=== PATIENT | female | born 1940 | race Caucasian/White ===

== ENCOUNTER → 2016-06-26 | Day surgery (SDC) | payer BC ==
[2016-06-25 13:41] VITALS: Ht 152.4 cm; Wt 63.6 kg
[~2016-06-26] VITALS: Ht 152.4 cm; Wt 63.6 kg
[~2016-06-26] MED LIST: 500ML BSS 0.3ML EPI 1:1000PF IRRIG ONE; ACETAMINOPHEN 325 MG TAB PO PRN; AMVISC PLUS 0.8ML SYRINGE INT OCU ONE; ATROPINE SULFATE 0.1 MG/ML 5ML SYR IV PRN; BSS FLUSH ONE; CALC600T9 PO; EpHEDrine SULFATE INJ 50 MG/ML AMP IV PRN; EpINEphrine INJ 1MG/ML AMP 1 MG/ML AMP ONE; LACTATED RINGER'S 1000ML 500 ML IV SCH; LIDOCAINE 3.5% OPH GEL PER APPLICATION CHARGE ONE; LIDOCAINE HCL 1% MPF 2 ML VIAL ONE; LUTE20CA PO; MIDAZOLAM HCL 1 MG/ML 2ML VIAL ONE; MULT-190 PO; OCUCOAT 1 ML SOLN IO ONE; POVIDONE-IODINE OP SOLN 30 ML BTL ONE; PROPARACAINE 0.5% OP SOLN PER DROP CHARGE OPL SCH; SIMV20TA5 PO; TOBRAMYCIN/DEXAMETHASONE OPH OINT PER APPLN CHARGE ONE
--- NOTE | 2016-06-26 12:15 | History & Physical Bridge - [place] ---
H&P Re-Evaluation Bridge Note: I have examined the patient, reviewed the History & Physical and in the interval since the performance of the History & Physical I have noted the following changes of clinical significance: No changes noted
[2016-06-26] MEDS: PHENYLEPHRINE HCL 2.5% OP SOLN PER DROP CHARGE OPL SCH ×2 (12:16→12:21)
[2016-06-26] MEDS: TROPICAMIDE 1% OP SOLN PER DROP CHARGE OPL SCH ×2 (12:17→12:22)
[2016-06-26] MEDS: CYCLOPENTOLATE HCL 1% OP SOLN PER DROP CHARGE OPL SCH ×2 (12:18→12:23)
[2016-06-26] MEDS: KETOROLAC 0.5% OP SOLN PER DROP CHARGE OPL SCH ×2 (12:19→12:24)
[2016-06-26] MEDS: GATIFLOXACIN OP SOLN PER DROP CHARGE OPL SCH ×2 (12:20→12:30)
--- NOTE | 2016-06-26 13:03 | Discharge Instructions-SurgCtr ---
Discharge Instructions Date of Service Jun 26, 2016. Visit Reason for Visit: Cataract Left Eye Discharge Discharge Diagnosis / Problem: cataract Discharge Goals Goal(s): Improve function Activity Recommendations Activity Limitations: per Instructions/Follow-up section Anesthesia . Post Anesthesia Instructions: If you have had General Anesthesia or IV Sedation: * Do not drive today. * Resume driving when surgeon permits. * Do not make important decisions or sign legal documents today. * Call surgeon for: 1. Temperature elevations greater than 101 degrees F. 2. Uncontrollable pain. 3. Excessive bleeding. 4. Persistent nausea and vomiting. 5. Medication intolerance (nausea, vomiting or rash). * For nausea and vomiting use only clear liquids such as: tea, soda, bouillon until nausea subsides, then gradually increase diet as tolerated. * If you have any concerns or questions, call your surgeon's office. If physician is unavailable and it is an emergency, call 911 or go to the nearest emergency room. . Instructions / Follow-Up Instructions / Follow-Up ACTIVITY RECOMMENDATIONS: * No strenuous lifting, jogging or running for 4 days * No swimming or yard work for 1 week. * Limited bending is permitted, such as putting on shoes. RETURN TO SCHOOL/WORK: No work until seen by physician in office. MEDICATIONS: Resume previous medications unless instructed otherwise by your surgeon. This includes eye drops for glaucoma. Zymaxid/Gatifloxacin (lau cap) - one drop every 2 hours until bedtime Nevanac/Ilevro/Prolensa/Ketorolac (mckinley cap) - one drop every 4 hours until bedtime Prednisolone (white/pink cap, SHAKE WELL) - one drop every 2 hours until bedtime Starting tomorrow - all 3 drops every 4 hours until seen in the office Optive drops - as needed for discomfort SPECIAL CARE INSTRUCTIONS: * Wear eyeshield when sleeping, for four nights. * You may wear your own glasses or sunglasses while awake. * You may read or watch TV * You may shower and wash your face, but be gentle around the eye and pat dry. * Blurry vision and mild irritation are normal. * Call office if pain is more severe or vision becomes dark at . FOLLOW UP VISIT: Follow-up with Dr Wilson tomorrow. Diet Recommendations Home Diet: resume previous diet Procedures Procedures Performed: Left Cataract Phacoemulsification With Intraocular Lens Implant Pending Studies Studies pending at discharge: no Medical Emergencies . Who to Call and When: Medical Emergencies: If at any time you feel your situation is an emergency, please call 911 immediately. . Non-Emergent Contact Non-Emergency issues call your: Postal Transportation Clerk . . "Provider Documentation" section prepared by Jame Wilson.
--- NOTE | 2016-06-26 13:04 | [facility] Operative Report ---
Operative Report Date of Service Jun 26, 2016. Operative Report 1. PREOPERATIVE DIAGNOSIS: Cataract of the left eye. 2. POSTOPERATIVE DIAGNOSIS: Same. 3. PROCEDURE: Phacoemulsification with intraocular lens implantation of the left eye. SURGEON: Dr. Jame Wilson. ANESTHESIA: Topical Lidocaine gel, 1% Non- Preserved intracameral Lidocaine, and monitored intravenous sedation. INDICATIONS FOR THE PROCEDURE: The patient is a 75 - year-old female with a history of cataract of the left eye causing significant visual impairment. The details of the proposed procedure were explained to the patient who asked appropriate questions and following discussion of all risks, benefits and alternatives agreed to have the procedure done. 4. OPERATION AND FINDINGS: DESCRIPTION OF PROCEDURE: After informed consent was obtained, the patient was brought to the Operating Room at the [facility]. The patient was placed in a supine position and then the left eye was prepped and draped in the usual sterile fashion for intraocular surgery. A drop of topical Lidocaine gel was placed in the operative eye. A wire lid speculum was then placed in the fornices. A corneal paracentesis was then created temporally. The Non-Preserved Lidocaine was then instilled into the anterior chamber. The anterior chamber was then pressurized with viscoelastic. A 2.0 mm clear corneal incision was then created temporally. A cystotome was inserted into the anterior chamber and used to create a tear in the anterior lens capsule. This capsular tear was then used to create a small flap and the flap was dragged in a counterclockwise direction in order to create a continuous curvilinear capsulorrhexis. Hydrodissection was accomplished with balanced salt solution. Phacoemulsification of the lens nucleus was then performed in a standard [id number] technique. The remaining cortical material was removed using irrigation aspiration. The capsular bag was then filled with viscoelastic. A Bausch [employer] Lomb MI60L +21.0 diopters lens was then loaded into the injector and injected into the capsular bag. The remaining viscoelastic was removed with the irrigation aspiration handpiece. The wound was hydrated and then checked and found to be watertight. The intraocular pressure was checked and found to be adequate. The wire lid speculum was removed and the patient's face was cleaned and dried. TobraDex ointment was placed in the inferior fornix. The patient was discharged to the Recovery Room having tolerated the procedure well. There were no complications. The patient will be seen tomorrow in the office for follow-up. I attest to the content of the Intraoperative Record and any orders documented therein. Any exceptions are noted below.
[2016-06-26 13:13] VITALS: TEMP 36.4
[2016-06-26 13:27] VITALS: BP_SYST 112; PULSE 75; O2SAT 95
--- NOTE | 2016-06-26 13:37 | Anesthesia Progress Nt - [facility] ---
Anesthesia Post Op Note Date & Time Jun 26, 2016 at 13:38 Vital Signs Pain Intensity: 0 Vital Signs Past 12 Hours Date Time Temp Pulse Resp B/P Pulse Ox O2 Delivery O2 Flow Rate FiO2 06/26/16 13:27 75 112/ 95 Room Air 06/26/16 13:13 36.4 63 20 105/70 95 Room Air 06/26/16 12:11 36.5 79 16 115/75 94 Room Air Notes Mental Status: alert / awake / arousable, participated in evaluation Pt Amnestic to Procedure: Yes Nausea / Vomiting: adequately controlled Pain: adequately controlled Airway Patency, RR, SpO2: stable & adequate BP & HR: stable & adequate Hydration State: stable & adequate Anesthetic Complications: no major complications apparent
== END | disposition home or self-care (01) ==
LOC: X.SURG 11:47
PROVIDERS: ATTEND Ophthalmology
DX: H26.9 Unspecified cataract (principal); E78.5 Hyperlipidemia, unspecified; E66.9 Obesity, unspecified; Z98.41 Cataract extraction status, right eye; Z90.89 Acquired absence of other organs; Z98.51 Tubal ligation status; Z68.27 Body mass index [BMI] 27.0-27.9, adult; M19.90 Unspecified osteoarthritis, unspecified site; Z01.818 Encounter for other preprocedural examination; Z82.49 Family history of ischemic heart disease and other diseases of the circulatory system

== ENCOUNTER → 2017-06-27 | Outpatient (CLI) | payer OTHER ==
[~2017-06-27] MED LIST changes: -500ML BSS 0.3ML EPI 1:1000PF IRRIG ONE; -ACETAMINOPHEN 325 MG TAB PO PRN; -AMVISC PLUS 0.8ML SYRINGE INT OCU ONE; -ATROPINE SULFATE 0.1 MG/ML 5ML SYR IV PRN; -BSS FLUSH ONE; -EpHEDrine SULFATE INJ 50 MG/ML AMP IV PRN; -EpINEphrine INJ 1MG/ML AMP 1 MG/ML AMP ONE; -LACTATED RINGER'S 1000ML 500 ML IV SCH; -LIDOCAINE 3.5% OPH GEL PER APPLICATION CHARGE ONE; -LIDOCAINE HCL 1% MPF 2 ML VIAL ONE; -MIDAZOLAM HCL 1 MG/ML 2ML VIAL ONE; -OCUCOAT 1 ML SOLN IO ONE; -POVIDONE-IODINE OP SOLN 30 ML BTL ONE; -PROPARACAINE 0.5% OP SOLN PER DROP CHARGE OPL SCH; -TOBRAMYCIN/DEXAMETHASONE OPH OINT PER APPLN CHARGE ONE
--- NOTE | 2017-06-27 15:09 | MAMMOGRAPHY REPORT ---
BILATERAL DIGITAL SCREENING MAMMOGRAM TOMOSYNTHESIS WITH CAD: 06/27/2017 TECHNIQUE: Breast tomosynthesis in addition to standard 2D mammography was performed. Current study was also evaluated with a Computer Aided Detection (CAD) system. COMPARISON: Comparison is made to exams dated: 07/19/2015 mammogram, 07/15/2014 mammogram, 05/28/2013 ma mmogram, 04/22/2012 mammogram, 08/09/2010 mammogram, and 07/01/2009 mammogram - [facility]. BREAST COMPOSITION: The tissue of both breasts is almost entirely fatty. FINDINGS: No suspicious masses, calcifications, or areas of architectural distortion are noted in ei ther breast. There has been no significant interval change compared to prior exams. Scattered bilater al benign-appearing calcifications are not significantly changed. Asymmetry in the left upper outer quadrant is stable compared to multiple prior exams. IMPRESSION: ACR BI-RADS CATEGORY 2: BENIGN There is no mammographic evidence of malignancy. A 1 year screening mammogram is recommended. The pa tient will receive written notification of the results. Approximately 10% of breast cancers are not detected with mammography. A negative mammographic report should not delay biopsy if a clinically suggestive mass is present. Maggi Henderson M.D. /:06/27/2017 12:36:10 Contribution Solicitor: Shantell GRACE)(Case), [facility] letter sent: Normal 1/2 BI-RADS Code: ACR BI-RADS Category 2: Benign
== END | disposition home or self-care (01) ==
LOC: C.MAMM 08:41
PROVIDERS: ATTEND Obstetrics & Gynecology
DX: Z12.31 Encounter for screening mammogram for malignant neoplasm of breast (principal)

== ENCOUNTER 2019-04-15 15:21 | Inpatient (IN) ==
[~2019-04-15 15:21] MED LIST changes: -CALC600T9 PO; +ETOMIDATE 2 MG/ML 20 ML VIAL IV ONE; -LUTE20CA PO; -MULT-190 PO; +ROCURONIUM BROMIDE 10 MG/ML 10 ML VIAL IV ONE; -SIMV20TA5 PO; +fentaNYL citrate 100 MCG/2 ML VIAL IV ONE
[2019-04-15] MEDS ORDERED: MoRPHine SULFATE 4 MG/ML 1 ML CARP\\VIAL IV STA (15:35)
[2019-04-15] MEDS ORDERED: ONDANSETRON INJ 2 MG/ML 2 ML VIAL IV STA (15:35)
[2019-04-15] MEDS ORDERED: SODIUM CHLORIDE 0.9% 500 ML IV SCH (15:45)
--- NOTE | 2019-04-15 16:13 | XRay Report ---
XR chest 1V portable CLINICAL HISTORY: Chest Pain dyspnea COMPARISON STUDY: No previous studies for comparison. FINDINGS: Mild cardiac enlargement. Parenchymal nodularity in the right perihilar and right midlung region. Left lung is grossly clear. Diaphragms are smooth. IMPRESSION: Parenchymal nodularity right lung. CT study of the chest is recommended as follow-up. ACT 112: Negative or not required by law. The above report was generated using voice recognition software. It may contain grammatical, syntax or spelling errors. Electronically signed by: Rodríguez Montenegro M.D. 04/15/2019 4:12 PM
[2019-04-15 16:16] LABS: Hematocrit (blood only) 41.3 % (37-47); Hemoglobin 13.7 g/dL (12.0-16.0); Mean Corpuscular Hemoglobin 28.7 pg (25-34); Mean Corpuscular Hgb Conc 33.2 g/dL (32-36); Mean Corpuscular Volume 86.4 fL (80-100); Mean Platelet Volume 10.5 fL (7.4-10.4); Platelet Count 181 K/uL (130-400); RDW Coefficient of Variation 13.5 % (11.5-14.5); RDW Standard Deviation 42.9 fL (36.4-46.3); Red Blood Count 4.78 M/uL (4.2-5.4); White Blood Count 13.57 K/uL (4.8-10.8)
[2019-04-15 16:23] LABS: iSTAT Creatinine 0.9 mg/dl (0.6-1.3); iSTAT Hemoglobin 13.9 g/dl (12.0-16.0); iSTAT Ionized Calcium 1.03 mmol/l (1.12-1.32); iSTAT Potassium 3.6 mEq/L (3.3-5.0)
[2019-04-15 16:31] LABS: INR 1.1 (0.9-1.1); Partial Thromboplastin Time 27.9 Seconds (21.0-31.0); Prothrombin Time 11.2 Seconds (9.0-12.0)
[2019-04-15 16:33] LABS: Alanine Aminotransferase 22 U/L (12-78); Albumin Level 3.2 gm/dl (3.4-5.0); Aspartate Aminotransferase 22 U/L (15-37); BUN Creatinine Ratio 12.9 (10-20); Blood Urea Nitrogen 14 mg/dl (7-18); Calcium 8.4 mg/dl (8.5-10.1); Carbon Dioxide 25 mmol/L (21-32); Chloride 104 mmol/L (98-107); Creatinine Clr Calc Pharmacy 38.7 ml/min; Est GFR (African American) 59.1; Glucose 122 mg/dl (70-99); Lipase 70 U/L (73-393); Potassium 3.8 mmol/L (3.5-5.1); Sodium 135 mmol/L (136-145)
[2019-04-15] MEDS ORDERED: OPTIRAY 320 125ml IV PRN (16:36)
[2019-04-15 16:38] LABS: Albumin Globulin Ratio 0.8 (0.9-2); Alkaline Phosphatase 48 U/L (45-117); Bilirubin,Total 0.9 mg/dl (0.2-1); Globulin 4.1 gm/dl (2.5-4.0); Total Protein 7.3 gm/dl (6.4-8.2); Troponin I < 0.015 ng/ml (0-0.045)
[2019-04-15 16:45] LABS: Basophils # (auto) 0.03 K/uL (0-0.2); Basophils % (auto) 0.2 %; Dohle Bodies 1+; Immature Granulocytes # (auto) 0.04 K/uL (0.00-0.02); Immature Granulocytes % (auto) 0.3 %; Lymphocytes # (auto) 0.96 K/uL (1.2-3.4); Lymphocytes % (auto) 7.1 %; Monocytes # (auto) 1.31 K/uL (0.11-0.59); Monocytes % (auto) 9.7 %; Neutrophils # (auto) 11.23 K/uL (1.4-6.5); Neutrophils % (auto) 82.7 %; Tear Drop Cells 1+
--- NOTE | 2019-04-15 17:04 | CT Scan Report ---
CT angio chest PE protocol CT DOSE: 320.22 mGy.cm HISTORY: Chest pain chest pain R sided front to back, sharp TECHNIQUE: Multiaxial CT images of the chest were performed following the intravenous administration of contrast to evaluate the pulmonary arteries. Maximal intensity projection images were also obtaine d. A dose lowering technique was utilized adhering to the principles of ALARA. COMPARISON STUDY: None. FINDINGS: The thoracic aorta is negative for aneurysm or dissection. No significant pericardial effus ion. Pulmonary vasculature enhances appropriately. There are no major filling defects within limitations o f marginal contrast enhancement characteristics. There are multiple parenchymal nodules primarily within the right upper lobe. These measure up to 2.5 cm. There are consolidative changes medial aspect of the right upper and right middle lobe regions. All of these findings potentially are inflammatory, an underlying neoplastic process is not excluded. IMPRESSION: 1. Study negative for pulmonary embolus. 2. Very small right pleural effusion. 3. Nodularity of the right middle and right upper lobe with consolidative infiltrative changes medial aspect of the right middle and to a lesser extent right upper lobe region. 4. Although it is possible that this represents an inflammatory process, a neoplastic process must be the diagnosis of exclusion. ACT 112: Negative or not required by law. The above report was generated using voice recognition software. It may contain grammatical, syntax or spelling errors. Electronically signed by: Rodríguez Montenegro M.D. 04/15/2019 5:03 PM
[2019-04-15] MEDS ORDERED: ALBUT/IPRATROP 3MG/0.5MG NEB 3 ML VIAL NEB STA (17:52)
--- NOTE | 2019-04-15 19:08 | Emergency Department Note ---
Entered by Radha Marie acting as a scribe for Sander Colón MD History of Present Illness General Chief complaint: Chest Pain Stated complaint: SEVERE CHEST PAIN Time Seen by Provider: 04/15/19 15:28 History of Present Illness Provider complaint: chest pain Onset (ago): day(s) 2 Location: chest Radiation: back Pain Consistency: + constant Maximum Pain Intensity: 5 Quality: + sharp Associated symptoms: + denies other symptoms (recent trauma), + cough (productive) and + other (diagnosed with influenza 5 days ago); no diaphoresis and no nausea/vomiting The patient is a 78 year old white female w/ PMHx of shingles, impaired fasting glucose and tubal ligation who presents to the ED w/ CC of constant chest pain beginning 2 hours ago. The patient describes the pain as sharp and radiating into her back. Per nursing staff, the patient was diagnosed with influenza 5 days ago. The patient states that she has a productive cough. The patient denies nausea, vomiting, diaphoresis, and recent trauma. Home Medications Home Medications Medication Instructions Recorded Confirmed Type simvastatin 20 mg tablet 20 mg PO QPM #90 tab 03/12/19 04/15/19 Rx benzonatate 200 mg PO Q8H PRN 04/15/19 04/15/19 History oseltamivir 75 mg PO Q12H 04/15/19 04/15/19 History vit C-vit F-rlsjte-fkkb-lutein 2 cap PO BID 04/15/19 04/15/19 History [PreserVision Lutein] Allergies Allergy/AdvReac Type Severity Reaction Status Date / Time latex Allergy Unknown RASH, SKIN Verified 04/15/19 16:12 IRRITATION No Known Drug Allergies Allergy Unknown . Verified 06/25/16 13:40 Past Med/Surg History Medical History (Updated 04/15/19 @ 17:28 by Radha Marie) Impaired fasting glucose Shingles Surgical History (Updated 03/11/19 @ 19:04 by Terrence Cook III, MD) S/P tubal ligation Status post tonsillectomy Family History (Updated 03/12/19 @ 14:18 by Melina Farfan) Father Myocardial infarction Aunt Myocardial infarction Social History (Updated 03/12/19 @ 14:17 by Melina Farfan) Preferred Language: Korean Visual Impairment: Partially Limited Hearing Ability: Normal marital status: Current Living Situation: Spouse current occupational status: retired Feels Safe at Home: Yes Smoking Status: Never smoker Second Hand Exposure: No ; Hx Alcohol Use: Yes Alcohol type: wine Alcohol Intake Frequency: Daily Alcohol Intake Frequency Comment: one drink per day Hx Substance Use: No Childhood Exposure to Second-Hand Smoke: Yes Dental Care, Regularly: Yes Physical Activity Frequency: 5-6 Times per Week Review of Systems See HPI for pertinent positives & negatives. and A total of 10 systems reviewed and were otherwise negative Physical Exam Vital Signs Vital Signs - 24 hr 04/15/19 15:29 04/15/19 15:32 04/15/19 15:36 Temperature 36.9 C Temperature Source Oral Pulse Rate 22 L 99 H 98 H Pulse Rate [Left Finger] Pulse Rate from SpO2 Sensor Respiratory Rate 22 22 Respiratory Effort / Characteristics Non-Labored Spontaneous Respiratory Depth Normal Respiratory Pattern Regular Blood Pressure 168/80 H 168/80 H Blood Pressure Mean 109 96 Blood Pressure Position Sitting Pulse Oximetry Oxygen Delivery Method Oxygen Flow Rate Sepsis Recent Fever Within 48 Hours No Sepsis New/Unexplained Change in Mental Status No Sepsis Action Taken by Nursing No Action Required 04/15/19 15:47 04/15/19 15:52 04/15/19 16:00 Temperature Temperature Source Pulse Rate 95 H Pulse Rate [Left Finger] Pulse Rate from SpO2 Sensor 96 H Respiratory Rate 22 Respiratory Effort / Characteristics Respiratory Depth Respiratory Pattern Blood Pressure Blood Pressure Mean Blood Pressure Position Pulse Oximetry 94 93 92 Oxygen Delivery Method Room Air Room Air Oxygen Flow Rate Sepsis Recent Fever Within 48 Hours Sepsis New/Unexplained Change in Mental Status Sepsis Action Taken by Nursing 04/15/19 16:20 04/15/19 16:30 04/15/19 16:31 Temperature Temperature Source Pulse Rate 92 H 91 H 89 Pulse Rate [Left Finger] Pulse Rate from SpO2 Sensor 92 H 91 H 89 Respiratory Rate 22 22 22 Respiratory Effort / Characteristics Respiratory Depth Respiratory Pattern Blood Pressure 129/64 133/65 Blood Pressure Mean 95 108 Blood Pressure Position Pulse Oximetry 92 90 91 Oxygen Delivery Method Oxygen Flow Rate Sepsis Recent Fever Within 48 Hours Sepsis New/Unexplained Change in Mental Status Sepsis Action Taken by Nursing 04/15/19 17:00 04/15/19 17:01 04/15/19 17:21 Temperature Temperature Source Pulse Rate 90 90 Pulse Rate [Left Finger] Pulse Rate from SpO2 Sensor 92 H 89 Respiratory Rate 30 H 28 H Respiratory Effort / Characteristics Respiratory Depth Respiratory Pattern Blood Pressure 120/62 Blood Pressure Mean 93 Blood Pressure Position Pulse Oximetry 92 90 88 L Oxygen Delivery Method Room Air Oxygen Flow Rate Sepsis Recent Fever Within 48 Hours Sepsis New/Unexplained Change in Mental Status Sepsis Action Taken by Nursing 04/15/19 17:22 04/15/19 17:30 04/15/19 17:31 Temperature Temperature Source Pulse Rate 92 H 93 H Pulse Rate [Left Finger] Pulse Rate from SpO2 Sensor 92 H 94 H Respiratory Rate 22 20 Respiratory Effort / Characteristics Respiratory Depth Respiratory Pattern Blood Pressure 122/76 Blood Pressure Mean 90 Blood Pressure Position Pulse Oximetry 93 94 94 Oxygen Delivery Method Nasal Cannula Oxygen Flow Rate 2 Sepsis Recent Fever Within 48 Hours Sepsis New/Unexplained Change in Mental Status Sepsis Action Taken by Nursing 04/15/19 17:59 04/15/19 18:00 04/15/19 18:01 Temperature Temperature Source Pulse Rate 95 H 95 H Pulse Rate [Left Finger] 96 H Pulse Rate from SpO2 Sensor 95 H 95 H Respiratory Rate 20 35 H 34 H Respiratory Effort / Characteristics Spontaneous Respiratory Depth Respiratory Pattern Blood Pressure 122/80 Blood Pressure Mean 93 Blood Pressure Position Pulse Oximetry 95 98 98 Oxygen Delivery Method Nasal Cannula Oxygen Flow Rate 2 Sepsis Recent Fever Within 48 Hours Sepsis New/Unexplained Change in Mental Status Sepsis Action Taken by Nursing 04/15/19 18:30 04/15/19 18:31 Temperature Temperature Source Pulse Rate 101 H 99 H Pulse Rate [Left Finger] Pulse Rate from SpO2 Sensor Respiratory Rate 27 H 26 H Respiratory Effort / Characteristics Respiratory Depth Respiratory Pattern Blood Pressure 117/66 Blood Pressure Mean 87 Blood Pressure Position Pulse Oximetry Oxygen Delivery Method Oxygen Flow Rate Sepsis Recent Fever Within 48 Hours Sepsis New/Unexplained Change in Mental Status Sepsis Action Taken by Nursing GENERAL: Well nourished, mildly uncomfortable appearing, wearing glasses. EYE EXAM: Normal conjunctiva. PERRL, no anisocoria and EOM's grossly intact w/o pain. OROPHARYNX: Moist mucous membranes. Grossly normal dentition. NECK: Supple, no nuchal rigidity, no adenopathy, non-tender. No signs of meningismus. LUNGS: Clear to auscultation. Normal chest wall mechanics. HEART: NSR, no MRG. ABDOMEN: Abdomen soft, non-tender, normo-active bowel sounds, no masses, no rebound or guarding. BACK: No CVA TTP. SKIN: No rashes and no bruising. UPPER EXTREMITIES: Upper extremities are grossly normal. LOWER EXTREMITIES: Negative Homans sign. No pitting edema. No calf pain. NEURO EXAM: A&O x3, cranial nerves II-XII grossly intact, normal speech, moves all 4 extremities on command w/o issue. Course Course 1531: Past medical records reviewed. The patient was evaluated in room C07. A complete history and physical exam was performed. 1539: The patient was put on a library monitor at this time. 1721: I reevaluated the patient and she appears tachycardic. Her oxygen saturation is 88%. I put her on 2L nasal cannula. 1740: I discussed the patient's case with Dr. Borjas [facility], Hospitalist. She will evaluate the patient for further management. Consultations Consultation #1: I discussed the patient's case with Dr. Borjas [facility], Hospitalist. She will evaluate the patient for further management. Time: 17:40 Administered Medications Ioversol (Optiray 320 125ml) 118 ml IV ONCE PRN PRN Reason: Interaction Checking Stop: 04/19/19 16:35 Last Admin: 04/15/19 16:36 Dose: 118 ml Documented by: [id number] Discontinued Medications Albuterol (Duoneb) 3 ml NEB NOW STA Stop: 04/15/19 17:53 Last Admin: 04/15/19 17:58 Dose: 3 ml Documented by: [id number] Sodium Chloride (Nss) 500 mls @ 999 mls/hr IV .Q31M LUKASZ Stop: 04/15/19 16:15 Last Infusion: 04/15/19 16:22 Dose: 0 mls/hr Documented by: [id number] Admin: 04/15/19 15:51 Dose: 999 mls/hr Documented by: [id number] Morphine Sulfate (Morphine Sulfate) 4 mg IV NOW STA Stop: 04/15/19 15:36 Last Admin: 04/15/19 15:51 Dose: 4 mg Documented by: [id number] Ondansetron HCl (Zofran) 4 mg IV NOW STA Stop: 04/15/19 15:36 Last Admin: 04/15/19 15:51 Dose: 4 mg Documented by: [id number] Critical Care Time Critical Care Time: Yes Total Critical Care Time: 35 I have personally spent 35 minutes of critical care time in the direct ma nagement of this patient. This includes bedside care, interpretation of diagnostic studies, and testing, discussion with consultants, patient, and family members, and other required patient management activities due to hypoxia. This 35 minutes is in excess of all separately billable procedures. Medical Decision Making Differential Diagnosis Differential diagnosis: Etiologies such as shingles, musculoskeletal pain, pericarditis, myocarditis, cardiac ischemia, pericardial tamponade, pneumonia, pneumothorax, pleural effusion, hemothorax, pleurisy, aortic pathology, pulmonary embolism, intra-abd ominal process, as well as others were considered. Medical Records Attestation: I reviewed the patient's medical records. Home Medications Current Medication List: was personally reviewed by me Laboratory Data Attestation: I reviewed the patient's lab results. Result diagrams: 04/15/19 16:00 04/15/19 16:00 Lab Results 04/15/19 04/15/19 04/15/19 Range/Units 16:00 16:00 16:00 WBC 13.57 H (4.8-10.8) K/uL RBC 4.78 (4.2-5.4) M/uL Hgb 13.7 (12.0-16.0) g/dL POC Hgb (12.0-16.0) g/dl Hct 41.3 (37-47) % POC Hct (37-47) % MCV 86.4 (80-100) fL MCH 28.7 (25-34) pg MCHC 33.2 (32-36) g/dL RDW Std Deviation 42.9 (36.4-46.3) fL RDW Coeff of Marcy 13.5 (11.5-14.5) % Plt Count 181 (130-400) K/uL MPV 10.5 H (7.4-10.4) fL Immature Gran % (Auto) 0.3 % Neut % (Auto) 82.7 % Lymph % (Auto) 7.1 % [place] % (Auto) 9.7 % Eos % (Auto) 0.0 % Baso % (Auto) 0.2 % Immature Gran # (Auto) 0.04 H (0.00-0.02) K/uL Neut # (Auto) 11.23 H (1.4-6.5) K/uL Lymph # (Auto) 0.96 L (1.2-3.4) K/uL [place] # (Auto) 1.31 H (0.11-0.59) K/uL Eos # (Auto) 0.00 (0-0.5) K/uL Baso # (Auto) 0.03 (0-0.2) K/uL Dohle Bodies 1+ Tear Drop Cells 1+ PT 11.2 (9.0-12.0) Seconds INR 1.1 (0.9-1.1) APTT 27.9 (21.0-31.0) Seconds PTT Ratio 1.0 POC Sodium (135-144) mEq/L Sodium 135 L (136-145) mmol/L POC Potassium (3.3-5.0) mEq/L Potassium 3.8 (3.5-5.1) mmol/L POC Chloride (101-112) mEq/L Chloride 104 (98-107) mmol/L Carbon Dioxide 25 (21-32) mmol/L POC Total CO2 (24-31) mEq/l Anion Gap 6.0 (3-11) POC Anion Gap (16-25) mmol/L POC BUN (7-18) mg/dl BUN 14 (7-18) mg/dl Creatinine 1.06 (0.6-1.2) mg/dl POC Creatinine (0.6-1.3) mg/dl Est Cr Clr Drug Dosing 38.7 ml/min Est GFR ( Amer) 59.1 Est GFR (Non-Af Amer) 51.0 BUN/Creatinine Ratio 12.9 (10-20) Glucose 122 H (70-99) mg/dl POC Glucose (other) (70-99) mg/dl Calcium 8.4 L (8.5-10.1) mg/dl POC Ioniz Calcium Anayeli (1.12-1.32) mmol/l Total Bilirubin 0.9 (0.2-1) mg/dl AST 22 (15-37) U/L ALT 22 (12-78) U/L Alkaline Phosphatase 48 (45-117) U/L Troponin I < 0.015 (0-0.045) ng/ml Total Protein 7.3 (6.4-8.2) gm/dl Albumin 3.2 L (3.4-5.0) gm/dl Globulin 4.1 H (2.5-4.0) gm/dl Albumin/Globulin Ratio 0.8 L (0.9-2) Lipase 70 L (73-393) U/L 04/15/19 Range/Units 16:11 WBC (4.8-10.8) K/uL RBC (4.2-5.4) M/uL Hgb (12.0-16.0) g/dL POC Hgb 13.9 (12.0-16.0) g/dl Hct (37-47) % POC Hct 41 (37-47) % MCV (80-100) fL MCH (25-34) pg MCHC (32-36) g/dL RDW Std Deviation (36.4-46.3) fL RDW Coeff of Marcy (11.5-14.5) % Plt Count (130-400) K/uL MPV (7.4-10.4) fL Immature Gran % (Auto) % Neut % (Auto) % Lymph % (Auto) % [place] % (Auto) % Eos % (Auto) % Baso % (Auto) % Immature Gran # (Auto) (0.00-0.02) K/uL Neut # (Auto) (1.4-6.5) K/uL Lymph # (Auto) (1.2-3.4) K/uL [place] # (Auto) (0.11-0.59) K/uL Eos # (Auto) (0-0.5) K/uL Baso # (Auto) (0-0.2) K/uL Dohle Bodies Tear Drop Cells PT (9.0-12.0) Seconds INR (0.9-1.1) APTT (21.0-31.0) Seconds PTT Ratio POC Sodium 134 L (135-144) mEq/L Sodium (136-145) mmol/L POC Potassium 3.6 (3.3-5.0) mEq/L Potassium (3.5-5.1) mmol/L POC Chloride 102 (101-112) mEq/L Chloride (98-107) mmol/L Carbon Dioxide (21-32) mmol/L POC Total CO2 22 L (24-31) mEq/l Anion Gap (3-11) POC Anion Gap 14.0 L (16-25) mmol/L POC BUN 14 (7-18) mg/dl BUN (7-18) mg/dl Creatinine (0.6-1.2) mg/dl POC Creatinine 0.9 (0.6-1.3) mg/dl Est Cr Clr Drug Dosing ml/min Est GFR ( Amer) Est GFR (Non-Af Amer) BUN/Creatinine Ratio (10-20) Glucose (70-99) mg/dl POC Glucose (other) 124 H (70-99) mg/dl Calcium (8.5-10.1) mg/dl POC Ioniz Calcium Anayeli 1.03 L (1.12-1.32) mmol/l Total Bilirubin (0.2-1) mg/dl AST (15-37) U/L ALT (12-78) U/L Alkaline Phosphatase (45-117) U/L Troponin I (0-0.045) ng/ml Total Protein (6.4-8.2) gm/dl Albumin (3.4-5.0) gm/dl Globulin (2.5-4.0) gm/dl Albumin/Globulin Ratio (0.9-2) Lipase (73-393) U/L Imaging Data Radiologist's Impression: Radiology results as stated below per my review and the radiologist's interpretation: XR chest 1V portable CLINICAL HISTORY: Chest Pain dyspnea COMPARISON STUDY: No previous studies for comparison. FINDINGS: Mild cardiac enlargement. Parenchymal nodularity in the right perihilar and right midlung region. Left lung is grossly clear. Diaphragms are smooth. IMPRESSION: Parenchymal nodularity right lung. CT study of the chest is recommended as follow-up. ACT 112: Negative or not required by law. The above report was generated using voice recognition software. It may contain grammatical, syntax or spelling errors. Electronically signed by: Rodríguez Montenegro M.D. 04/15/2019 4:[address] angio chest PE protocol CT DOSE: 320.22 mGy.cm HISTORY: Chest pain chest pain R sided front to back, sharp TECHNIQUE: Multiaxial CT images of the chest were performed following the intravenous administration of contrast to evaluate the pulmonary arteries. Ma ximal intensity projection images were also obtained. A dose lowering technique was utilized adhering to the principles of ALARA. COMPARISON STUDY: None. FINDINGS: The thoracic aorta is negative for aneurysm or dissection. No significant pericardial effusion. Pulmonary vasculature enhances appropriately. There are no major filling defects within limitations of marginal contrast enhancement characteristics. There are multiple parenchymal nodules primarily within the right upper lobe. These measure up to 2.5 cm. There are consolidative changes medial aspect of the right upper and right middle lobe regions. All of these findings potentially are inflammatory, an underlying neoplastic process is not excluded. IMPRESSION: 1. Study negative for pulmonary embolus. 2. Very small right pleural effusion. 3. Nodularity of the right middle and right upper lobe with consolidative infilt rative changes medial aspect of the right middle and to a lesser extent right upper lobe region. 4. Although it is possible that this represents an inflammatory process, a neoplastic process must be the diagnosis of exclusion. ACT 112: Negative or not required by law. The above report was generated using voice recognition software. It may contain grammatical, syntax or spelling errors. Electronically signed by: Rodríguez Montenegro M.D. 04/15/2019 5:03 PM ECG Data Attestation: I personally reviewed and interpreted this ECG as follows: Indication: + chest pain Rate (beats per minute): 100 Rhythm: + normal sinus ECG Intervals/blocks: + Normal QRS, + Normal SC and + Normal QT-c ECG [place]: + Normal ECG Findings: no PACs and no PVCs Comparison ECG Date: no prior available Blood Pressure Blood Pressure Findings: Normal blood pressure Blood Pressure Disposition: did not require urgent referral MDM Narrative The patient is a 78 year old white female w/ PMHx of shingles, impaired fasting glucose and tubal ligation who presents to the ED w/ CC of constant chest pain beginning 2 hours ago. Patient was seen and evaluated bedside. The patient did develop acute onset of right-sided sharp chest pain with radiation to the back. Patient was recently diagnosed with influenza. Patient has had some mild cough. No prior history of DVT or PE or heart or lung disease. Non-smoker. No lower extremity swelling. Patient does not take blood thinning medications and no trauma. Blood work was obtained along with a [id number] BMP CT angiography of the chest patient was given pain medications and antiemetics. Upon reassessment the patient was feeling improved but did appear somewhat dyspneic. O2 sats were at 88% I did place the patient on 2 L nasal cannula. Patient CT does show questionable inflammatory versus neoplastic process. I did discuss with the patient family member. Given the patient's dyspneic appearance and hypoxia I believe she would benefit from further inpatient treatment. Patient was admitted to the medicine service. Impression & Plan Chest pain, Hypoxia, Flu-like symptoms Discharge Plan Visit Data Chief Complaint: Chest Pain Stated Complaint: SEVERE CHEST PAIN ED Provider: Sander Colón Discharge Problem: Chest pain, Hypoxia, Flu-like symptoms Patient Disposition: Being Evaluated by Hospitalist Forms Stand Alone Forms: Call Back Authorization, My [facility] Prescriptions Prescriptions: No Action simvastatin 20 mg tablet 20 mg PO QPM Qty: 90 RF: 3 benzonatate 200 mg capsule 200 mg PO Q8H PRN (Reason: Cough) RF: 0 oseltamivir 75 mg Capsule 75 mg PO Q12H RF: 0 PreserVision Lutein 226 mg-200 unit -5 mg-0.8 mg Capsule 2 cap PO BID RF: 0 Referrals Referrals: Terrence Cook III, MD [Primary Care Provider] - Discharge Problem: Chest pain Qualifiers: Chest pain type: unspecified Qualified Code(s): R07.9 - Chest pain, unspecified The scribe's documentation has been prepared under my direction and personally reviewed by me in its entirety. I confirm that the note above accurately reflects all work, treatment, procedures, and medical decision making performed by me.
[2019-04-15] MEDS ORDERED: BENZONATATE 100 MG CAPSULE PO PRN (21:12)
[2019-04-15] MEDS ORDERED: ONDANSETRON INJ 2 MG/ML 2 ML VIAL IV PRN (21:12)
[2019-04-15] MEDS ORDERED: MAGNESIUM HYDROXIDE SUSP 30 ML UDC PO PRN (21:12)
[2019-04-15] MEDS ORDERED: ALUMINUM/MAGNESIUM SUSP 30 ML UDC PO PRN (21:12)
[2019-04-15] MEDS ORDERED: POLYETHYLENE (MIRALAX) 17 GM PACK PO PRN (21:12)
[2019-04-15] MEDS: ACETAMINOPHEN 325 MG TAB PO PRN (22:14)
[2019-04-15] MEDS: NSS + 20MEQ KCL 20 MEQ/1,000 ML BAG IV SCH (22:15)
[2019-04-15] MEDS: OSELTAMIVIR PHOSPHATE 75 MG CAP PO SCH (22:21)
[2019-04-15] MEDS: SIMVASTATIN 20 MG TAB PO SCH (22:21)
[2019-04-15] MEDS: ENOXAPARIN INJ 40 MG/0.4 ML SYR SQ SCH (22:23)
[2019-04-16] MEDS ORDERED: ALBUTEROL 0.083% NEBU SOLN 3 ML VIAL NEB STA (01:40)
[2019-04-16] MEDS: ACETAMINOPHEN 325 MG TAB PO PRN ×2 (01:40→19:42)
--- NOTE | 2019-04-16 04:12 | History & Physical Report ---
Date of Service April 15, 2019 Assessment & Plan (1) Chest pain: Admit to tele VS Q4 hr Troponin x 3 Replenish electrolyte DVT :Lovenox 40 mg sq daily full code Present on Admission?: Yes (2) Acute respiratory failure: Most likely due to recent flu Duonebs Q4 hr/sc/prn Cont Oseltamivir 75 mg for 1 more day to complete 5 days consult pulmonary for pulmonary nodularity (3) Influenza A: as the above Present on Admission?: Yes (4) Hyperlipidemia: Fasting lipid panel pending, cont simvastatin 20 mg QPM Present on Admission?: Yes (5) Impaired fasting glucose: A1c pending, ADA diet 1800 kcal Present on Admission?: Yes History of Present Illness Chief Complaint: chest pain Primary Care Provider: Terrence Cook MD The patient is a 78 year old white female w/ PMHx of shingles, impaired fasting glucose who presents to the ED w/ CC of constant chest pain beginning 2 hours ago. The patient describes the pain as sharp and radiating into her back. Per nursing staff, the patient was diagnosed with influenza 5 days ago completing Tamiflu. The patient states that she has a productive cough. The patient denies nausea, vomiting, diaphoresis, and recent trauma. CT chest:1. Study negative for pulmonary embolus. 2. Very small right pleural effusion. 3. Nodularity of the right middle and right upper lobe with consolidative infiltrative changes medial aspect of the right middle and to a lesser extent right upper lobe region. 4. Although it is possible that this represents an inflammatory process, a neoplastic process must be the diagnosis of exclusion. Decision is made to admit pt to telemetry for further evaluation of chest pain and nodularity of the right middle and right upper lobe . Allergies Allergy/AdvReac Type Severity Reaction Status Date / Time latex Allergy Unknown RASH, SKIN Verified 04/15/19 16:12 IRRITATION No Known Drug Allergies Allergy Unknown . Verified 06/25/16 13:40 Home Medications Home Medications Medication Instructions Recorded Confirmed Type simvastatin 20 mg tablet 20 mg PO QPM #90 tab 03/12/19 04/15/19 Rx benzonatate 200 mg PO Q8H PRN 04/15/19 04/15/19 History oseltamivir 75 mg PO Q12H 04/15/19 04/15/19 History vit C-vit P-hpiotw-dglt-lutein 2 cap PO BID 04/15/19 04/15/19 History [PreserVision Lutein] Past Med/Surg History Medical History Impaired fasting glucose Shingles Surgical History S/P tubal ligation Status post tonsillectomy Family History Father Myocardial infarction Aunt Myocardial infarction Social History Preferred Language: Chinese Visual Impairment: Partially Limited Hearing Ability: Normal Vehicle Safety Inspector Required: No marital status: Current Living Situation: Spouse current occupational status: retired Other Information That Helps Us Care for You: Yes Feels Safe at Home: Yes Smoking Status: Never smoker Second Hand Exposure: No ; Hx Alcohol Use: Yes Alcohol type: wine Alcohol Intake Frequency: Daily Alcohol Intake Frequency Comment: one drink per day Hx Substance Use: No Childhood Exposure to Second-Hand Smoke: Yes Dental Care, Regularly: Yes Physical Activity Frequency: 5-6 Times per Week Review of Systems Review of Systems: All systems reviewed & are unremarkable except as noted in HPI & below Physical Exam Constitutional: WD/WN, vitals as above well developed and + obese Eyes: PERRL, conjunctivae normal, anicteric sclerae ENMT: external ear and nose normal, oropharynx normal Neck: trachea midline, no thyromegaly Respiratory: + respiratory distress and + labored breathing Auscultation: + crackles and + wheezes Cardiovascular: Rate/Rhythm: regular rate and regular rhythm Vessels: dorsalis pedis pulses present Gastrointestinal (Abdomen): normal bowel sounds, soft, nontender, no hepatosplenomegaly Musculoskeletal: no cyanosis or clubbing, extremities motor strength 5/5 Skin: no rashes, warm and dry Neurologic: patellar DTR's 2+ bilat, sensation intact Psychiatric: A+Ox3, euthymic affect Lymphatic: no cervical or axillary lymphadenopathy Results & Data Vital Signs (Past 12 Hours) Vital Signs Temp Pulse Pulse Resp BP BP BP 04/16/19 02:11 93 H 18 04/16/19 00:58 105 H 04/15/19 23:28 37.7 C H 106 H 20 92/57 L 04/15/19 21:34 38.3 C H 105 H 109 H 22 112/69 04/15/19 20:30 99 H 27 H 116/62 04/15/19 20:00 103 H 32 H 117/65 04/15/19 19:30 99 H 27 H 113/56 L 04/15/19 19:00 101 H 26 H 127/66 04/15/19 18:31 99 H 26 H 04/15/19 18:30 101 H 27 H 117/66 04/15/19 18:01 95 H 34 H 04/15/19 18:00 95 H 35 H 122/80 04/15/19 17:59 96 H 20 04/15/19 17:31 93 H 20 04/15/19 17:30 92 H 22 122/76 04/15/19 17:22 04/15/19 17:21 04/15/19 17:01 90 28 H 04/15/19 17:00 90 30 H 120/62 04/15/19 16:31 89 22 04/15/19 16:30 91 H 22 133/65 04/15/19 16:20 92 H 22 129/64 Pulse Ox 04/16/19 02:11 88 L 04/16/19 00:58 04/15/19 23:28 90 04/15/19 21:34 90 04/15/19 20:30 91 04/15/19 20:00 91 04/15/19 19:30 04/15/19 19:00 04/15/19 18:31 04/15/19 18:30 04/15/19 18:01 98 04/15/19 18:00 98 04/15/19 17:59 95 04/15/19 17:31 94 04/15/19 17:30 94 04/15/19 17:22 93 04/15/19 17:21 88 L 04/15/19 17:01 90 04/15/19 17:00 92 04/15/19 16:31 91 04/15/19 16:30 90 04/15/19 16:20 92 Code Status & VTE Plan Code Status full code VTE Prophylaxis Plan VTE Prophylaxis will be ordered: Yes PG Care Time/CCT Total # of Minutes Spent Total Time Spent with Patient: Total time spent is greater than 50% in coordination of care (as documented) at patient's floor/unit and/or counseling patient: (1) Chest pain Chest pain type: unspecified Qualified Code(s): R07.9 - Chest pain, unspecified
[2019-04-16] MEDS: OSELTAMIVIR PHOSPHATE 75 MG CAP PO SCH (07:30)
[2019-04-16 07:47] LABS: Hematocrit (blood only) 40.6 % (37-47); Hemoglobin 13.4 g/dL (12.0-16.0); Immature Granulocytes # (auto) 0.02 K/uL (0.00-0.02); Immature Granulocytes % (auto) 0.4 %; Lymphocytes # (auto) 0.53 K/uL (1.2-3.4); Lymphocytes % (auto) 11.2 %; Mean Corpuscular Hemoglobin 28.5 pg (25-34); Mean Corpuscular Volume 86.4 fL (80-100); Mean Platelet Volume 10.7 fL (7.4-10.4); Monocytes # (auto) 0.49 K/uL (0.11-0.59); Monocytes % (auto) 10.4 %; Neutrophils # (auto) 3.69 K/uL (1.4-6.5); Platelet Count 160 K/uL (130-400); RDW Coefficient of Variation 13.8 % (11.5-14.5); RDW Standard Deviation 43.6 fL (36.4-46.3); White Blood Count 4.73 K/uL (4.8-10.8)
[2019-04-16] MEDS ORDERED: ALBUT/IPRATROP 3MG/0.5MG NEB 3 ML VIAL NEB PRN (08:01)
[2019-04-16 08:10] LABS: Albumin Level 2.5 gm/dl (3.4-5.0); BUN Creatinine Ratio 12.9 (10-20); Calcium 8.4 mg/dl (8.5-10.1); Creatinine Clr Calc Pharmacy 25.3 ml/min; Est GFR (African American) 40.1; Est GFR (Non-African American) 34.6; Potassium 3.7 mmol/L (3.5-5.1)
[2019-04-16] MEDS: ALBUT/IPRATROP 3MG/0.5MG NEB 3 ML VIAL NEB SCH ×5 (08:17→23:01)
[2019-04-16 08:18] LABS: Albumin Globulin Ratio 0.7 (0.9-2); Bilirubin,Total 0.9 mg/dl (0.2-1); Globulin 3.8 gm/dl (2.5-4.0); Thyroid Stimulating Hormone 1.55 uIu/ml (0.300-4.500); Total Protein 6.3 gm/dl (6.4-8.2)
[2019-04-16 08:22] LABS: Estimated Average Glucose 126 mg/dl
[2019-04-16] MEDS: cefTRIAXone SODIUM 1,000 MG in DEXTROSE 5% 50 ML IV SCH ×2 (08:33→09:30)
--- NOTE | 2019-04-16 09:22 | Pulmonary Consultation ---
Date of Consultation April 16, 2019 Assessment & Plan (1) Influenza A: Patient diagnosed last 04/11/2019 and started on Tamiflu that day. Today is day 6 of treatment. We will continue with 10 days of Tamiflu as patient is still symptomatic Patient continues to have fever and other flulike symptoms We will continue isolation precautions droplet precautions until symptoms dennis (2) Hypoxia: Patient with influenza A and CT findings consistent with inflammation versus neoplasm Patient history would favor inflammation We will treat with antibiotics to impede secondary bacterial infection to the influenza Patient will need repeat CT scan in 6 weeks We will arrange follow-up in the outpatient pulmonary clinic for results No tobacco abuse history No prior pulmonary disease or history Titrate supplemental oxygen to maintain SaO2 above 90% and taper as tolerated No indication for steroids at this time (3) Abnormal CT of the chest: This is most likely inflammatory but cannot rule out neoplasm No history of tobacco abuse or family history of malignancy We will follow-up in the outpatient clinic and repeat CT scan in 6 weeks (4) DVT prophylaxis: No current plans for bronchoscopy or other intervention from pulmonary standpoint Inasmuch as CT shows inflammation versus neoplasm, will consider DVT prophylaxis with enoxaparin Ambulate as tolerated Out of bed to chair as tolerated Thank you for including us in the care of this patient Please refer to Dr. Horton's addendum and corrections for further recommendations We will sign off at this time. Please feel free to reconsult as needed Supervising Physician Co-Signing Physician Notes Patient seen and examined with Marcell south PA-C. I agree with his assessment and plan aside for any additions/comments noted: Patient is very hypoxemic on 40 L and 100% FiO2. She has right upper lobe and right middle lobe parenchymal nodules. There are also consolidative changes in these regions. She does have a recent influenza infection. These nodular opacities would be atypical for infectious symptoms. Other inflammatory etiologies are certainly possible. Aspiration is also a possibility, but less likely. Malignancy is on the differential as well. At this time, I do not think she is a good candidate for bronchoscopy. I would have a very low threshold to move her to the ICU if she should decompensate. At that time, we can intubate her and perform bronchoscopy if necessary. I will order for a procalcitonin and MRSA swab of the nares. I think we need to add vancomycin at this time as superimposed staph aureus infection remains a possibility especially in light of her recent influenza. History of Present Illness Attending Physician: Giuseppe Crooks DO History of Present Illness Attending: Dr. Horton This is a 78-year-old female that is quite pleasant. She was diagnosed with influenza A in [place] last Saturday. She has been on Tamiflu since that time. Yesterday she had increasing shortness of breath and chest pain and presented to the emergency department where she was found to be negative for pulmonary embolus but did have inflammation versus neoplasm on chest CT. The patient has ruled out for acute cardiac syndrome. She continues to have fever and tachycardia and flulike symptoms. The patient's past medical history includes hyperlipidemia and impaired fasting glucose. Otherwise she is in good health. She follows with Dr. Terrence Cook recently had a well visit exam and is up-to-date on all vaccinations. The patient is a lifelong non- smoker. She did grow up in the home with both parents smoke so she was exposed to secondhand smoke as a child. She was raised in [facility] and always had bedroom and living quarters aboveground. Their home in [place] has a radon mitigation system which has been functional for all but 1 year. They spend limited time in the basement. The patient has no other significant risk factors for malignancy. There is no family history of malignancy. The [place] does have a [place] [facility] and travels back and forth throughout the year. Allergies Allergy/AdvReac Type Severity Reaction Status Date / Time latex Allergy Unknown RASH, SKIN Verified 04/15/19 16:12 IRRITATION No Known Drug Allergies Allergy Unknown . Verified 06/25/16 13:40 Home Medications Home Medications Medication Instructions Recorded Confirmed Type simvastatin 20 mg tablet 20 mg PO QPM #90 tab 03/12/19 04/15/19 Rx benzonatate 200 mg PO Q8H PRN 04/15/19 04/15/19 History oseltamivir 75 mg PO Q12H 04/15/19 04/15/19 History vit C-vit U-bkwrue-nofs-lutein 2 cap PO BID 04/15/19 04/15/19 History [PreserVision Lutein] Patient History Surgical History S/P tubal ligation Status post tonsillectomy Family History Father Myocardial infarction Aunt Myocardial infarction Social History Preferred Language: Turkish Visual Impairment: Partially Limited Hearing Ability: 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 marital status: Current Living Situation: Spouse current occupational status: retired Other Information That Helps Us Care for You: Yes Feels Safe at Home: Yes Smoking Status: Never smoker Second Hand Exposure: No ; Hx Alcohol Use: Yes Alcohol type: wine Alcohol Intake Frequency: Daily Alcohol Intake Frequency Comment: one drink per day Hx Substance Use: No Childhood Exposure to Second-Hand Smoke: Yes Dental Care, Regularly: Yes Physical Activity Frequency: 5-6 Times per Week Review of Systems Review of Systems: All systems reviewed & are unremarkable except as noted in HPI & below Physical Exam Physical Exam: GENERAL : Mild to moderate distress. Short of breath with speaking in full sentences EYES: No icterus, gaze conjugate. Pupils equal round and reactive to light NOSE: No evidence of epistaxis. Nasal cannula in place MOUTH: No lesions or candidiasis. Mucosa dry. Tongue is midline. No facial droop. NECK: Supple. LUNGS: CTA B/L, no wheezes, rales or rhonchi. Good inspiratory effort. HEART: Regular, tachycardic. No appreciation of murmurs gallops or rubs ABDOMEN: Soft, NT, ND, BS Present but quiet. EXTREMITIES: No LE edema, pedal pulses intact and equal bilaterally. NEURO: A&OX3. Cerebellar function intact with fqipmo-ku-olny and alternating movement. Patient is unable to accomplish gfoo-za-aivr on left or right side. Patient complains of pain with straight leg raise. There is no pronator drift. Results & Data Vital Signs (Past 12 Hours) Vital Signs Temp Pulse Pulse Resp BP BP Pulse Ox 04/16/19 07:48 36.9 C 111 H 16 111/69 86 L 04/16/19 07:27 37.5 C 109 H 16 102/63 89 L 04/16/19 04:18 36.8 C 96 H 18 98/64 L 91 04/16/19 02:11 93 H 18 88 L 04/16/19 00:58 105 H 04/15/19 23:28 37.7 C H 106 H 20 92/57 L 90 04/15/19 21:34 38.3 C H 105 H 109 H 22 112/69 90 Laboratory Results 04/16/19 07:06 04/16/19 07:06 Patient reports positive influenza A diagnosed at urgent care clinic in [place] on 04/11/[address] angio chest PE protocol CT DOSE: 320.22 mGy.cm HISTORY: Chest pain chest pain R sided front to back, sharp TECHNIQUE: Multiaxial CT images of the chest were performed following the intravenous administration of contrast to evaluate the pulmonary arteries. Maximal intensity projection images were also obtained. A dose lowering technique was utilized adhering to the principles of ALARA. COMPARISON STUDY: None. FINDINGS: The thoracic aorta is negative for aneurysm or dissection. No significant pericardial effusion. Pulmonary vasculature enhances appropriately. There are no major filling defects within limitations of marginal contrast enhancement characteristics. There are multiple parenchymal nodules primarily within the right upper lobe. These measure up to 2.5 cm. There are consolidative changes medial aspect of the right upper and right middle lobe regions. All of these findings potentially are inflammatory, an underlying neoplastic process is not excluded. IMPRESSION: 1. Study negative for pulmonary embolus. 2. Very small right pleural effusion. 3. Nodularity of the right middle and right upper lobe with consolidative infiltrative changes medial aspect of the right middle and to a lesser extent right upper lobe region. 4. Although it is possible that this represents an inflammatory process, a neoplastic process must be the diagnosis of exclusion. ACT 112: Negative or not required by law. The above report was generated using voice recognition software. It may contain grammatical, syntax or spelling errors. Electronically signed by: Rodríguez Montenegro M.D. 04/15/2019 5:03 PM PG Care Time/CCT Total # of Minutes Spent Total Time Spent with Patient: Total time spent is greater than 50% in coordination of care (as documented) at patient's floor/unit and/or counseling patient: 50 minutes
--- NOTE | 2019-04-16 09:59 | Hospitalist Progress Note ---
Date of Service April 16, 2019 Assessment & Plan (1) Pneumonia: 78 yo F no significant PMHx admitted for sepsis due to pneumonia in the setting of recent diagnosis of influenza. Sepsis due to Pulmonary source (Influenza with superimposed bacterial pneumonia) with acute hypoxic respiratory failure: - Pt subjectively reports this afternoon that while she is still working pretty hard to breathe that she feels "a hair better" on oxygen therapy. - Increased to HFNC with goal O2 saturations of >90%. - BCx x2 pending this AM, Abx started (Rocephin/Azithro), fluids NSS w/ KCl 20 meq @ 150mL/hr. - One dose methylpred 80mg IV given. Duonebs q4h PRN and scheduled. - Given severity of illness will continue Tamiflu for a total course of 10 days (to complete 04/20/2019). - Pulmonary to do repeat CT in ~6 weeks following discharge to evaluate resolution of pneumonia, and follow up with Pulmonology office soon after. ORLANDO: - Pt's Cr 1.46 with a baseline of ~1; this likely in the setting of multifactorial sepsis and poor PO intake while ill. - LR @ 150mL/hr. - Continue to monitor BMP qAM. Code Status: FULL CODE FEN/GI: Heart Healthy diet, LR @ 150mL/hr with 20meq KCl DVT ppx: Lovenox Dispo: med/surg with telemetry (2) Influenza A: (3) Acute respiratory failure: (4) Chest pain: (5) ORLANDO (acute kidney injury): (6) Sepsis: Supervising Physician Co-Signing Physician Notes I personally examined the patient and verified all benavides points of history and exam, discussed case, and agree with decision making with Dr Villegas. Feeling fatigued and somewhat dyspneic. She does not feel worse than when she came in. She is coughing with a little bit of sputum but not much production. Updated to the best of my ability and answered all questions to her/'s satisfaction. Vitals noted, in general she is awake and alert pleasant but appearing mild to moderately dyspneic. HEENT normocephalic atraumatic mucous membranes are moist. Cardio is distant but tachycardic. Lungs are diffuse rhonchi throughout more rales at the bases no wheezing good effort. Osteopathic structural exam showed her thoracic paraspinal muscles to be high in tone, decreased range of motionbalanced ligamentous tension/direct myofascial done and patient tolerated well. Skin shows no rashes no pallor or icterus. Neuro shows no focal deficits. Acute hypoxic respiratory failure caused by pneumonia which is a secondary over growth after having had influenzaantibiotics started this morning, will give a dose of steroids given some evidence that it may help with older patients with pneumonia when given early in the course, especially given that she has no significant risk of steroid adverse reaction. OMT to normalize sympathetics to her lungs as well as try to open up her rib cage. Continue Zithromax Rocephin, supportive care, pulmonary toilet, and oxygen support. Otherwise as above. DVT prophylaxisLovenox Subjective Pt febrile and tachycardic overnight. Still with shortness of breath; normally not on oxygen therapy. Some subjective fevers and chills. Diagnosed with Influenza (unsure of which kind) on Saturday and started Tamiflu same day. Increased SOB and chest pain that radiated to back last night prompted ED evaluation. No wheezing. Some cough productive of clear sputum, no hemoptysis. No active chest pain during interview. Sick contact in with similar symptoms but not as bad as her about a week ago. No significant radon exposure. No work exposure to lung irritants. No personal smoking history. Reports second- hand smoking history as a child as both parents smoked. Review of Systems Constitutional: + fever, + chills and + malaise Respiratory: + cough and + dyspnea Cardiovascular: no chest pain (no active chest pain), no palpitations and no edema Gastrointestinal: no abdominal pain, no constipation and no diarrhea/loose stools Genitourinary: no dysuria and no hematuria Physical Exam Constitutional: WD/WN, vitals as above Respiratory: normal respiratory effort and + labored breathing; no retractions and no cough Auscultation: + crackles; no wheezes Cardiovascular: RRR, no murmur, no edema Gastrointestinal (Abdomen): normal bowel sounds, soft, nontender, no hepatosplenomegaly Skin: no rashes, warm and dry Psychiatric: A+Ox3, euthymic affect Results & Data Vital Signs (Past 12 Hours) Vital Signs Temp Pulse Pulse Resp BP BP Pulse Ox 04/16/19 07:48 36.9 C 111 H 16 111/69 86 L 04/16/19 07:27 37.5 C 109 H 16 102/63 89 L 04/16/19 06:21 102 H 04/16/19 04:18 36.8 C 96 H 18 98/64 L 91 04/16/19 02:11 93 H 18 88 L 04/16/19 00:58 105 H 04/15/19 23:28 37.7 C H 106 H 20 92/57 L 90 Laboratory Results Laboratory Results - last 24 hr 04/15/19 04/15/19 04/15/19 16:00 16:00 16:00 WBC 13.57 H RBC 4.78 Hgb 13.7 POC Hgb Hct 41.3 POC Hct MCV 86.4 MCH 28.7 MCHC 33.2 RDW Std Deviation 42.9 RDW Coeff of Marcy 13.5 Plt Count 181 MPV 10.5 H Immature Gran % (Auto) 0.3 Neut % (Auto) 82.7 Lymph % (Auto) 7.1 [place] % (Auto) 9.7 Eos % (Auto) 0.0 Baso % (Auto) 0.2 Immature Gran # (Auto) 0.04 H Neut # (Auto) 11.23 H Lymph # (Auto) 0.96 L [place] # (Auto) 1.31 H Eos # (Auto) 0.00 Baso # (Auto) 0.03 Dohle Bodies 1+ Tear Drop Cells 1+ PT 11.2 INR 1.1 APTT 27.9 PTT Ratio 1.0 POC Sodium Sodium 135 L POC Potassium Potassium 3.8 POC Chloride Chloride 104 Carbon Dioxide 25 POC Total CO2 Anion Gap 6.0 POC Anion Gap POC BUN BUN 14 Creatinine 1.06 POC Creatinine Est Cr Clr Drug Dosing 38.7 Est GFR ( Amer) 59.1 Est GFR (Non-Af Amer) 51.0 BUN/Creatinine Ratio 12.9 Glucose 122 H POC Glucose (other) Estimat Average Glucose Hemoglobin A1c Calcium 8.4 L POC Ioniz Calcium Anayeli Total Bilirubin 0.9 AST 22 ALT 22 Alkaline Phosphatase 48 Troponin I < 0.015 Total Protein 7.3 Albumin 3.2 L Globulin 4.1 H Albumin/Globulin Ratio 0.8 L Triglycerides Cholesterol LDL Cholesterol, Calc VLDL Cholesterol, Calc HDL Cholesterol Cholesterol/HDL Ratio Lipase 70 L TSH 04/15/19 04/15/19 04/16/19 16:11 21:22 03:18 WBC RBC Hgb POC Hgb 13.9 Hct POC Hct 41 MCV MCH MCHC RDW Std Deviation RDW Coeff of Marcy Plt Count MPV Immature Gran % (Auto) Neut % (Auto) Lymph % (Auto) [place] % (Auto) Eos % (Auto) Baso % (Auto) Immature Gran # (Auto) Neut # (Auto) Lymph # (Auto) [place] # (Auto) Eos # (Auto) Baso # (Auto) Dohle Bodies Tear Drop Cells PT INR APTT PTT Ratio POC Sodium 134 L Sodium POC Potassium 3.6 Potassium POC Chloride 102 Chloride Carbon Dioxide POC Total CO2 22 L Anion Gap POC Anion Gap 14.0 L POC BUN 14 BUN Creatinine POC Creatinine 0.9 Est Cr Clr Drug Dosing Est GFR ( Amer) Est GFR (Non-Af Amer) BUN/Creatinine Ratio Glucose POC Glucose (other) 124 H Estimat Average Glucose Hemoglobin A1c Calcium POC Ioniz Calcium Anayeli 1.03 L Total Bilirubin AST ALT Alkaline Phosphatase Troponin I < 0.015 < 0.015 Total Protein Albumin Globulin Albumin/Globulin Ratio Triglycerides Cholesterol LDL Cholesterol, Calc VLDL Cholesterol, Calc HDL Cholesterol Cholesterol/HDL Ratio Lipase TSH 04/16/19 04/16/19 04/16/19 07:06 07:06 07:06 WBC 4.73 L D RBC 4.70 Hgb 13.4 POC Hgb Hct 40.6 POC Hct MCV 86.4 MCH 28.5 MCHC 33.0 RDW Std Deviation 43.6 RDW Coeff of Marcy 13.8 Plt Count 160 MPV 10.7 H Immature Gran % (Auto) 0.4 Neut % (Auto) 78.0 Lymph % (Auto) 11.2 [place] % (Auto) 10.4 Eos % (Auto) 0.0 Baso % (Auto) 0.0 Immature Gran # (Auto) 0.02 Neut # (Auto) 3.69 Lymph # (Auto) 0.53 L [place] # (Auto) 0.49 Eos # (Auto) 0.00 Baso # (Auto) 0.00 Dohle Bodies Tear Drop Cells PT INR APTT PTT Ratio POC Sodium Sodium 137 POC Potassium Potassium 3.7 POC Chloride Chloride 106 Carbon Dioxide 20 L POC Total CO2 Anion Gap 11.0 POC Anion Gap POC BUN BUN 19 H Creatinine 1.46 H D POC Creatinine Est Cr Clr Drug Dosing 25.3 Est GFR ( Amer) 40.1 Est GFR (Non-Af Amer) 34.6 BUN/Creatinine Ratio 12.9 Glucose 115 H POC Glucose (other) Estimat Average Glucose 126 Hemoglobin A1c 6.0 H Calcium 8.4 L POC Ioniz Calcium Anayeli Total Bilirubin 0.9 AST 14 L ALT 17 Alkaline Phosphatase 38 L Troponin I Total Protein 6.3 L Albumin 2.5 L Globulin 3.8 Albumin/Globulin Ratio 0.7 L Triglycerides 90 Cholesterol 97 LDL Cholesterol, Calc 37 VLDL Cholesterol, Calc 18 HDL Cholesterol 42 Cholesterol/HDL Ratio 2 Lipase TSH 1.550 Medications Administered Current Medications Acetaminophen (Tylenol) 650 mg PO Q4H PRN PRN Reason: Pain or Fever Stop: 05/15/19 21:11 Last Admin: 04/16/19 01:40 Dose: 650 mg Documented by: Al Hydrox/Mg Hydrox/Simethicone (Maalox) 15 ml PO Q4H PRN PRN Reason: Dyspepsia Stop: 05/15/19 21:11 Albuterol (Duoneb) 3 ml NEB Q4R LUKASZ Stop: 05/16/19 10:59 Last Admin: 04/16/19 08:17 Dose: 3 ml Documented by: Albuterol (Duoneb) 3 ml NEB Q4R PRN PRN Reason: Shortness Of Breath Stop: 05/16/19 10:59 Benzonatate (Tessalon Perle) 200 mg PO Q8H PRN PRN Reason: Cough Stop: 05/15/19 21:11 Enoxaparin Sodium (Lovenox) 40 mg SQ Q24H LUKASZ Stop: 05/15/19 21:59 Last Admin: 04/15/19 22:23 Dose: 40 mg Documented by: Potassium Chloride/Sodium Chloride (Normal Saline W/20 Meq Kcl) 20 meq in 1,000 mls @ 80 mls/hr IV .[id number] LUKASZ Stop: 05/15/19 21:11 Last Admin: 04/15/19 22:15 Dose: 80 mls/hr Documented by: Azithromycin 500 mg/ Dextrose 255 mls @ 125 mls/hr IV Q24H LUKASZ; Protocol Stop: 04/23/19 08:59 Ceftriaxone Sodium 1,000 mg/ (Dextrose) 50 mls @ 100 mls/hr IV Q24H LUKASZ; Protocol Stop: 04/23/19 07:59 Last Admin: 04/16/19 09:30 Dose: 100 mls/hr Documented by: Magnesium Hydroxide (Milk Of Magnesia) 30 ml PO Q12H PRN PRN Reason: Constipation Stop: 05/15/19 21:11 Multivitamins/Minerals (Multivitamin W/ Minerals Tab) 1 tab PO BID LUKASZ Stop: 05/16/19 08:59 Ondansetron HCl (Zofran) 4 mg IV Q6H PRN PRN Reason: Nausea Stop: 05/15/19 21:11 Oseltamivir Phosphate (Tamiflu) 75 mg PO Q12 LUKASZ; Protocol Stop: 04/17/19 02:00 Last Admin: 04/16/19 07:30 Dose: 75 mg Documented by: Polyethylene Glycol (Miralax Powder Packet) 17 gm PO DAILY PRN PRN Reason: Constipation Stop: 05/15/19 21:11 Simvastatin (Zocor) 20 mg PO QPM LUKASZ Stop: 05/15/19 21:11 Last Admin: 04/15/19 22:21 Dose: 20 mg Documented by: Resident Activity Tracking Resident Involvement: Resident Care Provided Care Provided: Adult Hospital Medicine (1) Chest pain Chest pain type: unspecified Qualified Code(s): R07.9 - Chest pain, unspecified
[2019-04-16] MEDS: AZITHROMYCIN 500 MG in DEXTROSE 5% 250 ML IV SCH (10:49)
[2019-04-16] MEDS: CEROVITE ADV FORMULA TAB PO SCH ×2 (10:49→21:24)
[2019-04-16] MEDS: NSS + 20MEQ KCL 20 MEQ/1,000 ML BAG IV SCH ×2 (13:12→22:22)
[2019-04-16] MEDS ORDERED: methylPREDNISolone 80 MG in SYRINGE 0 ML IV ONE (15:00)
[2019-04-16] MEDS ORDERED: VANCOMYCIN CONSULT ACTIVE PRN (17:09)
[2019-04-16] MEDS ORDERED: VANCOMYCIN HCL 1,000 MG in SODIUM CHLORIDE 0.9% 500 ML IV SCH (17:15)
[2019-04-16] MEDS: OSELTAMIVIR PHOSPHATE SUSP 30 MG/5 ML UDP PO SCH ×2 (17:59→21:24)
[2019-04-16] MEDS: LINEZOLID 600 MG/300 ML BAG IV SCH (18:00)
--- NOTE | 2019-04-16 20:12 | Electrocardiogram Report ---
Test Reason : Blood Pressure : / mmHG Vent. Rate : 100 BPM Atrial Rate : 100 BPM P-R Int : 146 ms QRS Dur : 078 ms QT Int : 332 ms P-R-T Axes : 043 -06 029 degrees QTc Int : 428 ms Poor data quality, interpretation may be adversely affected Normal sinus rhythm Possible Left atrial enlargement Nonspecific ST and T wave abnormality Abnormal ECG No previous ECGs available Confirmed by Melvin Rai ([id number]) on 04/16/2019 8:12:44 PM Referred By: Confirmed By:Melvin Rai
--- NOTE | 2019-04-16 20:27 | Billing Data ---
Date of Service April 16, 2019 Coding Level of Care Code 11285 Subseq Hosp Care Lvl 3
[2019-04-16] MEDS ORDERED: OXYCODONE HCL IR 5 MG TAB (IMMEDIATE RELEASE) PO STA (21:13)
[2019-04-16] MEDS: SIMVASTATIN 20 MG TAB PO SCH (21:26)
[2019-04-16] MEDS: ENOXAPARIN INJ 40 MG/0.4 ML SYR SQ SCH (21:26)
--- NOTE | 2019-04-16 23:20 | Electrocardiogram Report ---
Test Reason : Blood Pressure : / mmHG Vent. Rate : 106 BPM Atrial Rate : 106 BPM P-R Int : 138 ms QRS Dur : 082 ms QT Int : 320 ms P-R-T Axes : 040 003 024 degrees QTc Int : 425 ms Sinus tachycardia Nonspecific ST and T wave abnormality Abnormal ECG When compared with ECG of 15-APR-2019 15:33, Nonspecific T wave abnormality, improved in Lateral leads Confirmed by Melvin Rai ([id number]) on 04/16/2019 11:20:04 PM Referred By: REFERRED SELF Confirmed By:Melvin Rai
[2019-04-17] MEDS: ALBUT/IPRATROP 3MG/0.5MG NEB 3 ML VIAL NEB SCH ×6 (03:08→23:08)
[2019-04-17] MEDS ORDERED: ALBUMIN 25% 50 ML with FUROSEMIDE 40 MG IV ONE (04:36)
[2019-04-17] MEDS ORDERED: FUROSEMIDE 40 MG in SYRINGE 0 ML IV STA (04:47)
[2019-04-17] MEDS ORDERED: FUROSEMIDE 40 MG/4 ML VIAL IV ONE (04:48)
[2019-04-17 05:04] LABS: Basophils # (auto) 0.01 K/uL (0-0.2); Basophils % (auto) 0.1 %; Hematocrit (blood only) 38.8 % (37-47); Immature Granulocytes # (auto) 0.07 K/uL (0.00-0.02); Lymphocytes # (auto) 0.42 K/uL (1.2-3.4); Lymphocytes % (auto) 6.3 %; Mean Corpuscular Hemoglobin 28.5 pg (25-34); Mean Corpuscular Hgb Conc 33.5 g/dL (32-36); Mean Corpuscular Volume 85.1 fL (80-100); Mean Platelet Volume 11.1 fL (7.4-10.4); Monocytes # (auto) 0.86 K/uL (0.11-0.59); Monocytes % (auto) 12.8 %; Neutrophils # (auto) 5.36 K/uL (1.4-6.5); Neutrophils % (auto) 79.8 %; Platelet Count 166 K/uL (130-400); RDW Coefficient of Variation 13.6 % (11.5-14.5); RDW Standard Deviation 41.9 fL (36.4-46.3); Red Blood Count 4.56 M/uL (4.2-5.4); White Blood Count 6.72 K/uL (4.8-10.8)
[2019-04-17 05:04] LABS: Base Excess ABG -5.9 mEq/L (-9-1.8); HCO3 ABG 17 mmol/L (19-24); Oxygen Saturation ABG 91.4 % (90-95); PCO2 ABG 27 mmHg (35-46); PO2 ABG 59 mm/Hg (80-95); pH ABG 7.42 (7.35-7.45)
[2019-04-17 05:11] LABS: Allen Test POS (Pos)
[2019-04-17 05:37] LABS: Albumin Globulin Ratio 0.5 (0.9-2); Albumin Level 2.1 gm/dl (3.4-5.0); BUN Creatinine Ratio 17.2 (10-20); Bilirubin,Total 0.5 mg/dl (0.2-1); Calcium 7.8 mg/dl (8.5-10.1); Creatinine Clr Calc Pharmacy 24.6 ml/min; Est GFR (African American) 38.8; Est GFR (Non-African American) 33.5; Potassium 4.4 mmol/L (3.5-5.1); Total Protein 6.1 gm/dl (6.4-8.2)
--- NOTE | 2019-04-17 06:05 | Critical Care Consultation ---
Date of Consultation April 17, 2019 Assessment & Plan (1) Admitted to intensive care unit: Reason Critically Ill: 78-year-old female with acute hypoxic respiratory failure in the setting of pneumonia with worsening infiltrative changes versus pulmonary edema to the RIGHT sided lung marie. NEURO - * CAM ICU: NEGATIVE CARDIAC/VASCULAR - * Question volume overload: * Certainly could be all pulmonary in nature, particularly given the unilateral nature of the findings. Regardless, patient likely with need for positive pressure as well as diuresis. * Will check BMP. * Repeat troponin. * EKG: Sinus tach @106bmp. No significant ST/T-wave changes. QTc 425ms. * Monitor on telemetry. RESPIRATORY - * Acute hypoxic respiratory failure: * Initially presenting with influenza with concerns for superimposed pneumonia. * Increasing oxygen requirement requiring high flow at 40 L at 100%. Increas ing work of breathing overnight. * Chest x-ray this morning shows significant consolidation versus pulmonary edema to the RIGHT middle/lower lobe which has significantly changed since 04/15. * Initially received Lasix and albumin upstairs. Order placed for BiPAP upon arrival in the ICU. * Patient is doing well on CPAP. * Low threshold for intubation. * Currently following with pulmonary service. * Covered with Zyvox, Rocephin, azithromycin, Tamiflu. GI/NUTRITION - * Will make n.p.o. given current tenuous respiratory status. * Prophylaxis: Famotidine RENAL/LYTES - * Persistent [place] * Hold IV fluids with concerns for volume overload. - * José in place - Strict I&Os. ENDO - * No history of diabetes or thyroid disease. * BSGs per unit protocol. ISS --> gtt per unit policy. HEME - * Stable H&H. ID - * Pneumonia. * Currently covered with Zyvox, Rocephin, azithromycin. * Continue at this time, particularly given clinical decline. * Recheck lactate. * Recheck pro-Nilo. * Influenza: * Currently treated with Tamiflu. LINES/IV ACCESS - * PIVs x2 * José DVT PROPHYLAXIS - * Lovenox * SCDs I have personally spent 35 minutes of critical care time in the direct management of this patient. This is a life/limb threatening event. This includes time spent evaluating patient, direct bedside care, chart review, placing orders, interpretation of diagnostic studies, discussion with consultants, pat ient, and family members, as well as other required patient management activities. This time is exclusive of all separately billable procedures, and teaching time and separate from and in addition to any other critical care service time. Thank you for allowing us to participate in the care of this patient. Please refer to my attending physician's documentation for any further recommendations. (2) Sepsis: (3) Pneumonia: (4) [place] (acute kidney injury): (5) Abnormal CT of the chest: (6) Influenza A: (7) Acute respiratory failure: (8) Hypoxia: (9) Flu-like symptoms: History of Present Illness Attending Physician: Giuseppe Crooks DO History of Present Illness Patient is a 78-year-old female with no significant past medical history who initially presented to the emergency department with chest pain and ongoing cough after being diagnosed with influenza several days prior to arrival. She was admitted to this facility and underwent evaluation including CTA which was negative for PE. Her stay has been complicated by increasing oxygen requirement. She was placed on high flow nasal cannula at increasing settings of 40 L and 100%. Despite this, she was maintaining saturations in the high 80s to low 90s. She was persistently tachypneic throughout the night. Chest x-ray was obtained which demonstrated significant consolidation/pulmonary edema to the RIGHT middle and lower lung marie.. She received 40 mg IV Lasix and was subsequently transferred to the ICU for increasing work of breathing and tenuous pulmonary status. Upon arrival in the ICU, the patient is awake, alert, and oriented. She is tachypneic. She is unable to complete full sentences secondary to tachypnea. She denies any pain, particularly any chest pain. She does feel short of breath and feels as though she cannot take a deep breath. She denies any headaches, dizziness, lightheadedness, palpitations, hemoptysis, nausea, vomiting, or abdominal pain. Allergies Allergy/AdvReac Type Severity Reaction Status Date / Time latex Allergy Unknown RASH, SKIN Verified 04/15/19 16:12 IRRITATION No Known Drug Allergies Allergy Unknown . Verified 06/25/16 13:40 Home Medications Home Medications Medication Instructions Recorded Confirmed Type simvastatin 20 mg tablet 20 mg PO QPM #90 tab 03/12/19 04/15/19 Rx benzonatate 200 mg PO Q8H PRN 04/15/19 04/15/19 History oseltamivir 75 mg PO Q12H 04/15/19 04/15/19 History vit C-vit M-fnugch-rwlp-lutein 2 cap PO BID 04/15/19 04/15/19 History [PreserVision Lutein] Patient History Medical History Hyperlipidemia Impaired fasting glucose Shingles Surgical History S/P tubal ligation Status post tonsillectomy Family History Father Myocardial infarction Aunt Myocardial infarction Social History Preferred Language: Irish Visual Impairment: Partially Limited Hearing Ability: Normal Hand Tire Trimmer Required: No marital status: Current Living Situation: Spouse current occupational status: retired Other Information That Helps Us Care for You: Yes Feels Safe at Home: Yes Smoking Status: Never smoker Second Hand Exposure: No ; Hx Alcohol Use: Yes Alcohol type: wine Alcohol Intake Frequency: Daily Alcohol Intake Frequency Comment: one drink per day Hx Substance Use: No Childhood Exposure to Second-Hand Smoke: Yes Dental Care, Regularly: Yes Physical Activity Frequency: 5-6 Times per Week Review of Systems Review of Systems: A complete 10 point review of systems was reviewed with the patient with pertinent positives and negatives as per history of present illness. All else were negative. Physical Exam Physical Exam: VITAL SIGNS - Vital signs and nursing notes were reviewed. GENERAL - 78-year-old female appearing her stated age who is in moderate respiratory distress. Able to communicate in few word answers. SKIN - Without rashes. HEAD - NC/AT. EYES - PERRL with EOMI bilaterally. Sclera anicteric. EARS - No deformities of external structures noted on gross examination bilaterally. NOSE - Midline and without cyanosis. No epistaxis or purulent drainage noted. MOUTH/OROPHARYNX - Without perioral cyanosis. Buccal mucosa pink and moist and without leukoplakia. NECK - Neck with FROM. No nuchal rigidity. LUNGS -tachypneic. Rales noted to the RIGHT sided upper lung marie. Decreased breath sounds to the bilateral lower lung marie RIGHT greater than left. CARDIAC - RRR with S1/S2. No murmur, rubs, or gallops appreciated. ABDOMEN - Abdominal contour flat without pulsations or visible masses. BS normoactive all four quadrants. No tenderness, palpable masses, hepatosplenomegaly, or ascites noted. EXTREMITIES - No clubbing or peripheral cyanosis. No pretibial edema present. +3/5 radial and dorsalis pedis pulses palpated throughout. +5/5 strength noted in UE/LE bilaterally. NEUROLOGIC - Cranial nerves II through XII grossly intact. Sensory intact to light touch throughout. PSYCH - A&Ox3 and cooperates fully with examiner. Pt is very pleasant and interacts well with examiner. Results & Data Vital Signs (Past 12 Hours) Vital Signs Temp Pulse Pulse Resp BP BP BP 04/17/19 06:00 103 H 29 H 04/17/19 05:35 36.5 C 104 H 30 H 133/96 04/17/19 04:02 36.6 C 96 H 17 123/76 04/17/19 03:09 98 H 22 04/17/19 02:54 99 H 04/16/19 23:04 89 22 04/16/19 22:39 37.0 C 98 H 18 121/77 04/16/19 19:31 112 H 24 04/16/19 18:51 37.2 C 114 H 22 120/75 Pulse Ox 04/17/19 06:00 91 04/17/19 05:35 86 L 04/17/19 04:02 96 04/17/19 03:09 90 04/17/19 02:54 04/16/19 23:04 92 04/16/19 22:39 93 04/16/19 19:31 91 04/16/19 18:51 93 Coding Level of Care Code Critical Care 1st 30-74 mins Diagnoses Admitted to intensive care unit Z78.9 Sepsis A41.9 Pneumonia J18.9 [place] (acute kidney injury) N17.[address] of the chest R93.89 Influenza A J10.1 Acute respiratory failure J96.00 Hypoxia R09.02 Flu-like symptoms R68.89 Time Spent (min) 35
[2019-04-17] MEDS: LINEZOLID 600 MG/300 ML BAG IV SCH ×2 (06:16→17:11)
[2019-04-17 06:37] LABS: NT Pro B Type Natriuretic Pept 1869 pg/ml (0-1800); Troponin I < 0.015 ng/ml (0-0.045)
--- NOTE | 2019-04-17 07:34 | XRay Report ---
XR chest 1V portable HISTORY: Shortness of breath. COMPARISON: Chest CTA 04/15/2019. FINDINGS: Progressive density within the right mid to lower lung zone. There is only a small amount o f aerated lung within the right upper lung zone. No pneumothorax. The heart remains mildly enlarged. There is perihilar interstitial vascular thickening consistent with mild pulmonary edema. Trace left pleural effusion. IMPRESSION: 1. Progressive density within the right mid to lower lung zone which likely represents a combination of consolidation and a right pleural effusion. Some of this could be due to right middle or lower lob e collapse. 2. Mild pulmonary edema and a trace left pleural effusion. 3. These findings were called/faxed to the referring physician following dictation. ACT 112: Negative or not required by law. Electronically signed by: Emile Garcia M.D. 04/17/2019 7:33 AM
[2019-04-17 07:53] LABS: iSTAT Allen Test Pass; iSTAT Arterial Blood Gas HCO3 14 meg/L (19-24); iSTAT Arterial Blood Gas pCO2 26 mmHg (35-46); iSTAT Arterial Blood Gas pH 7.33 (7.35-7.45); iSTAT Arterial Blood Gas pO2 88 mmHg (80-95); iSTAT Carbon Dioxide 15 mEq/l (24-31); iSTAT FiO2 100 %; iSTAT Site R Radial
[2019-04-17] MEDS ORDERED: RAPID SEQUENCE INDUCTION BAG ONE (08:08)
[2019-04-17] MEDS ORDERED: NOREPINEPHRINE BITARTRATE 1 MG/ML 4 ML VIAL IV ONE (08:12)
[2019-04-17] MEDS ORDERED: NOREPINEPHRINE BIT INJ 8 MG in DEXTROSE 5% 500 ML IV SCH (08:15)
[2019-04-17] MEDS ORDERED: CEFEPIME 2,000 MG in SYRINGE 7.5 ML IV ONE (08:30)
--- NOTE | 2019-04-17 08:32 | Procedure Note ---
Procedure Note Date of Service April 17, 2019 Note INTUBATION PROCEDURE NOTE: Dr. Davis Horton A time-out was completed verifying correct patient, procedure, site, positioning. Patient was evaluated and required intubation for acute hypoxemic respiratory failure and right lobar collapse. Sedative agent used: 20 mg etomidate and 50 mcg of fentanyl Paralysis agent used: None Consent signed and placed on chart. Number of attempts: 1 The patient was prepared in the appropriate fashion. Sedation was achieved utilizing 20 mg of etomidate and 50 mcg effect. The patient was easily ventilated using [id number] to achieve adequate oxygenation. A 7-1/2 Iraqi endotracheal tube was placed 22 cm at the lip. The stylette was removed and balloon was inflated with 10mL of air. Appropriate Colorimetric change was appreciated. Bilateral breath sounds were heard without air sounds in the abdomen. Intubation was performed with a glide scope. No issues. Some secretions in the posterior oropharynx. Post Intubation Chest X-ray ordered Patient tolerated the procedure well and there were no immediate complications. Coding CPT Codes Resuscitation - Resuscitation: 90030 Endotracheal Intubation, emergency (PG3 1500)
[2019-04-17] MEDS: propofoL 1,000 MG/100 ML VIAL IV SCH ×2 (08:52→15:01)
--- NOTE | 2019-04-17 09:37 | Hospitalist Progress Note ---
Date of Service April 17, 2019 Assessment & Plan (1) Pneumonia: 78 yo F no significant PMHx admitted for sepsis due to pneumonia in the setting of recent diagnosis of influenza. Sepsis due to Pulmonary source (Influenza with superimposed bacterial pneumonia) with acute hypoxic respiratory failure: - Per Pulm/Crit Care: 'Patient was found to be in severe respiratory distress this morning. She was requiring BiPAP on 80% FiO2 saturating in the low 90s. We opted to intubate her and do a bronchoscopy. She has progressive right lower lobe and middle lobe infiltrate with lobar collapse. We did a bronchoscopy which demonstrated some mucus. On repeat chest x-ray and she continues to have a mid lung zone collapse. She is saturating 88% on 50% FiO2 and 10 of PEEP. She was hypotensive briefly during the procedure and required some Levophed transiently. We are giving her fluid boluses. Lactate is pending. Continuing IV antibiotics. She is at risk for necrotizing pneumonia given her recent flu infection. Right lower lobe lavage sent for culture and pathology." - Lactate 3.9 -> 3.2 overnight. Procal 61.45. - BCx x2 pending, continuing Abx/antivirals (Rocephin/Azithro/Linezolid/Tamiflu); fluids held due to possibility of fluid overload. - Echocardiogram showed normal LV function, no wall motion abnormalities, mild LVH. - Duonebs q4h PRN and scheduled. - Pulmonary to do repeat CT in ~6 weeks following discharge to evaluate resolution of pneumonia, and follow up with Pulmonology office soon after. - Pt admitted to ICU at this time. Will continue to follow until pt stable enough to be discharged to floor. [place]: - Pt's Cr 1.50 with a baseline of ~1, stable from yesterday; this likely in the setting of multifactorial sepsis and poor PO intake while ill. - Continue to monitor BMP qAM. - Intermittent fluid boluses as tolerated given possible fluid overload on CXR. Code Status: FULL CODE FEN/GI: NPO DVT ppx: Lovenox Dispo: ICU (2) Influenza A: (3) Acute respiratory failure: (4) Chest pain: (5) [place] (acute kidney injury): (6) Sepsis: (7) Admitted to intensive care unit: Supervising Physician Co-Signing Physician Notes I personally examined the patient and verified all benavides points of history and exam, discussed case, and agree with decision making with Dr Villegas. No meaningful HPI or review of systems obtainable. Patient intubated and sedated. Input from patient sitter greatly appreciated. Updated and answered all questions to the best of my ability. Vitals noted, intubated and sedated. No distress. Breathing is even and unlabored on the ventilator. Skin shows no rashes no pallor or icterus. No focal neuro deficits at rest. Labs and chest x-ray reviewed. Acute hypoxic respiratory failure caused by pneumonia which is a secondary overgrowth after having had influenzanow with worsening hypoxic respiratory failure related most likely to mucous pluggingon the ventilator, continue antibiotics and supportive care. Otherwise as per ICU DVT prophylaxisLovenox Subjective Pt with continued tachycardia, increased work of breathing causing tiring, and low O2 saturations despite HFNC. BiPAP started and still with difficulty breathing and proper oxygenation. Pt transferred to ICU and intubated. Unable to obtain subjective history due to intubation. Pt afebrile overnight. Review of Systems Review of Systems: Unobtainable due to endotracheal tube and Unobtainable due to reduced consciousness Physical Exam Constitutional: well developed, well nourished and + ill appearing Respiratory: Pt is at RR 20/minute on ventilator. Decreased breath sounds noted bilaterally lower lobes. Cardiovascular: RRR, no murmur, no edema Gastrointestinal (Abdomen): Inspection/Auscultation: abdomen normal to inspection and normal bowel sounds Percussion/Palpation: abdomen soft Skin: no rashes, warm and dry Psychiatric: sedated at this time due to intubation Results & Data Vital Signs (Past 12 Hours) Vital Signs Temp Pulse Pulse Pulse Resp BP BP 04/17/19 08:37 107 H 27 H 04/17/19 06:57 99 H 30 H 04/17/19 06:56 99 H 30 H 04/17/19 06:30 104 H 28 H 111/70 04/17/19 06:03 104 H 28 H 04/17/19 06:00 103 H 29 H 04/17/19 05:35 36.5 C 104 H 30 H 133/96 04/17/19 04:02 36.6 C 96 H 17 123/76 04/17/19 03:09 98 H 22 04/17/19 02:54 99 H 04/16/19 23:04 89 22 04/16/19 22:39 37.0 C 98 H 18 121/77 Pulse Ox 04/17/19 08:37 98 04/17/19 06:57 92 04/17/19 06:56 92 04/17/19 06:30 92 04/17/19 06:03 93 04/17/19 06:00 91 04/17/19 05:35 86 L 04/17/19 04:02 96 04/17/19 03:09 90 04/17/19 02:54 04/16/19 23:04 92 04/16/19 22:39 93 Laboratory Results Laboratory Results - last 24 hr 04/16/19 04/16/19 04/17/19 17:41 19:45 04:50 WBC RBC Hgb Hct MCV MCH MCHC RDW Std Deviation RDW Coeff of Marcy Plt Count MPV Immature Gran % (Auto) Neut % (Auto) Lymph % (Auto) [place] % (Auto) Eos % (Auto) Baso % (Auto) Immature Gran # (Auto) Neut # (Auto) Lymph # (Auto) [place] # (Auto) Eos # (Auto) Baso # (Auto) Sample Site POC pH POC pCO2 POC pO2 POC HCO3 POC Total CO2 POC Base Excess ABG pH 7.42 ABG pCO2 27 L ABG pO2 59 L ABG HCO3 17 L POC ABG O2 Sat ABG O2 Saturation 91.4 ABG Base Excess -5.9 Juan M Test POS Barometric Pressure 742.2 Oxygen Given 40 L/MIN O2 Delivery Device POC O2 Rate Minute Ventilation POC FiO2 Tidal Volume PEEP Sodium Potassium Chloride Carbon Dioxide Anion Gap BUN Creatinine Est Cr Clr Drug Dosing Est GFR ( Amer) Est GFR (Non-Af Amer) BUN/Creatinine Ratio Glucose POC Glucose Lactate Calcium Total Bilirubin AST ALT Alkaline Phosphatase Troponin I NT-Pro-B Natriuret Pep Total Protein Albumin Globulin Albumin/Globulin Ratio Procalcitonin 54.80 H Fluid Neutrophils % Fluid Lymphocytes % Fluid Eosinophils % Fl Monocyt/Macrophag % Nasal Screen MRSA (PCR) Negative 04/17/19 04/17/19 04/17/19 04:53 04:53 04:54 WBC 6.72 RBC 4.56 Hgb 13.0 Hct 38.8 MCV 85.1 MCH 28.5 MCHC 33.5 RDW Std Deviation 41.9 RDW Coeff of Marcy 13.6 Plt Count 166 MPV 11.1 H Immature Gran % (Auto) 1.0 Neut % (Auto) 79.8 Lymph % (Auto) 6.3 [place] % (Auto) 12.8 Eos % (Auto) 0.0 Baso % (Auto) 0.1 Immature Gran # (Auto) 0.07 H Neut # (Auto) 5.36 Lymph # (Auto) 0.42 L [place] # (Auto) 0.86 H Eos # (Auto) 0.00 Baso # (Auto) 0.01 Sample Site POC pH POC pCO2 POC pO2 POC HCO3 POC Total CO2 POC Base Excess ABG pH ABG pCO2 ABG pO2 ABG HCO3 POC ABG O2 Sat ABG O2 Saturation ABG Base Excess Juan M Test Barometric Pressure Oxygen Given O2 Delivery Device POC O2 Rate Minute Ventilation POC FiO2 Tidal Volume PEEP Sodium 137 Potassium 4.4 D Chloride 110 H Carbon Dioxide 20 L Anion Gap 7.0 BUN 26 H Creatinine 1.50 H Est Cr Clr Drug Dosing 24.6 Est GFR ( Amer) 38.8 Est GFR (Non-Af Amer) 33.5 BUN/Creatinine Ratio 17.2 Glucose 188 H POC Glucose Lactate 3.9 H* Calcium 7.8 L Total Bilirubin 0.5 AST 18 ALT 19 Alkaline Phosphatase 36 L Troponin I NT-Pro-B Natriuret Pep Total Protein 6.1 L Albumin 2.1 L Globulin 4.0 Albumin/Globulin Ratio 0.5 L Procalcitonin Fluid Neutrophils % Fluid Lymphocytes % Fluid Eosinophils % Fl Monocyt/Macrophag % Nasal Screen MRSA (PCR) 04/17/19 04/17/19 04/17/19 04:54 04:54 07:39 WBC RBC Hgb Hct MCV MCH MCHC RDW Std Deviation RDW Coeff of Marcy Plt Count MPV Immature Gran % (Auto) Neut % (Auto) Lymph % (Auto) [place] % (Auto) Eos % (Auto) Baso % (Auto) Immature Gran # (Auto) Neut # (Auto) Lymph # (Auto) [place] # (Auto) Eos # (Auto) Baso # (Auto) Sample Site R Radial POC pH 7.33 L POC pCO2 26 L POC pO2 88 POC HCO3 14 L POC Total CO2 15 L POC Base Excess -12.0 L ABG pH ABG pCO2 ABG pO2 ABG HCO3 POC ABG O2 Sat 96.0 H ABG O2 Saturation ABG Base Excess Juan M Test Pass Barometric Pressure Oxygen Given O2 Delivery Device BIPAP POC O2 Rate Minute Ventilation POC FiO2 100 Tidal Volume PEEP Sodium Potassium Chloride Carbon Dioxide Anion Gap BUN Creatinine Est Cr Clr Drug Dosing Est GFR ( Amer) Est GFR (Non-Af Amer) BUN/Creatinine Ratio Glucose POC Glucose Lactate Calcium Total Bilirubin AST ALT Alkaline Phosphatase Troponin I < 0.015 NT-Pro-B Natriuret Pep 1869 H Total Protein Albumin Globulin Albumin/Globulin Ratio Procalcitonin 61.45 H Fluid Neutrophils % Fluid Lymphocytes % Fluid Eosinophils % Fl Monocyt/Macrophag % Nasal Screen MRSA (PCR) 04/17/19 04/17/19 04/17/19 07:46 10:26 10:27 WBC RBC Hgb Hct MCV MCH MCHC RDW Std Deviation RDW Coeff of Marcy Plt Count MPV Immature Gran % (Auto) Neut % (Auto) Lymph % (Auto) [place] % (Auto) Eos % (Auto) Baso % (Auto) Immature Gran # (Auto) Neut # (Auto) Lymph # (Auto) [place] # (Auto) Eos # (Auto) Baso # (Auto) Sample Site L Radial POC pH 7.33 L POC pCO2 30 L POC pO2 111 H POC HCO3 16 L POC Total CO2 16 L POC Base Excess -11.0 L ABG pH ABG pCO2 ABG pO2 ABG HCO3 POC ABG O2 Sat 98.0 H ABG O2 Saturation ABG Base Excess Juan M Test Pass Barometric Pressure Oxygen Given O2 Delivery Device Ventilator POC O2 Rate 20 Minute Ventilation 7.9 POC FiO2 100 Tidal Volume 270 PEEP 10 Sodium Potassium Chloride Carbon Dioxide Anion Gap BUN Creatinine Est Cr Clr Drug Dosing Est GFR ( Amer) Est GFR (Non-Af Amer) BUN/Creatinine Ratio Glucose POC Glucose 256 H Lactate 3.2 H* Calcium Total Bilirubin AST ALT Alkaline Phosphatase Troponin I NT-Pro-B Natriuret Pep Total Protein Albumin Globulin Albumin/Globulin Ratio Procalcitonin Fluid Neutrophils % Fluid Lymphocytes % Fluid Eosinophils % Fl Monocyt/Macrophag % Nasal Screen MRSA (PCR) 04/17/19 Unknown WBC RBC Hgb Hct MCV MCH MCHC RDW Std Deviation RDW Coeff of Marcy Plt Count MPV Immature Gran % (Auto) Neut % (Auto) Lymph % (Auto) [place] % (Auto) Eos % (Auto) Baso % (Auto) Immature Gran # (Auto) Neut # (Auto) Lymph # (Auto) [place] # (Auto) Eos # (Auto) Baso # (Auto) Sample Site POC pH POC pCO2 POC pO2 POC HCO3 POC Total CO2 POC Base Excess ABG pH ABG pCO2 ABG pO2 ABG HCO3 POC ABG O2 Sat ABG O2 Saturation ABG Base Excess Juan M Test Barometric Pressure Oxygen Given O2 Delivery Device POC O2 Rate Minute Ventilation POC FiO2 Tidal Volume PEEP Sodium Potassium Chloride Carbon Dioxide Anion Gap BUN Creatinine Est Cr Clr Drug Dosing Est GFR ( Amer) Est GFR (Non-Af Amer) BUN/Creatinine Ratio Glucose POC Glucose Lactate Calcium Total Bilirubin AST ALT Alkaline Phosphatase Troponin I NT-Pro-B Natriuret Pep Total Protein Albumin Globulin Albumin/Globulin Ratio Procalcitonin Fluid Neutrophils % Pending Fluid Lymphocytes % Pending Fluid Eosinophils % Pending Fl Monocyt/Macrophag % Pending Nasal Screen MRSA (PCR) Medications Administered Current Medications Acetaminophen (Tylenol) 650 mg PO Q4H PRN PRN Reason: Pain or Fever Stop: 05/15/19 21:11 Last Admin: 04/16/19 19:42 Dose: 650 mg Documented by: Al Hydrox/Mg Hydrox/Simethicone (Maalox) 15 ml PO Q4H PRN PRN Reason: Dyspepsia Stop: 05/15/19 21:11 Albuterol (Duoneb) 3 ml NEB Q4R LUKASZ Stop: 05/16/19 10:59 Last Admin: 04/17/19 11:13 Dose: 3 ml Documented by: Albuterol (Duoneb) 3 ml NEB Q4R PRN PRN Reason: Shortness Of Breath Stop: 05/16/19 10:59 Benzonatate (Tessalon Perle) 200 mg PO Q8H PRN PRN Reason: Cough Stop: 05/15/19 21:11 Enoxaparin Sodium (Lovenox) 40 mg SQ Q24H LUKASZ Stop: 05/15/19 21:59 Last Admin: 04/16/19 21:26 Dose: 40 mg Documented by: Fentanyl Citrate (Fentanyl Citrate) 25 mcg IV ONE PRN PRN Reason: Pain Not Controlled by Drip Azithromycin 500 mg/ Dextrose 255 mls @ 125 mls/hr IV Q24H [facility]UKASZ; Protocol Stop: 04/23/19 08:59 Last Infusion: 04/16/19 13:13 Dose: Infused Documented by: Linezolid (Zyvox) 600 mg in 300 mls @ 200 mls/hr IV Q12H [facility]; Protocol Stop: 04/23/19 17:59 Last Infusion: 04/17/19 08:03 Dose: Infused Documented by: Cefepime HCl 1,000 mg/ Syringe 11.3 mls @ 5.5 mls/min IV BID [facility]; Protocol Stop: 04/24/19 20:59 Norepinephrine Bitartrate 8 mg (/ Dextrose) 508 mls @ 12.249 mls/hr IV .Q24H [facility]; Protocol Stop: 05/17/19 08:14 Last Titration: 04/17/19 09:56 Dose: 0.05 mcg/kg/min, 12.2 mls/hr Documented by: Propofol (Diprivan) 1,000 mg in 100 mls @ 7.716 mls/hr IV .[id number] [facility]; Protocol Stop: 04/20/19 08:39 Last Titration: 04/17/19 09:57 Dose: 20 mcg/kg/min, 7.7 mls/hr Documented by: Fentanyl Citrate (Fentanyl Drip) 1,250 mcg in 250 mls @ 5 mls/hr IV .Q24H [facility]; Protocol Stop: 05/01/19 10:49 Famotidine 20 mg/ Syringe 5 mls @ 2.5 mls/min IV Q24H [facility] Stop: 05/17/19 10:59 Insulin Aspart (Novolog Flexpen) 0 units SC Q4 [facility]ASZ Stop: 05/17/19 11:59 Insulin Glargine (Lantus Solostar Pen) 0 units SC BID@0800,2000 [facility]; Protocol Stop: 05/17/19 19:59 Magnesium Hydroxide (Milk Of Magnesia) 30 ml PO Q12H PRN PRN Reason: Constipation Stop: 05/15/19 21:11 Miscellaneous Information (Consult Glycemic Management Pharmacy) 1 ea N/A UD PRN PRN Reason: Consult Stop: 05/17/19 10:55 Multivitamins/Minerals (Multivitamin W/ Minerals Tab) 1 tab PO BID [facility] Stop: 05/16/19 08:59 Last Admin: 04/16/19 21:24 Dose: 1 tab Documented by: Ondansetron HCl (Zofran) 4 mg IV Q6H PRN PRN Reason: Nausea Stop: 05/15/19 21:11 Oseltamivir Phosphate (Tamiflu) 30 mg PO HS [facility]; Protocol Stop: 04/21/19 16:59 Polyethylene Glycol (Miralax Powder Packet) 17 gm PO DAILY PRN PRN Reason: Constipation Stop: 05/15/19 21:11 Simvastatin (Zocor) 20 mg PO QPM [facility] Stop: 05/15/19 21:11 Last Admin: 04/16/19 21:26 Dose: 20 mg Documented by: Resident Activity Tracking Resident Involvement: Resident Care Provided Care Provided: Adult Hospital Medicine (1) Chest pain Chest pain type: unspecified Qualified Code(s): R07.9 - Chest pain, unspecified
--- NOTE | 2019-04-17 10:04 | XRay Report ---
KUB HISTORY: NG tube placement. COMPARISON: None. FINDINGS: The bowel gas pattern is unremarkable. There are no dilated loops of small bowel to suggest an obstruction. No renal calculi. No ureteral calculi. No pneumoperitoneum or pneumatosis. The naso gastric tube is curled within the stomach. Right lung opacity and a small right pleural effusion are noted. This is better appreciated on the same day chest x-ray. IMPRESSION: Nasogastric tube terminates in the stomach. ACT 112: Negative or not required by law. Electronically signed by: Emile Garcia M.D. 04/17/2019 10:03 AM
--- NOTE | 2019-04-17 10:05 | XRay Report ---
XR chest 1V not portable CLINICAL HISTORY: 78 years-old Female presenting with post intubation. TECHNIQUE: Portable upright AP view of the chest was obtained. COMPARISON: 04/17/2019 4:26 AM. FINDINGS: Interval intubation with the endotracheal tube terminating in the midthoracic trachea over 3 cm from the malia. Nasogastric tube terminates in the gastric fundus with sidehole also contain within the g astric lumen. Multiple external leads project over the thorax slightly degrading image quality. Atherosclerosis of the aortic arch. Cardiac silhouette mildly enlarged. Significantly improved aerati on of the right lung base with persistent dense right mid lung opacity. Small right pleural effusion persists. No pneumothorax. Left lung and pleural space clear. Degenerative changes of the thoracic sp ine. Upper abdomen normal. IMPRESSION: 1. Improved aeration of the right lung base status post intubation. 2. Appropriately positioned tubes. 3. Dense right lung consolidation/mass. 4. Mild cardiomegaly. ACT 112: Negative or not required by law. Electronically signed by: Fabricio Wilson M.D. 04/17/2019 10:04 AM
[2019-04-17 10:42] LABS: iSTAT Allen Test Pass; iSTAT Arterial Blood Gas HCO3 16 meg/L (19-24); iSTAT Arterial Blood Gas pCO2 30 mmHg (35-46); iSTAT Arterial Blood Gas pH 7.33 (7.35-7.45); iSTAT Arterial Blood Gas pO2 111 mmHg (80-95); iSTAT Carbon Dioxide 16 mEq/l (24-31); iSTAT FiO2 100 %; iSTAT Site L Radial
[2019-04-17] MEDS ORDERED: fentaNYL citrate 100 MCG/2 ML VIAL IV PRN (10:50)
[2019-04-17] MEDS ORDERED: PHARMACY GLYCEMIC MGMT CONSULT PRN (10:56)
--- NOTE | 2019-04-17 11:17 | Procedure Note ---
Procedure Note Date of Service April 17, 2019 Note PREOPERATIVE DIAGNOSIS: Right pneumonia POSTOPERATIVE DIAGNOSIS: Right-sided pneumonia PROCEDURE PERFORMED: Flexible fiberoptic bronchoscopy with bronchial alveolar lavage of the right lower lobe COMPLICATIONS: None. INDICATION: Acute hypoxemic respiratory failure. Rule out mucous plugging. PROCEDURE: Informed consent was obtained from the patient's . The patient is currently intubated. Timeout was performed prior to the procedure. I was able to pass the scope through the ET tube. There were some thick secretions encountered initially which were able to be aspirated. Subsequently the right upper lobe, right middle lobe and right lower lobe were all evaluated sequentially. I performed a BAL of the right lower lobe. We instilled 120 mL's of saline in the right lower lobe and aspirated back roughly 15 mL of fluid. I then investigated the left side of the lung and no obvious abnormalities or secretions were noted. I then looked in the right lower lobe again which demonstrated some scope trauma, but otherwise was normal. We then withdrew the scope. The patient did have some transient hypotension after the procedure due to propofol boluses that we gave during the procedure. However, the pressure c zan up afterwards. Right lower lobe lavage sent for culture. Results pending. IV antibiotics and mechanical ventilation. Coding CPT Codes Pulmonary/Thoracic - Pulmonary and Thoracic: 34611 Dx bronchoscopy/BAL ([id number])
[2019-04-17] MEDS ORDERED: INSULIN GLARGINE SOLOSTAR 100 UNITS/ML 3 ML PEN SC ONE (11:30)
--- NOTE | 2019-04-17 11:31 | Pharmacy Report ---
Pharmacy Glycemic Short Note 2 - Date of Service April 17, 2019 - Glycemic Short BSG Results (Last 24 hours): 04/17/19 04/17/19 04:53 07:46 Glucose 188 H POC Glucose 256 H OUTPATIENT ANTIDIABETIC REGIMEN: * N/A * A1c = 6% ASSESSMENT: * Patient admitted to ICU secondary to respiratory failure, influenza pneumonia with likely superimposed bacterial pneumonia * Patient is now intubated, sedated, receiving pressor support (norepi) and is NPO * BSGs climbing this AM, now up to 256. Per discussion with Statistical Methods Teacher, basal/bolus SQ regimen to begin at this time as he preferred to defer treatment with insulin drip at this time * No prior h/o DM, likely stress induced hyperglycemia * Will initiated basal based upon weight and scaled according to BSG/stress level. Novolog will be dosed using moderate-severe stress level PLAN FOR INPATIENT GLYCEMIC CONTROL: * Basal insulin * Lantus 12 units SQ x 1 now, then BID per the following scale * 0 units if BSG less than 120 * 9 units if BSG 121-160 * 18 units if BSG 161-220 * 26 units if BSG > 220 * Bolus insulin * NovoLog per scale ACHS or Q6hrs while NPO * Goal Range: Low 110 mg/dL - High 140 mg/dL * Correction Factor: 20 mg/dL/unit * Nutritional / Prandial insulin per carb ratio of 1 unit per 8 grams CHO consumed
--- NOTE | 2019-04-17 11:31 | Communication Note ---
Date of Service: April 17, 2019 Patient was found to be in severe respiratory distress this morning. She was requiring BiPAP on 80% FiO2 saturating in the low 90s. I had a lengthy dis cussion with the patient's daughter and at bedside. We opted to go ahead and intubate her and do a bronchoscopy. She has progressive right lower lobe and middle lobe infiltrate with lobar collapse. We did a bronchoscopy which demonstrated some mucus. On repeat chest x-ray and she continues to have a mid lung zone collapse. She is saturating 88% on 50% FiO2 and 10 of PEEP. She was hypotensive briefly during the procedure and required some Levophed transiently. We are giving her fluid boluses. Lactate is pending. Continuing IV antibiotics. She is at risk for necrotizing pneumonia given her recent flu infection. All this was discussed with the family at bedside. Greater than 50% of the time was spent [id number] with the patient and family. This patient was discussed on multidisciplinary rounds. I personally evaluated and examined this patient and I agree with the assessment and plan of [] aside for any additions/exceptions noted below: I have personally spent 40 minutes of critical care time in the direct management of this patient. This is a life/limb threatening event. This includes time spent evaluating patient, direct bedside care, chart review, placing or ders, interpretation of diagnostic studies, discussion with consultants, patient, and family members, as well as other required patient management activities. This time is exclusive of all separately billable procedures, and teaching time and separate from and in addition to any other critical care service time. Thank you for allowing us to participate in the care of this patient.
[2019-04-17] MEDS: AZITHROMYCIN 500 MG in DEXTROSE 5% 250 ML IV SCH (11:32)
[2019-04-17] MEDS: FAMOTIDINE 20 MG in SYRINGE 3 ML IV SCH (11:33)
[2019-04-17] MEDS: fentaNYL DRIP 1,250 MCG/250 ML BAG IV SCH ×2 (11:48→17:13)
[2019-04-17] MEDS: INSULIN ASPART 100 UNITS/ML 3 ML PEN SC SCH ×3 (11:50→20:23)
[2019-04-17 12:51] LABS: Eosinophil Body Fluid Man 0 %; Fluid Mono/Macrophage 2 %; Lymphocyte Body Fluid Man 2 %
[2019-04-17 12:52] LABS: Neutrophil Body Fluid Man 96 %
[2019-04-17] MEDS: metroNIDAZOLE 500 MG/100 ML BAG IV SCH ×2 (13:55→20:25)
[2019-04-17] MEDS: NSS + 20MEQ KCL 20 MEQ/1,000 ML BAG IV SCH (14:47)
--- NOTE | 2019-04-17 15:58 | Billing Data ---
Date of Service April 17, 2019 Coding Level of Care Code 43238 Subseq Hosp Care Lvl 2
[2019-04-17] MEDS: INSULIN GLARGINE SOLOSTAR 100 UNITS/ML 3 ML PEN SC SCH (20:24)
[2019-04-17] MEDS: OSELTAMIVIR PHOSPHATE SUSP 30 MG/5 ML UDP PO SCH (20:25)
[2019-04-17] MEDS: CEFEPIME 1,000 MG in SYRINGE 0 ML IV SCH (20:27)
[2019-04-17] MEDS: ENOXAPARIN INJ 40 MG/0.4 ML SYR SQ SCH (20:27)
[2019-04-18] MEDS: INSULIN ASPART 100 UNITS/ML 3 ML PEN SC SCH ×6 (00:07→20:36)
[2019-04-18] MEDS: ALBUT/IPRATROP 3MG/0.5MG NEB 3 ML VIAL NEB SCH ×6 (02:26→23:52)
[2019-04-18] MEDS: propofoL 1,000 MG/100 ML VIAL IV SCH (03:05)
[2019-04-18 04:07] LABS: Basophils # (auto) 0.02 K/uL (0-0.2); Basophils % (auto) 0.2 %; Hematocrit (blood only) 34.9 % (37-47); Hemoglobin 11.5 g/dL (12.0-16.0); Immature Granulocytes # (auto) 0.35 K/uL (0.00-0.02); Immature Granulocytes % (auto) 2.8 %; Lymphocytes # (auto) 0.64 K/uL (1.2-3.4); Lymphocytes % (auto) 5.2 %; Mean Corpuscular Volume 85.1 fL (80-100); Mean Platelet Volume 11.4 fL (7.4-10.4); Monocytes # (auto) 1.46 K/uL (0.11-0.59); Monocytes % (auto) 11.8 %; Neutrophils # (auto) 9.92 K/uL (1.4-6.5); Platelet Count 189 K/uL (130-400); RDW Coefficient of Variation 14.1 % (11.5-14.5); RDW Standard Deviation 43.9 fL (36.4-46.3); White Blood Count 12.39 K/uL (4.8-10.8)
[2019-04-18 04:25] LABS: BUN Creatinine Ratio 23.7 (10-20); Calcium 7.9 mg/dl (8.5-10.1); Creatinine Clr Calc Pharmacy 23.1 ml/min; Est GFR (African American) 35.9; Phosphorus 2.6 mg/dl (2.5-4.9); Potassium 4.5 mmol/L (3.5-5.1)
[2019-04-18] MEDS: LINEZOLID 600 MG/300 ML BAG IV SCH ×2 (05:25→18:33)
[2019-04-18] MEDS: metroNIDAZOLE 500 MG/100 ML BAG IV SCH ×3 (05:26→21:37)
--- NOTE | 2019-04-18 07:43 | XRay Report ---
XR chest 1V portable HISTORY: Respiratory failure. Follow-up. COMPARISON: Chest 04/17/2019. FINDINGS: Endotracheal tube is approximately 1.8 cm from the malia. No pneumothorax. A nasogastric t ube is looped within the stomach. The heart remains unenlarged. The left lung is essentially clear. N o change in the right mid to lower lung zone dense consolidation/mass and small right pleural effusio n. IMPRESSION: 1. Satisfactory support line placement. 2. No change in the dense right lung consolidation/mass. ACT 112: Negative or not required by law. Electronically signed by: Emile Garcia M.D. 04/18/2019 7:42 AM
[2019-04-18] MEDS ORDERED: ADENOSINE IV SOLN 3 MG/ML 2 ML VIAL IV ONE (08:40)
[2019-04-18] MEDS ORDERED: METOPROLOL TARTRATE 1 MG/ML VIAL IV ONE (08:51)
[2019-04-18] MEDS ORDERED: LACTATED RINGER'S 500 ML IV ONE ×2 (08:57→11:04)
[2019-04-18] MEDS ORDERED: METOPROLOL TARTRATE 1 MG/ML VIAL IV STA (08:57)
[2019-04-18] MEDS ORDERED: METOPROLOL TARTRATE 25 MG TAB PO SCH (09:00)
[2019-04-18] MEDS ORDERED: PEPTAMEN INTENSE VHP 1.0 CAL 1,000 ML BAG OG SCH (09:00)
[2019-04-18] MEDS ORDERED: fentaNYL citrate 100 MCG/2 ML VIAL IV STA (09:05)
[2019-04-18] MEDS: AZITHROMYCIN 500 MG in DEXTROSE 5% 250 ML IV SCH (09:06)
[2019-04-18] MEDS: CEFEPIME 1,000 MG in SYRINGE 0 ML IV SCH ×2 (09:06→20:38)
--- NOTE | 2019-04-18 09:12 | Critical Care Progress Note ---
Date of Service April 18, 2019 Assessment & Plan (1) Admitted to intensive care unit: Reason Critically Ill: 78-year-old female with a past medical history of recent influenza and superimposed bacterial pneumonia. Currently intubated and ventilated. NEURO - * CAM ICU: NEGATIVE CARDIAC/VASCULAR - * Sepsis induced atrial fibrillation with rapid ventricular response. Consulted cardiology. Starting metoprolol 25 mg twice daily. Will defer anticoagulation for now. Troponin ordered. RESPIRATORY - * Status post the [facility] yesterday with evidence of gram-positive cocci growing. Likely staph aureus in the setting of influenza. Continue antibiotics and Tamiflu. Continue ventilatory support at this time. Patient failed spontaneous breathing trial due to tachycardia and tachypnea. GI/NUTRITION - * Will start tube feeds today. Continue famotidine. RENAL/LYTES - * Patient has a sepsis related OR[place]O. Likely ischemic ATN given her hypotension yesterday. We will give a 500 mL bolus today. Lactic acidosis present. - * José in place - Strict I&Os. ENDO - * No history of diabetes or thyroid disease. * BSGs per unit protocol. ISS --> gtt per unit policy. HEME - * Stable H&H. ID - Follow the [facility] cultures. Blood cultures pending as well. Procalcitonin is trending downwards. LINES/IV ACCESS - * PIVs x2 * José DVT PROPHYLAXIS - * Lovenox * SCDs I have personally spent 35 minutes of critical care time in the direct management of this patient. This is a life/limb threatening event. This includes time spent evaluating patient, direct bedside care, chart review, placing orders, interpretation of diagnostic studies, discussion with consultants, patient, and family members, as well as other required patient management activities. This time is exclusive of all separately billable procedures, and teaching time and separate from and in addition to any other critical care service time. Thank you for allowing us to participate in the care of this patient. Please refer to my attending physician's documentation for any further recommendations. (2) Sepsis: (3) Pneumonia: (4) [place]O (acute kidney injury): (5) Abnormal CT of the chest: This is most likely inflammatory but cannot rule out neoplasm No history of tobacco abuse or family history of malignancy We will follow-up in the outpatient clinic and repeat CT scan in 6 weeks (6) Influenza A: Patient diagnosed last 04/11/2019 and started on Tamiflu that day. Today is day 6 of treatment. We will continue with 10 days of Tamiflu as patient is still symptomatic Patient continues to have fever and other flulike symptoms We will continue isolation precautions droplet precautions until symptoms dennis (7) Acute respiratory failure: (8) Hypoxia: Patient with influenza A and CT findings consistent with inflammation versus neoplasm Patient history would favor inflammation We will treat with antibiotics to impede secondary bacterial infection to the influenza Patient will need repeat CT scan in 6 weeks We will arrange follow-up in the outpatient pulmonary clinic for results No tobacco abuse history No prior pulmonary disease or history Titrate supplemental oxygen to maintain SaO2 above 90% and taper as tolerated No indication for steroids at this time (9) Flu-like symptoms: (10) Acute pneumonia: (11) Atrial fibrillation with rapid ventricular response: Subjective Patient was on spontaneous breathing trial this morning since 5 AM. She was on 8/5 with 40%. She was on propofol and fentanyl during the spontaneous breathing trial. We did stop all sedation and analgesic. She then became tachycardic and tachypneic. Heart rate went to the 170s. We pushed 6 mg of adenosine which then demonstrated an underlying atrial fibrillation with a rapid ventricular response we gave 5 mg of metoprolol and a 500 mL bolus of lactated Ringer's. Her heart rate is now coming down to 129 range. Patient is alert and awake. She shakes her head no when asked if she has any pain. She is double triggering on the ventilator. She appears to be air hungry. This is likely related to her sepsis. Physical Exam Constitutional: WD/WN, vitals as above Tachypneic and diaphoretic. Intubated. Respiratory: Diminished in the right lower lobe. Tachypneic. Clear on the left side. Cardiovascular: Irregularly irregular. No edema. No murmurs. Gastrointestinal (Abdomen): normal bowel sounds, soft, nontender, no hepatosplenomegaly Musculoskeletal: no cyanosis or clubbing, extremities motor strength 5/5 Skin: no rashes, warm and dry Neurologic: PERRL, EOMI, accommodation nl, no face palsy, no dysarthria Psychiatric: A+Ox3, euthymic affect Results & Data Vital Signs (Past 12 Hours) Vital Signs Temp Pulse Resp BP Pulse Ox 04/18/19 07:50 99 H 10 L 90 04/18/19 06:00 102 H 91 01/11/20 05:30 106 H 90 04/18/19 05:21 107 H 90/56 L 90 04/18/19 05:20 109 H 16 90 04/18/19 05:00 108 H 90 04/18/19 04:30 110 H 89 L 04/18/19 04:21 98.2 F 112 H 96/55 L 90 04/18/19 04:01 113 H 89 L 04/18/19 03:30 109 H 90 04/18/19 03:21 109 H 99/59 L 90 04/18/19 03:00 110 H 89 L 04/18/19 02:30 102 H 90 04/18/19 02:26 101 H 24 95 04/18/19 02:21 101 H 93/58 L 90 04/18/19 02:00 98.2 F 102 H 90 04/18/19 01:30 104 H 90 04/18/19 01:21 105 H 94/55 L 90 04/18/19 01:05 109 H 24 89 L 04/18/19 01:00 107 H 89 L 04/18/19 00:30 98.2 F 110 H 89 L 04/18/19 00:21 111 H 100/57 L 89 L 04/18/19 00:00 113 H 89 L 04/17/19 23:30 114 H 89 L 04/17/19 23:26 105 H 25 H 90 04/17/19 23:21 112 H 93/58 L 89 L 04/17/19 23:07 106 H 04/17/19 23:00 105 H 89 L 04/17/19 22:30 105 H 90 04/17/19 22:21 106 H 97/58 L 90 04/17/19 22:03 108 H 25 H 89 L 04/17/19 22:00 107 H 89 L 04/17/19 21:30 107 H 89 L 04/17/19 21:21 106 H 98/60 L 88 L 04/17/19 21:00 106 H 88 L Coding Level of Care Code Established Pt Critical Care 1st 30-74 mins Patient Type Established Diagnoses Admitted to intensive care unit Z78.9 Sepsis A41.9 Pneumonia J18.9 [place] (acute kidney injury) N17.[address] of the chest R93.89 Influenza A J10.1 Acute respiratory failure J96.00 Hypoxia R09.02 Flu-like symptoms R68.89 Acute pneumonia J18.9 Atrial fibrillation with rapid ventricular response I48.91 Time Spent (min) 35
--- NOTE | 2019-04-18 09:12 | Hospitalist Progress Note ---
Date of Service April 18, 2019 Assessment & Plan (1) Pneumonia: 78 yo F no significant PMHx admitted for sepsis with recent influenza diagnosis and superimposed bacterial pneumonia. Sepsis due to Pulmonary source (Influenza with superimposed bacterial pneumonia) with acute hypoxic respiratory failure s/p bronch and intubation: - bronch yesterday revealing RLL and middle lobe infiltrate with lobar collapse - bronchoscopy cultures pending - lactate trending down from 3.2 to 3.0 early this AM. Procal down from 61.45 to 52.16 - blood cultures negative at 24 hours - maintaining O2 saturations on pressure support mechanical ventilation this morning - Continuing antibiotic regimen (Rocephin/Azithro/Linezolid) and Antivirals for flu (tamiflu) - duonebs Q4H PRN + scheduled - will continue to monitor peripherally while pt is in ICU - Echocardiogram showed normal LV function, no wall motion abnormalities, mild LVH. ORLANDO: - Pt's Cr 1.60 with a baseline of ~1, stable from yesterday; this likely in the setting of multifactorial sepsis and poor PO intake while ill. - Continue to monitor BMP qAM. - Intermittent fluid boluses as tolerated given possible fluid overload on CXR. Code Status: FULL CODE FEN/GI: NPO DVT ppx: Lovenox Dispo: ICU (2) Influenza A: (3) Acute respiratory failure: (4) Chest pain: (5) [place] (acute kidney injury): (6) Sepsis: (7) Admitted to intensive care unit: Supervising Physician Co-Signing Physician Notes I personally examined the patient and verified all benavides points of history and exam, discussed case, and agree with decision making with Dr Henry. Intubated but able to communicate some. Relates discomfort from the tube in her throat. Difficult to glean much of any other HPI or review of systems. Updated patient extensively on the events and on her current condition as well as plan, and spent an extensive period of time from approximately 6:15-6:50 discussing the situation with the patient and then with her daughters answering all questions to the best of my ability and to their appreciation and satisfactionreviewed labs and films with them discussed in layman's terms the pathophysiology of pneumonia, sepsis, A. fib, mucous plugging, etc. Vitals noted, intubated but alert and tries to communicate some. Appears somewhat upset but in no physical distress. Breathing unlabored and even on the vent. No focal neuro deficits. Skin shows no rashes no pallor or icterus. Acute hypoxic respiratory failure caused by pneumonia which is a secondary overgrowth after having had influenzanow with worsening hypoxic respiratory failure related most likely to mucous plugging and (as pulmonary suspected) staph pneumonia given her rapid deterioration. now also new afib RVR but fortunately converted to sinus / rates now controlled. Continue vent support, continue all antibiotics pending further ID and S on her sputum, continue pressure support, rate control with A. fib (right now easily because she is converted to sinus. Continue anticoagulation. Her chads-vasc is 3. ~35mins face to face with pt and family as above noted from ~6:15-~6:50p Subjective Pt laying comfortably in bed this AM. ROS limited 2/2 intubation. Patient denied being in any pain. Per , she looks stronger and more "with it" this morning than previously. Review of Systems Review of Systems: Unobtainable due to endotracheal tube Physical Exam Constitutional: + obese and + mechanically ventilated; not in distress Respiratory: Rhonchorous breath sounds present in anterior lobes bilaterally Cardiovascular: On cardiac care unit nurse, tachycardic in atrial fibrillation, normal S1 and S2, no murmurs Results & Data Vital Signs (Past 12 Hours) Vital Signs Temp Pulse Resp BP Pulse Ox 04/18/19 09:02 167 H 100/78 04/18/19 07:50 99 H 10 L 90 04/18/19 06:00 102 H 91 04/18/19 05:30 106 H 90 04/18/19 05:21 107 H 90/56 L 90 04/18/19 05:20 109 H 16 90 04/18/19 05:00 108 H 90 04/18/19 04:30 110 H 89 L 04/18/19 04:21 36.8 C 112 H 96/55 L 90 04/18/19 04:01 113 H 89 L 04/18/19 03:30 109 H 90 04/18/19 03:21 109 H 99/59 L 90 04/18/19 03:00 110 H 89 L 04/18/19 02:30 102 H 90 04/18/19 02:26 101 H 24 95 04/18/19 02:21 101 H 93/58 L 90 04/18/19 02:00 36.8 C 102 H 90 04/18/19 01:30 104 H 90 04/18/19 01:21 105 H 94/55 L 90 04/18/19 01:05 109 H 24 89 L 04/18/19 01:00 107 H 89 L 04/18/19 00:30 36.8 C 110 H 89 L 04/18/19 00:21 111 H 100/57 L 89 L 04/18/19 00:00 113 H 89 L 04/17/19 23:30 114 H 89 L 04/17/19 23:26 105 H 25 H 90 04/17/19 23:21 112 H 93/58 L 89 L 04/17/19 23:07 106 H 04/17/19 23:00 105 H 89 L 04/17/19 22:30 105 H 90 04/17/19 22:21 106 H 97/58 L 90 04/17/19 22:03 108 H 25 H 89 L 04/17/19 22:00 107 H 89 L 04/17/19 21:30 107 H 89 L 04/17/19 21:21 106 H 98/60 L 88 L Resident Activity Tracking Resident Involvement: Resident Care Provided Care Provided: Adult Hospital Medicine (1) Chest pain Chest pain type: unspecified Qualified Code(s): R07.9 - Chest pain, unspecified
[2019-04-18] MEDS: INSULIN GLARGINE SOLOSTAR 100 UNITS/ML 3 ML PEN SC SCH ×2 (09:19→20:35)
[2019-04-18] MEDS: fentaNYL DRIP 1,250 MCG/250 ML BAG IV SCH (09:43)
[2019-04-18] MEDS ORDERED: MIDAZOLAM HCL 1 MG/ML 2ML VIAL ONE (11:58)
[2019-04-18] MEDS: ESMOLOL / NSS 2,500 MG/250 ML BAG IV SCH (12:03)
[2019-04-18] MEDS: DEXMEDETOMIDINE HCL 200 MCG in SODIUM CHLORIDE 0.9% 48 ML IV SCH ×2 (12:05→22:09)
--- NOTE | 2019-04-18 12:34 | Cardiology Consultation ---
Date of Consultation April 18, 2019 Assessment & Plan (1) Atrial fibrillation with rapid ventricular response: (2) Acute respiratory failure: (3) Acute pneumonia: (4) Sepsis: ASSESSMENT/PLAN: 1. A. fib with RVR: This is a new diagnosis for her. She appears to be asymptomatic but she is quite tachycardic and has been mildly hypotensive while septic. Her atrial fibrillation is likely due to the fact that she is septic with pneumonia. Esmolol drip is being initiated by the critical care team. Would have a low threshold to replace with amiodarone if she is not easily rate controlled, becomes more hypotensive, or does not convert to sinus rhythm. Recommend heparin drip if no contraindications, for stroke risk reduction. On amiodarone, she will hopefully convert to sinus rhythm, if she does not do so spontaneously, and hopefully maintain sinus rhythm until her acute illness improves/resolves. Would try to use amiodarone only for the short-term, but not long-term treatment. This was discussed with Dr. Horton the critical care team. Monitor QT interval closely if amiodarone initiated while on azithromycin. If her QT become significantly prolonged, would recommend alternative agent for azithromycin if possible, or would have to attempt different approach for her atrial fibrillation. She is not unstable in regards to her A. fib and therefore urgent electrical cardioversion is not necessary at this time. 2. Acute respiratory failure/pneumonia: As per critical care team. 3. Sepsis: As per critical care team. On antibiotic therapy. 4. Disposition: Cardiology will continue to follow along. Plan discussed with critical care team. Thank you for allowing me to participate in the care of your patient. Please call for any other questions or concerns. Sincerely, Nabil Rai M.D. History of Present Illness Reason for Consultation: Atrial fibrillation with RVR Requesting Physician: Dr. Horton Attending Physician: Giuseppe Crooks DO History of Present Illness Mrs. Villasenor is a 78-year-old female with a history significant for impaired fasting glucose and dyslipidemia who was admitted to [facility] on 04/15/2019 with acute respiratory failure with recent influenza A and superimposed bacterial pneumonia with sepsis. She is currently intubated in the ICU. She was intubated yesterday when undergoing a bronchoscopy, demonstrating thick secretions and pneumonia. When trying to wean from the vent this morning, off of sedation, she developed atrial fibrillation rapid ventricular response at approximately 8:36 AM. This prompted cardiology consultation. Her blood pressure has been mildly hypotensive for the most part. Esmolol drip was recently ordered by the critical care team to be initiated now. Although she is on mechanical ventilator, she appears to be alert. Her eyes are wide open and she is able to shake her head yes or no and use her hands to help answer questions. She denies palpitations. She denies ever having atrial fibrillation in the past. She denies chest pain. She does not feel short of b reath while on mechanical ventilator. She denies pain anywhere. The critical care team is preparing to initiate arterial line for closer blood pressure monitoring. Review of systems: As above and otherwise unobtainable due to her mechanically ventilated state. Family history: Family history was obtained via her chart. Her father apparently had a myocardial infarction. Social history: She denies tobacco. She admits to drinking no more than 1 alcoholic beverage per day. According to the chart, she is . There was no family present at the bedside. Allergies Allergy/AdvReac Type Severity Reaction Status Date / Time latex Allergy Unknown RASH, SKIN Verified 04/15/19 16:12 IRRITATION No Known Drug Allergies Allergy Unknown . Verified 06/25/16 13:40 Home Medications Home Medications Medication Instructions Recorded Confirmed Type simvastatin 20 mg tablet 20 mg PO QPM #90 tab 03/12/19 04/15/19 Rx benzonatate 200 mg PO Q8H PRN 04/15/19 04/15/19 History oseltamivir 75 mg PO Q12H 04/15/19 04/15/19 History vit C-vit I-nzscrk-wisk-lutein 2 cap PO BID 04/15/19 04/15/19 History [PreserVision Lutein] Patient History Medical History Acute pneumonia Atrial fibrillation with rapid ventricular response Hyperlipidemia Impaired fasting glucose Shingles Surgical History S/P tubal ligation Status post tonsillectomy Family History Father Myocardial infarction Aunt Myocardial infarction Social History Preferred Language: Danish Visual Impairment: Partially Limited Hearing Ability: Normal Gardener Required: No marital status: Current Living Situation: Spouse current occupational status: retired Other Information That Helps Us Care for You: Yes Feels Safe at Home: Yes Smoking Status: Never smoker Second Hand Exposure: No ; Hx Alcohol Use: Yes Alcohol type: wine Alcohol Intake Frequency: Daily Alcohol Intake Frequency Comment: one drink per day Hx Substance Use: No Childhood Exposure to Second-Hand Smoke: Yes Dental Care, Regularly: Yes Physical Activity Frequency: 5-6 Times per Week Physical Exam Physical Exam: Gen.: No acute distress. Alert. On mechanical ventilator. HEENT: Anicteric sclera. Neck: No appreciable JVD. No bruits. Normal carotid upstrokes bilaterally. Cardiac: PMI was nondisplaced. No ventricular heave. Irregularly irregular and tachycardic. Normal S1-S2. No murmurs, rubs, or gallops. Pulmonary: Clear to auscultation bilaterally without wheezes, rales, or rhonchi. Abdomen: Soft, nontender, nondistended, with hypoactive bowel sounds. No bruits noted. Extremities: 2+ radial pulses bilaterally. 2+ posterior tibialis pulses bilaterally. No edema or cyanosis. No palpable cords. Psychiatric: Affect appears appropriate. Results & Data Vital Signs (Past 12 Hours) Vital Signs Temp Pulse Resp BP Pulse Ox 04/18/19 09:02 167 H 100/78 04/18/19 07:50 99 H 10 L 90 04/18/19 06:00 102 H 91 04/18/19 05:30 106 H 90 04/18/19 05:21 107 H 90/56 L 90 04/18/19 05:20 109 H 16 90 04/18/19 05:00 108 H 90 04/18/19 04:30 110 H 89 L 04/18/19 04:21 36.8 C 112 H 96/55 L 90 04/18/19 04:01 113 H 89 L 04/18/19 03:30 109 H 90 04/18/19 03:21 109 H 99/59 L 90 04/18/19 03:00 110 H 89 L 04/18/19 02:30 102 H 90 04/18/19 02:26 101 H 24 95 04/18/19 02:21 101 H 93/58 L 90 04/18/19 02:00 36.8 C 102 H 90 04/18/19 01:30 104 H 90 04/18/19 01:21 105 H 94/55 L 90 04/18/19 01:05 109 H 24 89 L 04/18/19 01:00 107 H 89 L 04/18/19 00:30 36.8 C 110 H 89 L 04/18/19 00:21 111 H 100/57 L 89 L Laboratory Results Laboratory Results - last 24 hr 04/17/19 04/17/19 04/17/19 16:53 20:14 Unknown WBC RBC Hgb Hct MCV MCH MCHC RDW Std Deviation RDW Coeff of Marcy Plt Count MPV Immature Gran % (Auto) Neut % (Auto) Lymph % (Auto) Troup % (Auto) Eos % (Auto) Baso % (Auto) Immature Gran # (Auto) Neut # (Auto) Lymph # (Auto) Troup # (Auto) Eos # (Auto) Baso # (Auto) Sodium Potassium Chloride Carbon Dioxide Anion Gap BUN Creatinine Est Cr Clr Drug Dosing Est GFR ( Amer) Est GFR (Non-Af Amer) BUN/Creatinine Ratio Glucose POC Glucose 204 H 194 H Lactate Calcium Phosphorus Magnesium Troponin I Procalcitonin TSH Fluid Neutrophils % 96 Fluid Lymphocytes % 2 Fluid Eosinophils % 0 Fl Monocyt/Macrophag % 2 04/18/19 04/18/19 04/18/19 00:06 03:45 03:59 WBC RBC Hgb Hct MCV MCH MCHC RDW Std Deviation RDW Coeff of Marcy Plt Count MPV Immature Gran % (Auto) Neut % (Auto) Lymph % (Auto) Troup % (Auto) Eos % (Auto) Baso % (Auto) Immature Gran # (Auto) Neut # (Auto) Lymph # (Auto) Troup # (Auto) Eos # (Auto) Baso # (Auto) Sodium 137 Potassium 4.5 Chloride 110 H Carbon Dioxide 19 L Anion Gap 8.0 BUN 38 H Creatinine 1.60 H Est Cr Clr Drug Dosing 23.1 Est GFR ( Amer) 35.9 Est GFR (Non-Af Amer) 31.0 BUN/Creatinine Ratio 23.7 H Glucose 152 H POC Glucose 140 H 146 H Lactate Calcium 7.9 L Phosphorus 2.6 Magnesium 2.0 Troponin I Procalcitonin TSH Fluid Neutrophils % Fluid Lymphocytes % Fluid Eosinophils % Fl Monocyt/Macrophag % 04/18/19 04/18/19 04/18/19 03:59 03:59 03:59 WBC 12.39 H RBC 4.10 L Hgb 11.5 L Hct 34.9 L MCV 85.1 MCH 28.0 MCHC 33.0 RDW Std Deviation 43.9 RDW Coeff of Marcy 14.1 Plt Count 189 MPV 11.4 H Immature Gran % (Auto) 2.8 Neut % (Auto) 80.0 Lymph % (Auto) 5.2 Troup % (Auto) 11.8 Eos % (Auto) 0.0 Baso % (Auto) 0.2 Immature Gran # (Auto) 0.35 H Neut # (Auto) 9.92 H Lymph # (Auto) 0.64 L Troup # (Auto) 1.46 H Eos # (Auto) 0.00 Baso # (Auto) 0.02 Sodium Potassium Chloride Carbon Dioxide Anion Gap BUN Creatinine Est Cr Clr Drug Dosing Est GFR ( Amer) Est GFR (Non-Af Amer) BUN/Creatinine Ratio Glucose POC Glucose Lactate 3.0 H* Calcium Phosphorus Magnesium Troponin I Procalcitonin 52.16 H TSH Fluid Neutrophils % Fluid Lymphocytes % Fluid Eosinophils % Fl Monocyt/Macrophag % 04/18/19 04/18/19 04/18/19 09:16 09:26 09:26 WBC RBC Hgb Hct MCV MCH MCHC RDW Std Deviation RDW Coeff of Marcy Plt Count MPV Immature Gran % (Auto) Neut % (Auto) Lymph % (Auto) Troup % (Auto) Eos % (Auto) Baso % (Auto) Immature Gran # (Auto) Neut # (Auto) Lymph # (Auto) Troup # (Auto) Eos # (Auto) Baso # (Auto) Sodium Potassium Chloride Carbon Dioxide Anion Gap BUN Creatinine Est Cr Clr Drug Dosing Est GFR ( Amer) Est GFR (Non-Af Amer) BUN/Creatinine Ratio Glucose POC Glucose 148 H Lactate Calcium Phosphorus Magnesium Troponin I < 0.015 Procalcitonin TSH 0.608 Fluid Neutrophils % Fluid Lymphocytes % Fluid Eosinophils % Fl Monocyt/Macrophag % 04/18/19 11:34 WBC RBC Hgb Hct MCV MCH MCHC RDW Std Deviation RDW Coeff of Marcy Plt Count MPV Immature Gran % (Auto) Neut % (Auto) Lymph % (Auto) Troup % (Auto) Eos % (Auto) Baso % (Auto) Immature Gran # (Auto) Neut # (Auto) Lymph # (Auto) Troup # (Auto) Eos # (Auto) Baso # (Auto) Sodium Potassium Chloride Carbon Dioxide Anion Gap BUN Creatinine Est Cr Clr Drug Dosing Est GFR ( Amer) Est GFR (Non-Af Amer) BUN/Creatinine Ratio Glucose POC Glucose Lactate 3.7 H* Calcium Phosphorus Magnesium Troponin I Procalcitonin TSH Fluid Neutrophils % Fluid Lymphocytes % Fluid Eosinophils % Fl Monocyt/Macrophag % Diagnostic Findings ECG ordered and personally reviewed: ECG 04/18/2019: A. fib with RVR [address]/T wave abnormality. Compared to prior ECG on 04/16/2019, atrial fibrillation has replaced sinus rhythm. Telemetry personally reviewed: Sinus rhythm until approximately 8:36 AM with atrial fibrillation with rapid ventricular response began. Echo 04/17/2019: Normal LV size, wall motion, systolic function. EF 55 to 60%. Mild LVH reported. Mild MR. Mild TR. Bronchoscopy report reviewed as above. CTA chest 04/15/2019: No PE. Right middle and right upper lobe with consolidative infiltrative change. Medications Administered Current Inpatient Medications Acetaminophen (Tylenol) 650 mg PO Q4H PRN PRN Reason: Pain or Fever Stop: 05/15/19 21:11 Last Admin: 04/16/19 19:42 Dose: 650 mg Documented by: Al Hydrox/Mg Hydrox/Simethicone (Maalox) 15 ml PO Q4H PRN PRN Reason: Dyspepsia Stop: 05/15/19 21:11 Albuterol (Duoneb) 3 ml NEB Q4R LUKASZ Stop: 05/16/19 10:59 Last Admin: 04/18/19 11:44 Dose: 3 ml Documented by: Albuterol (Duoneb) 3 ml NEB Q4R PRN PRN Reason: Shortness Of Breath Stop: 05/16/19 10:59 Benzonatate (Tessalon Perle) 200 mg PO Q8H PRN PRN Reason: Cough Stop: 05/15/19 21:11 Enoxaparin Sodium (Lovenox) 40 mg SQ Q24H LUKASZ Stop: 05/15/19 21:59 Last Admin: 04/17/19 20:27 Dose: 40 mg Documented by: Fentanyl Citrate (Fentanyl Citrate) 25 mcg IV ONE PRN PRN Reason: Pain Not Controlled by Drip Azithromycin 500 mg/ Dextrose 255 mls @ 125 mls/hr IV Q24H [facility]; Protocol Stop: 04/23/19 08:59 Last Infusion: 04/18/19 11:36 Dose: Infused Documented by: Linezolid (Zyvox) 600 mg in 300 mls @ 200 mls/hr IV Q12H [facility]; Protocol Stop: 04/23/19 17:59 Last Infusion: 04/18/19 07:04 Dose: Infused Documented by: Cefepime HCl 1,000 mg/ Syringe 11.3 mls @ 5.5 mls/min IV BID [facility]; Protocol Stop: 04/24/19 20:59 Last Admin: 04/18/19 09:06 Dose: 5.5 mls/min Documented by: Fentanyl Citrate (Fentanyl Drip) 1,250 mcg in 250 mls @ 10 mls/hr IV .Q24H [facility]; Protocol Stop: 05/01/19 10:49 Last Titration: 04/18/19 11:00 Dose: 75 mcg/hr, 15 mls/hr Documented by: Famotidine 20 mg/ Syringe 5 mls @ 2.5 mls/min IV Q24H [facility] Stop: 05/17/19 10:59 Last Admin: 04/17/19 11:33 Dose: 2.5 mls/min Documented by: Metronidazole (Flagyl) 500 mg in 100 mls @ 100 mls/hr IV Q8H [facility] Stop: 04/24/19 13:59 Last Infusion: 04/18/19 06:45 Dose: Infused Documented by: Dexmedetomidine HCl 200 mcg/ (Sodium Chloride) 50 mls @ 3.31 mls/hr IV .Q15H7M [facility]; Protocol Stop: 04/22/19 11:25 Last Admin: 04/18/19 12:05 Dose: 0.2 mcg/kg/hr, 3.3 mls/hr Documented by: Esmolol HCl (Brevibloc) 2,500 mg in 250 mls @ 19.86 mls/hr IV .[id number] [facility] Stop: 05/18/19 11:43 Last Admin: 04/18/19 12:03 Dose: 50 mcg/kg/min, 19.9 mls/hr Documented by: Insulin Aspart (Novolog Flexpen) 0 units SC Q4 [facility] Stop: 05/17/19 11:59 Last Admin: 04/18/19 09:19 Dose: 1 units Documented by: Insulin Glargine (Lantus Solostar Pen) 0 units SC BID@0800,2000 [facility]; Protocol Stop: 05/17/19 19:59 Last Admin: 04/18/19 09:19 Dose: 12 units Documented by: Magnesium Hydroxide (Milk Of Magnesia) 30 ml PO Q12H PRN PRN Reason: Constipation Stop: 05/15/19 21:11 Miscellaneous Information (Consult Glycemic Management Pharmacy) 1 ea N/A UD PRN PRN Reason: Consult Stop: 05/17/19 10:55 Multivitamins/Minerals (Multivitamin W/ Minerals Tab) 1 tab PO BID [facility] Stop: 05/16/19 08:59 Last Admin: 04/16/19 21:24 Dose: 1 tab Documented by: Nutritional Formula (Peptamen Intense Vhp 1.0 Nilo) 1,000 ml OG CONT [facility]; Protocol Stop: 05/18/19 08:59 Ondansetron HCl (Zofran) 4 mg IV Q6H PRN PRN Reason: Nausea Stop: 05/15/19 21:11 Oseltamivir Phosphate (Tamiflu) 30 mg PO HS [facility]; Protocol Stop: 04/21/19 16:59 Last Admin: 04/17/19 20:25 Dose: 30 mg Documented by: Polyethylene Glycol (Miralax Powder Packet) 17 gm PO DAILY PRN PRN Reason: Constipation Stop: 05/15/19 21:11 Simvastatin (Zocor) 20 mg PO QPM [facility] Stop: 05/15/19 21:11 Last Admin: 04/16/19 21:26 Dose: 20 mg Documented by: PG Care Time/CCT Total # of Minutes Spent Total Time Spent with Patient: Total time spent is greater than 50% in coordination of care (as documented) at patient's floor/unit and/or counseling patient:
--- NOTE | 2019-04-18 13:03 | Procedure Note ---
Procedure Note Date of Service April 18, 2019 Note INTERNAL JUGULAR CENTRAL LINE PROCEDURE NOTE: Procedure: Internal Jugular Central Line Placement Indication: Central Drug Administration, Poor Venous Access, Multiple Lab Draws Necessary, etc. Anesthesia: 5 mL lidocaine 1% Consent was signed and placed on the chart prior to procedure. Indication, risks, and benefits were explained at length. A time-out was completed verifying correct patient, procedure, site, positioning, and implants(s) or special equipment if applicable. Patients right neck was cleansed and draped in the typical sterile fashion using Chloraprep. The Internal Jugular Vein and Carotid Artery were identified using ultrasound. The superficial tissue was anesthetized using 5 mL of 1% lidocaine without epinephrine under direct visualization with the ultrasound. After adequate anesthetization was achieved, the Internal Jugular vein was cannulated under direct ultrasound guidance using an introducer needle on a syringe. Good venous blood return was maintained prior to removal of syringe from introducer needle. Using Seldinger Technique, a guide wire was advanced through the introducer needle without resistance. The introducer needle was removed and ultrasound images were obtained of the guide wire within the Internal Jugular Vein and saved to the patients medical record. A small incision was made in penetrating fashion at the guide wire insertion site utilizing an 11 blade scalpel. The dilator was advanced to the vessel without resistance. The dilator was exchanged for the triple lumen catheter which was advanced into the vessel without resistance. The guide wire was removed intact from the catheter without issue. Claves were placed on each catheter tip with confirmation of good blood flow from each lumen. Each port was easily flushed with sterile saline. The catheter was placed at 70 cm and sutured in place. BioPatch was applied to the catheter and a sterile Tegaderm dressing was applied over the catheter with careful attention to sterility. Patient tolerated procedure well. No immediate complications were met. Post procedure x-ray was completed, placement was appropriate and no pneumothorax was noted. Images obtained are saved for permanent record Procedural Ultrasound Guidance: Procedure Date: 04/18/2019 Indication: Venous Access and shock Artery AND Vein visualized: Yes Compressible Vein: Yes Guidewire or Short Catheter seen in vein prior to dilation: Yes Images obtained are saved for permanent record. Coding CPT Codes Tubes, Drains, and Vasc Access - Tubes, Drains, and Vasc Access: [id number] Place catheter in vein superior or inferior vena cava ([id number]) Tubes, Drains, and Vasc Access - Tubes, Drains, and Vasc Access: [id number] Ultrasound Guidance For Vascular ([id number])
--- NOTE | 2019-04-18 13:06 | Communication Note ---
Date of Service: April 18, 2019 Patient with increasing rates with A. fib RVR. I elected to start her on esmolol drip. Patient was also been anxious on the ventilator. We started her on Precedex. I also placed a central line in the right internal jugular. I had a discussion with the cardiology physician regarding rate versus rhythm control given her A. fib. At this time, we have decided on proceeding with esmolol. She is actually converted to normal sinus rhythm during the central line placement. We will start her on a heparin drip. Her oxygenation is good on 10 of PEEP and 50% FiO2. She is a bit hypotensive after the 1 mg of Versed that she received, initiation of Precedex and initiation of the esmolol drip. We are weaning down the fentanyl. Our map goals are above 65. We can start a low-dose phenylephrine if needed via the central line to maintain mean arterial pressures above 65. Lactate is rising to 3.7. I will also check LFTs to look for any ischemic injury to the liver.
[2019-04-18] MEDS: FAMOTIDINE 20 MG in SYRINGE 3 ML IV SCH (13:17)
[2019-04-18 14:10] LABS: Albumin Level 1.6 gm/dl (3.4-5.0); Bilirubin Direct 0.1 mg/dl (0-0.2); Bilirubin,Total 0.4 mg/dl (0.2-1); Total Protein 5.7 gm/dl (6.4-8.2)
--- NOTE | 2019-04-18 14:26 | XRay Report ---
XR chest 1V portable HISTORY: s/p RIJ placement COMPARISON: Chest 04/18/2019. FINDINGS: Interval placement of a right jugular central venous catheter which terminates in the expec ivett location of the superior cavoatrial junction. Endotracheal tube terminates 3.2 cm in the malia. Nasogastric tube terminates in the stomach. No pneumothorax. Right perihilar masslike consolidation a nd a small right pleural effusion remain unchanged. IMPRESSION: 1. No pneumothorax. 2. Satisfactory support line placement. 3. No change in the right perihilar masslike consolidation and small right pleural effusion. ACT 112: Negative or not required by law. Electronically signed by: Emile Garcia M.D. 04/18/2019 2:25 PM
[2019-04-18] MEDS: PHENYLEPHRINE HCL 20 MG in DEXTROSE 5% 500 ML IV SCH (14:38)
[2019-04-18] MEDS ORDERED: HEPARIN SODIUM/DEXTROSE 25,000 UNITS/500 ML BAG IV SCH (14:45)
[2019-04-18] MEDS ORDERED: HEPARIN IV BOLUS 4,000 UNITS in SYRINGE 0 ML IV ONE (14:45)
--- NOTE | 2019-04-18 15:38 | Pharmacy Report ---
Pharmacy Glycemic Short Note 2 - Date of Service April 18, 2019 - Glycemic Short BSG Results (Last 24 hours): 04/17/19 04/17/19 04/18/19 16:53 20:14 00:06 Glucose POC Glucose 204 H 194 H 140 H 04/18/19 04/18/19 04/18/19 03:45 03:59 09:16 Glucose 152 H POC Glucose 146 H 148 H 04/18/19 13:43 Glucose POC Glucose 143 H OUTPATIENT ANTIDIABETIC REGIMEN: * N/A * A1c = 6% ASSESSMENT: 04/18 * BSGs have been controlled with basal/bolus insulin dosing * Causes of insulin resistance have increased: heparin drip, Precedex, Esmolol drip * Patient received 30 units of basal insulin yesterday and fasting is acceptable at 148 mg/dL * Tube feeds may be initiated in the near future but are currently on hold 04/17 * Patient admitted to ICU secondary to respiratory failure, influenza pneumonia with likely superimposed bacterial pneumonia * Patient is now intubated, sedated, receiving pressor support (norepi) and is NPO * BSGs climbing this AM, now up to 256. Per discussion with Sanding Machine Tender, basal/bolus SQ regimen to begin at this time as he preferred to defer treatment with insulin drip at this time * No prior h/o DM, likely stress induced hyperglycemia * Will initiated basal based upon weight and scaled according to BSG/stress level. Novolog will be dosed using moderate-severe stress level PLAN FOR INPATIENT GLYCEMIC CONTROL: * Basal insulin - adjust dose upwards for 121-160 range since patient received total of 30 units yesterday * Lantus per the following scale: * 0 units if BSG less than 120 * 12 units if BSG 121-160 * 18 units if BSG 161-220 * 26 units if BSG > 220 * Bolus insulin - no change * NovoLog per scale q4h * Goal Range: Low 110 mg/dL - High 140 mg/dL * Correction Factor: 20 mg/dL/unit * Nutritional / Prandial insulin per carb ratio of 1 unit per 8 grams CHO consumed
[2019-04-18] MEDS ORDERED: MIDAZOLAM HCL 5 MG/ML VIAL IV STA (16:09)
[2019-04-18] MEDS ORDERED: fentaNYL citrate 100 MCG/2 ML VIAL IV ONE (17:51)
--- NOTE | 2019-04-18 19:19 | Billing Data ---
Date of Service April 18, 2019 Coding Level of Care Code 87685 Subseq Hosp Care Lvl 2
--- NOTE | 2019-04-18 19:19 | Billing Data ---
Date of Service April 18, 2019 Coding Level of Care Code 69337 Prolonged Care (int'l)
[2019-04-18 20:24] LABS: Appearance Urine Clear (Clear); Bacteria Urine Automated Negative (Negative); Bilirubin Urine Negative (Negative); Blood Urine Trace (Negative); Color Urine Dark Yellow; Epithelial Cell Urine Auto >30 /lpf (0-5); Glucose Urine UA Negative (Negative); Ketones Urine Negative (Negative); Leukocyte Esterase Urine Trace (Negative); Nitrite Urine Negative (Negative); Protein Urine 2+ (Negative); Specific Gravity Urine 1.023 (1.000-1.030); Urobilinogen Urine Negative (Negative)
[2019-04-18] MEDS: OSELTAMIVIR PHOSPHATE SUSP 30 MG/5 ML UDP PO SCH (20:38)
[2019-04-18 21:18] LABS: Partial Thromboplastin Ratio 1.6; Partial Thromboplastin Time 42.5 Seconds (21.0-31.0)
[2019-04-18 21:36] LABS: Renal Epithelial Cells Urine 0-5 /lpf (0-5)
[2019-04-18] MEDS ORDERED: HEPARIN IV BOLUS 2,000 UNITS in SYRINGE 0 ML IV ONE (22:15)
[2019-04-19] MEDS: INSULIN ASPART 100 UNITS/ML 3 ML PEN SC SCH ×6 (00:08→20:58)
[2019-04-19] MEDS: ESMOLOL / NSS 2,500 MG/250 ML BAG IV SCH ×2 (01:32→18:28)
[2019-04-19] MEDS: ALBUT/IPRATROP 3MG/0.5MG NEB 3 ML VIAL NEB SCH ×6 (03:52→23:38)
[2019-04-19 05:07] LABS: Partial Thromboplastin Ratio 1.7
[2019-04-19 05:14] LABS: BUN Creatinine Ratio 27.2 (10-20); Basophils # (auto) 0.03 K/uL (0-0.2); Basophils % (auto) 0.2 %; Calcium 8.2 mg/dl (8.5-10.1); Creatinine Clr Calc Pharmacy 33.5 ml/min; Eosinophils # (auto) 0.07 K/uL (0-0.5); Eosinophils % (auto) 0.5 %; Est GFR (African American) 55.3; Est GFR (Non-African American) 47.7; Hematocrit (blood only) 32.1 % (37-47); Hemoglobin 10.8 g/dL (12.0-16.0); Immature Granulocytes # (auto) 0.38 K/uL (0.00-0.02); Immature Granulocytes % (auto) 2.7 %; Lymphocytes # (auto) 1.23 K/uL (1.2-3.4); Lymphocytes % (auto) 8.8 %; Magnesium 2.1 mg/dl (1.8-2.4); Mean Corpuscular Hemoglobin 28.3 pg (25-34); Mean Corpuscular Hgb Conc 33.6 g/dL (32-36); Mean Platelet Volume 11.8 fL (7.4-10.4); Monocytes # (auto) 1.23 K/uL (0.11-0.59); Monocytes % (auto) 8.8 %; Phosphorus 1.6 mg/dl (2.5-4.9); Platelet Count 214 K/uL (130-400); Potassium 4.4 mmol/L (3.5-5.1); RDW Coefficient of Variation 14.2 % (11.5-14.5); RDW Standard Deviation 43.5 fL (36.4-46.3); Red Blood Count 3.82 M/uL (4.2-5.4); White Blood Count 14.04 K/uL (4.8-10.8)
[2019-04-19] MEDS: LINEZOLID 600 MG/300 ML BAG IV SCH ×2 (05:40→17:50)
[2019-04-19] MEDS: metroNIDAZOLE 500 MG/100 ML BAG IV SCH (05:40)
[2019-04-19 05:47] LABS: Partial Thromboplastin Time 45.7 Seconds (21.0-31.0)
--- NOTE | 2019-04-19 05:54 | Electrocardiogram Report ---
Test Reason : Blood Pressure : / mmHG Vent. Rate : 153 BPM Atrial Rate : 119 BPM P-R Int : 000 ms QRS Dur : 080 ms QT Int : 252 ms P-R-T Axes : 000 -03 -08 degrees QTc Int : 402 ms Atrial fibrillation with rapid ventricular response Nonspecific ST and T wave abnormality Abnormal ECG When compared with ECG of 16-APR-2019 06:29, Atrial fibrillation has replaced Sinus rhythm Confirmed by Melvin Rai ([id number]) on 04/19/2019 5:53:42 AM Referred By: REFERRED SELF Confirmed By:Melvin Rai
[2019-04-19] MEDS ORDERED: HEPARIN IV BOLUS 2,000 UNITS in SYRINGE 0 ML IV ONE (06:01)
[2019-04-19] MEDS ORDERED: POTASSIUM PHOS 3 MMOL/1 ML INFUSION IV STA (06:34)
[2019-04-19] MEDS ORDERED: POTASSIUM PHOSPHATE 21 MMOL in SODIUM CHLORIDE 0.9% 500 ML IV ONE (07:15)
--- NOTE | 2019-04-19 07:15 | XRay Report ---
XR chest 1V portable CLINICAL HISTORY: Abnormal chest x-ray. Follow-up study. Respiratory failure. COMPARISON STUDY: 04/18/2019 FINDINGS: The heart remains borderline enlarged. There is a nasogastric tube within the stomach. Ther e is an endotracheal tube 22 mm above the malia. There is a right internal jugular catheter which pr ojects over the right atrium. There is a persistent small right pleural effusion. There is persistent right perihilar masslike consolidation. IMPRESSION: Persistent masslike consolidation of the right perihilar region. Small right pleural effu fransisco. ACT 112: Negative or not required by law. Electronically signed by: Joe Christianson M.D. 04/19/2019 7:13 AM
[2019-04-19] MEDS: INSULIN GLARGINE SOLOSTAR 100 UNITS/ML 3 ML PEN SC SCH ×2 (08:09→21:13)
[2019-04-19] MEDS: DEXMEDETOMIDINE HCL 200 MCG in SODIUM CHLORIDE 0.9% 48 ML IV SCH ×2 (08:21→17:49)
--- NOTE | 2019-04-19 09:09 | Critical Care Progress Note ---
Date of Service April 19, 2019 Assessment & Plan (1) Admitted to intensive care unit: Reason Critically Ill: 78-year-old female with a past medical history of recent influenza and superimposed bacterial pneumonia. Currently intubated and ventilated. NEURO - * CAM ICU: NEGATIVE CARDIAC/VASCULAR - * Sepsis induced atrial fibrillation with rapid ventricular response resolved. She is back in sinus rhythm since yesterday afternoon. Currently on esmolol drip. We are stopping heparin drip today. Appreciate cardiology recommendations. RESPIRATORY - * Bronchoalveolar lavage cultures growing MRSA. Likely post influenza staph pneumonia. GI/NUTRITION - * We delayed starting tube feeds yesterday. Will start today. RENAL/LYTES - * Renal function greatly improved. Continue to monitor. Maintain mean arterial pressure above 65. Give me doses of 20 mg IV Lasix given fluid overload st ate. - * José in place - Strict I&Os. ENDO - * No history of diabetes or thyroid disease. * BSGs per unit protocol. ISS --> gtt per unit policy. HEME - * Stable H&H. ID - Procalcitonin improving. She has MRSA pneumonia. I have de-escalated her antibiotics to just below Nasalide at this point. LINES/IV ACCESS - * PIVs x2 * José DVT PROPHYLAXIS - * Will stop the heparin drip and initiate Lovenox I have personally spent 30 minutes of critical care time in the direct management of this patient. This is a life/limb threatening event. This includes time spent evaluating patient, direct bedside care, chart review, placing orders, interpretation of diagnostic studies, discussion with consultants, patient, and family members, as well as other required patient management activities. This time is exclusive of all separately billable procedures, and teaching time and separate from and in addition to any other critical care service time. Thank you for allowing us to participate in the care of this patient. Please refer to my attending physician's documentation for any further recommendations. (2) Sepsis: (3) Pneumonia: (4) [place] (acute kidney injury): (5) Abnormal CT of the chest: (6) Influenza A: (7) Acute respiratory failure: (8) Hypoxia: (9) Flu-like symptoms: (10) Acute pneumonia: (11) Atrial fibrillation with rapid ventricular response: Subjective Patient is very awake and alert on Precedex and fentanyl. She denies any pain when asked questions. She nods her head now. She is currently on a PEEP of 6 and 40% FiO2. She is on PRVC mode. Physical Exam Constitutional: WD/WN, vitals as above Respiratory: Rhonchi at the right lung base. No wheezes. Gastrointestinal (Abdomen): normal bowel sounds, soft, nontender, no hepatosplenomegaly Musculoskeletal: no cyanosis or clubbing, extremities motor strength 5/5 Skin: no rashes, warm and dry Neurologic: PERRL, EOMI, accommodation nl, no face palsy, no dysarthria Psychiatric: A+Ox3, euthymic affect Results & Data Vital Signs (Past 12 Hours) Vital Signs Temp Pulse Resp BP Pulse Ox 04/19/19 07:46 90 23 92 04/19/19 05:52 97 H 25 H 91 04/19/19 04:30 98.1 F 102 H 91 04/19/19 04:01 99 H 93 04/19/19 04:00 98 H 108/56 L 93 04/19/19 03:48 97 H 25 H 92 04/19/19 03:30 91 H 93 04/19/19 03:26 91 H 103/64 93 04/19/19 03:00 92 H 93 04/19/19 02:56 93 H 102/65 93 04/19/19 02:30 94 H 93 04/19/19 02:26 93 H 104/67 94 04/19/19 02:00 95 H 92 04/19/19 01:57 96 H 122/71 93 04/19/19 01:30 97 H 92 04/19/19 01:26 97 H 113/73 93 04/19/19 01:02 99 H 128/75 87 L 04/19/19 01:00 98 H 94 04/19/19 00:57 103 H 93/80 L 97 04/19/19 00:30 99 H 93 04/19/19 00:26 99 H 127/81 93 04/19/19 00:16 106 H 23 94 04/19/19 00:01 96 H 113/86 92 04/19/19 00:00 97 H 92 04/18/19 23:56 94 H 113/86 93 04/18/19 23:30 90 94 04/18/19 23:26 90 113/70 94 04/18/19 23:00 98.1 F 91 H 94 04/18/19 22:56 92 H 116/72 94 04/18/19 22:30 93 H 94 04/18/19 22:26 92 H 133/79 95 04/18/19 22:00 93 H 95 04/18/19 21:56 94 H 130/87 95 04/18/19 21:30 96 H 95 04/18/19 21:26 96 H 135/92 95 Coding Level of Care Code Critical Care 1st 30-74 mins Diagnoses Admitted to intensive care unit Z78.9 Sepsis A41.9 Pneumonia J18.9 [place] (acute kidney injury) N17.[address] of the chest R93.89 Influenza A J10.1 Acute respiratory failure J96.00 Hypoxia R09.02 Flu-like symptoms R68.89 Acute pneumonia J18.9 Atrial fibrillation with rapid ventricular response I48.91 Time Spent (min) 30
[2019-04-19] MEDS ORDERED: FUROSEMIDE 20 MG in SYRINGE 0 ML IV ONE (09:30)
[2019-04-19] MEDS: CEFEPIME 1,000 MG in SYRINGE 0 ML IV SCH (09:34)
--- NOTE | 2019-04-19 09:34 | Hospitalist Progress Note ---
Date of Service April 19, 2019 Assessment & Plan (1) Pneumonia: 78 yo F no significant PMHx admitted for sepsis with recent influenza diagnosis and superimposed bacterial pneumonia. 1) Sepsis due to MRSA pneumonia superimposed on influenza with acute hypoxic respiratory failure s/p bronch and intubation: - bronch cultures revealed MRSA PNA; switched abx to Cefepime, Linezolid, Metronidazole + Tamiflu - lactate trending down from 3.2 to 3.0 early this AM. Procal down from 61.45 to 52.16 - blood cultures negative at 48 hours - maintaining O2 saturations on pressure support mechanical ventilation this morning - duonebs Q4H PRN + scheduled - will continue to monitor peripherally while pt is in ICU - Echocardiogram showed normal LV function, no wall motion abnormalities, mild LVH. 2) [place]O: - Pt's Cr 1.12 with a baseline of ~1, stable from yesterday; this likely in the setting of multifactorial sepsis and poor PO intake while ill. - Continue to monitor BMP qAM. - Intermittent fluid boluses as tolerated given possible fluid overload on CXR. Code Status: FULL CODE FEN/GI: NPO DVT ppx: Lovenox Dispo: ICU (2) Influenza A: (3) Acute respiratory failure: (4) Chest pain: (5) [place] (acute kidney injury): (6) Sepsis: (7) Admitted to intensive care unit: Supervising Physician Co-Signing Physician Notes I personally examined the patient and verified all benavides points of history and exam, discussed case, and agree with decision making with Dr Henry. Intubated and more sedated. Discussed with nursing. No new events today. Daughter present, answered all questions to the best my ability and to her satisfaction. Vitals noted, intubated and sedated, no distress. Breathing unlabored and even on the vent. No focal neuro deficits. Skin shows no rashes no pallor or icterus. Acute hypoxic respiratory failure caused by MRSA pneumonia which is a secondary overgrowth after having had influenzaand subsequent acute hypoxic respiratory failure related to the pneumonia and mucous pluggingnow stable on ventilator. [place] improving, A. fib/RVR converted back to sinus (would strongly consider ambulatory rhythm monitoring simply due to the prevalence of atrial fibrillation in her age range). Continue the nasal lid and supportive care. Otherwise as above as well as per ICU. ~35mins face to face with pt and family as above noted from ~6:15-~6:50p Subjective Patient intubated and sedated. No events overnight. Review of Systems Review of Systems: Unobtainable due to endotracheal tube and Unobtainable due to reduced consciousness Physical Exam Physical Exam: Const: Sedated and Intubated. Resp: Crackles and rhonchorous breath sounds still present. Respirations driven by vent management. Pressure support, PEEP 6, TV 270 mL, RR 20 Card: tachycardic irregularly irregular rhythm consistent with afib Results & Data Vital Signs (Past 12 Hours) Vital Signs Temp Pulse Resp BP Pulse Ox 04/19/19 07:46 90 23 92 04/19/19 05:52 97 H 25 H 91 04/19/19 04:30 36.7 C 102 H 91 04/19/19 04:01 99 H 93 04/19/19 04:00 98 H 108/56 L 93 04/19/19 03:48 97 H 25 H 92 04/19/19 03:30 91 H 93 04/19/19 03:26 91 H 103/64 93 04/19/19 03:00 92 H 93 04/19/19 02:56 93 H 102/65 93 04/19/19 02:30 94 H 93 04/19/19 02:26 93 H 104/67 94 04/19/19 02:00 95 H 92 04/19/19 01:57 96 H 122/71 93 04/19/19 01:30 97 H 92 04/19/19 01:26 97 H 113/73 93 04/19/19 01:02 99 H 128/75 87 L 04/19/19 01:00 98 H 94 04/19/19 00:57 103 H 93/80 L 97 04/19/19 00:30 99 H 93 04/19/19 00:26 99 H 127/81 93 04/19/19 00:16 106 H 23 94 04/19/19 00:01 96 H 113/86 92 04/19/19 00:00 97 H 92 04/18/19 23:56 94 H 113/86 93 04/18/19 23:30 90 94 04/18/19 23:26 90 113/70 94 04/18/19 23:00 36.7 C 91 H 94 04/18/19 22:56 92 H 116/72 94 04/18/19 22:30 93 H 94 04/18/19 22:26 92 H 133/79 95 04/18/19 22:00 93 H 95 04/18/19 21:56 94 H 130/87 95 Resident Activity Tracking Resident Involvement: Resident Care Provided Care Provided: Adult Hospital Medicine (1) Chest pain Chest pain type: unspecified Qualified Code(s): R07.9 - Chest pain, unspecified
[2019-04-19] MEDS: fentaNYL DRIP 1,250 MCG/250 ML BAG IV SCH (09:54)
[2019-04-19] MEDS: FAMOTIDINE 20 MG in SYRINGE 3 ML IV SCH (09:56)
[2019-04-19] MEDS: PEPTAMEN INTENSE VHP 1.0 CAL 1,000 ML BAG OG SCH (11:10)
--- NOTE | 2019-04-19 11:28 | Cardiology Progress Note ---
Date of Service April 19, 2019 Assessment & Plan (1) Atrial fibrillation with rapid ventricular response: (2) Acute respiratory failure: (3) Acute pneumonia: (4) Sepsis: ASSESSMENT/PLAN: 1. A. fib with RVR: This is her first documented episode of atrial fibrillation and it occurred while septic on mechanical ventilator while weaned from much of her sedation. She spontaneously converted to sinus rhythm later that day on 04/18/2019. When able to take p.o., recommend low-dose metoprolol. Long-term anticoagulation therapy is not necessary at this time unless she is known to have recurrent atrial fibrillation in the future. Atrial fibrillation likely due to her sepsis/pneumonia as she is critically ill. 2. Acute respiratory failure/pneumonia: As per critical care team. 3. Sepsis: As per critical care team. On antibiotic therapy. She has been weaned from pressor support. 4. Disposition: Please call with any other questions or concerns. Plan of care discussed with critical care team, Dr. Horton. Subjective She was seen early this morning at approximately 8:00 a.m.. She converted to sinus rhythm yesterday afternoon during central line placement, increased sedation, and shortly after starting esmolol drip. She has maintained sinus rhythm and is on esmolol. She remains awake and indicated that she is not in any pain, including chest pain. She denies palpitations. She denies shortness of breath. Her was present at the bedside. Any questions were answered. He was updated about atrial fibrillation and the fact that she converted to sinus rhythm. Review of systems: As above. Physical Exam Physical Exam: Gen.: No acute distress. Alert. On mechanical ventilator. HEENT: Anicteric sclera. Neck: No appreciable JVD. Cardiac: Regular and slightly tachycardic with heart rate in the low 100s. Normal S1-S2. No murmurs, rubs, or gallops. Pulmonary: On anterior auscultation, clear to auscultation bilaterally without wheezes, rales, or rhonchi. Abdomen: Soft, nontender, nondistended, with hypoactive bowel sounds. No bruits noted. Extremities: 2+ radial pulses bilaterally. No edema or cyanosis. Results & Data Vital Signs (Past 12 Hours) Vital Signs Temp Pulse Resp BP Pulse Ox 04/19/19 10:51 101 H 23 92 04/19/19 07:46 90 23 92 01/12/20 05:52 97 H 25 H 91 04/19/19 04:30 36.7 C 102 H 91 04/19/19 04:01 99 H 93 04/19/19 04:00 98 H 108/56 L 93 04/19/19 03:48 97 H 25 H 92 04/19/19 03:30 91 H 93 04/19/19 03:26 91 H 103/64 93 04/19/19 03:00 92 H 93 04/19/19 02:56 93 H 102/65 93 04/19/19 02:30 94 H 93 04/19/19 02:26 93 H 104/67 94 04/19/19 02:00 95 H 92 04/19/19 01:57 96 H 122/71 93 04/19/19 01:30 97 H 92 04/19/19 01:26 97 H 113/73 93 04/19/19 01:02 99 H 128/75 87 L 04/19/19 01:00 98 H 94 04/19/19 00:57 103 H 93/80 L 97 04/19/19 00:30 99 H 93 04/19/19 00:26 99 H 127/81 93 04/19/19 00:16 106 H 23 94 04/19/19 00:01 96 H 113/86 92 04/19/19 00:00 97 H 92 04/18/19 23:56 94 H 113/86 93 04/18/19 23:30 90 94 04/18/19 23:26 90 113/70 94 Laboratory Results Laboratory Results - last 24 hr 04/18/19 04/18/19 04/18/19 09:26 11:34 13:42 WBC RBC Hgb Hct MCV MCH MCHC RDW Std Deviation RDW Coeff of Marcy Plt Count MPV Immature Gran % (Auto) Neut % (Auto) Lymph % (Auto) [place] % (Auto) Eos % (Auto) Baso % (Auto) Immature Gran # (Auto) Neut # (Auto) Lymph # (Auto) [place] # (Auto) Eos # (Auto) Baso # (Auto) APTT PTT Ratio Sodium Potassium Chloride Carbon Dioxide Anion Gap BUN Creatinine Est Cr Clr Drug Dosing Est GFR ( Amer) Est GFR (Non-Af Amer) BUN/Creatinine Ratio Glucose POC Glucose Lactate 3.7 H* Calcium Phosphorus Magnesium Total Bilirubin 0.4 Direct Bilirubin 0.1 AST 16 ALT 18 Alkaline Phosphatase 45 Total Protein 5.7 L Albumin 1.6 L Procalcitonin TSH 0.608 Urine Color Urine Appearance Urine pH Ur Specific [place] Urine Protein Urine Glucose (UA) Urine Ketones Urine Blood Urine Nitrite Urine Bilirubin Urine Urobilinogen Ur Leukocyte Esterase Urine WBC (Auto) Urine RBC (Auto) U Hyaline Cast (Auto) U Epithel Cells (Auto) Urine Bacteria (Auto) Ur Renal Epithelial Cell Granular Casts WBC Casts 04/18/19 04/18/19 04/18/19 13:43 17:24 19:55 WBC RBC Hgb Hct MCV MCH MCHC RDW Std Deviation RDW Coeff of Marcy Plt Count MPV Immature Gran % (Auto) Neut % (Auto) Lymph % (Auto) [place] % (Auto) Eos % (Auto) Baso % (Auto) Immature Gran # (Auto) Neut # (Auto) Lymph # (Auto) [place] # (Auto) Eos # (Auto) Baso # (Auto) APTT PTT Ratio Sodium Potassium Chloride Carbon Dioxide Anion Gap BUN Creatinine Est Cr Clr Drug Dosing Est GFR ( Amer) Est GFR (Non-Af Amer) BUN/Creatinine Ratio Glucose POC Glucose 143 H 139 H Lactate Calcium Phosphorus Magnesium Total Bilirubin Direct Bilirubin AST ALT Alkaline Phosphatase Total Protein Albumin Procalcitonin TSH Urine Color Dark Yellow Urine Appearance Clear Urine pH 6.0 Ur Specific [place] 1.023 Urine Protein 2+ H Urine Glucose (UA) Negative Urine Ketones Negative Urine Blood Trace H Urine Nitrite Negative Urine Bilirubin Negative Urine Urobilinogen Negative Ur Leukocyte Esterase Trace H Urine WBC (Auto) 1-5 Urine RBC (Auto) 5-10 H U Hyaline Cast (Auto) 1-5 U Epithel Cells (Auto) >30 H Urine Bacteria (Auto) Negative Ur Renal Epithelial Cell 0-5 Granular Casts 1-5 H WBC Casts 1-5 H 04/18/19 04/18/19 04/18/19 20:33 20:59 23:39 WBC RBC Hgb Hct MCV MCH MCHC RDW Std Deviation RDW Coeff of Marcy Plt Count MPV Immature Gran % (Auto) Neut % (Auto) Lymph % (Auto) [place] % (Auto) Eos % (Auto) Baso % (Auto) Immature Gran # (Auto) Neut # (Auto) Lymph # (Auto) [place] # (Auto) Eos # (Auto) Baso # (Auto) APTT 42.5 H PTT Ratio 1.6 Sodium Potassium Chloride Carbon Dioxide Anion Gap BUN Creatinine Est Cr Clr Drug Dosing Est GFR ( Amer) Est GFR (Non-Af Amer) BUN/Creatinine Ratio Glucose POC Glucose 171 H 133 H Lactate Calcium Phosphorus Magnesium Total Bilirubin Direct Bilirubin AST ALT Alkaline Phosphatase Total Protein Albumin Procalcitonin TSH Urine Color Urine Appearance Urine pH Ur Specific [place] Urine Protein Urine Glucose (UA) Urine Ketones Urine Blood Urine Nitrite Urine Bilirubin Urine Urobilinogen Ur Leukocyte Esterase Urine WBC (Auto) Urine RBC (Auto) U Hyaline Cast (Auto) U Epithel Cells (Auto) Urine Bacteria (Auto) Ur Renal Epithelial Cell Granular Casts WBC Casts 04/19/19 04/19/19 04/19/19 04:37 04:38 04:38 WBC RBC Hgb Hct MCV MCH MCHC RDW Std Deviation RDW Coeff of Marcy Plt Count MPV Immature Gran % (Auto) Neut % (Auto) Lymph % (Auto) [place] % (Auto) Eos % (Auto) Baso % (Auto) Immature Gran # (Auto) Neut # (Auto) Lymph # (Auto) [place] # (Auto) Eos # (Auto) Baso # (Auto) APTT 45.7 H* PTT Ratio 1.7 Sodium Potassium Chloride Carbon Dioxide Anion Gap BUN Creatinine Est Cr Clr Drug Dosing Est GFR ( Amer) Est GFR (Non-Af Amer) BUN/Creatinine Ratio Glucose POC Glucose 113 H Lactate Calcium Phosphorus Magnesium Total Bilirubin Direct Bilirubin AST ALT Alkaline Phosphatase Total Protein Albumin Procalcitonin 21.32 H TSH Urine Color Urine Appearance Urine pH Ur Specific [place] Urine Protein Urine Glucose (UA) Urine Ketones Urine Blood Urine Nitrite Urine Bilirubin Urine Urobilinogen Ur Leukocyte Esterase Urine WBC (Auto) Urine RBC (Auto) U Hyaline Cast (Auto) U Epithel Cells (Auto) Urine Bacteria (Auto) Ur Renal Epithelial Cell Granular Casts WBC Casts 04/19/19 04/19/19 04/19/19 04:38 04:38 04:38 WBC 14.04 H RBC 3.82 L Hgb 10.8 L Hct 32.1 L MCV 84.0 MCH 28.3 MCHC 33.6 RDW Std Deviation 43.5 RDW Coeff of Marcy 14.2 Plt Count 214 MPV 11.8 H Immature Gran % (Auto) 2.7 Neut % (Auto) 79.0 Lymph % (Auto) 8.8 [place] % (Auto) 8.8 Eos % (Auto) 0.5 Baso % (Auto) 0.2 Immature Gran # (Auto) 0.38 H Neut # (Auto) 11.10 H Lymph # (Auto) 1.23 [place] # (Auto) 1.23 H Eos # (Auto) 0.07 Baso # (Auto) 0.03 APTT PTT Ratio Sodium 136 Potassium 4.4 Chloride 110 H Carbon Dioxide 22 Anion Gap 4.0 BUN 30 H Creatinine 1.12 D Est Cr Clr Drug Dosing 33.5 Est GFR ( Amer) 55.3 Est GFR (Non-Af Amer) 47.7 BUN/Creatinine Ratio 27.2 H Glucose 120 H POC Glucose Lactate 2.0 Calcium 8.2 L Phosphorus 1.6 L D Magnesium 2.1 Total Bilirubin Direct Bilirubin AST ALT Alkaline Phosphatase Total Protein Albumin Procalcitonin TSH Urine Color Urine Appearance Urine pH Ur Specific [place] Urine Protein Urine Glucose (UA) Urine Ketones Urine Blood Urine Nitrite Urine Bilirubin Urine Urobilinogen Ur Leukocyte Esterase Urine WBC (Auto) Urine RBC (Auto) U Hyaline Cast (Auto) U Epithel Cells (Auto) Urine Bacteria (Auto) Ur Renal Epithelial Cell Granular Casts WBC Casts 04/19/19 07:58 WBC RBC Hgb Hct MCV MCH MCHC RDW Std Deviation RDW Coeff of Marcy Plt Count MPV Immature Gran % (Auto) Neut % (Auto) Lymph % (Auto) [place] % (Auto) Eos % (Auto) Baso % (Auto) Immature Gran # (Auto) Neut # (Auto) Lymph # (Auto) [place] # (Auto) Eos # (Auto) Baso # (Auto) APTT PTT Ratio Sodium Potassium Chloride Carbon Dioxide Anion Gap BUN Creatinine Est Cr Clr Drug Dosing Est GFR ( Amer) Est GFR (Non-Af Amer) BUN/Creatinine Ratio Glucose POC Glucose 124 H Lactate Calcium Phosphorus Magnesium Total Bilirubin Direct Bilirubin AST ALT Alkaline Phosphatase Total Protein Albumin Procalcitonin TSH Urine Color Urine Appearance Urine pH Ur Specific [place] Urine Protein Urine Glucose (UA) Urine Ketones Urine Blood Urine Nitrite Urine Bilirubin Urine Urobilinogen Ur Leukocyte Esterase Urine WBC (Auto) Urine RBC (Auto) U Hyaline Cast (Auto) U Epithel Cells (Auto) Urine Bacteria (Auto) Ur Renal Epithelial Cell Granular Casts WBC Casts Diagnostic Findings ECG personally reviewed: ECG 04/18/2019 at 7:47 p.m.: Sinus rhythm 88 bpm. Septal infarct. Telemetry personally reviewed: Sinus tachycardia in the low 100s. No further atrial fibrillation since converting to sinus rhythm yesterday afternoon. Medications Administered Current Inpatient Medications Acetaminophen (Tylenol) 650 mg PO Q4H PRN PRN Reason: Pain or Fever Stop: 05/15/19 21:11 Last Admin: 04/16/19 19:42 Dose: 650 mg Documented by: Al Hydrox/Mg Hydrox/Simethicone (Maalox) 15 ml PO Q4H PRN PRN Reason: Dyspepsia Stop: 05/15/19 21:11 Albuterol (Duoneb) 3 ml NEB Q4R [facility] Stop: 05/16/19 10:59 Last Admin: 04/19/19 07:49 Dose: 3 ml Documented by: Albuterol (Duoneb) 3 ml NEB Q4R PRN PRN Reason: Shortness Of Breath Stop: 05/16/19 10:59 Benzonatate (Tessalon Perle) 200 mg PO Q8H PRN PRN Reason: Cough Stop: 05/15/19 21:11 Enoxaparin Sodium (Lovenox) 40 mg SQ QAM [facility] Stop: 05/20/19 08:59 Fentanyl Citrate (Fentanyl Citrate) 25 mcg IV ONE PRN PRN Reason: Pain Not Controlled by Drip Linezolid (Zyvox) 600 mg in 300 mls @ 200 mls/hr IV Q12H [facility]; Protocol Stop: 04/23/19 17:59 Last Infusion: 04/19/19 08:22 Dose: Infused Documented by: Fentanyl Citrate (Fentanyl Drip) 1,250 mcg in 250 mls @ 10 mls/hr IV .Q24H [facility]; Protocol Stop: 05/01/19 10:49 Last Admin: 04/19/19 09:54 Dose: 50 mcg/hr, 10 mls/hr Documented by: Famotidine 20 mg/ Syringe 5 mls @ 2.5 mls/min IV Q24H [facility] Stop: 05/17/19 10:59 Last Admin: 04/19/19 09:56 Dose: 2.5 mls/min Documented by: Dexmedetomidine HCl 200 mcg/ (Sodium Chloride) 50 mls @ 4.965 mls/hr IV .Q10H5M [facility]; Protocol Stop: 04/22/19 11:25 Last Admin: 04/19/19 08:21 Dose: 0.3 mcg/kg/hr, 5 mls/hr Documented by: Esmolol HCl (Brevibloc) 2,500 mg in 250 mls @ 19.86 mls/hr IV .[id number] [facility] Stop: 05/18/19 11:43 Last Infusion: 04/19/19 06:54 Dose: 50 mcg/kg/min, 19.9 mls/hr Documented by: Phenylephrine HCl 20 mg/ (Dextrose) 502 mls @ 0 mls/hr IV .Q0M [facility]; Protocol Stop: 05/18/19 13:19 Last Titration: 04/18/19 23:33 Dose: 0 mcg/kg/min, 0 mls/hr Documented by: Potassium Phosphate 21 mmol/ (Sodium Chloride) 507 mls @ 88 mls/hr IV TODAY@0715 ONE Stop: 04/19/19 13:00 Last Admin: 04/19/19 07:41 Dose: 88 mls/hr Documented by: Insulin Aspart (Novolog Flexpen) 0 units SC Q4 [facility] Stop: 05/17/19 11:59 Last Admin: 04/19/19 08:09 Dose: Not Given Documented by: Insulin Glargine (Lantus Solostar Pen) 0 units SC BID@0800,2000 [facility]; Protocol Stop: 05/17/19 19:59 Last Admin: 04/19/19 08:09 Dose: 12 units Documented by: Magnesium Hydroxide (Milk Of Magnesia) 30 ml PO Q12H PRN PRN Reason: Constipation Stop: 05/15/19 21:11 Miscellaneous Information (Consult Glycemic Management Pharmacy) 1 ea N/A UD PRN PRN Reason: Consult Stop: 05/17/19 10:55 Multivitamins/Minerals (Multivitamin W/ Minerals Tab) 1 tab PO BID [facility] Stop: 05/16/19 08:59 Last Admin: 04/16/19 21:24 Dose: 1 tab Documented by: Nutritional Formula (Peptamen Intense Vhp 1.0 Nilo) 1,000 ml OG UD [facility]; Protocol Stop: 05/19/19 09:14 Last Admin: 04/19/19 11:10 Dose: 1,000 ml Documented by: Oseltamivir Phosphate (Tamiflu) 30 mg PO HS [facility]; Protocol Stop: 04/21/19 16:59 Last Admin: 04/18/19 20:38 Dose: 30 mg Documented by: Polyethylene Glycol (Miralax Powder Packet) 17 gm PO DAILY PRN PRN Reason: Constipation Stop: 05/15/19 21:11 Simvastatin (Zocor) 20 mg PO QPM [facility] Stop: 05/15/19 21:11 Last Admin: 04/16/19 21:26 Dose: 20 mg Documented by: PG Care Time/CCT Total # of Minutes Spent Total Time Spent with Patient: Total time spent is greater than 50% in coordination of care (as documented) at patient's floor/unit and/or counseling patient:
[2019-04-19 12:56] LABS: Partial Thromboplastin Time 27.4 Seconds (21.0-31.0)
[2019-04-19] MEDS: PHENYLEPHRINE HCL 20 MG in DEXTROSE 5% 500 ML IV SCH ×2 (15:05→15:48)
[2019-04-19] MEDS: OSELTAMIVIR PHOSPHATE SUSP 30 MG/5 ML UDP PO SCH ×2 (15:06→22:05)
--- NOTE | 2019-04-19 15:48 | Pharmacy Report ---
Pharmacy Glycemic Short Note 2 - Date of Service April 19, 2019 - Glycemic Short BSG Results (Last 24 hours): 04/18/19 04/18/19 04/18/19 17:24 20:33 23:39 Glucose POC Glucose 139 H 171 H 133 H 04/19/19 04/19/19 04/19/19 04:37 04:38 07:58 Glucose 120 H POC Glucose 113 H 124 H 04/19/19 15:12 Glucose POC Glucose 121 H OUTPATIENT ANTIDIABETIC REGIMEN: * N/A * A1c = 6% ASSESSMENT: 04/19 * Patient received 30 units of basal and 4 units of correctional insulin yesterday * BSGs have ranged from 120-171 mg/dL * Patient remains intubated, on abx for MRSA pneumonia, Esmolol drip, and tube feeds have been started today * Will adjust insulin orders to cover carbs from tube feeds and continue to monitor closely with q4h BSGs 04/18 * BSGs have been controlled with basal/bolus insulin dosing * Causes of insulin resistance have increased: heparin drip, Precedex, Esmolol drip * Patient received 30 units of basal insulin yesterday and fasting is acceptable at 148 mg/dL * Tube feeds may be initiated in the near future but are currently on hold 04/17 * Patient admitted to ICU secondary to respiratory failure, influenza pneumonia with likely superimposed bacterial pneumonia * Patient is now intubated, sedated, receiving pressor support (norepi) and is NPO * BSGs climbing this AM, now up to 256. Per discussion with Senior Clinician, basal/bolus SQ regimen to begin at this time as he preferred to defer treatment with insulin drip at this time * No prior h/o DM, likely stress induced hyperglycemia * Will initiated basal based upon weight and scaled according to BSG/stress level. Novolog will be dosed using moderate-severe stress level PLAN FOR INPATIENT GLYCEMIC CONTROL: * Basal insulin * Lantus per the following scale: * 0 units if BSG less than 120 * 9 units if BSG 121-160 * 18 units if BSG 161-220 * 26 units if BSG > 220 * Bolus insulin - add carb counts for initiation of tube feeds * NovoLog per scale q4h * Goal Range: Low 110 mg/dL - High 140 mg/dL * Correction Factor: 20 mg/dL/unit * Nutritional / Prandial insulin per carb ratio of 1 unit per 8 grams CHO consumed * If Peptamen at 15 cc/hr -> no carb coverage needed * If Peptamen at 25 cc/hr -> 1 unit * If Peptamen at 35 cc/hr -> 2 units * If Peptamen at 45 cc/hr -> 3 units
--- NOTE | 2019-04-19 17:04 | Billing Data ---
Date of Service April 19, 2019 Coding Level of Care Code 66967 Subseq Hosp Care Lvl 2
--- NOTE | 2019-04-19 21:39 | Electrocardiogram Report ---
Test Reason : Blood Pressure : / mmHG Vent. Rate : 088 BPM Atrial Rate : 088 BPM P-R Int : 156 ms QRS Dur : 078 ms QT Int : 344 ms P-R-T Axes : 045 011 009 degrees QTc Int : 416 ms Normal sinus rhythm Low voltage QRS Septal infarct , age undetermined Abnormal ECG When compared with ECG of 18-APR-2019 08:47, Sinus rhythm has replaced Atrial fibrillation Vent. rate has decreased BY 65 BPM Septal infarct is now Present Confirmed by Melvin Rai ([id number]) on 04/19/2019 9:38:39 PM Referred By: REFERRED SELF Confirmed By:Melvin Rai
--- NOTE | 2019-04-19 21:58 | Electrocardiogram Report ---
Test Reason : Blood Pressure : / mmHG Vent. Rate : 105 BPM Atrial Rate : 105 BPM P-R Int : 152 ms QRS Dur : 082 ms QT Int : 344 ms P-R-T Axes : 050 045 056 degrees QTc Int : 454 ms Sinus tachycardia Low voltage QRS Borderline ECG When compared with ECG of 18-APR-2019 19:47, Criteria for Septal infarct are no longer Present Confirmed by Melvin Rai ([id number]) on 04/19/2019 9:58:06 PM Referred By: REFERRED SELF Confirmed By:Melvin Rai
[2019-04-19] MEDS: DEXMEDETOMIDINE HCL 400 MCG in 0.9 % SODIUM CHLORIDE 96 ML IV SCH (22:05)
[2019-04-20] MEDS: INSULIN ASPART 100 UNITS/ML 3 ML PEN SC SCH ×6 (00:37→21:24)
[2019-04-20] MEDS: PHENYLEPHRINE HCL 20 MG in DEXTROSE 5% 500 ML IV SCH ×2 (02:45→21:29)
[2019-04-20] MEDS: ALBUT/IPRATROP 3MG/0.5MG NEB 3 ML VIAL NEB SCH ×6 (03:21→23:25)
[2019-04-20 04:57] LABS: Hematocrit (blood only) 36.8 % (37-47); Hemoglobin 12.4 g/dL (12.0-16.0); Mean Corpuscular Hemoglobin 28.5 pg (25-34); Mean Corpuscular Hgb Conc 33.7 g/dL (32-36); Mean Corpuscular Volume 84.6 fL (80-100); Mean Platelet Volume 10.6 fL (7.4-10.4); Platelet Count 211 K/uL (130-400); RDW Coefficient of Variation 14.2 % (11.5-14.5); RDW Standard Deviation 44.1 fL (36.4-46.3); Red Blood Count 4.35 M/uL (4.2-5.4); White Blood Count 16.58 K/uL (4.8-10.8)
[2019-04-20 05:20] LABS: Albumin Level 1.6 gm/dl (3.4-5.0); BUN Creatinine Ratio 23.8 (10-20); Bilirubin Direct 0.2 mg/dl (0-0.2); Calcium 8.4 mg/dl (8.5-10.1); Creatinine Clr Calc Pharmacy 37.9 ml/min; Est GFR (African American) 61.9; Est GFR (Non-African American) 53.4; Magnesium 1.9 mg/dl (1.8-2.4); Potassium 4.1 mmol/L (3.5-5.1)
[2019-04-20 05:22] LABS: Bilirubin,Total 0.7 mg/dl (0.2-1)
[2019-04-20] MEDS: LINEZOLID 600 MG/300 ML BAG IV SCH ×2 (05:26→17:36)
[2019-04-20 05:30] LABS: ALC (manual) 1.46 K/uL (1.2-3.4); ANC (manual) 12.63 K/uL (1.4-6.5); Dohle Bodies Occasional; Eosinophils % (manual) 1.8 %; Lymphocytes # (manual) 1.46 K/uL (1.2-3.4); Lymphocytes % (manual) 8.8 %; Metamyelocytes # (manual) 0.58 K/uL (0-0); Metamyelocytes % (manual) 3.5 %; Monocytes # (manual) 0.73 K/uL (0.11-0.59); Monocytes % (manual) 4.4 %; Myelocytes # (manual) 0.88 K/uL (0-0); Myelocytes % (manual) 5.3 %; Neutrophils # (manual) 12.63 K/uL (1.4-6.5); Neutrophils % (manual) 76.2 %; Toxic Vacuolation Occasional
[2019-04-20] MEDS: fentaNYL DRIP 1,250 MCG/250 ML BAG IV SCH (05:35)
[2019-04-20] MEDS: ESMOLOL / NSS 2,500 MG/250 ML BAG IV SCH (06:10)
[2019-04-20 06:29] LABS: iSTAT Allen Test Pass; iSTAT Arterial Blood Gas HCO3 15 meg/L (19-24); iSTAT Arterial Blood Gas pCO2 29 mmHg (35-46); iSTAT Arterial Blood Gas pH 7.33 (7.35-7.45); iSTAT Arterial Blood Gas pO2 72 mmHg (80-95); iSTAT Carbon Dioxide 16 mEq/l (24-31); iSTAT FiO2 40 %; iSTAT Site R Radial
[2019-04-20 06:29] LABS: iSTAT Allen Test Pass; iSTAT Arterial Blood Gas HCO3 17 meg/L (19-24); iSTAT Arterial Blood Gas pCO2 31 mmHg (35-46); iSTAT Arterial Blood Gas pH 7.36 (7.35-7.45); iSTAT Arterial Blood Gas pO2 72 mmHg (80-95); iSTAT Carbon Dioxide 18 mEq/l (24-31); iSTAT Site R Radial
[2019-04-20 06:29] LABS: iSTAT Allen Test Pass; iSTAT Arterial Blood Gas HCO3 18 meg/L (19-24); iSTAT Arterial Blood Gas pCO2 29 mmHg (35-46); iSTAT Arterial Blood Gas pO2 64 mmHg (80-95); iSTAT Carbon Dioxide 19 mEq/l (24-31); iSTAT Site L Radial
--- NOTE | 2019-04-20 07:01 | XRay Report ---
XR chest 1V portable HISTORY: 78 years-old Female f/u follow-up study in a patient with shortness of breath COMPARISON: Chest radiograph 04/19/2019 TECHNIQUE: Portable AP view of the chest FINDINGS: Endotracheal tube overlies the midline terminating 2.7 cm superior to the [place]. Cardiac silhouette is mildly enlarged, unchanged. Stable positioning of the right IJ central venous catheter. Stable pos itioning of the enteric tube. Small right with trace left pleural effusions. Persistent masslike cons olidation of the right perihilar distribution with right midlung and right lung base opacities. Mild left basilar atelectasis. No pneumothorax or overt pulmonary edema. Degenerative changes of the shoul ders and spine. IMPRESSION: 1. Stable positioning of life-support lines and tubes as above. 2. Unchanged masslike consolidation of the right perihilar distribution with right midlung and right lung base opacities. 3. Small right and trace left pleural effusions. ACT 112: Negative or not required by law. The above report was generated using voice recognition software. It may contain grammatical, syntax o r spelling errors. Electronically signed by: Nelson Cazares M.D. 04/20/2019 7:00 AM
--- NOTE | 2019-04-20 08:35 | Hospitalist Progress Note ---
Date of Service April 20, 2019 Assessment & Plan (1) Pneumonia: 78 yo F no significant PMHx admitted on 04/16/19 for influenza A infection with superimposed bacterial PNA and ensuing sepsis requiring pressor support, respiratory compromise requiring intubation and mechanical ventilation. Sepsis due to MRSA pneumonia superimposed on influenza with acute hypoxic respiratory failure s/p bronch and intubation: - bronch cultures revealed MRSA PNA; currently on Linezolid, on day 01/15 of tamiflu - mild increase in lactate today: 2.3 today up from 2.0 (04/19) and WBC 16.5 up from 14 (04/19). Procal continues to trend down from 21 down to 10 (04/20) - blood cultures negative at 48 hours - maintaining O2 saturations on pressure support mechanical ventilation; per ICU team, vent currently on CPAP mode, plans to extubate today (04/20) - duonebs Q4H PRN + scheduled - on droplet and contact precautions - will continue to monitor peripherally while pt is in ICU; prepared for downgrade [place]: resolved - etiology thought to be due to ATN in setting of septic state - creatinine at 1.02 today, returned to baseline. l. - Continue to monitor BMP qAM. Fluid overload - prior CXR with evidence of volume overload, requiring dieresis. MAP goal >65 New onset A-fib with RVR - converted back to sinus with esmolol drip (will transition to PO Metoprolol when extubated) - cardiology consulted: recommended no chronic anticoagulation; consider loop recorder placement before discharge - ECHO: EF 55-60%, no wall motion abnormalities Pulmonary Nodules - visualized on admission Chest CT - clinical picture favors inflammatory origin vs. neoplastic process - repeat CT in 3 months to assess for resolution - patient is non-smoker, no FHx lung cancer Code Status: FULL CODE FEN/GI: NPO DVT ppx: Lovenox Dispo: ICU (2) Influenza A: (3) Acute respiratory failure: (4) Chest pain: (5) [place] (acute kidney injury): (6) Sepsis: (7) Admitted to intensive care unit: Supervising Physician Co-Signing Physician Notes Resident Physician Supervision Note: I independently interviewed and examined the patient and verified the benavides history and physical, reviewed labs and image studies, discussed the case with the resident Dr. Moore and agree with the findings and care plan. Subjective In ICU. present at bedside. Patient is sedated on ventilator Review of Systems Review of Systems: Unobtainable due to endotracheal tube Physical Exam Physical Exam: Exam limited due to intubation on ventilator with sedation Constitutional: WD/WN, vitals as above On ventilator Neck: normal visual inspection and trachea midline Respiratory: no labored breathing Cardiovascular: RRR, no murmur, no edema Heart Sounds: normal S1 and normal S2 Gastrointestinal (Abdomen): Inspection/Auscultation: abdomen not distended Skin: no rashes, warm and dry Psychiatric: Orientation: + not alert sedated due to ventilator Genitourinary: José catheter in place draining yellow urine without blood clots Results & Data Vital Signs (Past 12 Hours) Vital Signs Temp Pulse Resp BP Pulse Ox 04/20/19 07:25 92 H 15 93 04/20/19 06:11 94 H 132/95 93 04/20/19 06:00 95 H 93 04/20/19 05:56 95 H 141/80 H 93 04/20/19 05:41 98 H 138/91 94 04/20/19 05:30 97 H 24 93 04/20/19 05:26 100 H 115/69 93 04/20/19 05:11 98 H 133/79 92 04/20/19 05:00 100 H 92 04/20/19 04:56 100 H 131/78 92 04/20/19 04:41 101 H 135/79 92 04/20/19 04:30 101 H 93 04/20/19 04:26 102 H 133/89 93 04/20/19 04:11 103 H 132/83 93 04/20/19 04:00 36.9 C 107 H 92 04/20/19 03:56 108 H 122/67 91 04/20/19 03:41 113 H 118/88 91 04/20/19 03:30 99 H 93 04/20/19 03:26 93 H 121/80 93 04/20/19 03:25 93 H 24 93 04/20/19 03:11 93 H 123/78 93 04/20/19 03:00 93 H 93 04/20/19 02:56 92 H 128/80 93 04/20/19 02:41 93 H 116/77 93 04/20/19 02:30 94 H 93 04/20/19 02:26 93 H 124/78 93 04/20/19 02:11 94 H 124/75 93 04/20/19 02:00 95 H 93 04/20/19 01:56 95 H 130/75 93 04/20/19 01:41 96 H 122/74 93 04/20/19 01:30 95 H 93 04/20/19 01:26 96 H 133/77 93 04/20/19 01:11 97 H 129/78 93 04/20/19 01:00 99 H 93 04/20/19 00:56 99 H 132/79 94 04/20/19 00:41 104 H 133/82 94 04/20/19 00:30 102 H 94 04/20/19 00:26 104 H 132/86 94 04/20/19 00:11 104 H 137/89 94 04/20/19 00:00 37.4 C 104 H 94 04/19/19 23:57 104 H 94 04/19/19 23:56 103 H 138/86 95 04/19/19 23:41 90 120/83 94 04/19/19 23:40 90 26 H 95 04/19/19 23:30 90 94 04/19/19 23:26 90 127/77 94 04/19/19 23:11 91 H 121/73 94 04/19/19 23:00 90 94 04/19/19 22:56 91 H 122/81 94 04/19/19 22:41 91 H 125/82 94 04/19/19 22:30 91 H 94 04/19/19 22:26 91 H 125/78 94 04/19/19 22:11 92 H 130/80 94 04/19/19 22:00 92 H 94 04/19/19 21:56 93 H 122/83 94 04/19/19 21:41 93 H 127/79 94 04/19/19 21:30 95 H 94 04/19/19 21:26 95 H 131/78 94 04/19/19 21:11 95 H 128/78 94 04/19/19 21:00 97 H 94 04/19/19 20:56 98 H 131/81 94 04/19/19 20:40 100 H 133/80 94 Resident Activity Tracking Resident Involvement: Resident Care Provided Care Provided: Adult Hospital Medicine (1) Chest pain Chest pain type: unspecified Qualified Code(s): R07.9 - Chest pain, unspecified
[2019-04-20] MEDS: DEXMEDETOMIDINE HCL 400 MCG in 0.9 % SODIUM CHLORIDE 96 ML IV SCH ×2 (09:25→21:23)
[2019-04-20] MEDS: OSELTAMIVIR PHOSPHATE SUSP 30 MG/5 ML UDP PO SCH ×2 (09:26→21:28)
[2019-04-20] MEDS: ENOXAPARIN INJ 40 MG/0.4 ML SYR SQ SCH (09:26)
[2019-04-20] MEDS: INSULIN GLARGINE SOLOSTAR 100 UNITS/ML 3 ML PEN SC SCH ×2 (09:33→21:27)
--- NOTE | 2019-04-20 09:48 | Critical Care Progress Note ---
Date of Service April 20, 2019 Assessment & Plan (1) Admitted to intensive care unit: Reason Critically Ill: 78-year-old female with a past medical history of recent influenza and superimposed bacterial pneumonia. Currently intubated and ventilated. NEURO - * CAM ICU: NEGATIVE * Weakness -I am concerned for possible Guillain-Franks versus ICU myopathy. -CPK is negative and no particular rash without cancer history so I think polymyositis and dermatomyositis are unlikely -Neurology consult -MRI of spine given MRSA pneumonia rule out epidural abscess: Might see possible spinal cord enhancement -Anticipate performing LP, consents CARDIAC/VASCULAR - * Sepsis induced atrial fibrillation with rapid ventricular response resolved. She is back in sinus rhythm since yesterday afternoon. Transition to oral beta-anjelica RESPIRATORY - * Underwent bronchoscopy today, significant mucus plugging of the right lung, significant excessive dynamic airway collapse. GI/NUTRITION - * Tolerating tube feeds RENAL/LYTES - * Renal function greatly improved. Continue to monitor. Maintain mean arterial pressure above 65. - * José in place - Strict I&Os. ENDO - * No history of diabetes or thyroid disease. * BSGs per unit protocol. ISS --> gtt per unit policy. HEME - * Stable H&H. ID - Continue current anti-infective therapies LINES/IV ACCESS - * PIVs x2, right internal jugular CVC 04/18 * José DVT PROPHYLAXIS - * Will stop the heparin drip and initiate Lovenox I have personally spent 30 minutes of critical care time in the direct management of this patient. This is a life/limb threatening event. This includes time spent evaluating patient, direct bedside care, chart review, placing orders, interpretation of diagnostic studies, discussion with consultants, patient, and family members, as well as other required patient management activities. This time is exclusive of all separately billable procedures, and teaching time and separate from and in addition to any other critical care service time. Thank you for allowing us to participate in the care of this patient. Please refer to my attending physician's documentation for any further recommendations. (2) Sepsis: (3) Pneumonia: (4) [place] (acute kidney injury): (5) Abnormal CT of the chest: We will follow-up in the outpatient clinic and repeat CT scan in 6 weeks (6) Influenza A: Patient diagnosed last 04/11/2019 and started on Tamiflu that day. Today is day 6 of treatment. We will continue with 10 days of Tamiflu as patient is still symptomatic Patient continues to have fever and other flulike symptoms We will continue isolation precautions droplet precautions until symptoms dennis (7) Acute respiratory failure: (8) Hypoxia: (9) Flu-like symptoms: (10) Acute pneumonia: (11) Atrial fibrillation with rapid ventricular response: Subjective .During my evaluation the patient is intubated. She denies having pain. She is able to follow commands however she is exceedingly weak. She was seen early this morning at approximately 8:00 a.m.. She converted to sinus rhythm yesterday afternoon during central line placement, increased sedation, and shortly after starting esmolol drip. She has maintained sinus rhythm and is on esmolol. She remains awake and indicated that she is not in any pain, including chest pain. She denies palpitations. She denies shortness of breath. Her was present at the bedside. Any questions were answered. He was updated about atrial fibrillation and the fact that she converted to sinus rhythm. Review of systems: As above. Review of Systems Review of Systems: Unobtainable due to endotracheal tube Physical Exam Physical Exam: General: Elderly female appears her stated age I have reviewed the recorded vital signs Neurological: RASS score: 0, 1+ strength of the lower extremities, movements of the lumbricals, very weak grasp of the bilateral upper extremities Psychological: Glascow Coma Scale: Eyes: 4, Verbal 1T, Motor 6, Total 11 T follows commands Eyes: Pupils are equal, round and reactive to light, anicteric sclera. Symmetrical lids. HENT: Oropharynx obscured by endotracheal tube, moist Mucous Membranes. Neck: Supple. Symmetric. trachea midline. No thyromegaly. Cardiovascular: Normal peripheral perfusion. Distal pulses and capillary refill intact. No JVD. Respiratory: Respirations are non-labored, no accessory muscle use. Coarse breath sounds Gastrointestinal: Soft. Non-distended. Lymphatic: No cervical lymphadenopathy. Musculoskeletal: No deformity. No clubbing nor cyanosis, 1+ edema Results & Data Vital Signs (Past 12 Hours) Vital Signs Temp Pulse Resp BP Pulse Ox 04/20/19 07:25 92 H 15 93 04/20/19 06:11 94 H 132/95 93 04/20/19 06:00 95 H 93 04/20/19 05:56 95 H 141/80 H 93 04/20/19 05:41 98 H 138/91 94 04/20/19 05:30 97 H 24 93 04/20/19 05:26 100 H 115/69 93 04/20/19 05:11 98 H 133/79 92 04/20/19 05:00 100 H 92 04/20/19 04:56 100 H 131/78 92 04/20/19 04:41 101 H 135/79 92 04/20/19 04:30 101 H 93 04/20/19 04:26 102 H 133/89 93 04/20/19 04:11 103 H 132/83 93 04/20/19 04:00 36.9 C 107 H 92 04/20/19 03:56 108 H 122/67 91 04/20/19 03:41 113 H 118/88 91 04/20/19 03:30 99 H 93 04/20/19 03:26 93 H 121/80 93 04/20/19 03:25 93 H 24 93 04/20/19 03:11 93 H 123/78 93 04/20/19 03:00 93 H 93 04/20/19 02:56 92 H 128/80 93 04/20/19 02:41 93 H 116/77 93 04/20/19 02:30 94 H 93 04/20/19 02:26 93 H 124/78 93 04/20/19 02:11 94 H 124/75 93 04/20/19 02:00 95 H 93 04/20/19 01:56 95 H 130/75 93 04/20/19 01:41 96 H 122/74 93 04/20/19 01:30 95 H 93 04/20/19 01:26 96 H 133/77 93 04/20/19 01:11 97 H 129/78 93 04/20/19 01:00 99 H 93 04/20/19 00:56 99 H 132/79 94 04/20/19 00:41 104 H 133/82 94 04/20/19 00:30 102 H 94 04/20/19 00:26 104 H 132/86 94 04/20/19 00:11 104 H 137/89 94 04/20/19 00:00 37.4 C 104 H 94 04/19/19 23:57 104 H 94 01/12/20 23:56 103 H 138/86 95 04/19/19 23:41 90 120/83 94 04/19/19 23:40 90 26 H 95 04/19/19 23:30 90 94 04/19/19 23:26 90 127/77 94 04/19/19 23:11 91 H 121/73 94 04/19/19 23:00 90 94 04/19/19 22:56 91 H 122/81 94 04/19/19 22:41 91 H 125/82 94 04/19/19 22:30 91 H 94 04/19/19 22:26 91 H 125/78 94 04/19/19 22:11 92 H 130/80 94 04/19/19 22:00 92 H 94 04/19/19 21:56 93 H 122/83 94 Laboratory Results 04/20/19 04/20/19 04/20/19 Range/Units 16:00 16:00 12:55 WBC (4.8-10.8) K/uL RBC (4.2-5.4) M/uL Hgb (12.0-16.0) g/dL Hct (37-47) % MCV (80-100) fL MCH (25-34) pg MCHC (32-36) g/dL RDW Std Deviation (36.4-46.3) fL RDW Coeff of Marcy (11.5-14.5) % Plt Count (130-400) K/uL MPV (7.4-10.4) fL Neutrophils % (Manual) % Lymphocytes % (Manual) % Monocytes % (Manual) % Eosinophils % (Manual) % Metamyelocytes % (Man) % Myelocytes % (Man) % Neutrophils # (Manual) (1.4-6.5) K/uL Total Absolute Neuts (1.4-6.5) K/uL Lymphocytes # (Manual) (1.2-3.4) K/uL Total Abs Lymphocytes (1.2-3.4) K/uL Monocytes # (Manual) (0.11-0.59) K/uL Eosinophils # (Manual) (0-0.5) K/uL Metamyelocytes # (Man) (0-0) K/uL Myelocytes # (Manual) (0-0) K/uL Toxic Vacuolation Dohle Bodies Sample Site POC pH (7.35-7.45) POC pCO2 (35-46) mmHg POC pO2 (80-95) mmHg POC HCO3 (19-24) shoshana/L POC Total CO2 (24-31) mEq/l POC Base Excess (-9-1.8) shoshana/L POC ABG O2 Sat (90-95) % Juan M Test O2 Delivery Device POC O2 Rate Minute Ventilation POC FiO2 % Tidal Volume PEEP Sodium (136-145) mmol/L Potassium (3.5-5.1) mmol/L Chloride (98-107) mmol/L Carbon Dioxide (21-32) mmol/L Anion Gap (3-11) BUN (7-18) mg/dl Creatinine (0.6-1.2) mg/dl Est Cr Clr Drug Dosing ml/min Est GFR ( Amer) Est GFR (Non-Af Amer) BUN/Creatinine Ratio (10-20) Glucose (70-99) mg/dl POC Glucose (other) (70-99) mg/dl Lactate (0.4-2.0) mmol/L Calcium (8.5-10.1) mg/dl Phosphorus (2.5-4.9) mg/dl Magnesium (1.8-2.4) mg/dl Total Bilirubin (0.2-1) mg/dl Direct Bilirubin (0-0.2) mg/dl AST (15-37) U/L ALT (12-78) U/L Alkaline Phosphatase (45-117) U/L Total Creatine Kinase (26-192) U/L Total Protein (6.4-8.2) gm/dl Albumin (3.4-5.0) gm/dl Procalcitonin (0-0.5) ng/ml Fluid Neutrophils % 91 % Fluid Lymphocytes % 4 % Fluid Eosinophils % 0 % Fl Monocyt/Macrophag % 5 % BAL A.galactomannan Ag Pending BAL A.galactomann Index Pending U Histopl Galactoman Ag Pending 04/20/19 04/20/19 04/20/19 Range/Units 10:15 05:23 04:47 WBC (4.8-10.8) K/uL RBC (4.2-5.4) M/uL Hgb (12.0-16.0) g/dL Hct (37-47) % MCV (80-100) fL MCH (25-34) pg MCHC (32-36) g/dL RDW Std Deviation (36.4-46.3) fL RDW Coeff of Marcy (11.5-14.5) % Plt Count (130-400) K/uL MPV (7.4-10.4) fL Neutrophils % (Manual) % Lymphocytes % (Manual) % Monocytes % (Manual) % Eosinophils % (Manual) % Metamyelocytes % (Man) % Myelocytes % (Man) % Neutrophils # (Manual) (1.4-6.5) K/uL Total Absolute Neuts (1.4-6.5) K/uL Lymphocytes # (Manual) (1.2-3.4) K/uL Total Abs Lymphocytes (1.2-3.4) K/uL Monocytes # (Manual) (0.11-0.59) K/uL Eosinophils # (Manual) (0-0.5) K/uL Metamyelocytes # (Man) (0-0) K/uL Myelocytes # (Manual) (0-0) K/uL Toxic Vacuolation Dohle Bodies Sample Site L Radial POC pH 7.40 (7.35-7.45) POC pCO2 29 L (35-46) mmHg POC pO2 64 L (80-95) mmHg POC HCO3 18 L (19-24) shoshana/L POC Total CO2 19 L (24-31) mEq/l POC Base Excess -6.0 (-9-1.8) shoshana/L POC ABG O2 Sat 93.0 (90-95) % Juan M Test Pass O2 Delivery Device Ventilator POC O2 Rate 20 Minute Ventilation 10.2 POC FiO2 % Tidal Volume 270 PEEP 6 Sodium (136-145) mmol/L Potassium (3.5-5.1) mmol/L Chloride (98-107) mmol/L Carbon Dioxide (21-32) mmol/L Anion Gap (3-11) BUN (7-18) mg/dl Creatinine (0.6-1.2) mg/dl Est Cr Clr Drug Dosing ml/min Est GFR ( Amer) Est GFR (Non-Af Amer) BUN/Creatinine Ratio (10-20) Glucose (70-99) mg/dl POC Glucose (other) (70-99) mg/dl Lactate (0.4-2.0) mmol/L Calcium (8.5-10.1) mg/dl Phosphorus (2.5-4.9) mg/dl Magnesium (1.8-2.4) mg/dl Total Bilirubin (0.2-1) mg/dl Direct Bilirubin (0-0.2) mg/dl AST (15-37) U/L ALT (12-78) U/L Alkaline Phosphatase (45-117) U/L Total Creatine Kinase 26 (26-192) U/L Total Protein (6.4-8.2) gm/dl Albumin (3.4-5.0) gm/dl Procalcitonin 10.89 H (0-0.5) ng/ml Fluid Neutrophils % % Fluid Lymphocytes % % Fluid Eosinophils % % Fl Monocyt/Macrophag % % BAL A.galactomannan Ag BAL A.galactomann Index U Histopl Galactoman Ag 04/20/19 04/20/19 04/20/19 Range/Units 04:47 04:47 04:47 WBC 16.58 H (4.8-10.8) K/uL RBC 4.35 (4.2-5.4) M/uL Hgb 12.4 (12.0-16.0) g/dL Hct 36.8 L (37-47) % MCV 84.6 (80-100) fL MCH 28.5 (25-34) pg MCHC 33.7 (32-36) g/dL RDW Std Deviation 44.1 (36.4-46.3) fL RDW Coeff of Marcy 14.2 (11.5-14.5) % Plt Count 211 (130-400) K/uL MPV 10.6 H (7.4-10.4) fL Neutrophils % (Manual) 76.2 % Lymphocytes % (Manual) 8.8 % Monocytes % (Manual) 4.4 % Eosinophils % (Manual) 1.8 % Metamyelocytes % (Man) 3.5 % Myelocytes % (Man) 5.3 % Neutrophils # (Manual) 12.63 H (1.4-6.5) K/uL Total Absolute Neuts 12.63 H (1.4-6.5) K/uL Lymphocytes # (Manual) 1.46 (1.2-3.4) K/uL Total Abs Lymphocytes 1.46 (1.2-3.4) K/uL Monocytes # (Manual) 0.73 H (0.11-0.59) K/uL Eosinophils # (Manual) 0.30 (0-0.5) K/uL Metamyelocytes # (Man) 0.58 H (0-0) K/uL Myelocytes # (Manual) 0.88 H (0-0) K/uL Toxic Vacuolation Occasional Dohle Bodies Occasional Sample Site POC pH (7.35-7.45) POC pCO2 (35-46) mmHg POC pO2 (80-95) mmHg POC HCO3 (19-24) shoshana/L POC Total CO2 (24-31) mEq/l POC Base Excess (-9-1.8) shoshana/L POC ABG O2 Sat (90-95) % Juan M Test O2 Delivery Device POC O2 Rate Minute Ventilation POC FiO2 % Tidal Volume PEEP Sodium 137 (136-145) mmol/L Potassium 4.1 (3.5-5.1) mmol/L Chloride 107 (98-107) mmol/L Carbon Dioxide 24 (21-32) mmol/L Anion Gap 6.0 (3-11) BUN 24 H (7-18) mg/dl Creatinine 1.02 (0.6-1.2) mg/dl Est Cr Clr Drug Dosing 37.9 ml/min Est GFR ( Amer) 61.9 Est GFR (Non-Af Amer) 53.4 BUN/Creatinine Ratio 23.8 H (10-20) Glucose 118 H (70-99) mg/dl POC Glucose (other) (70-99) mg/dl Lactate 2.3 H* (0.4-2.0) mmol/L Calcium 8.4 L (8.5-10.1) mg/dl Phosphorus 2.0 L (2.5-4.9) mg/dl Magnesium 1.9 (1.8-2.4) mg/dl Total Bilirubin 0.7 (0.2-1) mg/dl Direct Bilirubin 0.2 D (0-0.2) mg/dl AST 159 H (15-37) U/L ALT 361 H (12-78) U/L Alkaline Phosphatase 72 (45-117) U/L Total Creatine Kinase (26-192) U/L Total Protein 6.0 L (6.4-8.2) gm/dl Albumin 1.6 L (3.4-5.0) gm/dl Procalcitonin (0-0.5) ng/ml Fluid Neutrophils % % Fluid Lymphocytes % % Fluid Eosinophils % % Fl Monocyt/Macrophag % % BAL A.galactomannan Ag BAL A.galactomann Index U Histopl Galactoman Ag 04/20/19 04/20/19 04/19/19 Range/Units 04:20 00:36 20:48 WBC (4.8-10.8) K/uL RBC (4.2-5.4) M/uL Hgb (12.0-16.0) g/dL Hct (37-47) % MCV (80-100) fL MCH (25-34) pg MCHC (32-36) g/dL RDW Std Deviation (36.4-46.3) fL RDW Coeff of Marcy (11.5-14.5) % Plt Count (130-400) K/uL MPV (7.4-10.4) fL Neutrophils % (Manual) % Lymphocytes % (Manual) % Monocytes % (Manual) % Eosinophils % (Manual) % Metamyelocytes % (Man) % Myelocytes % (Man) % Neutrophils # (Manual) (1.4-6.5) K/uL Total Absolute Neuts (1.4-6.5) K/uL Lymphocytes # (Manual) (1.2-3.4) K/uL Total Abs Lymphocytes (1.2-3.4) K/uL Monocytes # (Manual) (0.11-0.59) K/uL Eosinophils # (Manual) (0-0.5) K/uL Metamyelocytes # (Man) (0-0) K/uL Myelocytes # (Manual) (0-0) K/uL Toxic Vacuolation Dohle Bodies Sample Site POC pH (7.35-7.45) POC pCO2 (35-46) mmHg POC pO2 (80-95) mmHg POC HCO3 (19-24) shoshana/L POC Total CO2 (24-31) mEq/l POC Base Excess (-9-1.8) shoshana/L POC ABG O2 Sat (90-95) % Juan M Test O2 Delivery Device POC O2 Rate Minute Ventilation POC FiO2 % Tidal Volume PEEP Sodium (136-145) mmol/L Potassium (3.5-5.1) mmol/L Chloride (98-107) mmol/L Carbon Dioxide (21-32) mmol/L Anion Gap (3-11) BUN (7-18) mg/dl Creatinine (0.6-1.2) mg/dl Est Cr Clr Drug Dosing ml/min Est GFR ( Amer) Est GFR (Non-Af Amer) BUN/Creatinine Ratio (10-20) Glucose (70-99) mg/dl POC Glucose (other) 117 H 129 H 141 H (70-99) mg/dl Lactate (0.4-2.0) mmol/L Calcium (8.5-10.1) mg/dl Phosphorus (2.5-4.9) mg/dl Magnesium (1.8-2.4) mg/dl Total Bilirubin (0.2-1) mg/dl Direct Bilirubin (0-0.2) mg/dl AST (15-37) U/L ALT (12-78) U/L Alkaline Phosphatase (45-117) U/L Total Creatine Kinase (26-192) U/L Total Protein (6.4-8.2) gm/dl Albumin (3.4-5.0) gm/dl Procalcitonin (0-0.5) ng/ml Fluid Neutrophils % % Fluid Lymphocytes % % Fluid Eosinophils % % Fl Monocyt/Macrophag % % BAL A.galactomannan Ag BAL A.galactomann Index U Histopl Galactoman Ag 04/19/19 04/18/19 Range/Units 05:30 05:09 WBC (4.8-10.8) K/uL RBC (4.2-5.4) M/uL Hgb (12.0-16.0) g/dL Hct (37-47) % MCV (80-100) fL MCH (25-34) pg MCHC (32-36) g/dL RDW Std Deviation (36.4-46.3) fL RDW Coeff of Marcy (11.5-14.5) % Plt Count (130-400) K/uL MPV (7.4-10.4) fL Neutrophils % (Manual) % Lymphocytes % (Manual) % Monocytes % (Manual) % Eosinophils % (Manual) % Metamyelocytes % (Man) % Myelocytes % (Man) % Neutrophils # (Manual) (1.4-6.5) K/uL Total Absolute Neuts (1.4-6.5) K/uL Lymphocytes # (Manual) (1.2-3.4) K/uL Total Abs Lymphocytes (1.2-3.4) K/uL Monocytes # (Manual) (0.11-0.59) K/uL Eosinophils # (Manual) (0-0.5) K/uL Metamyelocytes # (Man) (0-0) K/uL Myelocytes # (Manual) (0-0) K/uL Toxic Vacuolation Dohle Bodies Sample Site R Radial R Radial POC pH 7.36 7.33 L (7.35-7.45) POC pCO2 31 L 29 L (35-46) mmHg POC pO2 72 L 72 L (80-95) mmHg POC HCO3 17 L 15 L (19-24) shoshana/L POC Total CO2 18 L 16 L (24-31) mEq/l POC Base Excess -8.0 -11.0 L (-9-1.8) shoshana/L POC ABG O2 Sat 94.0 94.0 (90-95) % Juan M Test Pass Pass O2 Delivery Device Ventilator Ventilator POC O2 Rate 20 20 Minute Ventilation 7.4 5.4 POC FiO2 40 % Tidal Volume 270 270 PEEP 5 10 Sodium (136-145) mmol/L Potassium (3.5-5.1) mmol/L Chloride (98-107) mmol/L Carbon Dioxide (21-32) mmol/L Anion Gap (3-11) BUN (7-18) mg/dl Creatinine (0.6-1.2) mg/dl Est Cr Clr Drug Dosing ml/min Est GFR ( Amer) Est GFR (Non-Af Amer) BUN/Creatinine Ratio (10-20) Glucose (70-99) mg/dl POC Glucose (other) (70-99) mg/dl Lactate (0.4-2.0) mmol/L Calcium (8.5-10.1) mg/dl Phosphorus (2.5-4.9) mg/dl Magnesium (1.8-2.4) mg/dl Total Bilirubin (0.2-1) mg/dl Direct Bilirubin (0-0.2) mg/dl AST (15-37) U/L ALT (12-78) U/L Alkaline Phosphatase (45-117) U/L Total Creatine Kinase (26-192) U/L Total Protein (6.4-8.2) gm/dl Albumin (3.4-5.0) gm/dl Procalcitonin (0-0.5) ng/ml Fluid Neutrophils % % Fluid Lymphocytes % % Fluid Eosinophils % % Fl Monocyt/Macrophag % % BAL A.galactomannan Ag BAL A.galactomann Index U Histopl Galactoman Ag Coding Level of Care Code Critical Care 1st 30-74 mins Diagnoses Admitted to intensive care unit Z78.9 Sepsis A41.9 Pneumonia J18.9 [place] (acute kidney injury) N17.[address] of the chest R93.89 Influenza A J10.1 Acute respiratory failure J96.00 Hypoxia R09.02 Flu-like symptoms R68.89 Acute pneumonia J18.9 Atrial fibrillation with rapid ventricular response I48.91 Time Spent (min) 90 Comment I have personally spent 90 minutes of critical care time in the direct management of this patient. This is a life/limb threatening event. This inc ludes time spent evaluating patient, direct bedside care, chart review, placing orders, interpretation of diagnostic studies, discussion with consultants, patient, and/or family members regarding treatment decisions, as well as other required patient management activities. This time is exclusive of all separately billable procedures, and teaching time and separate from and in addition to any other critical care service time.
[2019-04-20] MEDS ORDERED: POTASSIUM PHOSPHATE 18 MMOL in SODIUM CHLORIDE 0.9% 500 ML IV ONE (10:30)
[2019-04-20] MEDS ORDERED: CASPOFUNGIN 70 MG in SODIUM CHLORIDE 0.9% 250 ML IV SCH (11:00)
[2019-04-20] MEDS: ASCORBIC ACID 500 MG TAB PO SCH (11:39)
[2019-04-20] MEDS: METOPROLOL TARTRATE 25 MG TAB PO SCH ×2 (11:39→21:16)
[2019-04-20] MEDS: FAMOTIDINE 20 MG in SYRINGE 3 ML IV SCH (11:40)
[2019-04-20] MEDS ORDERED: MIDAZOLAM HCL 1 MG/ML 2ML VIAL ONE ×2 (15:49→19:23)
[2019-04-20] MEDS ORDERED: FENTANYL BOLUS FROM BAG IV ONE (16:00)
[2019-04-20] MEDS: ACETAMINOPHEN 325 MG TAB PO PRN (17:36)
[2019-04-20] MEDS: PEPTAMEN INTENSE VHP 1.0 CAL 1,000 ML BAG OG SCH (17:36)
[2019-04-20] MEDS ORDERED: MIDAZOLAM HCL 5 MG/ML VIAL IV STA ×2 (19:17→19:37)
[2019-04-20] MEDS ORDERED: fentaNYL citrate 100 MCG/2 ML VIAL ONE (19:23)
[2019-04-20] MEDS ORDERED: fentaNYL citrate 100 MCG/2 ML VIAL IV ONE (19:36)
[2019-04-20] MEDS ORDERED: GADOBUTROL 65ML VIAL IV PRN (19:57)
--- NOTE | 2019-04-20 20:14 | Magnetic Resonance Report ---
MR lumbar spine wo/w con HISTORY: Pain. Neuropathy. + MRSA vs Guillain-Franks? TECHNIQUE: Multiplanar multisequence MRI of the lumbar spine was performed both before and after the intravenous administration of contrast. COMPARISON: None. FINDINGS: For the purpose of the report the L5-S1 disc space will be located on axial image 28 of 30. Tubal body stature is unremarkable. There are degenerative disc changes of the low thoracic and upper lumbar spine. There is a grade 1 reverse retrolisthesis of L1 on L2. There is potentially a componen t of myelomalacia involving the inferior margin of the spinal cord at the level of L1. This may also represent simple artifact from the proximal cauda equina.No evidence of for a bone marrow replacing p rocess of the vertebral column. Posterior osteophyte at the T10-T11 level. A component of myelomalaci a of the low thoracic cord. L1-L2: Mild multifactorial narrowing of the spinal canal. Moderate narrowing of the neural foramina b ilaterally. L2-L3: Mild multifactorial narrowing of the spinal canal. Neural foramina are patent bilaterally. L3-L4: Moderate multifactorial narrowing of the spinal canal. Broad-based bulging disc. Moderate hype rtrophic change posterior elements. L4-L5: Moderate rather significant multifactorial narrowing of the spinal canal. Minimal narrowing of the neural foramina on the right with moderate narrowing the left. L5-S1: Degenerative change posterior elements. Mild osteophytic narrowing of the neural foramina bila terally. No significant postcontrast enhancement. Considerable motion artifact throughout. IMPRESSION: 1. Considerable degenerative change throughout the entire low thoracic as well as lumbar spine. 2. Moderate multifactorial narrowing of the spinal canal at multiple levels as described. 3. Considerable degenerative change low thoracic spine with considerable posterior osteophytic format ion and associated myelomalacia at T10-T11. ACT 112: Negative or not required by law. The above report was generated using voice recognition software. It may contain grammatical, syntax or spelling errors. Electronically signed by: Rodríguez Montenegro M.D. 04/20/2019 8:12 PM
--- NOTE | 2019-04-20 20:38 | Magnetic Resonance Report ---
MR thoracic spine wo/w con HISTORY: Neuropathy. Mental status change. + MRSA vs Guillain-Franks? TECHNIQUE: Multiplanar multisequence MRI of the thoracic spine was performed both before and after th e intravenous administration of contrast. COMPARISON: None. FINDINGS: Signal characteristics of the vertebral bodies indicate degenerative change of the vertebral endplate s throughout. Posterior osteophytic changes identified right posterior aspect of T10-T11. Signal characteristics of the thoracic cord appear unremarkable. No significant postcontrast enhancement on the sagittal images. Transaxial images throughout the entire thoracic region show unremarkable signal characteristics of t he thoracic cord. There is a prominent right posterior osteophytic formation at T10-T11 creating significant deformity of the right lateral aspect of the thoracic cord and compromise of the right neural foramina at the T 10-T11 level. Study again is negative for abnormal postcontrast enhancement. Appears to be a right pl eural effusion. IMPRESSION: 1. Considerable right posterior osteophytic formation at T10-T11 creating significant deformity of th e right lateral aspect of the thoracic cord 2. No significant postcontrast enhancement. 3. Large posterior osteophyte at T10-T11 creates significant narrowing of the spinal canal. 4. Considerable degenerative disc changes throughout the entire thoracic region. 5. No additional focus of significant compromise of the spinal canal.. 6. Specifically, no abnormal signal characteristics of the thoracic cord. ACT 112: Negative or not required by law. The above report was generated using voice recognition software. It may contain grammatical, syntax or spelling errors. Electronically signed by: Rodríguez Montenegro M.D. 04/20/2019 8:36 PM
--- NOTE | 2019-04-20 20:41 | Magnetic Resonance Report ---
MR cervical spine wo/w con HISTORY: Pain. Neuropathy. + MRSA vs Guillain-Franks? TECHNIQUE: Multiplanar multisequence MRI of the cervical spine was performed both before and after th e use of intravenous contrast. COMPARISON STUDY: None. FINDINGS: Signal characteristics of the vertebral bodies are unremarkable. Signal characteristics of the cervical cord are unremarkable. Considerable degenerative disc changes throughout. Postcontrast sagittal images show no evidence for abnormal enhancement of the cervical column or cerv ical spinal cord. C2-C3: No significant central canal or neural foraminal narrowing. C3-C4: Moderate osteophytic narrowing of the neural foramina bilaterally. Mild broad-based disc bulge . No significant impact with the cervical cord. C4-C5: Broad-based posterior osteophyte and bulging disc components. There is minimal impact upon the anterior cervical cord. Moderate osteophytic narrowing of the neural foramina bilaterally. C5-C6: Mild broad-based bulging disc. Minimal impact of the cervical cord. Moderate to rather signifi cant osteophytic narrowing of the right and to a lesser extent left neural foramina. C6-C7: Mild broad-based bulging disc. Minimal impact of the anterior cervical cord. C7-T1: No significant central canal or neural foraminal narrowing. IMPRESSION: 1. Considerable degenerative disc change at the entire cervical region. 2. No evidence for significant spinal stenosis. 3. Moderate bilateral multifactorial narrowing of several neural foramina as discussed. 4. Normal signal characteristics of the cervical cord. 5. No abnormal postcontrast enhancement. ACT 112: Negative or not required by law. The above report was generated using voice recognition software. It may contain grammatical, syntax or spelling errors. Electronically signed by: Rodríguez Montenegro M.D. 04/20/2019 8:40 PM
[2019-04-20 21:09] LABS: Eosinophil Body Fluid Man 0 %; Fluid Mono/Macrophage 5 %; Lymphocyte Body Fluid Man 4 %; Neutrophil Body Fluid Man 91 %
[2019-04-20] MEDS: CEROVITE ADV FORMULA TAB PO SCH (21:28)
[2019-04-21] MEDS: ALBUT/IPRATROP 3MG/0.5MG NEB 3 ML VIAL NEB SCH ×5 (02:05→20:19)
[2019-04-21] MEDS: INSULIN ASPART 100 UNITS/ML 3 ML PEN SC SCH ×6 (04:21→21:27)
[2019-04-21 04:44] LABS: Albumin Level 1.5 gm/dl (3.4-5.0); Bilirubin Direct 0.2 mg/dl (0-0.2); Calcium 8.5 mg/dl (8.5-10.1); Creatinine Clr Calc Pharmacy 28.2 ml/min; Est GFR (African American) 42.6; Est GFR (Non-African American) 36.7; Magnesium 1.9 mg/dl (1.8-2.4); Potassium 4.2 mmol/L (3.5-5.1)
[2019-04-21 04:50] LABS: Bilirubin,Total 0.5 mg/dl (0.2-1); Phosphorus 4.9 mg/dl (2.5-4.9); Total Protein 6.2 gm/dl (6.4-8.2)
[2019-04-21 05:03] LABS: Hematocrit (blood only) 42.2 % (37-47); Hemoglobin 14.2 g/dL (12.0-16.0); Mean Corpuscular Hemoglobin 28.8 pg (25-34); Mean Corpuscular Hgb Conc 33.6 g/dL (32-36); Mean Corpuscular Volume 85.6 fL (80-100); Mean Platelet Volume 10.6 fL (7.4-10.4); Nucleated RBC # (auto) 0.26 K/uL (0-0); Nucleated RBC % (auto) 0.9 %; Platelet Count 224 K/uL (130-400); RDW Coefficient of Variation 14.3 % (11.5-14.5); RDW Standard Deviation 44.7 fL (36.4-46.3); Red Blood Count 4.93 M/uL (4.2-5.4)
[2019-04-21 05:09] LABS: ALC (manual) 1.26 K/uL (1.2-3.4); ANC (manual) 21.01 K/uL (1.4-6.5); Eosinophils # (manual) 0.26 K/uL (0-0.5); Eosinophils % (manual) 0.9 %; Lymphocytes # (manual) 1.26 K/uL (1.2-3.4); Lymphocytes % (manual) 4.3 %; Metamyelocytes # (manual) 1.49 K/uL (0-0); Metamyelocytes % (manual) 5.1 %; Monocytes # (manual) 3.52 K/uL (0.11-0.59); Myelocytes # (manual) 1.76 K/uL (0-0); Neutrophils # (manual) 21.01 K/uL (1.4-6.5); Neutrophils % (manual) 71.7 %; RBC Morphology Unremarkable
[2019-04-21] MEDS: PHENYLEPHRINE HCL 20 MG in DEXTROSE 5% 500 ML IV SCH ×2 (05:48→18:23)
[2019-04-21 06:14] LABS: iSTAT Allen Test Pass; iSTAT Arterial Blood Gas HCO3 19 meg/L (19-24); iSTAT Arterial Blood Gas pCO2 32 mmHg (35-46); iSTAT Arterial Blood Gas pH 7.37 (7.35-7.45); iSTAT Arterial Blood Gas pO2 81 mmHg (80-95); iSTAT Carbon Dioxide 19 mmol/L (24-31); iSTAT Site R Radial
[2019-04-21] MEDS: LINEZOLID 600 MG/300 ML BAG IV SCH ×2 (06:27→16:48)
--- NOTE | 2019-04-21 07:06 | XRay Report ---
XR chest 1V portable HISTORY: 78 years-old Female f/u follow-up study in a patient with respiratory failure COMPARISON: Chest radiograph 04/20/2019 TECHNIQUE: Portable AP view of the chest FINDINGS: Endotracheal tube is angulated towards the right terminating 1.7 cm superior to the malia. Unchanged positioning of the enteric tube and right IJ central venous catheter. Telemetry leads are coiled abo ut the central chest. Cardiac silhouette is again enlarged. No pneumothorax. Trace left and small rig ht pleural effusions. Mild right hemidiaphragm elevation. Masslike consolidation of the right perihil ar distribution with right midlung and right lung base airspace opacities persist. Minimal left basil ar opacities suggest probable atelectasis. Degenerative changes of the shoulders and spine. IMPRESSION: 1. Endotracheal tube distal tip terminates 1.7 cm superior to the malia. 2. Unchanged positioning of the enteric tube and right IJ central venous catheter. 3. Masslike consolidation of the right perihilar distribution with right midlung and right lung base consolidation persists. 4. Trace left and small right pleural effusions. ACT 112: Negative or not required by law. The above report was generated using voice recognition software. It may contain grammatical, syntax o r spelling errors. Electronically signed by: Nelson Cazares M.D. 04/21/2019 7:05 AM
[2019-04-21] MEDS: fentaNYL DRIP 1,250 MCG/250 ML BAG IV SCH (08:48)
[2019-04-21] MEDS: OSELTAMIVIR PHOSPHATE SUSP 30 MG/5 ML UDP PO SCH (08:49)
[2019-04-21] MEDS: CEROVITE ADV FORMULA TAB PO SCH ×2 (08:49→09:22)
[2019-04-21] MEDS: METOPROLOL TARTRATE 25 MG TAB PO SCH ×2 (08:50→21:20)
[2019-04-21] MEDS: ASCORBIC ACID 500 MG TAB PO SCH (08:50)
[2019-04-21] MEDS: ENOXAPARIN INJ 40 MG/0.4 ML SYR SQ SCH (08:51)
[2019-04-21] MEDS: INSULIN GLARGINE SOLOSTAR 100 UNITS/ML 3 ML PEN SC SCH ×2 (08:53→21:23)
--- NOTE | 2019-04-21 09:52 | Neurology Consultation ---
Date of Consultation April 21, 2019 Assessment & Plan (1) Myelopathy concurrent with and due to spinal stenosis of thoracic region: Myelomalacia at T10-11 with an associated considerable posterior osteophyte compressing the right anterolateral aspect of the spinal cord. This issue is probably chronic. This finding, as well as the focus of myelomalacia below, probably explains this patient's bilateral Babinski's and relatively increased deep tendon reflexes for the lower limbs. In speaking with her , it sounds like she has been having some difficulty with chronic low back pain and possibly associated neurogenic claudication for quite some time. Her lower extremity weakness is more clinically apparent, however, in the context of her critical systemic illness. Her examination is not consistent with Guillain Franks syndrome. An element of a critical illness myopathy is not completely excluded. This patient will need a surgical consultation for an opinion regarding management of her degenerative spinal stenosis with associated myelomalacia. I do not think her case would really be considered appropriate for acute surgical intervention, in light of her current systemic illness. However, I would defer to the spinal electronics specialist regarding any need for intervention and its timing. Case discussed with gauge machine operator at bedside. No further immediate recommendations. 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 This issue is probably chronic as well. See discussion above. History of Present Illness Reason for Consultation: Weakness, GBS? Requesting Physician: Tony Guidry Attending Physician: Joi Ng MD History of Present Illness The patient is a 78-year-old female who presented to the [facility] on April 15 with cough and chest pain in the context of recent influenza. She became increasingly short of breath over the next few days and developed acute respiratory failure requiring intubation/ventilation/admission to the intensive care unit. She is undergone bronchoscopy to address mucous plugging resulting in airway collapse. History also notable for atrial fibrillation with rapid ventricular response. She was seen by cardiology 2 days ago for this issue. The patient has exhibited generalized weakness in the context of her critical illness and there is some potential concern regarding a possible associated myopathy, GBS type of illness, or possibly spinal column abscess. The patient has completed MRI of the cervical, thoracic, and lumbar spine. These tests reveal evidence of degenerative spinal stenosis and associated myelomalacia within the lower thoracic, upper lumbar spinal region. Imaging described in further detail below. No evidence of abnormal postcontrast enhancement. No evidence for epidural abscess. Upon further questioning, with the patient's at bedside, she does have a history of chronic low back pain and perhaps some symptoms suggestive of neurogenic claudication as she has difficulty keeping up with him on walks due to low back pain and a feeling of weakness in the legs. As above, the patient is intubated and ventilated and is unable to provide details pertaining to her history of present illness or past medical history. Allergies Allergy/AdvReac Type Severity Reaction Status Date / Time latex Allergy Unknown RASH, SKIN Verified 04/15/19 16:12 IRRITATION No Known Drug Allergies Allergy Unknown . Verified 06/25/16 13:40 Home Medications Home Medications Medication Instructions Recorded Confirmed Type simvastatin 20 mg tablet 20 mg PO QPM #90 tab 03/12/19 04/15/19 Rx benzonatate 200 mg PO Q8H PRN 04/15/19 04/15/19 History oseltamivir 75 mg PO Q12H 04/15/19 04/15/19 History vit C-vit O-ssnnxz-inye-lutein 2 cap PO BID 04/15/19 04/15/19 History [PreserVision Lutein] Patient History Medical History Acute pneumonia Atrial fibrillation with rapid ventricular response Hyperlipidemia Impaired fasting glucose Shingles Surgical History S/P tubal ligation Status post tonsillectomy Family History Father Myocardial infarction Aunt Myocardial infarction Social History Preferred Language: Nepali Visual Impairment: Partially Limited Hearing Ability: Normal Wire Temperer Required: No marital status: Current Living Situation: Spouse current occupational status: retired Other Information That Helps Us Care for You: Yes Feels Safe at Home: Yes Smoking Status: Never smoker Second Hand Exposure: No ; Hx Alcohol Use: Yes Alcohol type: wine Alcohol Intake Frequency: Daily Alcohol Intake Frequency Comment: one drink per day Hx Substance Use: No Childhood Exposure to Second-Hand Smoke: Yes Dental Care, Regularly: Yes Physical Activity Frequency: 5-6 Times per Week Review of Systems Review of Systems: Unobtainable due to endotracheal tube Physical Exam Physical Exam: The patient is a well-developed elderly female. She is in the ICU intubated, ventilated. Orientation, memory, concentration, speech pattern, and fund of knowledge cannot be assessed. Visual marie grossly full to threat, acuity cannot be assessed. Pupils equal round reactive to light and accommodation. Eye movements intact. There is no ptosis, nystagmus, or ophthalmoplegia. Facial sensation intact. There is no gross facial droop or weakness. Hearing grossly intact. Movement of the tongue and palate cannot be assessed. Sensation to vibration, light touch, and temperature grossly intact in all 4 limbs. Deep tendon reflexes are intact and symmetrical for the arms and legs although relatively increased at the patellar and Achilles tendons bilaterally, no clonus. Bilateral Babinski response noted. (Patient's indicates "her toes always go like that.") Unable to assess for dysmetria due to generalized weakness. Patient does not cooperate adequately for direct ophthalmoscopic examination. Carotid pulses intact bilaterally, no bruits to auscultation. Gait and station cannot be tested. Patient is able to lift all 4 limbs out of the bed and gives a fairly good effort. Strength 4 out of 5 for the upper limbs, 3-4 out of 5 for the lower limbs. Muscle tone normal throughout. No atrophy. No abnormal movements observed. Results & Data Vital Signs (Past 12 Hours) Vital Signs Pulse Resp BP Pulse Ox 04/21/19 07:30 78 25 H 98 04/21/19 07:08 81 141/94 H 98 04/21/19 06:08 93 H 125/80 96 04/21/19 05:40 93 H 24 96 04/21/19 05:22 95 H 138/78 96 04/21/19 04:08 89 159/97 H 96 04/21/19 03:08 92 H 163/93 H 96 04/21/19 02:28 91 H 24 94 04/21/19 02:08 90 145/84 H 94 04/21/19 01:53 90 143/86 H 94 04/21/19 01:38 89 149/90 H 94 04/21/19 01:23 90 148/90 H 94 04/21/19 01:08 89 146/91 H 93 04/21/19 00:54 102 H 156/126 H 93 04/21/19 00:38 88 145/103 H 94 04/21/19 00:23 89 147/90 H 94 04/21/19 00:08 88 156/88 H 94 04/21/19 00:00 89 04/20/19 23:59 90 160/90 H 94 04/20/19 23:38 85 140/102 H 93 04/20/19 23:30 86 24 92 04/20/19 23:23 84 122/82 91 04/20/19 23:08 86 122/76 92 04/20/19 22:53 89 123/75 91 04/20/19 22:38 90 135/89 91 04/20/19 22:23 93 H 135/85 90 04/20/19 22:20 91 H 91 04/20/19 22:10 95 H 90 04/20/19 22:08 96 H 138/83 91 04/20/19 22:00 95 H 98 04/20/19 21:56 96 H 148/89 H 97 04/20/19 21:53 98 H 151/80 H 97 04/20/19 21:50 99 H 97 04/20/19 21:40 100 H 97 Laboratory Results WBC 29.30, hemoglobin 14.2, hematocrit 42.2, platelet count 224, sodium 135, potassium 4.2, BUN 32, creatinine 1.39, glucose 138, calcium 8.5, magnesium 1.9, AST 166, ALT 316, TSH 0.608, creatine kinase 26 Diagnostic Findings MRI of the cervical spine completed yesterday reveals considerable degenerative disc disease throughout the entire cervical region, normal signal characteristics of the cervical spinal cord. MRI of the thoracic spine reveals a large right posterior osteophyte formation at T10-11 resulting in significant deformity of the right lateral aspect of the thoracic spinal cord. There is an associated area of myelomalacia within the spinal cord. No abnormal postcontrast enhancement. MRI of the lumbar spine reveals grade 1 reverse retrolisthesis of L1 on L2 with an associated element of myelomalacia involving the inferior margin of the spinal cord at the level of L1. The posterior osteophyte at T10-11 is again observed as well as the associated component of myelomalacia within the lower thoracic spinal cord. No abnormal postcontrast enhancement. I reviewed the images as well as the radiologist's impression of the above imaging studies. An electrocardiogram completed April 19 reveals sinus tachycardia, 105 bpm. An echocardiogram completed April 17, 2019 reveals normal left ventricular systolic function, no regional wall motion abnormalities, ejection fraction 55 to 60%, no ASD. PG Care Time/CCT Total # of Minutes Spent Total Time Spent with Patient: Total time spent is greater than 50% in coordination of care (as documented) at patient's floor/unit and/or counseling patient:
[2019-04-21] MEDS: MULTI VIT W/MINERALS LIQUID 15 ML UDP PO SCH ×2 (10:21→21:20)
[2019-04-21] MEDS: DEXMEDETOMIDINE HCL 400 MCG in 0.9 % SODIUM CHLORIDE 96 ML IV SCH (10:22)
[2019-04-21] MEDS: FAMOTIDINE 20 MG in SYRINGE 3 ML IV SCH (10:22)
--- NOTE | 2019-04-21 10:33 | Hospitalist Progress Note ---
Date of Service April 21, 2019 Assessment & Plan (1) Pneumonia: 78 yo F no significant PMHx admitted on 04/16/19 for influenza A infection with superimposed bacterial PNA and ensuing sepsis requiring pressor support, respiratory compromise requiring intubation and mechanical ventilation. Sepsis due to MRSA pneumonia superimposed on influenza with acute hypoxic respiratory failure s/p bronch and intubation: - bronch bacterial cultures from 04/17 revealed MRSA PNA; currently on IV Linezolid, Zosyn added 04/21; completed 10 day course of Tamiflu on 04/20. - bronch fungal culture from 04/17 showing growth of madina albicans; patient started on caspofungin 04/20 - blood cultures from 04/16 negative through 5 days; repeat blood cultures obtained 04/20 without growth to date - WBC 29.3 today, up from 16.5 on 04/20; increase in lactate today: 2.6 up from 2.3 (04/20); patient now febrile - presumably increase in infectious markers is suggestive of PNA progression (Zosyn and antifungal added as above) - maintaining O2 saturations on pressure support mechanical ventilation; per ICU team, vent currently on CPAP mode, extubate according to ICU team - duonebs Q4H PRN + scheduled - on droplet and contact precautions - will continue to monitor peripherally while pt is in ICU; prepared for downgrade [place]: resolved - etiology thought to be due to ATN in setting of septic state - creatinine did bump today to 1.39, up from 1.02 04/20 - Continue to monitor BMP qAM. Elevated LFTs - AST 166, ALT 319 today - Hepatitis serology pending - abdomen ultrasound 04/21 with the following impression: No hepatic masses iden tified. No gallstones identified. No evidence of intra or extrahepatic biliary ductal dilatation. Mild fullness of the left renal collecting system New onset A-fib with RVR - converted back to sinus with esmolol drip (will transition to PO Metoprolol when extubated) - cardiology consulted: recommended no chronic anticoagulation; consider loop recorder placement before discharge to assess for underlying paroxysmal arrhythmia - ECHO: EF 55-60%, no wall motion abnormalities Myelopathy concurrent with and due to spinal stenosis of thoracic and lumbar reg ions - visualized on spine MRI 04/21/19. - per , patient was having chronic low back pain prior to this admission - Neurology following, recommended spine surgery consult for guidance on management of degenerative spinal stenosis and associated myelomalacia. Pulmonary Nodules - visualized on admission Chest CT - clinical picture favors inflammatory origin vs. neoplastic process - repeat CT in 3 months to assess for resolution - patient is non-smoker, no FHx lung cancer Code Status: FULL CODE FEN/GI: NPO DVT ppx: Lovenox Dispo: ICU (2) Influenza A: (3) Acute respiratory failure: (4) Chest pain: (5) [place] (acute kidney injury): (6) Sepsis: (7) Admitted to intensive care unit: Supervising Physician Co-Signing Physician Notes Resident Physician Supervision Note: I independently interviewed and examined the patient and verified the benavides history and physical, reviewed labs and image studies, discussed the case with the resident Dr. Moore and agree with the findings and care plan. Subjective In ICU. and daughter present at bedside. Patient is sedated on ventilator Review of Systems Review of Systems: Unobtainable due to endotracheal tube Physical Exam Constitutional: WD/WN, vitals as above Neck: normal visual inspection and trachea midline Respiratory: no labored breathing Cardiovascular: RRR, no murmur, no edema Heart Sounds: normal S1 and normal S2 Gastrointestinal (Abdomen): Inspection/Auscultation: abdomen not distended Skin: no rashes, warm and dry Psychiatric: Orientation: + not alert Results & Data Vital Signs (Past 12 Hours) Vital Signs Pulse Resp BP Pulse Ox 04/21/19 07:30 78 25 H 98 04/21/19 07:08 81 141/94 H 98 04/21/19 06:08 93 H 125/80 96 04/21/19 05:40 93 H 24 96 04/21/19 05:22 95 H 138/78 96 04/21/19 04:08 89 159/97 H 96 04/21/19 03:08 92 H 163/93 H 96 04/21/19 02:28 91 H 24 94 04/21/19 02:08 90 145/84 H 94 04/21/19 01:53 90 143/86 H 94 04/21/19 01:38 89 149/90 H 94 04/21/19 01:23 90 148/90 H 94 04/21/19 01:08 89 146/91 H 93 04/21/19 00:54 102 H 156/126 H 93 04/21/19 00:38 88 145/103 H 94 04/21/19 00:23 89 147/90 H 94 04/21/19 00:08 88 156/88 H 94 04/21/19 00:00 89 04/20/19 23:59 90 160/90 H 94 04/20/19 23:38 85 140/102 H 93 04/20/19 23:30 86 24 92 04/20/19 23:23 84 122/82 91 04/20/19 23:08 86 122/76 92 04/20/19 22:53 89 123/75 91 04/20/19 22:38 90 135/89 91 Resident Activity Tracking Resident Involvement: Resident Care Provided Care Provided: Adult Hospital Medicine (1) Chest pain Chest pain type: unspecified Qualified Code(s): R07.9 - Chest pain, unspecified
[2019-04-21] MEDS ORDERED: CASPOFUNGIN 50 MG in SODIUM CHLORIDE 0.9% 250 ML IV SCH (11:00)
[2019-04-21] MEDS ORDERED: PIPERACILL/TAZOBAC CONSULT ACTIVE PRN (11:05)
[2019-04-21] MEDS ORDERED: PIPERACILLIN/TAZOBACTAM 4.5 GM in DEXTROSE 5% 100 ML IV ONE (11:30)
[2019-04-21 11:38] LABS: Hepatitis B Surface Antigen Neg (Neg)
[2019-04-21] MEDS: CASPOFUNGIN 35 MG in SODIUM CHLORIDE 0.9% 250 ML IV SCH (11:42)
--- NOTE | 2019-04-21 12:02 | Ultrasound Report ---
US abdomen complete CLINICAL HISTORY: Elevated LFTs COMPARISON STUDY: No previous studies for comparison. FINDINGS: The pancreas appears normal as visualized. There is no evidence of abdominal aortic dilatat ion. The spleen measures 9 cm and was subtly heterogeneous in echotexture. The right kidney measures 10.6 cm in length. The left kidney measures 9.9 cm in length. There is mild fullness of the left nick l collecting system. No focal hepatic masses are visualized. No gallstones are visualized. There is trace pericholecystic fluid. There is no ductal dilatation. IMPRESSION: 1. No hepatic masses identified 2. No gallstones identified 3. No evidence of intra or extrahepatic biliary ductal dilatation 4. Mild fullness of the left renal collecting system ACT 112: Negative or not required by law. Electronically signed by: Joe Christianson M.D. 04/21/2019 12:00 PM
[2019-04-21 12:06] LABS: Hepatitis C IgG 13Yrs+Old_Rflx Neg (Neg)
--- NOTE | 2019-04-21 12:08 | Ultrasound Report ---
BILATERAL LOWER EXTREMITY VENOUS DOPPLER HISTORY: Acute pain and swelling of the lower extremities r/o dvt COMPARISON STUDY: None. FINDINGS: There is normal compressibility, flow, and augmentation within the bilateral lower extremit y deep venous systems. IMPRESSION: No DVT within the right or left lower extremity. ACT 112: Negative or not required by law. Electronically signed by: Nelson Cazares M.D. 04/21/2019 12:07 PM
--- NOTE | 2019-04-21 12:31 | Pharmacy Report ---
Pharmacy Glycemic Short Note 2 - Date of Service April 21, 2019 - Glycemic Short BSG Results (Last 24 hours): 04/20/19 04/20/19 04/20/19 09:10 12:51 16:17 Glucose POC Glucose (other) 131 H 129 H 121 H 04/20/19 04/20/19 04/21/19 20:59 23:56 04:12 Glucose 138 H POC Glucose (other) 139 H 101 H 04/21/19 04/21/19 04:16 07:28 Glucose POC Glucose (other) 138 H 212 H OUTPATIENT ANTIDIABETIC REGIMEN: * N/A * A1c = 6% ASSESSMENT: 04/21: * Patient received 21 units of insulin yesterday (18 basal, 3 bolus) * Tube feeds are now running at goal rate. * BSGs have been mostly acceptable, but have increased today (117-212 mg/dL). Will continue with current lantus and novolog scale for now as this seems to be accounting well for these BSG fluctuations. 04/19 * Patient received 30 units of basal and 4 units of correctional insulin yesterday * BSGs have ranged from 120-171 mg/dL * Patient remains intubated, on abx for MRSA pneumonia, Esmolol drip, and tube feeds have been started today * Will adjust insulin orders to cover carbs from tube feeds and continue to monitor closely with q4h BSGs 04/18 * BSGs have been controlled with basal/bolus insulin dosing * Causes of insulin resistance have increased: heparin drip, Precedex, Esmolol drip * Patient received 30 units of basal insulin yesterday and fasting is acceptable at 148 mg/dL * Tube feeds may be initiated in the near future but are currently on hold 04/17 * Patient admitted to ICU secondary to respiratory failure, influenza pneumonia with likely superimposed bacterial pneumonia * Patient is now intubated, sedated, receiving pressor support (norepi) and is NPO * BSGs climbing this AM, now up to 256. Per discussion with Linux Network Administrator, basal/bolus SQ regimen to begin at this time as he preferred to defer treatment with insulin drip at this time * No prior h/o DM, likely stress induced hyperglycemia * Will initiated basal based upon weight and scaled according to BSG/stress level. Novolog will be dosed using moderate-severe stress level PLAN FOR INPATIENT GLYCEMIC CONTROL: * Basal insulin * Lantus per the following scale: * 0 units if BSG less than 120 * 9 units if BSG 121-160 * 18 units if BSG 161-220 * 26 units if BSG > 220 * Bolus insulin - add carb counts for initiation of tube feeds * NovoLog per scale q4h * Goal Range: Low 110 mg/dL - High 140 mg/dL * Correction Factor: 20 mg/dL/unit * Nutritional / Prandial insulin per carb ratio of 1 unit per 8 grams CHO consumed * If Peptamen at 15 cc/hr -> no carb coverage needed * If Peptamen at 25 cc/hr -> 1 unit * If Peptamen at 35 cc/hr -> 2 units * If Peptamen at 45 cc/hr -> 3 units
[2019-04-21] MEDS: PIPERACILLIN/TAZOBACTAM 4.5 GM in DEXTROSE 5% 100 ML IV SCH (16:23)
[2019-04-21] MEDS: PEPTAMEN INTENSE VHP 1.0 CAL 1,000 ML BAG OG SCH (16:25)
--- NOTE | 2019-04-21 21:31 | Critical Care Progress Note ---
Date of Service April 21, 2019 Assessment & Plan (1) Admitted to intensive care unit: Reason Critically Ill: 78-year-old female with a past medical history of recent influenza and superimposed bacterial pneumonia. Currently intubated and ventilated. NEURO - * CAM ICU: NEGATIVE * Weakness: Improving -Likely ICU myopathy. -Neurology consult: Discussed with Dr. Ridley -Reviewed results of MRI: Chronic pathology no appearance of emergent spinal catastrophe CARDIAC/VASCULAR - * Sepsis induced atrial fibrillation with rapid ventricular response resolved. * Paroxysmal atrial fibrillation -Normal sinus rhythm, I believe systemic anticoagulation is relatively contraindicated given the critical illness and need for possible procedures RESPIRATORY - * Underwent bronchoscopy today, significant mucus plugging of the right lung, significant excessive dynamic airway collapse. GI/NUTRITION - * Tolerating tube feeds RENAL/LYTES - * Slight worsening of renal function - * José in place - Strict I&Os. ENDO - * No history of diabetes or thyroid disease. * BSGs per unit protocol. ISS --> gtt per unit policy. HEME - * Stable H&H. ID - Zyvox for MRSA pneumonia Tamiflu for influenza: Extended course Zosyn for additional gram-negative and anaerobic coverage in the setting of possible postobstructive process given dense infiltrate seen on CT -Given renal insufficiency IV contrast presents risk without significant benefit LINES/IV ACCESS - * PIVs x2, right internal jugular CVC 04/18 * José DVT PROPHYLAXIS - * Decrease Lovenox to 30 daily for decreased creatinine clearance Patient was discussed in multidisciplinary rounds. (2) Sepsis: (3) Pneumonia: (4) [place] (acute kidney injury): (5) Abnormal CT of the chest: We will follow-up in the outpatient clinic and repeat CT scan in 6 weeks (6) Influenza A: (7) Acute respiratory failure: (8) Hypoxia: (9) Flu-like symptoms: (10) Acute pneumonia: (11) Atrial fibrillation with rapid ventricular response: Subjective In ICU. and daughter present at bedside. Patient is sedated on ventilator Review of Systems Review of Systems: Unobtainable due to endotracheal tube Physical Exam Physical Exam: General: Elderly female appears her stated age I have reviewed the recorded vital signs Neurological: RASS score: 0, 2+ deckhand tuna boat strength today Psychological: Glascow Coma Scale: Eyes: 4, Verbal 1T, Motor 6, Total 11 T follows commands Eyes: Pupils are equal, round and reactive to light, anicteric sclera. Symmetrical lids. HENT: Oropharynx obscured by endotracheal tube, moist Mucous Membranes. Neck: Supple. Symmetric. trachea midline. No thyromegaly. Cardiovascular: Normal peripheral perfusion. Distal pulses and capillary refill intact. No JVD. Respiratory: Respirations are non-labored, no accessory muscle use. Coarse breath sounds particularly over the right chest Gastrointestinal: Soft. Non-distended. Lymphatic: No cervical lymphadenopathy. Musculoskeletal: No deformity. No clubbing nor cyanosis, 1+ edema Results & Data Vital Signs (Past 12 Hours) Vital Signs Pulse Resp BP Pulse Ox 04/21/19 20:10 103 H 20 94 04/21/19 17:25 94 H 18 96 04/21/19 15:08 92 H 98/61 L 96 04/21/19 14:58 90 18 96 04/21/19 14:08 86 106/64 96 04/21/19 13:08 84 121/79 97 04/21/19 12:08 85 121/71 96 04/21/19 11:25 73 23 98 04/21/19 11:08 88 105/71 98 04/21/19 10:08 92 H 102/65 96 Coding Level of Care Code Critical Care 1st 30-74 mins Diagnoses Admitted to intensive care unit Z78.9 Sepsis A41.9 Pneumonia J18.9 [place] (acute kidney injury) N17.[address] of the chest R93.89 Influenza A J10.1 Acute respiratory failure J96.00 Hypoxia R09.02 Flu-like symptoms R68.89 Acute pneumonia J18.9 Atrial fibrillation with rapid ventricular response I48.91 Time Spent (min) 40 Comment I have personally spent 40 minutes of critical care time in the direct management of this patient. This is a life/limb threatening event. This includes time spent evaluating patient, direct bedside care, chart review, placing orders, interpretation of diagnostic studies, discussion with consultants, patient, and/or family members regarding treatment decisions, as well as other required patient management activities. This time is exclusive of all separately billable procedures, and teaching time and separate from and in addition to any other critical care service time.
[2019-04-22] MEDS: ALBUT/IPRATROP 3MG/0.5MG NEB 3 ML VIAL NEB SCH ×7 (00:01→23:00)
[2019-04-22] MEDS: DEXMEDETOMIDINE HCL 400 MCG in 0.9 % SODIUM CHLORIDE 96 ML IV SCH ×4 (00:08→20:01)
[2019-04-22] MEDS: INSULIN ASPART 100 UNITS/ML 3 ML PEN SC SCH ×7 (00:09→23:54)
[2019-04-22] MEDS: PIPERACILLIN/TAZOBACTAM 4.5 GM in DEXTROSE 5% 100 ML IV SCH ×4 (00:09→23:55)
[2019-04-22 03:54] LABS: Hemoglobin 11.9 g/dL (12.0-16.0); Mean Corpuscular Hemoglobin 28.3 pg (25-34); Mean Corpuscular Volume 83.1 fL (80-100); Mean Platelet Volume 10.6 fL (7.4-10.4); Nucleated RBC # (auto) 0.07 K/uL (0-0); Nucleated RBC % (auto) 0.3 %; Platelet Count 188 K/uL (130-400); RDW Coefficient of Variation 14.1 % (11.5-14.5); RDW Standard Deviation 43.2 fL (36.4-46.3); Red Blood Count 4.21 M/uL (4.2-5.4); White Blood Count 24.52 K/uL (4.8-10.8)
[2019-04-22 04:19] LABS: ALC (manual) 1.35 K/uL (1.2-3.4); ANC (manual) 20.72 K/uL (1.4-6.5); Lymphocytes # (manual) 1.35 K/uL (1.2-3.4); Lymphocytes % (manual) 5.5 %; Metamyelocytes # (manual) 1.79 K/uL (0-0); Metamyelocytes % (manual) 7.3 %; Monocytes # (manual) 0.44 K/uL (0.11-0.59); Monocytes % (manual) 1.8 %; Myelocytes # (manual) 0.22 K/uL (0-0); Myelocytes % (manual) 0.9 %; Neutrophils # (manual) 20.72 K/uL (1.4-6.5); Neutrophils % (manual) 84.5 %; RBC Morphology Unremarkable
[2019-04-22 04:21] LABS: Albumin Level 1.2 gm/dl (3.4-5.0); BUN Creatinine Ratio 28.3 (10-20); Bilirubin Direct 0.2 mg/dl (0-0.2); Bilirubin,Total 0.5 mg/dl (0.2-1); Calcium 8.3 mg/dl (8.5-10.1); Creatinine Clr Calc Pharmacy 31.1 ml/min; Est GFR (African American) 47.9; Est GFR (Non-African American) 41.4; Magnesium 1.8 mg/dl (1.8-2.4); Phosphorus 3.1 mg/dl (2.5-4.9); Potassium 3.4 mmol/L (3.5-5.1); Total Protein 5.1 gm/dl (6.4-8.2)
[2019-04-22 05:43] LABS: iSTAT Allen Test Pass; iSTAT Arterial Blood Gas HCO3 18 meg/L (19-24); iSTAT Arterial Blood Gas pCO2 27 mmHg (35-46); iSTAT Arterial Blood Gas pH 7.43 (7.35-7.45); iSTAT Arterial Blood Gas pO2 72 mmHg (80-95); iSTAT Carbon Dioxide 18 mmol/L (24-31); iSTAT FiO2 40 %; iSTAT Site R Radial
[2019-04-22] MEDS: LINEZOLID 600 MG/300 ML BAG IV SCH ×2 (05:48→17:15)
--- NOTE | 2019-04-22 07:11 | XRay Report ---
XR chest 1V portable HISTORY: 78 years-old Female f/u follow-up study in a patient with respiratory failure COMPARISON: Chest radiograph 04/21/2019 TECHNIQUE: Portable AP view of the chest FINDINGS: Endotracheal tube is again angulated towards the right mainstem bronchus terminating 1.4 cm superior to the malia. Unchanged positioning of the right IJ central venous catheter and enteric tube. Teleme try leads are coiled about the chest. Mild right hemidiaphragmatic elevation persists. Masslike conso lidation of the right perihilar distribution with right midlung and right greater than left bibasilar consolidative opacities. Trace left and small to moderate right pleural effusions. Pulmonary vascula r congestion. No pneumothorax. Degenerative changes of the shoulders and spine. IMPRESSION: 1. Endotracheal tube terminates 1.4 cm superior to the malia. 2. Stable positioning of right IJ central venous catheter and enteric tube. 3. Cardiomegaly with pulmonary vascular congestion and right greater than left pleural effusions. 4. Masslike consolidation of the right midlung with persistent right greater than left bibasilar opac ities. ACT 112: Negative or not required by law. The above report was generated using voice recognition software. It may contain grammatical, syntax o r spelling errors. Electronically signed by: Nelson Cazares M.D. 04/22/2019 7:09 AM
--- NOTE | 2019-04-22 07:20 | Hospitalist Progress Note ---
Date of Service April 22, 2019 Assessment & Plan (1) Pneumonia: 78 yo F no significant PMHx admitted on 04/16/19 for influenza A infection with superimposed bacterial PNA and ensuing sepsis requiring pressor support, respiratory compromise requiring intubation and mechanical ventilation. Sepsis due to MRSA pneumonia superimposed on influenza with acute hypoxic respiratory failure s/p bronch and intubation: - bronch bacterial cultures from 04/17 revealed MRSA PNA; currently on IV Linez olid, Zosyn added 04/21; completed 10 day course of Tamiflu on 04/20. - bronch fungal culture from 04/17 and 04/20 showing growth of madina albicans; patient started on caspofungin 04/20 - blood cultures from 04/16 negative through 5 days; repeat blood cultures obtained 04/20 without growth to date - WBC 24.5 today, down from 29 on 04/21; lactate at 2.6; procal 52 today, up from 10; patient now afebrile, sudden elevation possibly from steroids. - presumably increase in infectious markers is suggestive of PNA progression (Zosyn and antifungal added as above) - maintaining O2 saturations on pressure support mechanical ventilation; per ICU team, vent currently on CPAP mode, extubate according to ICU team - duonebs Q4H PRN + scheduled - on droplet and contact precautions - will continue to monitor peripherally while pt is in ICU; prepared for downgrade [place]O: resolved - etiology thought to be due to ATN in setting of septic state - creatinine today to 1.26 today, down from 1.33 on 04/21 - Continue to monitor BMP qAM. Elevated LFTs - AST 57, ALT 175 today - Hepatitis serology pending - abdomen ultrasound 04/21 with the following impression: No hepatic masses identified. No gallstones identified. No evidence of intra or extrahepatic biliary ductal dilatation. Mild fullness of the left renal collecting system New onset A-fib with RVR - converted back to sinus with esmolol drip (will transition to PO Metoprolol when extubated) - cardiology consulted: recommended no chronic anticoagulation; consider loop recorder placement before discharge to assess for underlying paroxysmal arrhythmia - ECHO: EF 55-60%, no wall motion abnormalities Myelopathy concurrent with and due to spinal stenosis of thoracic and lumbar regions - visualized on spine MRI 04/21/19. - per , patient was having chronic low back pain prior to this admission - Neurology following, recommended spine surgery consult for guidance on management of degenerative spinal stenosis and associated myelomalacia. Pulmonary Nodules - visualized on admission Chest CT - clinical picture favors inflammatory origin vs. neoplastic process - repeat CT in 3 months to assess for resolution - patient is non-smoker, no FHx lung cancer Code Status: FULL CODE FEN/GI: NPO DVT ppx: Lovenox Dispo: ICU (2) Influenza A: (3) Acute respiratory failure: (4) Chest pain: (5) [place] (acute kidney injury): (6) Sepsis: (7) Admitted to intensive care unit: Supervising Physician Co-Signing Physician Notes Resident Physician Supervision Note: I independently interviewed and examined the patient and verified the benavides history and physical, reviewed labs and image studies, discussed the case with the resident Dr. Moore and agree with the findings and care plan. Subjective In ICU. Patient is sedated on ventilator Review of Systems Review of Systems: Unobtainable due to endotracheal tube Physical Exam Constitutional: WD/WN, vitals as above Neck: normal visual inspection and trachea midline Respiratory: no labored breathing Cardiovascular: RRR, no murmur, no edema Heart Sounds: normal S1 and normal S2 Gastrointestinal (Abdomen): Inspection/Auscultation: abdomen not distended Skin: no rashes, warm and dry Psychiatric: Orientation: + not alert Results & Data Vital Signs (Past 12 Hours) Vital Signs Temp Pulse Pulse Resp BP Pulse Ox 04/22/19 06:00 91 H 21 81/52 L 98 04/22/19 05:00 92 H 22 99/47 L 99 04/22/19 04:00 37.6 C H 101 H 100 H 23 96/63 L 96 04/22/19 03:00 91 H 20 100/61 97 04/22/19 02:13 99 H 24 96 04/22/19 02:00 95 H 22 110/60 96 04/22/19 01:00 97 H 20 120/60 96 04/22/19 00:49 100 H 23 94 04/22/19 00:00 36.8 C 94 H 23 115/66 94 04/21/19 23:00 90 22 129/83 98 04/21/19 22:00 93 H 24 116/77 98 04/21/19 21:00 97 H 25 H 135/69 93 04/21/19 20:10 103 H 20 94 04/21/19 20:00 38 C H 92 H 24 99/58 L 96 Resident Activity Tracking Resident Involvement: Resident Care Provided Care Provided: Adult Hospital Medicine (1) Chest pain Chest pain type: unspecified Qualified Code(s): R07.9 - Chest pain, unspecified
[2019-04-22] MEDS: PHENYLEPHRINE HCL 20 MG in DEXTROSE 5% 500 ML IV SCH ×2 (08:52→17:34)
[2019-04-22] MEDS: FAMOTIDINE 20 MG in SYRINGE 3 ML IV SCH (08:54)
[2019-04-22] MEDS: METOPROLOL TARTRATE 25 MG TAB PO SCH ×2 (08:55→20:10)
[2019-04-22] MEDS: ENOXAPARIN INJ 40 MG/0.4 ML SYR SQ SCH (08:55)
[2019-04-22] MEDS: ASCORBIC ACID 500 MG TAB PO SCH (08:55)
[2019-04-22] MEDS: MULTI VIT W/MINERALS LIQUID 15 ML UDP PO SCH ×2 (08:55→20:01)
[2019-04-22] MEDS: INSULIN GLARGINE SOLOSTAR 100 UNITS/ML 3 ML PEN SC SCH ×2 (09:17→20:04)
[2019-04-22] MEDS: fentaNYL DRIP 1,250 MCG/250 ML BAG IV SCH (09:18)
[2019-04-22] MEDS ORDERED: POTASSIUM CHLORIDE PWD 20 MEQ PACK PO ONE (10:00)
[2019-04-22] MEDS: CASPOFUNGIN 35 MG in SODIUM CHLORIDE 0.9% 250 ML IV SCH (10:39)
[2019-04-22] MEDS ORDERED: MIDAZOLAM HCL 1 MG/ML 2ML VIAL ONE (10:54)
[2019-04-22] MEDS ORDERED: fentaNYL citrate 100 MCG/2 ML VIAL IV STA (11:18)
--- NOTE | 2019-04-22 11:18 | Procedure Note ---
Procedure Note: Bronchoscopy Procedure Procedure date: April 21, 2019 Procedure: fiberoptic bronchoscopy Pre-procedure indication: Dense pulmonary infiltrate right lung, MRSA pneumonia, continued fevers Post-procedure Diagnosis: same as above Prior to Procedure: Informed Consent: The risks, benefits, indications, potential complications, and alternatives were explained to the patient's and informed consent obtained. Attending Staff: Oksana Guidry DO Resident/APC: Not applicable Skin Prep: Not applicable Anesthesia: 4 mg Versed, 100 mcg fentanyl The identity of the patient was confirmed and a bedside time out was performed. Description of Procedure: Fiberoptic bronchoscopy was performed via endotracheal tube. Bronchioalveolar brushing x3 of the right middle lobe was performed. Findings included: Significant excessive dynamic airway collapse with greater than 75% collapse of the airway tissues. There is significant decrease in inflammation and mucopurulent secretions. Overall the right lung appears to be improving Complications: None Specimens: Brushings were sent for cytology Estimated blood loss: Zero
[2019-04-22] MEDS ORDERED: MIDAZOLAM HCL 1 MG/ML 2ML VIAL IV STA (11:23)
[2019-04-22] MEDS: THIAMINE HCL 100 MG TAB PO SCH (13:22)
[2019-04-22] MEDS: PEPTAMEN INTENSE VHP 1.0 CAL 1,000 ML BAG OG SCH (18:21)
[2019-04-22] MEDS: MAGNESIUM OXIDE 400 MG TAB PO SCH (20:13)
[2019-04-23] MEDS: ALBUT/IPRATROP 3MG/0.5MG NEB 3 ML VIAL NEB SCH ×6 (02:04→22:32)
[2019-04-23] MEDS: INSULIN ASPART 100 UNITS/ML 3 ML PEN SC SCH ×4 (04:20→20:03)
[2019-04-23 05:03] LABS: Hematocrit (blood only) 31.6 % (37-47); Hemoglobin 10.6 g/dL (12.0-16.0); Mean Corpuscular Hemoglobin 28.2 pg (25-34); Mean Corpuscular Hgb Conc 33.5 g/dL (32-36); Mean Platelet Volume 10.7 fL (7.4-10.4); Nucleated RBC # (auto) 0.04 K/uL (0-0); Nucleated RBC % (auto) 0.2 %; Platelet Count 167 K/uL (130-400); RDW Coefficient of Variation 13.9 % (11.5-14.5); RDW Standard Deviation 42.2 fL (36.4-46.3); Red Blood Count 3.76 M/uL (4.2-5.4)
[2019-04-23 05:15] LABS: INR 1.1 (0.9-1.1); Partial Thromboplastin Time 26.7 Seconds (21.0-31.0); Prothrombin Time 11.5 Seconds (9.0-12.0)
[2019-04-23] MEDS: LINEZOLID 600 MG/300 ML BAG IV SCH ×2 (05:15→18:05)
[2019-04-23 05:41] LABS: Albumin Level 1.3 gm/dl (3.4-5.0); BUN Creatinine Ratio 29.8 (10-20); Bilirubin Direct 0.2 mg/dl (0-0.2); Bilirubin,Total 0.6 mg/dl (0.2-1); Calcium 8.2 mg/dl (8.5-10.1); Creatinine Clr Calc Pharmacy 29.4 ml/min; Est GFR (African American) 44.9; Est GFR (Non-African American) 38.7; Magnesium 1.9 mg/dl (1.8-2.4); Phosphorus 2.7 mg/dl (2.5-4.9); Total Protein 5.2 gm/dl (6.4-8.2)
[2019-04-23 05:53] LABS: iSTAT Allen Test Pass; iSTAT Arterial Blood Gas HCO3 17 meg/L (19-24); iSTAT Arterial Blood Gas pCO2 25 mmHg (35-46); iSTAT Arterial Blood Gas pH 7.43 (7.35-7.45); iSTAT Arterial Blood Gas pO2 68 mmHg (80-95); iSTAT Carbon Dioxide 17 mmol/L (24-31); iSTAT FiO2 30 %; iSTAT Site R Radial
[2019-04-23 06:11] LABS: ALC (manual) 1.58 K/uL (1.2-3.4); ANC (manual) 18.76 K/uL (1.4-6.5); Eosinophils # (manual) 0.39 K/uL (0-0.5); Eosinophils % (manual) 1.7 %; Lymphocytes # (manual) 1.58 K/uL (1.2-3.4); Lymphocytes % (manual) 6.9 %; Metamyelocytes # (manual) 0.21 K/uL (0-0); Metamyelocytes % (manual) 0.9 %; Monocytes # (manual) 1.37 K/uL (0.11-0.59); Myelocytes % (manual) 2.6 %; Neutrophils # (manual) 18.76 K/uL (1.4-6.5); Neutrophils % (manual) 81.9 %; RBC Morphology Unremarkable
--- NOTE | 2019-04-23 06:59 | XRay Report ---
XR chest 1V portable CLINICAL HISTORY: 78 years-old Female presenting with f/u. TECHNIQUE: Portable upright AP view of the chest was obtained. COMPARISON: 04/22/2019. FINDINGS: Endotracheal tube terminates in the lower thoracic trachea. The malia is poorly delineated. The posi tion is grossly unchanged from prior. Nasogastric tube descends below the diaphragm terminating in th e fundus with sidehole also within the gastric lumen. Right internal jugular central venous catheter terminates at the superior cavoatrial junction. Numerous external leads project over the thorax. Atherosclerosis of the aortic arch. Cardiac silhouette mildly enlarged, unchanged. Persistent dense r ight mid to basilar opacity, which may extensively involve the right middle lobe and may be slightly decreased from prior. Associated small right pleural effusion. No large pneumothorax. Elevation of th e right hemidiaphragm unchanged. Degenerative changes of the thoracic spine. Upper abdomen normal. IMPRESSION: 1. Endotracheal tube unchanged in position. Poor delineation of the malia limiting assessment. 2. Remaining tubes and lines also unchanged in position. 3. Stable to slight interval decrease in the dense right mid to basilar consolidation. 4. Stable small associated right pleural effusion. 5. Mild cardiomegaly. ACT 112: Negative or not required by law. Electronically signed by: Fabricio Wilson M.D. 04/23/2019 6:58 AM
[2019-04-23] MEDS: MULTI VIT W/MINERALS LIQUID 15 ML UDP PO SCH ×2 (08:41→20:09)
[2019-04-23] MEDS: PIPERACILLIN/TAZOBACTAM 4.5 GM in DEXTROSE 5% 100 ML IV SCH ×2 (08:41→16:20)
[2019-04-23] MEDS: INSULIN GLARGINE SOLOSTAR 100 UNITS/ML 3 ML PEN SC SCH ×2 (08:42→20:03)
[2019-04-23] MEDS: THIAMINE HCL 100 MG TAB PO SCH (08:43)
[2019-04-23] MEDS: METOPROLOL TARTRATE 25 MG TAB PO SCH ×2 (08:43→20:09)
[2019-04-23] MEDS: ENOXAPARIN INJ 30 MG/0.3 ML SYR SQ SCH (08:43)
[2019-04-23] MEDS: ASCORBIC ACID 500 MG TAB PO SCH (08:43)
[2019-04-23] MEDS: fentaNYL DRIP 1,250 MCG/250 ML BAG IV SCH (08:52)
--- NOTE | 2019-04-23 09:45 | Neurology Progress Note ---
Date of Service April 23, 2019 Assessment & Plan (1) Myelopathy concurrent with and due to spinal stenosis of thoracic region: Partial thoracic myelopathy with relative hyperreflexia for the lower limbs and upgoing toes. Patient continues to display some relative weakness of the lower limbs in the context of her generalized weakness in the setting of her critical illness which fortunately is improving. Clinical suspicion for critical illness neuromyopathy is low at this time. The observed thoracic disc osteophyte complex is chronic and has probably been symptomatic for quite some time as described previously. Nonurgent surgical consultation should be considered. No further immediate neurological recommendations. Case discussed with manager research and development at bedside. Subjective Follow-up for lower extremity weakness The patient is a 78-year-old female who was admitted to the [facility] on April 15 with cough and chest pain. Her respiratory status subsequently declined, developing acute respiratory failure, requiring transfer to the ICU for intubation/ventilation. She was noted to have significant generalized weakness, especially the legs, with some concern for possible critical illness neuromyopathy or GBS or possibly spinal abscess in light of bacteremia. She underwent imaging of the entire neuro axis with MRI. She was found to have what appears to be a significant osteophyte disc complex compressing the right a nterolateral aspect of the spinal cord at T10-11 with some associated myelomalacia. This chronic finding probably explains her lower extremity Babinski responses and hyperreflexia as well as her relatively greater weakness of the legs in the context of her critical illness. Her medical condition has significantly improved. She has been extubated and she is able to move her limbs much more freely. Review of Systems Respiratory: + dyspnea Neurologic: as per Subjective / HPI and + generalized weakness Physical Exam Physical Exam: The patient is awake, mildly lethargic. Visual marie full to confrontation. Eye movements normal. There is no facial droop. Patient is able to lift all 4 limbs out of the bed. Lower extremity strength 4 out of 5. Upper extremity strength 5 out of 5. Deep tendon reflexes remain relatively brisk for the lower limbs with bilateral upgoing toes. Sensation intact for the lower limbs. Results & Data Vital Signs (Past 12 Hours) Vital Signs Temp Pulse Resp BP Pulse Ox 04/23/19 07:32 94 H 23 92 04/23/19 06:24 100 H 95/58 L 96 04/23/19 06:01 91 H 84/46 L 92 04/23/19 06:00 93 H 91 04/23/19 05:32 94 H 96 04/23/19 05:31 95 H 79/62 L 99 04/23/19 05:28 96 H 25 H 92 04/23/19 05:01 99 H 107/54 L 96 04/23/19 05:00 98 H 90 04/23/19 04:30 102 H 106/52 L 93 04/23/19 04:01 103 H 93 04/23/19 04:00 105 H 99/54 L 91 04/23/19 03:31 104 H 92 04/23/19 03:30 105 H 101/47 L 92 04/23/19 03:01 105 H 93/46 L 92 04/23/19 03:00 105 H 91 04/23/19 02:30 108 H 90/57 L 92 04/23/19 02:04 98 H 24 94 04/23/19 02:01 96 H 94 04/23/19 02:00 96 H 100/54 L 94 04/23/19 01:30 97 H 98/56 L 94 04/23/19 01:01 97 H 110/58 L 96 04/23/19 01:00 96 H 95 04/23/19 00:30 98 H 106/60 96 04/23/19 00:00 95 H 101/57 L 97 04/22/19 23:49 96 H 102/52 L 96 04/22/19 23:01 37.7 C H 84 94/54 L 96 04/22/19 23:00 84 22 96 04/22/19 22:32 85 96 04/22/19 22:31 84 94/49 L 96 04/22/19 22:30 84 96 04/22/19 22:01 85 96 04/22/19 22:00 85 98/53 L 96 PG Care Time/CCT Total # of Minutes Spent Total Time Spent with Patient: Total time spent is greater than 50% in coordination of care (as documented) at patient's floor/unit and/or counseling patient:
--- NOTE | 2019-04-23 09:49 | Critical Care Progress Note ---
Date of Service April 23, 2019 Assessment & Plan (1) Admitted to intensive care unit: Reason Critically Ill: 78-year-old female with a past medical history of recent influenza and superimposed bacterial pneumonia. Currently intubated and ventilated. NEURO - * CAM ICU: NEGATIVE * Weakness required in ICU: Improved * ICU myopathy: Improved -PT OT evaluation and consult * Lumbar stenosis -Discussed with hospitalist team, no acute issues at this time can follow- up as outpatient for chronic back pain CARDIAC/VASCULAR - * Paroxysmal atrial fibrillation -Related to critical illness -Holding systemic anticoagulation as risks outweigh benefit at th is time RESPIRATORY - * Acute respiratory failure secondary to acute pneumonia secondary to influenza complicated by MRSA pneumonia * Excessive dynamic airway collapse -Patient successfully extubated -CPAP at night given excessive dynamic airway collapse and ICU weakness GI/NUTRITION - * Speech therapy consult -Reviewed speech eval: Progressed to full liquid heart healthy diet RENAL/LYTES - * Renal function greatly improved. Continue to monitor. Maintain mean arterial pressure above 65. - * José in place - Strict I&Os. ENDO - * No history of diabetes or thyroid disease. * BSGs per unit protocol. ISS --> gtt per unit policy. HEME - * Stable H&H. ID - Continue current anti-infective therapies LINES/IV ACCESS - * PIVs x2, right internal jugular CVC 04/18, consider PICC line tomorrow and discontinuation of CVC * José DVT PROPHYLAXIS - * Lovenox 30 mg (2) Sepsis: (3) Pneumonia: (4) [place] (acute kidney injury): (5) Abnormal CT of the chest: We will follow-up in the outpatient clinic and repeat CT scan in 6 weeks (6) Influenza A: Discontinue isolation precautions for influenza (7) Acute respiratory failure: (8) Hypoxia: (9) Flu-like symptoms: (10) Acute pneumonia: (11) Atrial fibrillation with rapid ventricular response: (12) Weakness acquired in ICU: (13) Critical illness myopathy: Subjective No overnight events, significant improvement in patient's strength. Reviewed extubation parameters obtained by respiratory therapy. Review of Systems Review of Systems: Unobtainable due to endotracheal tube Physical Exam Physical Exam: General: Alert. nontoxic. Skin: Warm, dry, Head: Atraumatic Ears, nose, mouth and throat: Airway obscured by endotracheal tube Cardiovascular: Normal peripheral perfusion Respiratory: no respiratory distress, coarse breath sounds of right lung Gastrointestinal: Non distended Musculoskeletal: No deformity, 5 out of 5 strength of bilateral upper extremities she is able to raise her arms up over her head. Results & Data Vital Signs (Past 12 Hours) Vital Signs Temp Pulse Resp BP Pulse Ox 04/23/19 07:32 94 H 23 92 04/23/19 06:24 100 H 95/58 L 96 04/23/19 06:01 91 H 84/46 L 92 04/23/19 06:00 93 H 91 04/23/19 05:32 94 H 96 04/23/19 05:31 95 H 79/62 L 99 04/23/19 05:28 96 H 25 H 92 04/23/19 05:01 99 H 107/54 L 96 04/23/19 05:00 98 H 90 04/23/19 04:30 102 H 106/52 L 93 04/23/19 04:01 103 H 93 04/23/19 04:00 105 H 99/54 L 91 04/23/19 03:31 104 H 92 04/23/19 03:30 105 H 101/47 L 92 04/23/19 03:01 105 H 93/46 L 92 04/23/19 03:00 105 H 91 04/23/19 02:30 108 H 90/57 L 92 04/23/19 02:04 98 H 24 94 04/23/19 02:01 96 H 94 04/23/19 02:00 96 H 100/54 L 94 04/23/19 01:30 97 H 98/56 L 94 04/23/19 01:01 97 H 110/58 L 96 04/23/19 01:00 96 H 95 04/23/19 00:30 98 H 106/60 96 04/23/19 00:00 95 H 101/57 L 97 04/22/19 23:49 96 H 102/52 L 96 04/22/19 23:01 37.7 C H 84 94/54 L 96 04/22/19 23:00 84 22 96 04/22/19 22:32 85 96 04/22/19 22:31 84 94/49 L 96 04/22/19 22:30 84 96 04/22/19 22:01 85 96 04/22/19 22:00 85 98/53 L 96 Coding Level of Care Code Critical Care ea addt'l 30 min Diagnoses Admitted to intensive care unit Z78.9 Sepsis A41.9 Pneumonia J18.9 [place] (acute kidney injury) N17.[address] of the chest R93.89 Influenza A J10.1 Acute respiratory failure J96.00 Hypoxia R09.02 Flu-like symptoms R68.89 Acute pneumonia J18.9 Atrial fibrillation with rapid ventricular response I48.91 Weakness acquired in ICU R53.1 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 This is a life/limb threatening event. This includes time spent evaluating patient, direct bedside care, chart review, placing orders, interpretation of diagnostic studies, discussion with consul tants, patient, and/or family members regarding treatment decisions, as well as other required patient management activities. This time is exclusive of all separately billable procedures, and teaching time and separate from and in addition to any other critical care service time.
[2019-04-23] MEDS: CASPOFUNGIN 35 MG in SODIUM CHLORIDE 0.9% 250 ML IV SCH (11:24)
[2019-04-23] MEDS: FAMOTIDINE 20 MG in SYRINGE 3 ML IV SCH (11:24)
[2019-04-23] MEDS ORDERED: INSULIN ASPART 100 UNITS/ML 3 ML PEN SC SCH (12:00)
--- NOTE | 2019-04-23 13:59 | Pharmacy Report ---
Pharmacy Glycemic Short Note 2 - Date of Service April 23, 2019 - Glycemic Short BSG Results (Last 24 hours): 04/22/19 04/22/19 04/22/19 13:27 17:13 20:02 Glucose POC Glucose POC Glucose (other) 144 H 136 H 127 H 04/22/19 04/23/19 04/23/19 23:50 04:13 04:44 Glucose 103 H POC Glucose POC Glucose (other) 86 104 H 04/23/19 04/23/19 08:27 12:19 Glucose POC Glucose 119 H 101 H POC Glucose (other) OUTPATIENT ANTIDIABETIC REGIMEN: * N/A * A1c = 6% ASSESSMENT: 04/23: * Patient received a total of 44 units of insulin yesterday (27 basal, 17 bolus) and remains well controlled * Patient was extubated this morning and TFs turned off and will likely remain NPO for today. Will adjust lantus scale accordingly * Novolog scale was empirically loosened and changed to q6 interval * I expect the patient's overall insulin requirements to decrease with clinical improvement 04/21: * Patient received 21 units of insulin yesterday (18 basal, 3 bolus) * Tube feeds are now running at goal rate. * BSGs have been mostly acceptable, but have increased today (117-212 mg/dL). Will continue with current lantus and novolog scale for now as this seems to be accounting well for these BSG fluctuations. 04/19 * Patient received 30 units of basal and 4 units of correctional insulin yesterday * BSGs have ranged from 120-171 mg/dL * Patient remains intubated, on abx for MRSA pneumonia, Esmolol drip, and tube feeds have been started today * Will adjust insulin orders to cover carbs from tube feeds and continue to monitor closely with q4h BSGs 04/18 * BSGs have been controlled with basal/bolus insulin dosing * Causes of insulin resistance have increased: heparin drip, Precedex, Esmolol drip * Patient received 30 units of basal insulin yesterday and fasting is acceptable at 148 mg/dL * Tube feeds may be initiated in the near future but are currently on hold 04/17 * Patient admitted to ICU secondary to respiratory failure, influenza pneumonia with likely superimposed bacterial pneumonia * Patient is now intubated, sedated, receiving pressor support (norepi) and is NPO * BSGs climbing this AM, now up to 256. Per discussion with Organ Builder, basal/bolus SQ regimen to begin at this time as he preferred to defer treatment with insulin drip at this time * No prior h/o DM, likely stress induced hyperglycemia * Will initiated basal based upon weight and scaled according to BSG/stress level. Novolog will be dosed using moderate-severe stress level PLAN FOR INPATIENT GLYCEMIC CONTROL: * Basal insulin * Lantus per the following scale: * 0 units if BSG less than 140 * 9 units if BSG 141-200 * 18 units if BSG above 200 * Bolus insulin - add carb counts for initiation of tube feeds * NovoLog per scale q6h * Goal Range: Low 110 mg/dL - High 140 mg/dL * Correction Factor: 25 mg/dL/unit * Nutritional / Prandial insulin per carb ratio of 1 unit per 8 grams CHO consumed
--- NOTE | 2019-04-23 14:03 | Hospitalist Progress Note ---
Date of Service April 23, 2019 Assessment & Plan (1) Pneumonia: 78 yo F no significant PMHx admitted on 04/16/19 for influenza A infection with superimposed bacterial PNA and ensuing sepsis requiring pressor support, respiratory compromise requiring intubation and mechanical ventilation. Sepsis due to MRSA pneumonia superimposed on influenza with acute hypoxic respiratory failure s/p bronch and intubation: - extubated today 04/23; satting 95 on 10L O2 via Aerosol Mask; FiO2 at 40; transition to nasal cannula as tolerated - patient will have speech eval today to assess swallowing capability (feeding tube removed 04/23) - bronch bacterial cultures from 04/17 revealed MRSA PNA; currently on IV Linezolid, Zosyn added 04/21; completed 10 day course of Tamiflu on 04/20. - bronch fungal culture from 04/17 and 04/20 showing growth of madina albicans; patient started on caspofungin 04/20 - blood cultures from 04/16 negative through 5 days; repeat blood cultures obtained 04/20 without growth to date - WBC 22 today, down from 24.5 on 04/22; patient afebrile - duonebs Q4H PRN + scheduled - on contact precautions - will continue to monitor peripherally while pt is in ICU; anticipate downgrade 24 hours after extubation (04/24) [place]: resolved - etiology thought to be due to ATN in setting of septic state - creatinine at 1.33 today - Continue to monitor BMP qAM. Elevated LFTs - AST 44, ALT 129 today - Hepatitis A and B serology neg - abdomen ultrasound 04/21 with the following impression: No hepatic masses identified. No gallstones identified. No evidence of intra or extrahepatic biliary ductal dilatation. Mild fullness of the left renal collecting system - presumable etiology shock liver New onset A-fib with RVR - converted back to sinus with esmolol drip; transitioning to PO Metoprolol today 04/23 - cardiology consulted: recommended no chronic anticoagulation; consider loop recorder placement before discharge to assess for underlying paroxysmal arrhythmia - ECHO: EF 55-60%, no wall motion abnormalities Myelopathy concurrent with and due to spinal stenosis of thoracic and lumbar regions - visualized on spine MRI 04/21/19. - per , patient was having chronic low back pain prior to this admission - Neurology following, recommended nonurgent spine surgery consult for guidance on management of degenerative spinal stenosis and associated myelomalacia. Will place consult when patient stable and downgraded from ICU Pulmonary Nodules - visualized on admission Chest CT - clinical picture favors inflammatory origin vs. neoplastic process - repeat CT in 3 months to assess for resolution - patient is non-smoker, no FHx lung cancer Code Status: FULL CODE FEN/GI: NPO; speech eval today DVT ppx: Lovenox Dispo: ICU (2) Influenza A: (3) Acute respiratory failure: (4) Chest pain: (5) [place] (acute kidney injury): (6) Sepsis: (7) Admitted to intensive care unit: Supervising Physician Co-Signing Physician Notes Resident Physician Supervision Note: I independently interviewed and examined the patient and verified the benavides history and physical, reviewed labs and image studies, discussed the case with the resident Dr. Moore and agree with the findings and care plan. Subjective Being extubated in ICU. present at bedside. Review of Systems Review of Systems: Unobtainable due to endotracheal tube Physical Exam Constitutional: WD/WN, vitals as above + altered mental status (+confusion) Eyes: + anicteric sclerae ENMT: external ear and nose normal, oropharynx normal Neck: normal visual inspection and trachea midline Respiratory: no labored breathing aerosol mask in place Cardiovascular: RRR, no murmur, no edema Heart Sounds: normal S1 and normal S2 Gastrointestinal (Abdomen): Inspection/Auscultation: abdomen not distended Skin: no rashes, warm and dry Psychiatric: Orientation: + not alert Results & Data Vital Signs (Past 12 Hours) Vital Signs Temp Pulse Pulse Resp BP BP Pulse Ox 04/23/19 13:24 96 H 25 H 121/55 L 95 04/23/19 13:01 90 30 H 68/56 L 94 04/23/19 13:00 96 H 28 H 95 04/23/19 12:31 98 H 33 H 128/66 93 04/23/19 12:01 97 H 28 H 130/52 L 93 04/23/19 12:00 36.5 C 99 H 27 H 92 04/23/19 11:31 100 H 121/66 94 04/23/19 11:17 88 20 94 04/23/19 11:00 94 H 27 H 92 04/23/19 10:32 95 H 26 H 93 04/23/19 10:31 96 H 26 H 119/56 L 93 04/23/19 10:01 94 H 28 H 100/53 L 94 04/23/19 10:00 94 H 29 H 04/23/19 09:31 97 H 31 H 114/54 L 93 04/23/19 09:01 102 H 117/56 L 97 04/23/19 09:00 103 H 93 04/23/19 08:31 104 H 116/59 L 04/23/19 08:01 37.0 C 104 H 105/56 L 91 04/23/19 08:00 37 C 95 H 22 110/59 L 96 04/23/19 07:32 94 H 23 92 04/23/19 07:31 91 H 101/53 L 93 04/23/19 07:01 94 H 100/53 L 92 04/23/19 06:24 100 H 95/58 L 96 04/23/19 06:01 91 H 84/46 L 92 04/23/19 06:00 93 H 91 04/23/19 05:32 94 H 96 04/23/19 05:31 95 H 79/62 L 99 04/23/19 05:28 96 H 25 H 92 04/23/19 05:01 99 H 107/54 L 96 04/23/19 05:00 98 H 90 04/23/19 04:30 102 H 106/52 L 93 04/23/19 04:01 103 H 93 04/23/19 04:00 105 H 99/54 L 91 04/23/19 03:31 104 H 92 04/23/19 03:30 105 H 101/47 L 92 04/23/19 03:01 105 H 93/46 L 92 04/23/19 03:00 105 H 91 04/23/19 02:30 108 H 90/57 L 92 04/23/19 02:04 98 H 24 94 04/23/19 02:01 96 H 94 Resident Activity Tracking Resident Involvement: Resident Care Provided Care Provided: Adult Hospital Medicine (1) Chest pain Chest pain type: unspecified Qualified Code(s): R07.9 - Chest pain, unspecified
[2019-04-23 14:08] LABS: Hepatitis A Antibody IgM NON-REACTIVE (NON-REACTIVE); Hepatitis B Core Antibody IgM NON-REACTIVE (NON-REACTIVE)
[2019-04-23] MEDS ORDERED: Nursing to Pharmacy Communication ONE (16:32)
--- NOTE | 2019-04-23 16:37 | Electrocardiogram Report ---
Test Reason : Blood Pressure : / mmHG Vent. Rate : 094 BPM Atrial Rate : 094 BPM P-R Int : 148 ms QRS Dur : 076 ms QT Int : 378 ms P-R-T Axes : 054 040 041 degrees QTc Int : 472 ms Normal sinus rhythm Cannot rule out Anterior infarct , age undetermined T wave abnormality, consider lateral ischemia Abnormal ECG When compared with ECG of 19-APR-2019 08:09, Nonspecific T wave abnormality now evident in Inferior leads T wave inversion now evident in Anterolateral leads Confirmed by Ahmet Manning ([id number]) on 04/23/2019 4:37:24 PM Referred By: REFERRED SELF Confirmed By:Ahmet Manning
[2019-04-23] MEDS: MAGNESIUM OXIDE 400 MG TAB PO SCH (20:11)
--- NOTE | 2019-04-23 22:06 | Critical Care Progress Note ---
Date of Service April 22, 2019 Assessment & Plan (1) Admitted to intensive care unit: Reason Critically Ill: 78-year-old female with a past medical history of recent influenza and superimposed bacterial pneumonia. Currently intubated and ventilated. NEURO - * CAM ICU: NEGATIVE * Weakness required in ICU: Improved * ICU myopathy: Improved * Lumbar stenosis CARDIAC/VASCULAR - * Paroxysmal atrial fibrillation -Related to critical illness -Holding systemic anticoagulation as risks outweigh benefit at this time RESPIRATORY - * Acute respiratory failure secondary to acute pneumonia secondary to influenza complicated by MRSA pneumonia * Excessive dynamic airway collapse -Marginal extubation parameters today, poor tidal volume, poor inspiratory effort will reassess tomorrow GI/NUTRITION - * Tolerating tube feeds RENAL/LYTES - * Mild improvement in renal function - * José in place - Strict I&Os. ENDO - * No history of diabetes or thyroid disease. * BSGs per unit protocol. ISS --> gtt per unit policy. HEME - * Stable H&H. ID - Continue current anti-infective therapies LINES/IV ACCESS - * PIVs x2, right internal jugular CVC 04/18, * José DVT PROPHYLAXIS - * Lovenox 30 mg (2) Sepsis: (3) Pneumonia: (4) [place] (acute kidney injury): (5) Abnormal CT of the chest: We will follow-up in the outpatient clinic and repeat CT scan in 6 weeks (6) Influenza A: Discontinue isolation precautions for influenza (7) Acute respiratory failure: (8) Hypoxia: (9) Flu-like symptoms: (10) Acute pneumonia: (11) Atrial fibrillation with rapid ventricular response: (12) Weakness acquired in ICU: (13) Critical illness myopathy: Subjective No overnight events, denies pain, intubated mildly sedated Review of Systems Review of Systems: Unobtainable due to endotracheal tube Physical Exam Physical Exam: General: Alert. nontoxic. 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 Results & Data Vital Signs (Past 12 Hours) Vital Signs Temp Pulse Pulse Pulse Resp BP Pulse Ox 04/23/19 20:22 97 H 28 H 95 04/23/19 18:31 101 H 29 H 120/53 L 92 04/23/19 18:01 101 H 26 H 118/54 L 92 04/23/19 17:31 100 H 28 H 118/45 L 93 04/23/19 16:32 100 H 29 H 92 04/23/19 16:31 101 H 26 H 120/71 95 04/23/19 16:02 103 H 24 94 04/23/19 16:01 96 H 27 H 131/62 94 04/23/19 16:00 36.8 C 95 H 24 92 04/23/19 15:01 93 H 24 121/60 95 04/23/19 15:00 96 H 25 H 94 04/23/19 14:31 94 H 26 H 109/55 L 93 04/23/19 14:01 96 H 23 121/56 L 93 04/23/19 13:31 95 H 26 H 120/53 L 95 04/23/19 13:25 96 H 26 H 95 04/23/19 13:24 96 H 25 H 121/55 L 95 04/23/19 13:01 90 30 H 68/56 L 94 04/23/19 13:00 96 H 28 H 95 04/23/19 12:31 98 H 33 H 128/66 93 04/23/19 12:01 97 H 28 H 130/52 L 93 04/23/19 12:00 36.5 C 99 H 27 H 92 04/23/19 11:31 100 H 121/66 94 04/23/19 11:17 88 20 94 04/23/19 11:00 94 H 27 H 92 04/23/19 10:32 95 H 26 H 93 04/23/19 10:31 96 H 26 H 119/56 L 93 Coding Level of Care Code Critical Care 1st 30-74 mins Diagnoses Admitted to intensive care unit Z78.9 Sepsis A41.02; R65.21; J96.01 Sepsis type: methicillin resistant Staphylococcus aureus Sepsis acute organ dysfunction status: with acute organ dysfunction Severe sepsis acute organ dysfunction type: acute respiratory failure Acute respiratory failure type: with hypoxia Severe sepsis shock status: with septic shock Pneumonia J15.212 Pneumonia type: due to methicillin-resistant Staphylococcus aureus (MRSA) Laterality: right Lung location: middle lobe of lung [place] (acute kidney injury) N17.[address] of the chest R93.89 Influenza A J10.1 Acute respiratory failure J96.01 Respiratory failure complication: hypoxia Hypoxia R09.02 Flu-like symptoms R68.89 Acute pneumonia J18.9 Atrial fibrillation with rapid ventricular response I48.91 Weakness acquired in ICU R53.1 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 This is a life/limb threatening event. This includes time spent evaluating patient, direct bedside care, chart review, placing orders, interpretation of diagnostic studies, discussion with consultants, patient, and/or family members regarding treatment decisions, as well as other required patient management activities. This time is exclusive of all separately billable procedures, and teaching time and separate from and in addition to any other critical care service time. (1) Sepsis Sepsis type: methicillin resistant Staphylococcus aureus Sepsis acute organ dysfunction status: with acute organ dysfunction Severe sepsis acute organ dysfunction type: acute respiratory failure Acute respiratory failure type: with hypoxia Severe sepsis shock status: with septic shock Qualified Code(s): A41.02 - Sepsis due to Methicillin resistant Staphylococcus aureus; R65.21 - Severe sepsis with septic shock; J96.01 - Acute respiratory failure with hypoxia (2) Pneumonia Pneumonia type: due to methicillin-resistant Staphylococcus aureus (MRSA) Laterality: right Lung location: middle lobe of lung Qualified Code(s): J15.212 - Pneumonia due to Methicillin resistant Staphylococcus aureus (3) Acute respiratory failure Respiratory failure complication: hypoxia Qualified Code(s): J96.01 - Acute respiratory failure with hypoxia
[2019-04-24] MEDS: PIPERACILLIN/TAZOBACTAM 4.5 GM in DEXTROSE 5% 100 ML IV SCH ×3 (00:07→16:01)
[2019-04-24] MEDS: ALBUT/IPRATROP 3MG/0.5MG NEB 3 ML VIAL NEB SCH ×6 (02:23→22:58)
[2019-04-24 04:45] LABS: Hematocrit (blood only) 30.8 % (37-47); Hemoglobin 10.4 g/dL (12.0-16.0); Mean Corpuscular Hemoglobin 28.4 pg (25-34); Mean Corpuscular Hgb Conc 33.8 g/dL (32-36); Mean Corpuscular Volume 84.2 fL (80-100); Mean Platelet Volume 10.1 fL (7.4-10.4); Platelet Count 185 K/uL (130-400); RDW Standard Deviation 42.9 fL (36.4-46.3); Red Blood Count 3.66 M/uL (4.2-5.4); White Blood Count 20.68 K/uL (4.8-10.8)
[2019-04-24 05:11] LABS: BUN Creatinine Ratio 26.2 (10-20); Calcium 8.3 mg/dl (8.5-10.1); Creatinine Clr Calc Pharmacy 29.3 ml/min; Est GFR (African American) 45.3; Est GFR (Non-African American) 39.1; Potassium 3.5 mmol/L (3.5-5.1)
[2019-04-24] MEDS: LINEZOLID 600 MG/300 ML BAG IV SCH ×2 (05:18→17:39)
[2019-04-24 05:20] LABS: Phosphorus 3.8 mg/dl (2.5-4.9)
[2019-04-24] MEDS ORDERED: POTASSIUM CHLORIDE 20 MEQ TABCR PO STA (05:38)
[2019-04-24 05:52] LABS: ALC (manual) 0.72 K/uL (1.2-3.4); ANC (manual) 17.23 K/uL (1.4-6.5); Lymphocytes # (manual) 0.72 K/uL (1.2-3.4); Lymphocytes % (manual) 3.5 %; Metamyelocytes # (manual) 0.72 K/uL (0-0); Metamyelocytes % (manual) 3.5 %; Monocytes % (manual) 5.3 %; Myelocytes # (manual) 0.91 K/uL (0-0); Myelocytes % (manual) 4.4 %; Neutrophils # (manual) 17.23 K/uL (1.4-6.5); Neutrophils % (manual) 83.3 %; RBC Morphology Unremarkable
[2019-04-24] MEDS: ASCORBIC ACID 500 MG TAB PO SCH (07:36)
[2019-04-24] MEDS: MULTI VIT W/MINERALS LIQUID 15 ML UDP PO SCH ×2 (07:36→20:44)
[2019-04-24] MEDS: METOPROLOL TARTRATE 25 MG TAB PO SCH ×2 (07:36→20:44)
[2019-04-24] MEDS: THIAMINE HCL 100 MG TAB PO SCH (07:36)
[2019-04-24] MEDS: ENOXAPARIN INJ 30 MG/0.3 ML SYR SQ SCH (07:37)
[2019-04-24] MEDS: INSULIN GLARGINE SOLOSTAR 100 UNITS/ML 3 ML PEN SC SCH ×2 (07:38→20:40)
[2019-04-24] MEDS: INSULIN ASPART 100 UNITS/ML 3 ML PEN SC SCH ×4 (07:40→20:41)
[2019-04-24] MEDS: CASPOFUNGIN 35 MG in SODIUM CHLORIDE 0.9% 250 ML IV SCH (10:54)
--- NOTE | 2019-04-24 14:29 | Pharmacy Report ---
Pharmacy Glycemic Short Note 2 - Date of Service April 24, 2019 - Glycemic Short BSG Results (Last 24 hours): 04/23/19 04/23/19 04/24/19 16:38 19:55 04:06 Glucose 105 H POC Glucose 81 136 H 04/24/19 04/24/19 07:27 11:02 Glucose POC Glucose 139 H 119 H OUTPATIENT ANTIDIABETIC REGIMEN: * N/A * A1c = 6% ASSESSMENT: 04/24 * Patient received 14 units of insulin yesterday (9 of basal, + 5 of correction), patient was NPO * Requirements much higher with previous tube feeds, diet ordered, Fasting upper end of goal today 139, will adjust evening lantus scale * Prandial BSGs within range since diet started, will continue current CF/CR. 04/23: * Patient received a total of 44 units of insulin yesterday (27 basal, 17 bolus) and remains well controlled * Patient was extubated this morning and TFs turned off and will likely remain NPO for today. Will adjust lantus scale accordingly * Novolog scale was empirically loosened and changed to q6 interval * I expect the patient's overall insulin requirements to decrease with clinical improvement 04/21: * Patient received 21 units of insulin yesterday (18 basal, 3 bolus) * Tube feeds are now running at goal rate. * BSGs have been mostly acceptable, but have increased today (117-212 mg/dL). Will continue with current lantus and novolog scale for now as this seems to be accounting well for these BSG fluctuations. 04/19 * Patient received 30 units of basal and 4 units of correctional insulin yesterday * BSGs have ranged from 120-171 mg/dL * Patient remains intubated, on abx for MRSA pneumonia, Esmolol drip, and tube feeds have been started today * Will adjust insulin orders to cover carbs from tube feeds and continue to monitor closely with q4h BSGs 04/18 * BSGs have been controlled with basal/bolus insulin dosing * Causes of insulin resistance have increased: heparin drip, Precedex, Esmolol drip * Patient received 30 units of basal insulin yesterday and fasting is acceptable at 148 mg/dL * Tube feeds may be initiated in the near future but are currently on hold 04/17 * Patient admitted to ICU secondary to respiratory failure, influenza pneumonia with likely superimposed bacterial pneumonia * Patient is now intubated, sedated, receiving pressor support (norepi) and is NPO * BSGs climbing this AM, now up to 256. Per discussion with Oil And Gas Exploration Technician, basal/bolus SQ regimen to begin at this time as he preferred to defer treatment with insulin drip at this time * No prior h/o DM, likely stress induced hyperglycemia * Will initiated basal based upon weight and scaled according to BSG/stress level. Novolog will be dosed using moderate-severe stress level PLAN FOR INPATIENT GLYCEMIC CONTROL: * Basal insulin * Lantus per the following scale: * 0 units if BSG less than 140 * 9 units if BSG 140-200 * 14 units if BSG above 200 * Bolus insulin - add carb counts for initiation of tube feeds * NovoLog per scale q6h * Goal Range: Low 110 mg/dL - High 140 mg/dL * Correction Factor: 25 mg/dL/unit * Nutritional / Prandial insulin per carb ratio of 1 unit per 8 grams CHO consumed
--- NOTE | 2019-04-24 16:51 | Hospitalist Progress Note ---
Date of Service April 24, 2019 Assessment & Plan (1) Pneumonia: 78 yo F no significant PMHx admitted on 04/16/19 for influenza A infection with superimposed bacterial PNA and ensuing sepsis requiring pressor support, respiratory compromise requiring intubation and mechanical ventilation. Sepsis due to MRSA pneumonia superimposed on influenza with acute hypoxic respiratory failure s/p bronch and intubation: - extubated 04/23; satting 94 on 4L NC; wean as tolerated - bronch bacterial cultures from 04/17 revealed MRSA PNA; currently on IV Linezolid, Zosyn added 04/21; completed 10 day course of Tamiflu on 04/20. - bronch fungal culture from 04/17 and 04/20 showing growth of madina albicans; patient started on caspofungin 04/20 - blood cultures from 04/16 negative through 5 days; repeat blood cultures obtained 04/20 without growth to date - WBC 20 today, down from 22 on 04/23; patient afebrile - duonebs Q4H PRN + scheduled - on contact precautions [place]: resolved - etiology thought to be due to ATN in setting of septic state - creatinine at 1.32 today - Continue to monitor BMP qAM. Elevated LFTs - AST 44, ALT 129 04/23; trending down - Hepatitis A and B serology neg - abdomen ultrasound 04/21 with the following impression: No hepatic masses identified. No gallstones identified. No evidence of intra or extrahepatic biliary ductal dilatation. Mild fullness of the left renal collecting system - presumable etiology shock liver New onset A-fib with RVR - converted back to sinus with esmolol drip; now on PO Metoprolol - cardiology consulted: recommended no chronic anticoagulation; consider loop recorder placement before discharge to assess for underlying paroxysmal arrhythmia - ECHO: EF 55-60%, no wall motion abnormalities Myelopathy concurrent with and due to spinal stenosis of thoracic and lumbar regions - visualized on spine MRI 04/21/19. - per , patient was having chronic low back pain prior to this admission - Neurology following, recommended nonurgent spine surgery consult for guidance on management of degenerative spinal stenosis and associated myelomalacia. Will place consult when patient stable and downgraded from ICU Pulmonary Nodules - visualized on admission Chest CT - clinical picture favors inflammatory origin vs. neoplastic process - repeat CT in 3 months to assess for resolution - patient is non-smoker, no FHx lung cancer Code Status: FULL CODE FEN/GI: heart healthy diet; soft bite size DVT ppx: Lovenox Dispo: PCU with tele (2) Influenza A: (3) Acute respiratory failure: (4) Chest pain: (5) [place] (acute kidney injury): (6) Sepsis: (7) Admitted to intensive care unit: Supervising Physician Co-Signing Physician Notes Resident Physician Supervision Note: I independently interviewed and examined the patient and verified the benavides history and physical, reviewed labs and image studies, discussed the case with the resident Dr. Moore and agree with the findings and care plan. Subjective and daughter present at bedside. Patient sleeping. Eating some Physical Exam Constitutional: WD/WN, vitals as above + altered mental status (+confusion) Eyes: + anicteric sclerae ENMT: external ear and nose normal, oropharynx normal Neck: normal visual inspection and trachea midline Respiratory: no labored breathing Cardiovascular: RRR, no murmur, no edema Heart Sounds: normal S1 and normal S2 Gastrointestinal (Abdomen): Inspection/Auscultation: abdomen not distended Skin: no rashes, warm and dry Psychiatric: Orientation: + not alert Results & Data Vital Signs (Past 12 Hours) Vital Signs Temp Pulse Pulse Resp BP BP Pulse Ox 04/24/19 16:00 92 H 04/24/19 15:43 36.9 C 95 H 25 H 121/75 91 04/24/19 15:30 88 20 97 04/24/19 15:16 93 04/24/19 15:00 85 24 94 04/24/19 14:42 36.8 C 88 26 H 126/59 L 94 04/24/19 14:00 85 27 H 94 04/24/19 13:43 90 29 H 92 04/24/19 13:42 90 28 H 142/59 H 92 04/24/19 12:57 04/24/19 11:42 36.8 C 102 H 34 H 149/73 H 92 04/24/19 11:35 109 H 42 H 130/80 90 04/24/19 10:42 91 H 25 H 128/69 91 04/24/19 10:00 94 H 29 H 91 04/24/19 09:42 96 H 27 H 114/58 L 91 04/24/19 08:43 100 H 32 H 91 04/24/19 08:42 101 H 29 H 120/63 92 04/24/19 08:00 101 H 23 91 04/24/19 07:59 36.8 C 97 H 101 H 26 H 130/66 92 04/24/19 07:42 108 H 24 130/66 90 04/24/19 07:16 94 H 18 93 04/24/19 06:42 97 H 28 H 117/57 L 90 04/24/19 06:00 94 H 30 H 96 04/24/19 05:42 92 H 27 H 118/64 96 04/24/19 05:02 95 H 30 H 95 04/24/19 05:00 97 H 26 H 97 Pulse Ox Pulse Ox Pulse Ox 04/24/19 16:00 04/24/19 15:43 04/24/19 15:30 04/24/19 15:16 04/24/19 15:00 04/24/19 14:42 04/24/19 14:00 04/24/19 13:43 04/24/19 13:42 04/24/19 12:57 92 93 87 L 04/24/19 11:42 04/24/19 11:35 04/24/19 10:42 04/24/19 10:00 04/24/19 09:42 04/24/19 08:43 04/24/19 08:42 04/24/19 08:00 04/24/19 07:59 04/24/19 07:42 04/24/19 07:16 04/24/19 06:42 04/24/19 06:00 04/24/19 05:42 04/24/19 05:02 04/24/19 05:00 Resident Activity Tracking Resident Involvement: Resident Care Provided Care Provided: Adult Hospital Medicine (1) Acute respiratory failure Respiratory failure complication: hypoxia Qualified Code(s): J96.01 - Acute respiratory failure with hypoxia (2) Sepsis Acute respiratory failure type: with hypoxia Sepsis acute organ dysfunction status: with acute organ dysfunction Sepsis type: methicillin resistant Staphylococcus aureus Severe sepsis acute organ dysfunction type: acute respiratory failure Severe sepsis shock status: with septic shock Qualified Code(s): A41.02 - Sepsis due to Methicillin resistant Staphylococcus aureus; R65.21 - Severe sepsis with septic shock; J96.01 - Acute respiratory failure with hypoxia (3) Chest pain Chest pain type: unspecified Qualified Code(s): R07.9 - Chest pain, unspecified (4) Pneumonia Laterality: right Lung location: middle lobe of lung Pneumonia type: due to methicillin-resistant Staphylococcus aureus (MRSA) Qualified Code(s): J15.212 - Pneumonia due to Methicillin resistant Staphylococcus aureus
[2019-04-24] MEDS: MAGNESIUM OXIDE 400 MG TAB PO SCH (21:18)
[2019-04-25] MEDS: PIPERACILLIN/TAZOBACTAM 4.5 GM in DEXTROSE 5% 100 ML IV SCH ×3 (00:37→16:59)
[2019-04-25] MEDS: ALBUT/IPRATROP 3MG/0.5MG NEB 3 ML VIAL NEB SCH ×6 (03:10→22:51)
[2019-04-25] MEDS: LINEZOLID 600 MG/300 ML BAG IV SCH ×2 (05:48→18:08)
[2019-04-25 07:07] LABS: Hematocrit (blood only) 27.4 % (37-47); Hemoglobin 9.2 g/dL (12.0-16.0); Mean Corpuscular Hemoglobin 28.3 pg (25-34); Mean Corpuscular Hgb Conc 33.6 g/dL (32-36); Mean Corpuscular Volume 84.3 fL (80-100); Nucleated RBC # (auto) 0.02 K/uL (0-0); Nucleated RBC % (auto) 0.1 %; Platelet Count 188 K/uL (130-400); RDW Coefficient of Variation 13.9 % (11.5-14.5); RDW Standard Deviation 42.8 fL (36.4-46.3); Red Blood Count 3.25 M/uL (4.2-5.4); White Blood Count 16.42 K/uL (4.8-10.8)
[2019-04-25 07:39] LABS: BUN Creatinine Ratio 22.7 (10-20); Calcium 8.3 mg/dl (8.5-10.1); Est GFR (African American) 48.9; Est GFR (Non-African American) 42.2; Magnesium 2.1 mg/dl (1.8-2.4); Potassium 3.5 mmol/L (3.5-5.1)
[2019-04-25] MEDS: THIAMINE HCL 100 MG TAB PO SCH (07:41)
[2019-04-25] MEDS: ASCORBIC ACID 500 MG TAB PO SCH (07:41)
[2019-04-25] MEDS: METOPROLOL TARTRATE 25 MG TAB PO SCH ×2 (07:41→21:29)
[2019-04-25] MEDS: ENOXAPARIN INJ 30 MG/0.3 ML SYR SQ SCH (07:41)
[2019-04-25 07:42] LABS: Basophils # (auto) 0.04 K/uL (0-0.2); Basophils % (auto) 0.2 %; Eosinophils # (auto) 0.09 K/uL (0-0.5); Eosinophils % (auto) 0.5 %; Immature Granulocytes % (auto) 7.3 %; Lymphocytes # (auto) 1.29 K/uL (1.2-3.4); Lymphocytes % (auto) 7.9 %; Monocytes # (auto) 1.35 K/uL (0.11-0.59); Monocytes % (auto) 8.2 %; Neutrophils # (auto) 12.45 K/uL (1.4-6.5); Neutrophils % (auto) 75.9 %
[2019-04-25] MEDS: MULTI VIT W/MINERALS LIQUID 15 ML UDP PO SCH ×2 (07:42→21:25)
--- NOTE | 2019-04-25 07:51 | Hospitalist Progress Note ---
Date of Service April 25, 2019 Assessment & Plan (1) Pneumonia: 78 yo F no significant PMHx admitted on 04/16/19 for influenza A infection with superimposed bacterial PNA and ensuing sepsis requiring pressor support, respiratory compromise requiring intubation and mechanical ventilation; ve ntilatory d/c'ed 04/23 and pt with continued improvement. Sepsis due to MRSA pneumonia superimposed on influenza with acute hypoxic respiratory failure s/p bronch and intubation: - extubated 04/23; satting 97% on 3LNC; wean as tolerated. - bronch bacterial cultures from 04/17 revealed MRSA PNA; currently on IV Linezolid, Zosyn added 04/21; completed 10 day course of Tamiflu on 04/20. - bronch fungal culture from 04/17 and 04/20 showing growth of madina albicans, however BCx without fungal growth and bronch culture positive for fungal infection is not indication for systemic antifungal treatment and so have d/c'ed Caspofungin. - blood cultures 04/20 negative. - WBC 16 today, down from 20 on 04/24; patient afebrile. - duonebs Q4H PRN + scheduled. - on contact precautions for MRSA pneumonia. - given extensded hospital stay and deconditioning pt would likely benefit from acute rehab however she and her are against this idea. Will have PT/OT continue to treat her inpatient and make recommendations. Diarrhea: - pt complaining this AM of watery diarrhea without stomach cramping or bloody/foul-smelling stools. No change in stool color. - Given extended duration of polyantibiotic therapy ordered C. diff testing -> was negative. - Begin probiotic; diarrhea likely due to antibiotics/antifungals. [place]: resolved - etiology thought to be due to ATN in setting of prior septic state. - creatinine at 1.24 today. - Continue to monitor BMP qAM. Elevated LFTs - AST 44, ALT 129 04/23; trending down. - Hepatitis A and B serology neg - abdomen ultrasound 04/21 with the following impression: No hepatic masses identified. No gallstones identified. No evidence of intra or extrahepatic biliary ductal dilatation. Mild fullness of the left renal collecting system - presumable etiology shock liver New onset A-fib with RVR - converted back to sinus with esmolol drip; now on PO Metoprolol . - cardiology consulted: recommended no chronic anticoagulation; consider loop recorder placement before discharge to assess for underlying paroxysmal arrhythmia. - ECHO: EF 55-60%, no wall motion abnormalities. Myelopathy concurrent with and due to spinal stenosis of thoracic and lumbar regions - visualized on spine MRI 04/21/19. - per , patient was having chronic low back pain prior to this admission. - Neurology following, recommended nonurgent spine surgery consult for guidance on management of degenerative spinal stenosis and associated myelomalacia. Pulmonary Nodules - visualized on admission Chest CT. - clinical picture favors inflammatory origin vs. neoplastic process. - repeat CT in 3 months to assess for resolution. - patient is non-smoker, no FHx lung cancer. Code Status: FULL CODE FEN/GI: heart healthy diet; soft bite size DVT ppx: Lovenox Dispo: PCU with tele (2) Influenza A: (3) Acute respiratory failure: (4) Chest pain: (5) [place] (acute kidney injury): (6) Sepsis: (7) Admitted to intensive care unit: Supervising Physician Co-Signing Physician Notes Resident Physician Supervision Note: I independently interviewed and examined the patient and verified the benavides history and physical, reviewed labs and image studies, discussed the case with the resident Dr. Villegas and agree with the findings and care plan. Subjective Pt without acute events overnight. Still profoundly tired and weak, however with less shortness of breath today. No subjective fevers or chills. Reports several watery loose diarrheal stools overnight. No abdominal cramping or pain. No [place] or vomiting. No bloody stool or foul smelling stool. Review of Systems Constitutional: no fever, no chills and no malaise Respiratory: no cough and no dyspnea (is on 3LNC on interview) Cardiovascular: no chest pain, no palpitations and no edema Gastrointestinal: no abdominal pain, no constipation and no diarrhea/loose stools Genitourinary: no dysuria and no hematuria Physical Exam Constitutional: WD/WN, vitals as above Respiratory: normal respiratory effort, lungs clear to auscultation Cardiovascular: RRR, no murmur, no edema Gastrointestinal (Abdomen): normal bowel sounds, soft, nontender, no hepatosplenomegaly Skin: no rashes, warm and dry Psychiatric: Orientation: alert and oriented x 3 pt drowsy on interview, however can hold a conversation and answers questions appropriately. Results & Data Vital Signs (Past 12 Hours) Vital Signs Temp Pulse Pulse Resp BP BP Pulse Ox 04/25/19 07:07 36.7 C 83 19 123/58 L 98 04/25/19 07:03 86 18 94 04/25/19 03:48 37.4 C 96 H 20 132/57 L 95 04/25/19 03:11 93 H 93 H 24 97 04/25/19 00:02 36.5 C 97 H 20 128/70 96 04/25/19 00:00 96 H 04/24/19 22:59 94 H 94 H 27 H 95 Resident Activity Tracking Resident Involvement: Resident Care Provided Care Provided: Adult Hospital Medicine (1) Acute respiratory failure Respiratory failure complication: hypoxia Qualified Code(s): J96.01 - Acute respiratory failure with hypoxia (2) Sepsis Acute respiratory failure type: with hypoxia Sepsis acute organ dysfunction status: with acute organ dysfunction Sepsis type: methicillin resistant Staphylococcus aureus Severe sepsis acute organ dysfunction type: acute respiratory failure Severe sepsis shock status: with septic shock Qualified Code(s): A41.02 - Sepsis due to Methicillin resistant Staphylococcus aureus; R65.21 - Severe sepsis with septic shock; J96.01 - Acute respiratory failure with hypoxia (3) Chest pain Chest pain type: unspecified Qualified Code(s): R07.9 - Chest pain, unspecified (4) Pneumonia Laterality: right Lung location: middle lobe of lung Pneumonia type: due to methicillin-resistant Staphylococcus aureus (MRSA) Qualified Code(s): J15.212 - Pneumonia due to Methicillin resistant Staphylococcus aureus
[2019-04-25] MEDS: INSULIN GLARGINE SOLOSTAR 100 UNITS/ML 3 ML PEN SC SCH (08:28)
[2019-04-25] MEDS: INSULIN ASPART 100 UNITS/ML 3 ML PEN SC SCH ×4 (08:29→21:30)
--- NOTE | 2019-04-25 14:11 | Pharmacy Report ---
Pharmacy Glycemic Short Note 2 - Date of Service April 25, 2019 - Glycemic Short BSG Results (Last 24 hours): 04/24/19 04/24/19 04/25/19 16:00 20:01 06:48 Glucose 136 H POC Glucose 85 107 H 04/25/19 04/25/19 07:21 11:25 Glucose POC Glucose 166 H 113 H OUTPATIENT ANTIDIABETIC REGIMEN: * N/A * A1c = 6% ASSESSMENT: 04/25 * Patient received total of 15 units of insulin yesterday, of which 9 were basal * Patient continues on diet, however po intake is minimal * No need for further basal tonight. BSGs trending down with lunch and yesterday were on lower end of goal therefore will loosen CR 04/24 * Patient received 14 units of insulin yesterday (9 of basal, + 5 of correction), patient was NPO * Requirements much higher with previous tube feeds, diet ordered, Fasting upper end of goal today 139, will adjust evening lantus scale * Prandial BSGs within range since diet started, will continue current CF/CR. PLAN FOR INPATIENT GLYCEMIC CONTROL: * Basal insulin * Lantus 9 units this AM * Bolus insulin - loosen * NovoLog per scale q6h * Goal Range: Low 110 mg/dL - High 140 mg/dL * Correction Factor: 25 mg/dL/unit * Nutritional / Prandial insulin per carb ratio of 1 unit per 11 grams CHO consumed
--- NOTE | 2019-04-25 16:10 | Critical Care Progress Note ---
Date of Service April 24, 2019 Assessment & Plan (1) Admitted to intensive care unit: Reason Critically Ill: 78-year-old female with a past medical history of recent influenza and superimposed bacterial pneumonia. Currently intubated and ventilated. NEURO - * CAM ICU: NEGATIVE * Weakness required in ICU: Improved * ICU myopathy: Improved * Lumbar stenosis -PT OT consultations -Passed swallow evaluation by speech therapy CARDIAC/VASCULAR - * Paroxysmal atrial fibrillation -Related to critical illness -Holding systemic anticoagulation as risks outweigh benefit at this time RESPIRATORY - * Acute respiratory failure secondary to acute pneumonia secondary to influenza complicated by MRSA pneumonia * Excessive dynamic airway collapse -Successfully extubated, CPAP at night for dynamic airway collapse GI/NUTRITION - * Tolerating diet as ordered by speech therapy -Discontinue Era shield RENAL/LYTES - * Replacing lites as needed - * Discontinue José ENDO - * No history of diabetes or thyroid disease. * BSGs per unit protocol. ISS --> gtt per unit policy. HEME - * Stable H&H. ID - Continue current anti-infective therapies LINES/IV ACCESS - * PIVs x2, discontinue right CVC * José discontinue DVT PROPHYLAXIS - * Lovenox 30 mg Disposition: Stable for downgrade out of ICU (2) Sepsis: (3) Pneumonia: (4) [place] (acute kidney injury): (5) Abnormal CT of the chest: We will follow-up in the outpatient clinic and repeat CT scan in 6 weeks (6) Influenza A: Discontinue isolation precautions for influenza (7) Acute respiratory failure: (8) Flu-like symptoms: (9) Acute pneumonia: (10) Atrial fibrillation with rapid ventricular response: (11) Weakness acquired in ICU: (12) Critical illness myopathy: Subjective Increasing strength, able to vocalize, coughing out secretions. Review of Systems Review of Systems: No chest pain, mild dyspnea Physical Exam Physical Exam: General: Alert. nontoxic. Skin: Warm, dry, Head: Atraumatic Ears, nose, mouth and throat: Airway patent, mucous membranes moist Cardiovascular: Normal peripheral perfusion Respiratory: no respiratory distress, coarse breath sounds of right lung: Improved Gastrointestinal: Non distended Musculoskeletal: No deformity, able to raise arms above head Results & Data Vital Signs (Past 12 Hours) Vital Signs Temp Pulse Pulse Pulse Resp BP BP 04/25/19 15:28 37.4 C 95 H 18 134/74 04/25/19 15:11 91 H 18 01/18/20 11:53 37.0 C 63 18 141/68 H 04/25/19 11:11 87 18 04/25/19 08:00 96 H 04/25/19 07:07 36.7 C 83 19 123/58 L 04/25/19 07:03 86 18 Pulse Ox 04/25/19 15:28 92 04/25/19 15:11 92 04/25/19 11:53 96 04/25/19 11:11 92 04/25/19 08:00 04/25/19 07:07 98 04/25/19 07:03 94 Coding Level of Care Code 52117 Subseq Hosp Care Lvl 3 Diagnoses Admitted to intensive care unit Z78.9 Sepsis A41.02; R65.21; J96.01 Sepsis type: methicillin resistant Staphylococcus aureus Sepsis acute organ dysfunction status: with acute organ dysfunction Severe sepsis acute organ dysfunction type: acute respiratory failure Acute respiratory failure type: with hypoxia Severe sepsis shock status: with septic shock Pneumonia J15.212 Pneumonia type: due to methicillin-resistant Staphylococcus aureus (MRSA) Laterality: right Lung location: middle lobe of lung [place] (acute kidney injury) N17.[address] of the chest R93.89 Influenza A J10.1 Acute respiratory failure J96.01 Respiratory failure complication: hypoxia Flu-like symptoms R68.89 Acute pneumonia J18.9 Atrial fibrillation with rapid ventricular response I48.91 Weakness acquired in ICU R53.1 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 (1) Sepsis Sepsis type: methicillin resistant Staphylococcus aureus Sepsis acute organ dysfunction status: with acute organ dysfunction Severe sepsis acute organ dysfunction type: acute respiratory failure Acute respiratory failure type: with hypoxia Severe sepsis shock status: with septic shock Qualified Code(s): A41.02 - Sepsis due to Methicillin resistant Staphylococcus aureus; R65.21 - Severe sepsis with septic shock; J96.01 - Acute respiratory failure with hypoxia (2) Pneumonia Pneumonia type: due to methicillin-resistant Staphylococcus aureus (MRSA) Laterality: right Lung location: middle lobe of lung Qualified Code(s): J15.212 - Pneumonia due to Methicillin resistant Staphylococcus aureus (3) Acute respiratory failure Respiratory failure complication: hypoxia Qualified Code(s): J96.01 - Acute respiratory failure with hypoxia
[2019-04-25] MEDS: LACTOBACILLUS ACIDOPHILUS (FLORANEX) TAB PO SCH (17:00)
[2019-04-25] MEDS: MAGNESIUM OXIDE 400 MG TAB PO SCH (21:28)
[2019-04-26] MEDS: PIPERACILLIN/TAZOBACTAM 4.5 GM in DEXTROSE 5% 100 ML IV SCH ×3 (00:34→17:56)
[2019-04-26] MEDS: ALBUT/IPRATROP 3MG/0.5MG NEB 3 ML VIAL NEB SCH ×6 (03:10→22:20)
[2019-04-26] MEDS: LINEZOLID 600 MG/300 ML BAG IV SCH ×2 (05:44→17:57)
[2019-04-26 07:12] LABS: Basophils # (auto) 0.03 K/uL (0-0.2); Basophils % (auto) 0.2 %; Eosinophils # (auto) 0.12 K/uL (0-0.5); Eosinophils % (auto) 0.9 %; Hematocrit (blood only) 29.5 % (37-47); Hemoglobin 9.8 g/dL (12.0-16.0); Immature Granulocytes # (auto) 0.65 K/uL (0.00-0.02); Immature Granulocytes % (auto) 4.7 %; Lymphocytes # (auto) 1.21 K/uL (1.2-3.4); Lymphocytes % (auto) 8.7 %; Mean Corpuscular Hemoglobin 28.5 pg (25-34); Mean Corpuscular Hgb Conc 33.2 g/dL (32-36); Mean Corpuscular Volume 85.8 fL (80-100); Mean Platelet Volume 9.8 fL (7.4-10.4); Monocytes # (auto) 1.27 K/uL (0.11-0.59); Monocytes % (auto) 9.1 %; Neutrophils # (auto) 10.66 K/uL (1.4-6.5); Neutrophils % (auto) 76.4 %; Platelet Count 215 K/uL (130-400); RDW Standard Deviation 43.4 fL (36.4-46.3); Red Blood Count 3.44 M/uL (4.2-5.4); White Blood Count 13.94 K/uL (4.8-10.8)
[2019-04-26 07:42] LABS: Albumin Level 1.5 gm/dl (3.4-5.0); BUN Creatinine Ratio 17.9 (10-20); Bilirubin Direct 0.2 mg/dl (0-0.2); Calcium 8.1 mg/dl (8.5-10.1); Creatinine Clr Calc Pharmacy 31.2 ml/min; Est GFR (African American) 47.9; Est GFR (Non-African American) 41.4; Magnesium 2.2 mg/dl (1.8-2.4); Potassium 3.5 mmol/L (3.5-5.1)
[2019-04-26 07:48] LABS: Bilirubin,Total 0.5 mg/dl (0.2-1); Phosphorus 3.2 mg/dl (2.5-4.9); Total Protein 5.8 gm/dl (6.4-8.2)
--- NOTE | 2019-04-26 07:48 | Hospitalist Progress Note ---
Date of Service April 26, 2019 Assessment & Plan (1) Pneumonia: 78 yo F no significant PMHx admitted on 04/16/19 for influenza A infection with superimposed bacterial PNA and ensuing sepsis requiring pressor support, respiratory compromise requiring intubation and mechanical ventilation; lulu tilatory d/c'ed 04/23 and pt with continued improvement. Sepsis due to MRSA pneumonia superimposed on influenza with acute hypoxic respiratory failure s/p bronch and intubation: - Extubated 04/23; satting 97% on 2LNC; wean as tolerated; not on oxygen at home. - Bronch bacterial cultures from 04/17 revealed MRSA PNA; currently on IV Linezolid to complete today, Zosyn added to complete course tomorrow; completed 10 day course of Tamiflu on 04/20. - Bronch fungal culture from 04/17 and 04/20 showing growth of madina albicans, however BCx without fungal growth and bronch culture positive for fungal infection is not indication for systemic antifungal treatment and so have d/c'ed Caspofungin. - Blood cultures 04/20 negative. - WBC 13 today, down from 16 on yesterday; patient afebrile. - Duonebs Q4H PRN + scheduled. - On contact precautions for MRSA pneumonia. - Given extended hospital stay and deconditioning pt would likely benefit from acute rehab however she and her are against this idea. Pt's works from home and is very physically and cognitively fit. Will have PT/OT continue to treat her inpatient and make recommendations regarding outpatient care. Diarrhea: - Given extended duration of polyantibiotic therapy ordered C. diff testing -> was negative. - Continue probiotic; diarrhea likely due to antibiotics/antifungals. Expect with discontinuation of antibiotics will have improvement. Elevated LFTs: - AST 39, ALT 94; trending down. - Hepatitis A and B serology neg. - Abdomen ultrasound 04/21 with the following impression: No hepatic masses identified. No gallstones identified. No evidence of intra or extrahepatic biliary ductal dilatation. Mild fullness of the left renal collecting system. - Presumable etiology shock liver, will continue to follow to normalization. New onset A-fib with RVR: - Continue metoprolol PO. - Cardiology consulted: recommended no chronic anticoagulation; consider loop recorder placement before discharge to assess for underlying paroxysmal arrhythmia. - ECHO: EF 55-60%, no wall motion abnormalities. [place] (resolved): - Etiology thought to be due to ATN in setting of prior septic state. - Creatinine at 1.26 today. - Continue to monitor BMP qAM. 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 - Per , patient was having chronic low back pain prior to this admission. - Neurology following, spine surgery consult placed for guidance on management of degenerative spinal stenosis and associated myelomalacia. Pulmonary Nodules - Visualized on admission Chest CT. - Clinical picture favors inflammatory origin vs. neoplastic process. - Repeat CT in 3 months to assess for resolution. - Patient is non-smoker, no FHx lung cancer. Code Status: FULL CODE FEN/GI: heart healthy diet; soft bite size DVT ppx: Lovenox Dispo: med/surg (2) Influenza A: (3) Acute respiratory failure: (4) Chest pain: (5) [place] (acute kidney injury): (6) Sepsis: (7) Admitted to intensive care unit: Supervising Physician Co-Signing Physician Notes Resident Physician Supervision Note: I independently interviewed and examined the patient and verified the benavides history and physical, reviewed labs and image studies, discussed the case with the resident Dr. Villegas and agree with the findings and care plan. Subjective No acute events overnight, however nursing reports intermittent episodes of mild confusion. On interview pt is alert and oriented, though tired appearing. Yelena shortness of breath, chest pain, nausea or vomiting. Still with some diarrhea overnight. Feels weak and was confused on how to use incentive spirometer but has been urging her to move her arms and take deep breaths. Review of Systems Constitutional: no fever, no chills and no malaise Respiratory: no cough and no dyspnea (is on 2LNC on interview) Cardiovascular: no chest pain, no palpitations and no edema Gastrointestinal: no abdominal pain, no constipation and no diarrhea/loose stools Genitourinary: no dysuria and no hematuria Physical Exam Constitutional: WD/WN, vitals as above Respiratory: normal respiratory effort, lungs clear to auscultation Cardiovascular: RRR, no murmur, no edema Gastrointestinal (Abdomen): normal bowel sounds, soft, nontender, no hepatosplenomegaly Skin: no rashes, warm and dry Psychiatric: Orientation: alert and oriented x 3 pt drowsy on interview, however can hold a conversation and answers questions appropriately. Results & Data Vital Signs (Past 12 Hours) Vital Signs Temp Pulse Pulse Resp BP Pulse Ox 04/26/19 07:04 68 16 94 04/26/19 04:44 36.8 C 100 H 20 138/71 91 04/26/19 03:11 84 20 92 04/26/19 02:02 91 H 04/25/19 23:41 37.0 C 85 20 132/75 95 04/25/19 22:52 84 20 95 04/25/19 22:50 20 95 Laboratory Results Laboratory Results - last 24 hr 04/25/19 04/25/19 04/25/19 12:25 16:46 20:22 WBC RBC Hgb Hct MCV MCH MCHC RDW Std Deviation RDW Coeff of Marcy Plt Count MPV Immature Gran % (Auto) Neut % (Auto) Lymph % (Auto) [place] % (Auto) Eos % (Auto) Baso % (Auto) Immature Gran # (Auto) Neut # (Auto) Lymph # (Auto) [place] # (Auto) Eos # (Auto) Baso # (Auto) Sodium Potassium Chloride Carbon Dioxide Anion Gap BUN Creatinine Est Cr Clr Drug Dosing Est GFR ( Amer) Est GFR (Non-Af Amer) BUN/Creatinine Ratio Glucose POC Glucose 101 H 145 H Calcium Phosphorus Magnesium Total Bilirubin Direct Bilirubin AST ALT Alkaline Phosphatase Total Protein Albumin Stl C. diff Tox B Gene Negative Cdiff Gene 04/26/19 04/26/19 04/26/19 06:49 06:49 07:33 WBC 13.94 H RBC 3.44 L Hgb 9.8 L Hct 29.5 L MCV 85.8 MCH 28.5 MCHC 33.2 RDW Std Deviation 43.4 RDW Coeff of Marcy 14.0 Plt Count 215 MPV 9.8 Immature Gran % (Auto) 4.7 Neut % (Auto) 76.4 Lymph % (Auto) 8.7 [place] % (Auto) 9.1 Eos % (Auto) 0.9 Baso % (Auto) 0.2 Immature Gran # (Auto) 0.65 H Neut # (Auto) 10.66 H Lymph # (Auto) 1.21 [place] # (Auto) 1.27 H Eos # (Auto) 0.12 Baso # (Auto) 0.03 Sodium 141 Potassium 3.5 Chloride 113 H Carbon Dioxide 22 Anion Gap 6.0 BUN 23 H Creatinine 1.26 H Est Cr Clr Drug Dosing 31.2 Est GFR ( Amer) 47.9 Est GFR (Non-Af Amer) 41.4 BUN/Creatinine Ratio 17.9 Glucose 156 H POC Glucose 148 H Calcium 8.1 L Phosphorus 3.2 Magnesium 2.2 Total Bilirubin 0.5 Direct Bilirubin 0.2 AST 39 H ALT 94 H Alkaline Phosphatase 86 Total Protein 5.8 L Albumin 1.5 L Stl C. diff Tox B Gene 04/26/19 11:30 WBC RBC Hgb Hct MCV MCH MCHC RDW Std Deviation RDW Coeff of Marcy Plt Count MPV Immature Gran % (Auto) Neut % (Auto) Lymph % (Auto) [place] % (Auto) Eos % (Auto) Baso % (Auto) Immature Gran # (Auto) Neut # (Auto) Lymph # (Auto) [place] # (Auto) Eos # (Auto) Baso # (Auto) Sodium Potassium Chloride Carbon Dioxide Anion Gap BUN Creatinine Est Cr Clr Drug Dosing Est GFR ( Amer) Est GFR (Non-Af Amer) BUN/Creatinine Ratio Glucose POC Glucose 130 H Calcium Phosphorus Magnesium Total Bilirubin Direct Bilirubin AST ALT Alkaline Phosphatase Total Protein Albumin Stl C. diff Tox B Gene Medications Administered Current Medications Acetaminophen (Tylenol) 650 mg PO Q4H PRN PRN Reason: Pain or Fever Stop: 05/15/19 21:11 Last Admin: 04/20/19 17:36 Dose: 650 mg Documented by: Al Hydrox/Mg Hydrox/Simethicone (Maalox) 15 ml PO Q4H PRN PRN Reason: Dyspepsia Stop: 05/15/19 21:11 Albuterol (Duoneb) 3 ml NEB Q4R [facility] Stop: 05/16/19 10:59 Last Admin: 04/26/19 11:26 Dose: 3 ml Documented by: Albuterol (Duoneb) 3 ml NEB Q4R PRN PRN Reason: Shortness Of Breath Stop: 05/16/19 10:59 Ascorbic Acid (Vitamin C) 500 mg PO QAM [facility] Stop: 05/20/19 09:59 Last Admin: 04/26/19 09:30 Dose: 500 mg Documented by: Enoxaparin Sodium (Lovenox) 30 mg SQ QAM [facility] Stop: 05/23/19 08:59 Last Admin: 04/26/19 09:27 Dose: 30 mg Documented by: Heparin Sodium (Beef Lung) (Heparin Sod 10 Unit/Ml Flush) 5 ml FLUSH PRN PRN PRN Reason: Flush Stop: 05/23/19 22:47 Linezolid (Zyvox) 600 mg in 300 mls @ 200 mls/hr IV Q12H [facility]; Protocol Stop: 04/26/19 23:59 Last Infusion: 04/26/19 07:15 Dose: Infused Documented by: Piperacillin Sod/Tazobactam (Sod 4.5 gm/ Dextrose) 120 mls @ 30 mls/hr IV Q8H [facility]; Protocol Stop: 04/28/19 16:29 Last Infusion: 04/26/19 13:14 Dose: Infused Documented by: Insulin Aspart (Novolog Flexpen) 0 units SC ACHS [facility]; Protocol Stop: 05/23/19 16:29 Last Admin: 04/26/19 13:15 Dose: Not Given Documented by: Insulin Glargine (Lantus Solostar Pen) [facility] [place] Stop: 05/26/19 08:59 Last Admin: 04/26/19 09:26 Dose: 9 units Documented by: Lactobacillus Acidophilus (Floranex) 4 tab PO TIDM [facility] Stop: 05/25/19 16:59 Last Admin: 04/26/19 13:15 Dose: Not Given Documented by: Magnesium Hydroxide (Milk Of Magnesia) 30 ml PO Q12H PRN PRN Reason: Constipation Stop: 05/15/19 21:11 Magnesium Oxide (Mag-Ox) 400 mg PO HS [facility] Stop: 05/22/19 20:59 Last Admin: 04/25/19 21:28 Dose: 400 mg Documented by: Metoprolol Tartrate (Lopressor) 12.5 mg PO BID [facility] Stop: 05/20/19 09:59 Last Admin: 04/26/19 09:28 Dose: 12.5 mg Documented by: Miconazole Nitrate (Desenex) 1 appln EXT PRN PRN PRN Reason: Affected Skin Folds Stop: 05/26/19 11:16 Miscellaneous Information (Consult Glycemic Management Pharmacy) 1 ea N/A UD PRN PRN Reason: Consult Stop: 05/17/19 10:55 Miscellaneous Information (Consult) 1 ea N/A UD PRN PRN Reason: Consult Stop: 05/21/19 11:04 Multivitamins/Minerals (Cerovite Liquid) 15 ml PO BID [facility] Stop: 05/21/19 09:29 Last Admin: 04/26/19 09:30 Dose: 15 ml Documented by: Polyethylene Glycol (Miralax Powder Packet) 17 gm PO DAILY PRN PRN Reason: Constipation Stop: 05/15/19 21:11 Thiamine HCl (Vitamin B-1) 200 mg PO QAM [facility] Stop: 05/22/19 09:59 Last Admin: 04/26/19 09:29 Dose: 200 mg Documented by: Resident Activity Tracking Resident Involvement: Resident Care Provided Care Provided: Adult Hospital Medicine (1) Acute respiratory failure Respiratory failure complication: hypoxia Qualified Code(s): J96.01 - Acute respiratory failure with hypoxia (2) Sepsis Acute respiratory failure type: with hypoxia Sepsis acute organ dysfunction status: with acute organ dysfunction Sepsis type: methicillin resistant Staphylococcus aureus Severe sepsis acute organ dysfunction type: acute respiratory failure Severe sepsis shock status: with septic shock Qualified Code(s): A41.02 - Sepsis due to Methicillin resistant Staphylococcus aureus; R65.21 - Severe sepsis with septic shock; J96.01 - Acute respiratory failure with hypoxia (3) Chest pain Chest pain type: unspecified Qualified Code(s): R07.9 - Chest pain, unspecified (4) Pneumonia Laterality: right Lung location: middle lobe of lung Pneumonia type: due to methicillin-resistant Staphylococcus aureus (MRSA) Qualified Code(s): J15.212 - Pneumonia due to Methicillin resistant Staphylococcus aureus
[2019-04-26] MEDS: INSULIN ASPART 100 UNITS/ML 3 ML PEN SC SCH ×4 (09:24→22:42)
[2019-04-26] MEDS: INSULIN GLARGINE SOLOSTAR 100 UNITS/ML 3 ML PEN SC SCH (09:26)
[2019-04-26] MEDS: ENOXAPARIN INJ 30 MG/0.3 ML SYR SQ SCH (09:27)
[2019-04-26] MEDS: LACTOBACILLUS ACIDOPHILUS (FLORANEX) TAB PO SCH ×3 (09:28→17:46)
[2019-04-26] MEDS: METOPROLOL TARTRATE 25 MG TAB PO SCH ×2 (09:28→22:39)
[2019-04-26] MEDS: THIAMINE HCL 100 MG TAB PO SCH (09:29)
[2019-04-26] MEDS: MULTI VIT W/MINERALS LIQUID 15 ML UDP PO SCH ×2 (09:30→22:38)
[2019-04-26] MEDS: ASCORBIC ACID 500 MG TAB PO SCH (09:30)
[2019-04-26] MEDS ORDERED: MICONAZOLE NITRATE POWDER 43 GM EXT PRN (11:17)
[2019-04-26] MEDS: MAGNESIUM OXIDE 400 MG TAB PO SCH (22:39)
[2019-04-27] MEDS: PIPERACILLIN/TAZOBACTAM 4.5 GM in DEXTROSE 5% 100 ML IV SCH ×3 (00:36→16:56)
[2019-04-27] MEDS: ALBUT/IPRATROP 3MG/0.5MG NEB 3 ML VIAL NEB SCH ×6 (02:58→23:26)
[2019-04-27 07:01] LABS: Basophils # (auto) 0.04 K/uL (0-0.2); Basophils % (auto) 0.4 %; Eosinophils # (auto) 0.17 K/uL (0-0.5); Eosinophils % (auto) 1.5 %; Hematocrit (blood only) 28.2 % (37-47); Hemoglobin 9.4 g/dL (12.0-16.0); Immature Granulocytes # (auto) 0.35 K/uL (0.00-0.02); Immature Granulocytes % (auto) 3.1 %; Lymphocytes # (auto) 1.38 K/uL (1.2-3.4); Lymphocytes % (auto) 12.1 %; Mean Corpuscular Hemoglobin 28.6 pg (25-34); Mean Corpuscular Hgb Conc 33.3 g/dL (32-36); Mean Corpuscular Volume 85.7 fL (80-100); Mean Platelet Volume 9.2 fL (7.4-10.4); Monocytes # (auto) 1.31 K/uL (0.11-0.59); Monocytes % (auto) 11.5 %; Neutrophils # (auto) 8.16 K/uL (1.4-6.5); Neutrophils % (auto) 71.4 %; Platelet Count 225 K/uL (130-400); RDW Coefficient of Variation 13.9 % (11.5-14.5); Red Blood Count 3.29 M/uL (4.2-5.4); White Blood Count 11.41 K/uL (4.8-10.8)
[2019-04-27 07:32] LABS: BUN Creatinine Ratio 17.9 (10-20); Calcium 8.2 mg/dl (8.5-10.1); Creatinine Clr Calc Pharmacy 35.3 ml/min; Est GFR (African American) 55.9; Est GFR (Non-African American) 48.2; Potassium 3.3 mmol/L (3.5-5.1)
[2019-04-27] MEDS: INSULIN GLARGINE SOLOSTAR 100 UNITS/ML 3 ML PEN SC SCH (08:11)
[2019-04-27] MEDS: INSULIN ASPART 100 UNITS/ML 3 ML PEN SC SCH ×4 (08:12→20:45)
[2019-04-27] MEDS: MULTI VIT W/MINERALS LIQUID 15 ML UDP PO SCH ×2 (08:12→20:45)
[2019-04-27] MEDS: METOPROLOL TARTRATE 25 MG TAB PO SCH ×2 (08:13→20:45)
[2019-04-27] MEDS: THIAMINE HCL 100 MG TAB PO SCH (08:13)
[2019-04-27] MEDS: ASCORBIC ACID 500 MG TAB PO SCH (08:13)
[2019-04-27] MEDS: LACTOBACILLUS ACIDOPHILUS (FLORANEX) TAB PO SCH ×3 (08:13→16:57)
[2019-04-27] MEDS: ENOXAPARIN INJ 30 MG/0.3 ML SYR SQ SCH (08:14)
--- NOTE | 2019-04-27 09:36 | Hospitalist Progress Note ---
Date of Service April 27, 2019 Assessment & Plan (1) Pneumonia: 78 yo F no significant PMHx admitted on 04/16/19 for influenza A infection with superimposed bacterial PNA and ensuing sepsis requiring pressor support, respiratory compromise requiring intubation and mechanical ventilation; ext ubated on 04/23 and with clinical improvement Sepsis due to MRSA pneumonia superimposed on influenza with acute hypoxic respiratory failure s/p bronch and intubation: - Extubated 04/23; satting 92% on 2LNC; wean as tolerated; not on oxygen at home. - Bronch bacterial cultures from 04/17 revealed MRSA PNA; completed 10 day course of Tamiflu on 04/20. Linezolid completed 04/26; last day of zosyn today - Bronch fungal culture from 04/17 and 04/20 showing growth of madina albicans, however BCx without fungal growth, Caspofungin discontinued 04/26 - Blood cultures 04/20 negative for bacteria and fungal growth - WBC 11 today, down from 13 on 04/26; patient afebrile. - Duonebs Q4H PRN + scheduled. - On contact precautions for MRSA pneumonia. - PT eval recommends acute rehab stay; family amenable; case management aware Diarrhea: resolving - C. diff negative. - on probiotic - likely due to antibiotics/antifungals. anticipate resolution with discontinu ation of antimicrobials Elevated LFTs: - AST 39, ALT 94; trending down. - Hepatitis A and B serology neg. - Abdomen ultrasound 04/21 with the following impression: No hepatic masses identified. No gallstones identified. No evidence of intra or extrahepatic biliary ductal dilatation. Mild fullness of the left renal collecting system. - Presumable etiology shock liver 2/2 to sepsis, will continue to follow to normalization. New onset A-fib with RVR: - Continue metoprolol PO. - Cardiology consulted for consideration of loop recorder placement before discharge to assess for underlying paroxysmal arrhythmia - ECHO: EF 55-60%, no wall motion abnormalities. [place]: resolved - Etiology thought to be due to ATN in setting of prior septic state. - Creatinine at 1.11 today. - Continue to monitor BMP qAM. 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 - patient was having chronic low back pain prior to this admission that did not impede her daily living but was becoming increasingly irritating - spine surgery consult placed for guidance on management of degenerative spinal stenosis and associated myelomalacia Pulmonary Nodules - Visualized on admission Chest CT. - Clinical picture favors inflammatory origin vs. neoplastic process. - Repeat CT in 3 months to assess for resolution. - Patient is non-smoker, no FHx lung cancer. Code Status: FULL CODE FEN/GI: heart healthy diet; soft bite size DVT ppx: Lovenox Dispo: med/surg (2) Influenza A: (3) Acute respiratory failure: (4) Chest pain: (5) [place] (acute kidney injury): (6) Sepsis: (7) Admitted to intensive care unit: Supervising Physician Co-Signing Physician Notes I personally examined the patient and verified all benavides points of history and exam, discussed case, and agree with decision making with Dr Moore. Feeling better, breathing better, just very weak. Extensive discussion with patient and in regards to rehab planning. Discussed back with patientshe notes that prior to hospital admission she had back pain on again off again, mostly in her lower back not really radiating anywhere, some good days some that were a little worse than others but never anything that really got in the way of her doing what she would like to do. Vitals noted, in general she is awake and alert pleasant but very fatigued appearing no distress. HEENT normocephalic atraumatic mucous membranes moist. Breathing is unlabored no accessory muscle use good effort. Skin shows no rashes no pallor or icterus. Influenza with subsequent MRSA pneumonia and respiratory failurefortunately now improving. Finish antibiotics today, ongoing supportive care. Profound deconditioning/critical illness myopathyPT/OT eval and treat, discussed risks/benefits of rehab with patient and , they are now fortunately starting to strongly consider rehab at least until she starts to improve. Back painby history sounds more biomechanical than anything, will review formal Ortho/spine input, but anticipate that she will improve with therapy, as well as possibly benefit from outpatient OMT. Otherwise as above Subjective No acute events overnight. Feeling well. Denies being in any pain. Breathing well. Daughter and present at bedside. Review of Systems Constitutional: + weakness Respiratory: no cough and no dyspnea Gastrointestinal: + diarrhea/loose stools (stool started to form; no blood or mucous) Physical Exam Constitutional: WD/WN, vitals as above Eyes: PERRL, conjunctivae normal, anicteric sclerae ENMT: external ear and nose normal, oropharynx normal Neck: normal visual inspection and trachea midline Respiratory: normal respiratory effort, lungs clear to auscultation Auscultation: no crackles, no rales, no rhonchi and no wheezes Cardiovascular: Rate/Rhythm: regular rate and regular rhythm Heart Sounds: normal S1, normal S2 and + murmur (systolic ejection murmur with radiation to neck) Gastrointestinal (Abdomen): normal bowel sounds, soft, nontender, no hepatosplenomegaly Skin: no rashes, warm and dry Psychiatric: Orientation: alert and oriented x 3 Affect: + flat affect Genitourinary: José catheter in place draining pale yellow colored urine Results & Data Vital Signs (Past 12 Hours) Vital Signs Temp Pulse Pulse Resp BP Pulse Ox 04/27/19 07:26 95 H 18 92 04/27/19 07:14 36.9 C 87 16 136/79 91 04/27/19 03:57 36.9 C 95 H 19 136/74 91 04/27/19 02:58 89 20 93 04/26/19 22:35 36.8 C 107 H 20 139/71 91 04/26/19 22:20 97 H 04/26/19 22:19 96 H 20 95 Resident Activity Tracking Resident Involvement: Resident Care Provided Care Provided: Adult Hospital Medicine (1) Acute respiratory failure Respiratory failure complication: hypoxia Qualified Code(s): J96.01 - Acute respiratory failure with hypoxia (2) Sepsis Acute respiratory failure type: with hypoxia Sepsis acute organ dysfunction status: with acute organ dysfunction Sepsis type: methicillin resistant Staphylococcus aureus Severe sepsis acute organ dysfunction type: acute respiratory failure Severe sepsis shock status: with septic shock Qualified Code(s): A41.02 - Sepsis due to Methicillin resistant Staphylococcus aureus; R65.21 - Severe sepsis with septic shock; J96.01 - Acute respiratory failure with hypoxia (3) Chest pain Chest pain type: unspecified Qualified Code(s): R07.9 - Chest pain, unspecified (4) Pneumonia Laterality: right Lung location: middle lobe of lung Pneumonia type: due to methicillin-resistant Staphylococcus aureus (MRSA) Qualified Code(s): J15.212 - Pneumonia due to Methicillin resistant Staphylococcus aureus
--- NOTE | 2019-04-27 13:48 | Orthopedic Consultation ---
Date of Consultation April 27, 2019 Assessment & Plan (1) Intervertebral thoracic disc disorder with myelopathy, thoracic region: I did have discussion with this patient and her daughter today regarding regarding her MRI findings. She certainly is not in any condition of any surgical recommendations at this time however would recommend that she follow-up in my office in the next 2 to 3 weeks for continued neurologic exam and further explanation as to her spinal stenosis. Patient understands and agrees. Thank you Present on Admission?: Yes History of Present Illness Reason for Consultation: Thoracic spinal stenosis Attending Physician: Giuseppe Crooks, DO History of Present Illness This is a very pleasant 78-year-old female that was consulted for regarding MRI findings. Most impressive is severe spinal stenosis at the T10-T11 region with cord displacement. This afternoon she is accompanied by her daughter and we did a discussion today regarding her MRI findings and clinical presentation. At this point she does deny any balance disturbances with ambulation. She denies any numbness or tingling in the legs any radicular complaints. She does describe back pain which is been present for the past 2 or 3 years. Denies any recent trauma fall or events affecting her back. Allergies Allergy/AdvReac Type Severity Reaction Status Date / Time latex Allergy Unknown RASH, SKIN Verified 04/15/19 16:12 IRRITATION No Known Drug Allergies Allergy Unknown . Verified 06/25/16 13:40 Home Medications Home Medications Medication Instructions Recorded Confirmed Type simvastatin 20 mg tablet 20 mg PO QPM #90 tab 03/12/19 04/15/19 Rx benzonatate 200 mg PO Q8H PRN 04/15/19 04/15/19 History oseltamivir 75 mg PO Q12H 04/15/19 04/15/19 History vit C-vit H-mewmgl-vukp-lutein 2 cap PO BID 04/15/19 04/15/19 History [PreserVision Lutein] Patient History Medical History Acute pneumonia Atrial fibrillation with rapid ventricular response Hyperlipidemia Impaired fasting glucose Shingles Surgical History S/P tubal ligation Status post tonsillectomy Family History Father Myocardial infarction Aunt Myocardial infarction Social History Preferred Language: Pakistani Visual Impairment: Partially Limited Hearing Ability: Normal 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 She does have evidence of clonus in the bilateral ankles. She is brisk reflexes bilateral patellar and Achilles. Sensory symmetric and intact to light touch and cold sensation. She has reasonable strength testing. Results & Data Vital Signs (Past 12 Hours) Vital Signs Temp Pulse Pulse Resp BP BP Pulse Ox 04/27/19 11:50 36.5 C 87 16 122/76 92 04/27/19 11:01 85 18 94 04/27/19 08:00 92 H 04/27/19 07:26 95 H 18 92 04/27/19 07:14 36.9 C 87 16 136/79 91 04/27/19 03:57 36.9 C 95 H 19 136/74 91 04/27/19 02:58 89 20 93
--- NOTE | 2019-04-27 16:42 | Billing Data ---
Date of Service April 27, 2019 Coding Level of Care Code 83817 Subseq Hosp Care Lvl 3
[2019-04-27] MEDS: MAGNESIUM OXIDE 400 MG TAB PO SCH (20:45)
[2019-04-28] MEDS: ALBUT/IPRATROP 3MG/0.5MG NEB 3 ML VIAL NEB SCH ×6 (03:22→23:06)
[2019-04-28] MEDS: THIAMINE HCL 100 MG TAB PO SCH (08:40)
[2019-04-28] MEDS: ASCORBIC ACID 500 MG TAB PO SCH (08:40)
[2019-04-28] MEDS: METOPROLOL TARTRATE 25 MG TAB PO SCH ×2 (08:41→20:55)
[2019-04-28] MEDS: LACTOBACILLUS ACIDOPHILUS (FLORANEX) TAB PO SCH ×3 (08:41→17:31)
[2019-04-28] MEDS: ENOXAPARIN INJ 30 MG/0.3 ML SYR SQ SCH (08:42)
[2019-04-28] MEDS: MULTI VIT W/MINERALS LIQUID 15 ML UDP PO SCH ×2 (08:43→20:55)
[2019-04-28] MEDS: INSULIN ASPART 100 UNITS/ML 3 ML PEN SC SCH ×4 (09:18→21:03)
[2019-04-28] MEDS: INSULIN GLARGINE SOLOSTAR 100 UNITS/ML 3 ML PEN SC SCH (10:49)
--- NOTE | 2019-04-28 16:35 | Hospitalist Progress Note ---
Date of Service April 28, 2019 Assessment & Plan (1) Pneumonia: 78 yo F no significant PMHx admitted on 04/16/19 for influenza A infection with superimposed bacterial PNA and ensuing sepsis requiring pressor support, respiratory compromise requiring intubation and mechanical ventilation; ext ubated on 04/23 and with clinical improvement Sepsis due to MRSA pneumonia superimposed on influenza with acute hypoxic respiratory failure s/p bronch and intubation: - Extubated 04/23; satting 93% on 2LNC; wean as tolerated; not on oxygen at home. - Bronch bacterial cultures from 04/17 revealed MRSA PNA; completed 10 day course of Tamiflu on 04/20. Linezolid completed 04/26; Zosyn completed 04/27 - Bronch fungal culture from 04/17 and 04/20 showing growth of madina albicans, however BCx without fungal growth, Caspofungin discontinued 04/26 - Blood cultures 04/20 negative for bacteria and fungal growth - WBC has trended down; patient afebrile. - Duonebs Q4H PRN + scheduled. - On contact precautions for MRSA pneumonia. Diarrhea: resolving - C. diff negative. - on probiotic - likely due to antibiotics/antifungals. anticipate resolution with discontinuation of antimicrobials Elevated LFTs: - AST 39, ALT 94; trending down. - Hepatitis A and B serology neg. - Abdomen ultrasound 04/21 with the following impression: No hepatic masses identified. No gallstones identified. No evidence of intra or extrahepatic biliary ductal dilatation. Mild fullness of the left renal collecting system. - Presumable etiology shock liver 2/2 to sepsis New onset A-fib with RVR: - Continue metoprolol PO. - Cardiology consulted and recommended no anticoagulation or loop recorder, with the thought A-fib episode was provoked by extenuating circumstances - patient has been on monitor since extubation without recurrence, but we will order 30-day event monitor as outpatient for further surveillance - ECHO: EF 55-60%, no wall motion abnormalities. [place]: resolved - Etiology thought to be due to ATN in setting of prior septic state. 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 - patient was having chronic low back pain prior to this admission that did not impede her daily living but was becoming increasingly irritating - spine surgery consult placed for guidance on management of degenerative spinal stenosis and associated myelomalacia; will follow as outpatient Pulmonary Nodules - Visualized on admission Chest CT. - Clinical picture favors inflammatory origin vs. neoplastic process. - Repeat CT in 3 months to assess for resolution. - Patient is non-smoker, no FHx lung cancer. Code Status: FULL CODE FEN/GI: heart healthy diet; soft bite size DVT ppx: Lovenox Dispo: med/surg; awaiting authorization of referral to [facility] (2) Influenza A: (3) Acute respiratory failure: (4) Chest pain: (5) [place] (acute kidney injury): (6) Sepsis: (7) Admitted to intensive care unit: Supervising Physician Co-Signing Physician Notes I personally examined the patient and verified all benavides points of history and exam, discussed case, and agree with decision making with Dr Moore. Breathing is going reasonably well. Back pain off and onhe notes it gets worse as the day goes on. Generally in her low back without much of any radiation. [place] like she did better moving and doing therapy today. Still waiting to hear for approval for rehab. Vitals noted, in general she is awake and alert pleasant but very fatigued appearing no distress. HEENT normocephalic atraumatic mucous membranes moist. Breathing is unlabored no accessory muscle use good effort. Skin shows no rashes no pallor or icterus. Osteopathic structural exam shows left-sided piriformis musculature high in tone, tender, decreased range of motioninhibitory pressure/ligamentous articular straintissue texture improvedpatient tolerated well Influenza with subsequent MRSA pneumonia and respiratory failurefortunately now improving. Has now finished course of antibiotics. Ongoing supportive care but predominantly care as directed towards her rehab now. Profound deconditioning/critical illness myopathyPT/OT eval and treat ongoing, awaiting approval for rehabpatient ready for transfer once approval is received Back painhas significant findings on spinal imaging, but it seems that most of her symptoms are more consistent with biomechanical low back pain. Because of the degree of particularly thoracic findings, agree with ongoing spine follow- up, but direct most of her actual pain treatment towards biomechanical findings. Somatic dysfunction pelvisOMT as above. More than likely her piriformis dysfunction is creating SI joint dysfunction that is the main cause of her pain. Discussed this with patient and , and showed stretches as well. Otherwise as above Subjective No acute events overnight. Feeling well; eating some. Denies being in any pain. Breathing well. present at bedside. Review of Systems Constitutional: + weakness Gastrointestinal: + diarrhea/loose stools (stool started to form; no blood or mucous) Physical Exam Constitutional: WD/WN, vitals as above + altered mental status (+confusion) Eyes: PERRL, conjunctivae normal, anicteric sclerae + anicteric sclerae ENMT: external ear and nose normal, oropharynx normal Neck: normal visual inspection and trachea midline Respiratory: normal respiratory effort, lungs clear to auscultation no labored breathing Auscultation: no crackles, no rales, no rhonchi and no wheezes Cardiovascular: RRR, no murmur, no edema Rate/Rhythm: regular rate and regular rhythm Heart Sounds: normal S1, normal S2 and + murmur (systolic ejection murmur with radiation to neck) Gastrointestinal (Abdomen): normal bowel sounds, soft, nontender, no hepatosplenomegaly Inspection/Auscultation: abdomen not distended Musculoskeletal: Pain with palpation of piriformis muscle Skin: no rashes, warm and dry Psychiatric: Orientation: alert and oriented x 3 Affect: + flat affect Results & Data Vital Signs (Past 12 Hours) Vital Signs Temp Pulse Pulse Resp BP BP Pulse Ox 04/28/19 15:32 36.7 C 87 18 131/74 93 04/28/19 15:30 71 16 98 04/28/19 11:20 37.2 C 85 16 134/80 91 04/28/19 11:02 85 14 91 04/28/19 07:47 86 04/28/19 07:19 80 92 Resident Activity Tracking Resident Involvement: Resident Care Provided Care Provided: Adult Hospital Medicine (1) Acute respiratory failure Respiratory failure complication: hypoxia Qualified Code(s): J96.01 - Acute respiratory failure with hypoxia (2) Sepsis Acute respiratory failure type: with hypoxia Sepsis acute organ dysfunction status: with acute organ dysfunction Sepsis type: methicillin resistant Staphylococcus aureus Severe sepsis acute organ dysfunction type: acute respiratory failure Severe sepsis shock status: with septic shock Qualified Code(s): A41.02 - Sepsis due to Methicillin resistant Staphylococcus aureus; R65.21 - Severe sepsis with septic shock; J96.01 - Acute respiratory failure with hypoxia (3) Chest pain Chest pain type: unspecified Qualified Code(s): R07.9 - Chest pain, unspecified (4) Pneumonia Laterality: right Lung location: middle lobe of lung Pneumonia type: due to methicillin-resistant Staphylococcus aureus (MRSA) Qualified Code(s): J15.212 - Pneumonia due to Methicillin resistant Staphylococcus aureus
--- NOTE | 2019-04-28 17:35 | Billing Data ---
Date of Service April 28, 2019 Coding Level of Care Code 11984 Subseq Hosp Care Lvl 2
--- NOTE | 2019-04-28 17:36 | Hospitalist Progress Note ---
Date of Service April 28, 2019 Results & Data Vital Signs (Past 12 Hours) Vital Signs Temp Pulse Pulse Resp BP BP Pulse Ox 04/28/19 15:32 98.1 F 87 18 131/74 93 04/28/19 15:30 71 16 98 04/28/19 11:20 99.0 F 85 16 134/80 91 04/28/19 11:02 85 14 91 04/28/19 07:47 86 04/28/19 07:19 80 92 PG Care Time/CCT Total # of Minutes Spent Total Time Spent with Patient: Total time spent is greater than 50% in coordination of care (as documented) at patient's floor/unit and/or counseling patient:
[2019-04-28] MEDS: MAGNESIUM OXIDE 400 MG TAB PO SCH (20:56)
[2019-04-29] MEDS: ALBUT/IPRATROP 3MG/0.5MG NEB 3 ML VIAL NEB SCH ×6 (03:09→22:54)
[2019-04-29 07:39] LABS: Alanine Aminotransferase 55 U/L (12-78); Albumin Level 1.9 gm/dl (3.4-5.0); Alkaline Phosphatase 66 U/L (45-117); Aspartate Aminotransferase 20 U/L (15-37); Bilirubin Direct < 0.1 mg/dl (0-0.2); Bilirubin,Total 0.4 mg/dl (0.2-1); Total Protein 6.4 gm/dl (6.4-8.2)
[2019-04-29] MEDS: ASCORBIC ACID 500 MG TAB PO SCH (08:06)
[2019-04-29] MEDS: METOPROLOL TARTRATE 25 MG TAB PO SCH ×2 (08:06→21:26)
[2019-04-29] MEDS: LACTOBACILLUS ACIDOPHILUS (FLORANEX) TAB PO SCH ×3 (08:07→17:34)
[2019-04-29] MEDS: ENOXAPARIN INJ 30 MG/0.3 ML SYR SQ SCH (08:07)
[2019-04-29] MEDS: THIAMINE HCL 100 MG TAB PO SCH (08:07)
[2019-04-29] MEDS: INSULIN GLARGINE SOLOSTAR 100 UNITS/ML 3 ML PEN SC SCH (08:08)
[2019-04-29] MEDS: INSULIN ASPART 100 UNITS/ML 3 ML PEN SC SCH ×4 (08:52→21:30)
[2019-04-29] MEDS: MULTI VIT W/MINERALS LIQUID 15 ML UDP PO SCH (09:08)
[2019-04-29] MEDS: MULTIVITAMIN TAB PO SCH (12:31)
--- NOTE | 2019-04-29 17:48 | Hospitalist Progress Note ---
Date of Service April 29, 2019 Assessment & Plan (1) Pneumonia: 78 yo F no significant PMHx admitted on 04/16/19 for influenza A infection with superimposed bacterial PNA and ensuing sepsis requiring pressor support, respiratory compromise requiring intubation and mechanical ventilation; ext ubated on 04/23 and with clinical improvement Sepsis due to MRSA pneumonia superimposed on influenza with acute hypoxic respiratory failure s/p bronch and intubation: - Extubated 04/23; satting 94% on 2LNC; wean as tolerated; not on oxygen at home. - Bronch bacterial cultures from 04/17 revealed MRSA PNA; completed 10 day course of Tamiflu on 04/20. Linezolid completed 04/26; Zosyn completed 04/27 - Bronch fungal culture from 04/17 and 04/20 showing growth of madina albicans, however BCx without fungal growth, Caspofungin discontinued 04/26 - Blood cultures 04/20 negative for bacteria and fungal growth - WBC has trended down; patient afebrile. - Duonebs Q4H PRN + scheduled. - On contact precautions for MRSA pneumonia. Diarrhea: resolving - C. diff negative. - on probiotic - likely due to antibiotics/antifungals. anticipate resolution with discontinuation of antimicrobials Elevated LFTs: - AST 39, ALT 94; trending down. - Hepatitis A and B serology neg. - Abdomen ultrasound 04/21 with the following impression: No hepatic masses identified. No gallstones identified. No evidence of intra or extrahepatic biliary ductal dilatation. Mild fullness of the left renal collecting system. - Presumable etiology shock liver 2/2 to sepsis New onset A-fib with RVR: - Continue metoprolol PO. - Cardiology consulted and recommended no anticoagulation or loop recorder, with the thought A-fib episode was provoked by extenuating circumstances - patient has been on monitor since extubation without recurrence, but we will order 30-day event monitor as outpatient for further surveillance - ECHO: EF 55-60%, no wall motion abnormalities. [place]: resolved - Etiology thought to be due to ATN in setting of prior septic state. 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 - patient was having chronic low back pain prior to this admission that did not impede her daily living but was becoming increasingly irritating - spine surgery consult placed for guidance on management of degenerative spinal stenosis and associated myelomalacia; will follow as outpatient Pulmonary Nodules - Visualized on admission Chest CT. - Clinical picture favors inflammatory origin vs. neoplastic process. - Repeat CT in 3 months to assess for resolution. - Patient is non-smoker, no FHx lung cancer. Code Status: FULL CODE FEN/GI: heart healthy diet; soft bite size DVT ppx: Lovenox Dispo: med/surg; will be transported to [facility] 04/30/19 (2) Influenza A: (3) Acute respiratory failure: (4) Chest pain: (5) [place] (acute kidney injury): (6) Sepsis: (7) Admitted to intensive care unit: Supervising Physician Co-Signing Physician Notes I personally examined the patient and verified all benavides points of history and exam, discussed case, and agree with decision making with Dr Moore. feeling better and a little stronger - breathing OK overall. no new issues. at the time i saw her - awaiting approval for rehab. obtained later in the day - at that point family preferred for her to go in AM vitals noted nad fatigued. breathing unlabored no accessory muscles - getting neb treatmetn at the time i see her. no rashes no pallor or icterus. no focal neuro deficits. flu B w subsequent MRSA pneumonia/severe sepsis/hypoxic respiratory failure s/p intubation - now showing slow but steady improvement out of iCU - for transfer to rehab in near future weakness/deconditioning/critical illness myopathy - PT/OT eval and treat. for rehab (hoepfully tomorrow) back pain - seems to mostly relate to pelvic/piriformis somatic dysfunction (OMT done yesterday) and although she has stenotic findings on CT that warrant spine f/u and ongoing evaluation - pain and sx fit much more with biomechanical pattern. PT/OT eval/treat this as well. likely would benefit from outpt OMT once out of rehab. Subjective No acute events overnight. Feeling well; eating some. Denies being in any pain. Breathing well. present at bedside. Amenable to staying the night while transport to rehab is arranged for the morning Review of Systems Constitutional: + weakness Physical Exam Constitutional: WD/WN, vitals as above cooperative Eyes: PERRL, conjunctivae normal, anicteric sclerae + anicteric sclerae ENMT: external ear and nose normal, oropharynx normal Neck: normal visual inspection and trachea midline Respiratory: normal respiratory effort, lungs clear to auscultation no labored breathing Auscultation: no crackles, no rales, no rhonchi and no whe ezes Cardiovascular: RRR, no murmur, no edema Rate/Rhythm: regular rate and regular rhythm Heart Sounds: normal S1 and normal S2 Gastrointestinal (Abdomen): normal bowel sounds, soft, nontender, no hepatosplenomegaly Inspection/Auscultation: abdomen not distended Skin: no rashes, warm and dry Psychiatric: Orientation: alert and oriented x 3 Affect: + flat affect Genitourinary: José catheter in place draining pale yellow colored urine without visible blood clots Results & Data Vital Signs (Past 12 Hours) Vital Signs Temp Pulse Pulse Resp BP BP Pulse Ox 04/29/19 15:22 100 H 18 94 04/29/19 15:00 36.8 C 98 H 17 129/72 91 04/29/19 11:35 36.7 C 93 H 16 136/82 94 04/29/19 11:07 85 16 95 04/29/19 08:00 89 04/29/19 07:03 88 16 91 04/29/19 07:00 36.8 C 91 H 20 130/70 92 Resident Activity Tracking Resident Involvement: Resident Care Provided Care Provided: Adult Hospital Medicine (1) Pneumonia Pneumonia type: due to methicillin-resistant Staphylococcus aureus (MRSA) Laterality: right Lung location: middle lobe of lung Qualified Code(s): J15.212 - Pneumonia due to Methicillin resistant Staphylococcus aureus (2) Acute respiratory failure Respiratory failure complication: hypoxia Qualified Code(s): J96.01 - Acute respiratory failure with hypoxia (3) Chest pain Chest pain type: unspecified Qualified Code(s): R07.9 - Chest pain, unspecified (4) Sepsis Sepsis type: methicillin resistant Staphylococcus aureus Sepsis acute organ dysfunction status: with acute organ dysfunction Severe sepsis acute organ dysfunction type: acute respiratory failure Acute respiratory failure type: with hypoxia Severe sepsis shock status: with septic shock Qualified Code(s): A41.02 - Sepsis due to Methicillin resistant Staphylococcus aureus; R65.21 - Severe sepsis with septic shock; J96.01 - Acute respiratory failure with hypoxia
--- NOTE | 2019-04-29 17:53 | Billing Data ---
Date of Service April 29, 2019 Coding Level of Care Code 95803 Subseq Hosp Care Lvl 2
[2019-04-29] MEDS: MAGNESIUM OXIDE 400 MG TAB PO SCH (21:26)
[2019-04-30] MEDS: ALBUT/IPRATROP 3MG/0.5MG NEB 3 ML VIAL NEB SCH ×2 (02:44→07:12)
[2019-04-30 07:09] VITALS: TEMP 97.5; O2SAT 91
[2019-04-30 07:16] VITALS: PULSE 75
[2019-04-30] MEDS: INSULIN GLARGINE SOLOSTAR 100 UNITS/ML 3 ML PEN SC SCH (08:45)
[2019-04-30] MEDS: INSULIN ASPART 100 UNITS/ML 3 ML PEN SC SCH (08:46)
[2019-04-30] MEDS: THIAMINE HCL 100 MG TAB PO SCH (08:53)
[2019-04-30] MEDS: MULTIVITAMIN TAB PO SCH (08:53)
[2019-04-30] MEDS: ASCORBIC ACID 500 MG TAB PO SCH (08:53)
[2019-04-30] MEDS: ENOXAPARIN INJ 30 MG/0.3 ML SYR SQ SCH (08:53)
[2019-04-30] MEDS: LACTOBACILLUS ACIDOPHILUS (FLORANEX) TAB PO SCH (08:54)
--- NOTE | 2019-04-30 09:56 | Hospitalist Progress Note ---
Date of Service April 30, 2019 For transportation reasons, patient was discharged today from [facility] to [facility]. Please use the below HPI, PE and ROS, but see discharge summary for assessment and plan. Supervising Physician Co-Signing Physician Notes I personally examined the patient and verified all benavides points of history and exam, discussed case, and agree with decision making with Dr Moore. feeling good overall - ready to go to rehab. no new complaints. reviewed anticipated long recovery w pt and . vitals noted nad fatigued. breathing unlabored no accessory muscles good effort. no rashes no pallor or icterus. no focal neuro deficits. flu B w subsequent MRSA pneumonia/severe sepsis/hypoxic respiratory failure s/p intubation - off abx, continues to show slow but steady improvement - stable for rehab. weakness/deconditioning/critical illness myopathy - PT/OT eval and treat. for rehab today back pain - seems to mostly relate to pelvic/piriformis somatic dysfunction (OMT done 04/28) and although she has stenotic findings on CT that warrant spine f/u and ongoing evaluation - pain and sx fit much more with biomechanical pattern. PT/OT eval/treat this as well. likely would benefit from outpt OMT once out of rehab. Subjective No acute events overnight. Feeling well; eating some. Denies being in any pain. Breathing well. present at bedside. Amenable to staying the night while transport to rehab is arranged for the morning Review of Systems Constitutional: + weakness Physical Exam Constitutional: WD/WN, vitals as above + altered mental status (+confusion) Eyes: PERRL, conjunctivae normal, anicteric sclerae + anicteric sclerae ENMT: external ear and nose normal, oropharynx normal Neck: normal visual inspection and trachea midline Respiratory: normal respiratory effort, lungs clear to auscultation no lab ored breathing Auscultation: no crackles, no rales, no rhonchi and no wheezes Cardiovascular: RRR, no murmur, no edema Rate/Rhythm: regular rate and regular rhythm Heart Sounds: normal S1, normal S2 and + murmur (systolic ejection murmur with radiation to neck) Gastrointestinal (Abdomen): normal bowel sounds, soft, nontender, no hepatosplenomegaly Inspection/Auscultation: abdomen not distended Skin: no rashes, warm and dry Psychiatric: Orientation: alert and oriented x 3 Affect: + flat affect Results & Data Vital Signs (Past 12 Hours) Vital Signs Temp Pulse Pulse Resp BP Pulse Ox 04/30/19 07:12 75 16 91 04/30/19 07:00 36.4 C L 92 H 20 132/78 91 04/30/19 00:00 90 04/29/19 23:00 37.6 C H 88 20 151/74 H 90 04/29/19 22:55 88 16 89 L Resident Activity Tracking Resident Involvement: Resident Care Provided Care Provided: Adult Hospital Medicine
[2019-04-30 10:27] VITALS: BP 143/72
[2019-04-30] MEDS: METOPROLOL TARTRATE 25 MG TAB PO SCH (10:28)
--- NOTE | 2019-04-30 16:53 | Billing Data ---
Date of Service April 30, 2019 Coding Level of Care Code D/C Day Management <30 mins
--- NOTE | 2019-05-07 13:09 | Discharge Summary ---
Date of Service May 07, 2019 Admission HPI Per Admitting Provider The patient is a 78 year old white female w/ PMHx of shingles, impaired fasting glucose who presents to the ED w/ CC of constant chest pain beginning 2 hours ago. The patient describes the pain as sharp and radiating into her back. Per nursing staff, the patient was diagnosed with influenza 5 days ago completing Tamiflu. The patient states that she has a productive cough. The patient denies nausea, vomiting, diaphoresis, and recent trauma. CT chest:1. Study negative for pulmonary embolus. 2. Very small right pleural effusion. 3. Nodularity of the right middle and right upper lobe with consolidative infiltrative changes medial aspect of the right middle and to a lesser extent right upper lobe region. 4. Although it is possible that this represents an inflammatory process, a neoplastic process must be the diagnosis of exclusion. Decision is made to admit pt to telemetry for further evaluation of chest pain and nodularity of the right middle and right upper lobe . Admission Exam Per Admitting Provider Constitutional: WD/WN, vitals as above well developed and + obese Eyes: PERRL, conjunctivae normal, anicteric sclerae ENMT: external ear and nose normal, oropharynx normal Neck: trachea midline, no thyromegaly Respiratory: + respiratory distress and + labored breathing Auscultation: + crackles and + wheezes Cardiovascular: Rate/Rhythm: regular rate and regular rhythm Vessels: dorsalis pedis pulses present Gastrointestinal (Abdomen): normal bowel sounds, soft, nontender, no hepatosplenomegaly Musculoskeletal: no cyanosis or clubbing, extremities motor strength 5/5 Skin: no rashes, warm and dry Neurologic: patellar DTR's 2+ bilat, sensation intact Psychiatric: A+Ox3, euthymic affect Lymphatic: no cervical or axillary lymphadenopathy Principal Diagnosis MRSA Pneumonia Discharge Exam Constitutional WD/WN, vitals as above + altered mental status (+confusion) Eyes PERRL, conjunctivae normal, anicteric sclerae + anicteric sclerae ENMT external ear and nose normal, oropharynx normal Neck normal visual inspection and trachea midline Respiratory normal respiratory effort, lungs clear to auscultation no labored breathing Auscultation: no crackles, no rales, no rhonchi and no wheezes Cardiovascular RRR, no murmur, no edema Rate/Rhythm: regular rate and regular rhythm Heart Sounds: normal S1, normal S2 and + murmur (systolic ejection murmur with radiation to neck) Gastrointestinal (Abdomen) normal bowel sounds, soft, nontender, no hepatosplenomegaly Inspection/Auscultation: abdomen not distended Skin no rashes, warm and dry Psychiatric Orientation: alert and oriented x 3 Affect: + flat affect Discharge Data Allergies Allergy/AdvReac Type Severity Reaction Status Date / Time latex Allergy Unknown RASH, SKIN Verified 04/15/19 16:12 IRRITATION No Known Drug Allergies Allergy Unknown . Verified 06/25/16 13:40 Consultations 04/15/19 17:50 ED Decision to Admit Stat 04/15/19 21:12 Consult Pulmonology Routine 04/17/19 05:51 Consult Finish Mender Stat 04/18/19 08:57 Consult Cardiology Routine 04/20/19 09:46 Consult Neurology Routine 04/26/19 11:36 Consult Orthopedic Surgery Routine 04/27/19 16:11 Consult Cardiology Routine Ordered Studies 04/15/19 15:35 CT angio chest PE protocol Stat 04/18/19 12:00 US point of care ultrasound Urgent 04/20/19 09:49 MR cervical spine wo/w con Routine MR lumbar spine wo/w con Routine MR thoracic spine wo/w con Routine 04/21/19 10:14 US venous doppler LE BI Routine 04/21/19 10:16 US abdomen complete Routine Hospital Course (1) Pneumonia: 78 yo F no significant PMHx admitted to [facility] on 04/16/19 for influenza A infection with superimposed bacterial PNA and ensuing sepsis requiring pressor support, respiratory compromise requiring intubation and mechanical ventilation; extubated on 04/23 and with clinical improvement Sepsis due to MRSA pneumonia superimposed on influenza with acute hypoxic respiratory failure s/p bronch and intubation: - Extubated 04/23; satting 91% on 2LNC; wean as tolerated; not on oxygen at home. - Bronch bacterial cultures from 04/17 revealed MRSA PNA; completed 10 day course of Tamiflu on 04/20. Linezolid completed 04/26; Zosyn completed 04/27 - Bronch fungal culture from 04/17 and 04/20 showing growth of madina albicans, however BCx without fungal growth, Caspofungin discontinued 04/26 - Blood cultures 04/20 negative for bacteria and fungal growth - WBC has trended down; patient afebrile. - patient was having duoneb treatments q4H scheduled with additional nebs prn Outpatient items to do: Wean oxygen as tolerated. continue duonebs as needed Diarrhea: resolving - C. diff negative. - on probiotic - likely due to antibiotics/antifungals. anticipate resolution with discontinuation of antimicrobials Outpatient items to do: Please continue probiotic daily. Elevated LFTs: - AST as high as 166, ALT has high as 361 during hospital stay, but normalized by day of discharge - Hepatitis A and B serology neg. - Abdomen ultrasound 04/21 with the following impression: No hepatic masses identified. No gallstones identified. No evidence of intra or extrahepatic biliary ductal dilatation. Mild fullness of the left renal collecting system. - Presumable etiology shock liver / to sepsis New onset A-fib with RVR s/p conversion to sinus rhythm with esmolol drip - Continue metoprolol 12.5 PO BID - Cardiology consulted and recommended no anticoagulation or loop recorder, with the thought A-fib episode was provoked by extenuating circumstances - patient has been on monitor since extubation without recurrence, but we will order 30-day event monitor as outpatient for further surveillance - ECHO: EF 55-60%, no wall motion abnormalities. [place]: resolved - Etiology thought to be due to ATN in setting of prior septic state. - Creatinine returned to baseline by end of hospital stay Myelopathy concurrent with and due to spinal stenosis of thoracic and lumbar regions: - Visualized on spine MRI 04/21/19. - patient was having chronic low back pain prior to this admission that did not impede her daily living but was becoming increasingly irritating - spine surgery consult placed for guidance on management of degenerative spinal stenosis and associated myelomalacia; will follow as outpatient Pulmonary Nodules - Visualized on admission Chest CT. - Clinical picture favors inflammatory origin vs. neoplastic process. - Repeat CT in 3 months to assess for resolution. - Patient is non-smoker, no FHx lung cancer. Outpatient items to do: Order chest CT in 3 months (2) Influenza A: (3) Acute respiratory failure: (4) Chest pain: (5) [place] (acute kidney injury): (6) Sepsis: (7) Admitted to intensive care unit: Total Time Total Time Spent Total Time Spent (In Minutes): see attending attestation Discharge Plan Discharge Items Patient Disposition: Transfer Inpatient Rehab Fac Reason For Visit: CHEST PAIN,ACUTE EXACERBATION OF COPD Discharge Diagnosis: MRSA pneumonia Condition on Discharge: Fair Activity: Per Instructions section Non-emergency contact: Primary Care Provider Call non-emergency contact if: you have any medication questions Follow-up/Referrals: Terrence Cook III, MD [Primary Care Provider] - (A cardiac event monitor is being mailed to your home. The kit will contain easy to follow instructions and you should begin wearing it as soon as possible. You can wear it while you are at the rehab facility. The results will be sent to Dr. Terrence Cook.) Diet: Regular Addtl Attending Provider Instructions: 78 yo F no significant PMHx admitted to [facility] on 04/16/19 for influenza A infection with superimposed bacterial PNA and ensuing sepsis requiring pressor support, respiratory compromise requiring intubation and mechanical ventilation; extubated on 04/23 and with clinical improvement Sepsis due to MRSA pneumonia superimposed on influenza with acute hypoxic respiratory failure s/p bronch and intubation: - Extubated 04/23; satting 91% on 2LNC; wean as tolerated; not on oxygen at home. - Bronch bacterial cultures from 04/17 revealed MRSA PNA; completed 10 day course of Tamiflu on 04/20. Linezolid completed 04/26; Zosyn completed 04/27 - Bronch fungal culture from 04/17 and 04/20 showing growth of madina albicans, however BCx without fungal growth, Caspofungin discontinued 04/26 - Blood cultures 04/20 negative for bacteria and fungal growth - WBC has trended down; patient afebrile. - patient was having duoneb treatments q4H scheduled with additional nebs prn Outpatient items to do: Wean oxygen as tolerated. continue duonebs as needed Diarrhea: resolving - C. diff negative. - on probiotic - likely due to antibiotics/antifungals. anticipate resolution with discontinuation of antimicrobials Outpatient items to do: Please continue probiotic daily. Elevated LFTs: - AST as high as 166, ALT has high as 361 during hospital stay, but normalized by day of discharge - Hepatitis A and B serology neg. - Abdomen ultrasound 04/21 with the following impression: No hepatic masses identified. No gallstones identified. No evidence of intra or extrahepatic biliary ductal dilatation. Mild fullness of the left renal collecting system. - Presumable etiology shock liver 2/2 to sepsis New onset A-fib with RVR s/p conversion to sinus rhythm with esmolol drip - Continue metoprolol 12.5 PO BID - Cardiology consulted and recommended no anticoagulation or loop recorder, with the thought A-fib episode was provoked by extenuating circumstances - patient has been on monitor since extubation without recurrence, but we will order 30-day event monitor as outpatient for further surveillance - ECHO: EF 55-60%, no wall motion abnormalities. [place]: resolved - Etiology thought to be due to ATN in setting of prior septic state. - Creatinine returned to baseline by end of hospital stay Myelopathy concurrent with and due to spinal stenosis of thoracic and lumbar regions: - Visualized on spine MRI 04/21/19. - patient was having chronic low back pain prior to this admission that did not impede her daily living but was becoming increasingly irritating - spine surgery consult placed for guidance on management of degenerative spinal stenosis and associated myelomalacia; will follow as outpatient Pulmonary Nodules - Visualized on admission Chest CT. - Clinical picture favors inflammatory origin vs. neoplastic process. - Repeat CT in 3 months to assess for resolution. - Patient is non-smoker, no FHx lung cancer. Outpatient items to do: Order chest CT in 3 months Pending Studies at Discharge: No Stand-Alone Forms: Call Back Authorization, [facility] Skilled Items Patient informed of condition?: Yes DNR: No Discharge Level of Care: Acute rehab Communicable Disease: No Discharge Prognosis: Stable Lines: None Urinary Catheter: No Medications and DC Order Prescriptions: New ipratropium-albuterol 0.5 mg-3 mg(2.5 mg base)/3 mL Solution For Nebulization 3 ml NEB Q4R 10 Days Qty: 10 RF: 0 ipratropium-albuterol 0.5 mg-3 mg(2.5 mg base)/3 mL Solution For Nebulization 10 ml NEB Q4R PRN (Reason: shortness of breath or wheezing) Qty: 10 RF: 0 metoprolol tartrate 25 mg Tablet 12.5 mg PO BID 30 Days Qty: 60 RF: 0 Continued simvastatin 20 mg tablet 20 mg PO QPM Qty: 90 RF: 3 benzonatate 200 mg capsule 200 mg PO Q8H PRN (Reason: Cough) RF: 0 PreserVision Lutein 226 mg-200 unit -5 mg-0.8 mg Capsule 2 cap PO BID RF: 0 Discontinued oseltamivir 75 mg Capsule 75 mg PO Q12H RF: 0 Discharge Orders: Discharge Order (Routine); Ordered 04/30/19 Ordered By: Patrica Ross/Other Patient Handouts: A1C Admission Data Admit Date/Time: 04/15/19 19:39 Attending Provider: Giuseppe Crooks Admit Provider: Braydon Ledezma Primary Care Provider: Terrence Cook III Other Providers: Davis Horton ; Mari Henry ; Giuseppe Crooks ; Braydon Ledezma ; Giancarlo Nina ; Han Isbell ; Darci Xiao ; Jesus Hines ; Ahmet Manning ; Orlin Mckeon Jr ; Melvin Rai ; Theresa Khalil ; Alycia Beth ; Ruben Miner ; Ruben Fritz ; Kevin Hahn ; Gulshan Minaya ; Audra Taylor ; Charis Ruiz ; Tony Ridley ; Liban Mendoza ; Joi Ng ; [facility] Other Interventions: Discharge Summary Assessment (RN) Last Done: 04/30/19 10:19 DC Date/Time DO NOT enter until pt leaves facility: 04/30/19 11:12 Resident Activity Tracking Resident Involvement: Resident Care Provided Care Provided: Adult Hospital Medicine
== END 2019-04-30 11:12 | DRG 853 ==
LOC: ED 15:21 → SUATTDRO 19:39 → 2N 19:39 → 1E 04-17 05:50 → 2E 04-24 17:01 → 2W 04-25 11:37

== ENCOUNTER 2022-11-28 05:02 | Observation (INO) ==
--- NOTE | 2022-11-01 10:36 | PAT Medication Instructions ---
Medication Instructions Date of Service November 01, 2022 Home Medications Medication Instructions Recorded simvastatin 20 mg tablet 20 mg PO QPM #90 tabs 04/30/22 ascorbic acid (vitamin C) 500 mg tablet 500 mg PO QAM multivitamin 1 tab PO QAM lutein 40 mg capsule 40 mg PO QAM vit C 250 mg-vit E 90 mg-zinc 40 mg-copper 1 [id number] capsule (PreserVision AREDS-2) 1 tab PO BID simvastatin 20 mg tablet 20 mg PO QPM cholecalciferol (vitamin D3) 50 mcg (2,000 unit) capsule (Vitamin D3) 50 mcg PO QAM STOP taking 2 weeks before surgery (or as soon as possible if surgery is within 2 weeks) lutein 40 mg capsule 40 mg PO QAM vit C 250 mg-vit E 90 mg-zinc 40 mg-copper 1 [id number] capsule (PreserVision AREDS-2) 1 tab PO BID DO NOT take the morning of surgery ascorbic acid (vitamin C) 500 mg tablet 500 mg PO QAM multivitamin 1 tab PO QAM cholecalciferol (vitamin D3) 50 mcg (2,000 unit) capsule (Vitamin D3) 50 mcg PO QAM Take evening before surgery simvastatin 20 mg tablet 20 mg PO QPM Other Notes If you have any questions please call us at [phone] or [phone] or [phone] or [phone]
--- NOTE | 2022-11-09 09:45 | Anesthesiology Consultation ---
Date of Service November 09, 2022 Assessment & Plan (1) Encounter for pre-operative examination: - Outpatient joint assessment: Patient is currently scheduled for inpatient pathway. If re-evaluated and patient/surgeon requests outpatient pathway, patient is not recommended candidate for outpatient joint program from anesthesia standpoint. Chart Review Chart Review: Acceptable Risk for Surgery and Patient seen in Pre Admission Testing Teaching & Discussion Pre-Anesthesia Teaching/Discussion Notes: Instructed NPO after midnight before surgery, except medications with 15 cc of water. Medication instructions pr ovided according to the PAT guidelines. History Surgery Operation Date: 11/28/22 07:00 Proposed Procedures p Left Total Knee Arthroplasty - Mickey Robledo MD Height/Weight Height: 4 ft 11 in Weight: 61.1 kg Allergies Allergy/AdvReac Type Severity Reaction Status Date / Time latex Allergy Unknown RASH, SKIN Verified 11/12/22 08:22 IRRITATION Medications Home Medications Medication Instructions Recorded Confirmed Last Taken ascorbic acid (vitamin C) 500 mg 500 mg PO QAM 06/11/19 11/12/22 Unknown tablet multivitamin 1 tab PO QAM 06/14/19 11/12/22 Unknown lutein 40 mg capsule 40 mg PO QAM 02/22/21 11/12/22 Unknown vit C 250 mg-vit E 90 mg-zinc 40 1 tab PO BID 02/22/21 11/12/22 Unknown mg-copper 1 [id number] capsule (PreserVision AREDS-2) simvastatin 20 mg tablet 20 mg PO QPM #90 tabs 04/30/22 11/12/22 Unknown cholecalciferol (vitamin D3) 50 50 mcg PO QAM 11/01/22 11/12/22 Unknown mcg (2,000 unit) capsule (Vitamin D3) Past Medical History Medical History C. difficile colitis History of atrial fibrillation (~04/2019) History of MRSA infection of lungs (~04/2019) Hyperlipidemia Macular degeneration of both eyes Osteopenia Seizure Urinary incontinence Patient denies h/o stroke, heart attack, heart failure, DM, HTN, blood clots or blood transfusions. Exercise / Class Metabolic Activity II 4-5 Yardwork/Stairs/Walk up hill (denies chest discomfort or shortness of breath with 1 FOS) Past Family History Family History Father Myocardial infarction Aunt Myocardial infarction Other No family history of adverse response to anesthesia Denies family history of Ovarian cancer Prostate cancer Breast cancer Colorectal cancer Past Surgical History Surgical History History of colonoscopy S/P tubal ligation Status post tonsillectomy Past Anesthesia History No Hx of Anesthesia Complications and No Family Hx of Anesthesia Complications History of PONV No Hx of PONV and No Hx of Motion Sickness Social History Smoking Status: Never smoker Do You Dip or Chew Tobacco: No Hx Alcohol Use: Yes Alcohol type: wine alcohol intake frequency: 0-2 drinks per day Alcohol Intake Frequency Comment: small amount each day in the afternoon Hx Substance Use: No substance use type: does not use Review of Systems Patient denies chest pain, shortness of breath, dyspnea on exertion, snoring, witnessed apneas, reflux, fever, chills, cough, wheezing, or palpitations. Physical Exam Vital Signs Vitals BP 124/82 P 54 TEMP 978 SP02 95% on RA RESP 18 Physical Patient resting comfortably in chair in NAD, alert and oriented, responding appropriately throughout visit Full cervical extension range of motion without pain TMD 3.5 finger breadths Mallampati Score 2 Dentition: intact, denies chipped or loose teeth, caps/crowns, implants or bridges Lungs: normal respiratory effort. Good air movement, clear throughout to auscultation, no adventitious breath sounds Cardiac: regular rate and rhythm, no murmurs noted Carotid arteries: negative bruit bilat Lab Results Anesthesia Preop Results Results Anesthesia Widget: WBC 7.65 K/ul (4.8-10.8) 11/09/22 Hgb 14.3 g/dl (12.0-16.0) 11/09/22 Hct 42.9 % (37.0-47.0) 11/09/22 Plt 239 K/uL (130-400) 11/09/22 Na 138 mmol/L (136-145) 11/09/22 K 4.5 mmol/L (3.5-5.1) 11/09/22 Cl 107 mmol/L (98-107) 11/09/22 CO2 25 mmol/L (21-32) 11/09/22 BUN 20 mg/dl (6-23) 11/09/22 Creat 0.84 mg/dl (0.6-1.2) 11/09/22 Glucose Level 92 mg/dl (70-99(Fasting)) 11/09/22 PT 10.7 Seconds (9.0-12.0) 11/09/22 PTT 27.9 Seconds (21.0-31.0) 11/09/22 INR 1.0 (0.9-1.1) 11/09/22 HA1c 5.7 % (4.5-5.6) H 09/26/22 Urine Color Yellow 11/09/22 Urine Appearance Clear (Clear) 11/09/22 Urine pH 5.5 (4.5-7.5) 11/09/22 Urine Specific [place] 1.023 (1.000-1.030) 11/09/22 Urine Protein Negative (Negative) 11/09/22 Urine Glucose (UA) Negative (Negative) 11/09/22 Urine Ketones Trace (Negative) H 11/09/22 Urine Blood Negative (Negative) 11/09/22 Urine Nitrite Negative (Negative) 11/09/22 Urine Bilirubin Negative (Negative) 11/09/22 Urine Urobilinogen Negative (Negative) 11/09/22 Urine Leukocyte Esterase 1+ (Negative) H 11/09/22 Urine WBC (Auto) 5-10 /hpf (0-5) H 11/09/22 Urine RBC (Auto) 5-10 /hpf (0-4) H 11/09/22 Urine Hyaline Casts (Auto) 1-5 /lpf (0-5) 11/09/22 Urine Epithelial Cells (Auto) 10-20 /lpf (0-5) H 11/09/22 Urine Bacteria (Auto) Negative (Negative) 11/09/22 Blood Type A Positive 11/09/22 Antibody Screen NEGATIVE 11/09/22 Testing Electrocardiogram Date: 11/07/22 Sinus bradycardia, rate 59 bpm Low voltage QRS Cannot rule out anterior infarct, age undetermined No significant change was found vs EKG 02/22/21 Chest X-Ray Date: 11/09/22 No acute process Echocardiogram Date: 04/17/19 EF 55-60% No regional wall motion abnormalities Mild cLVH Mild mitral regurgitation Mild tricuspid regurgitation
--- NOTE | 2022-11-09 10:17 | History & Physical Report ---
Date of Service November 09, 2022 Assessment & Plan (1) Osteoarthritis of left knee: Plan: PRE-OP Diagnosis: Left knee osteoarthritis Planned Procedure: Left total knee arthroplasty Plan: Patient is scheduled to undergo this procedure at the [facility] with Dr. Robledo on November 28, 2022. Risks and complications of the procedure such as: Infection, bleeding, pain, scarring, nerve blood vessel damage, weakness, wound problems, stiffness, incomplete relief of symptoms, hardware failure, hardware loosening, wear, fracture, tendon or ligament injury, blood clots, embolism, cardiac, stroke and were explained to the patient at her visit today. Informed consent will be obtained with Dr. Robledo present on the morning of surgery.. Patient also understands risks of proceeding with surgical intervention during the COVID-19 pandemic. Currently she is asymptomatic and states that she has not been in contact with anyone positive for the virus recently. We will need to obtain preoperative medical clearance from the patient's primary care provider. Patient is scheduled to meet with anesthesia at the hospital later this morning. While there she will obtain a CBC with differential, complete metabolic panel, PT/INR, blood type and screen, urinalysis, urine culture and sensitivity, EKG and a chest x-ray. During today's visit we reviewed the total knee packet. I provided the patient with paperwork to obtain obtaining a handicap placard for her vehicle. I provided her with information about lectures offered by [facility] in regards to joint replacement surgery. Patient has a walker that she will bring with her on the morning of surgery. I recommended that she purchase a shower chair and raised toilet seat. We discussed discharge planning from the hospital. Patient states she will most likely do in-home physical therapy for the first 2 weeks before transitioning to outpatient physical therapy at our PT clinic. I advised the patient that she will be provided with a prescription for narcotic pain medication for postoperative pain control. We will have her on Coumadin for blood clot prevention and will most likely transition her to adult strength aspirin for 4 additional weeks after c ompletion of 4 weeks of Coumadin therapy. Patient verbalized understanding of all information provided during today's visit. She thanks for the care that she received. If she has questions or concerns prior to her surgery, she will contact clinic. Patient be scheduled for 2-week postoperative follow-up visit with Moody Dixon PA-C on December 13. This chart was completed utilizing [employer] voice recognition software. Grammatical errors, random word insertions, pronoun errors, and in complete sentences are an occasional consequence of the system. Any questions or concerns about the content, text, or information contained within the body of this dictation should be addressed directly to the physician for clarification. History of Present Illness Chief Complaint: Chief Complaint: Left knee pain Primary Care Provider: Juliet Ku MD History of Present Illness (including history relevant to procedure): This 82-year-old female presents to the clinic today for her preoperative history and physical. Patient complains of increasing knee pain over the past few years that is most pronounced when she attempts to sleep at night. She states she does develop some exacerbations of sharp pain at times. She states that she uses Advil for relief of her pain which is mildly effective. She denies any injuries. She localizes most of her pain over the entire knee joint. She states that she has failed conservative treatment with use of nonsteroidal agents, corticosteroid injections, viscosupplementation injections and physical therapy. She states the pain is starting to affect her right knee and she would like to proceed with surgical intervention soon as possible. Review Of Systems: A 12 point review of systems is performed and is unremarkable except for those things stated in the HPI and past medical history. Past Medical History: Problems: Right knee DJD Left knee DJD Hypercholesterolemia Osteoporosis History of epilepsy Procedure History Procedure Procedure Date Comments Tubal ligation Allergies and Sensitivities: Latex(Unknown) Current Home Meds: (Last Updated 11/09 08:03) calcium carbonate (calcium (as carbonate) 600 mg oral tablet) q24h 2 Unknown, ORAL, take 2 tablet by oral route every day calcium-vitamin D (calcium (as carbonate)-vitamin D 500 mg-125 intl units (3.125 mcg) oral tablet) 1 Unknown, Oral, 1 Refill(s), Take 1 Tab by mouth daily. lutein (lutein 6 mg oral capsule) 1 tablet po daily multivitamin with minerals (PreserVision AREDS) multivitamin 1 tab PO Daily simvastatin (simvastatin 20 mg oral tablet) 20 mg PO qhs Vitals: Last Updated 11/09/22 08:01 Weights: Last Updated 11/09/22 08:01 Initial Wt: 11/09 60.0 kg 132 lb Allergies Allergy/AdvReac Type Severity Reaction Status Date / Time latex Allergy Unknown RASH, SKIN Verified 11/01/22 09:09 IRRITATION Home Medications Medication Instructions Recorded Confirmed Type ascorbic acid (vitamin C) 500 mg 500 mg PO QAM 06/11/19 11/01/22 History tablet multivitamin 1 tab PO QAM 06/14/19 11/01/22 History lutein 40 mg capsule 40 mg PO QAM 02/22/21 11/01/22 History vit C 250 mg-vit E 90 mg-zinc 40 1 tab PO BID 02/22/21 11/01/22 History mg-copper 1 [id number] capsule (PreserVision AREDS-2) simvastatin 20 mg tablet 20 mg PO QPM #90 tabs 04/30/22 11/01/22 Rx cholecalciferol (vitamin D3) 50 50 mcg PO QAM 11/01/22 11/01/22 History mcg (2,000 unit) capsule (Vitamin D3) Past Med/Surg History Medical History C. difficile colitis 05/2019 & 06/2019 History of atrial fibrillation (~04/2019) Single episode in s/o critical illness/MRSA pna 04/2019 History of MRSA infection of lungs (~04/2019) 04/2019 with subsequent ICU hospitalization/intubation/critical illness Hyperlipidemia Macular degeneration of both eyes Osteopenia not to pt knowledge. Seizure last one roughly 30yrs ago--petite mal type--currently not on any medication, d/c by neuro given seizure free interval per pt Urinary incontinence slight bladder leakage. Surgical History History of colonoscopy S/P tubal ligation Status post tonsillectomy Family History Father Myocardial infarction Aunt Myocardial infarction Other No family history of adverse response to anesthesia Denies family history of Ovarian cancer Prostate cancer Breast cancer Colorectal cancer Social History Smoking Status: Never smoker Second Hand Exposure: No; Do You Dip or Chew Tobacco: No; Hx Alcohol Use: Yes Alcohol type: wine Alcohol Intake Frequency Comment: one drink per day Hx Substance Use: No Preferred Language: Bulgarian Communication Ability: Effective Visual Impairment: Partially Limited Hearing Ability: Normal Material Planner Required: No Beliefs That Will Affect Care: None marital status: Current Living Situation: Spouse current occupational status: retired Feels Safe at Home: Yes Childhood Exposure to Second-Hand Smoke: Yes Dental Care, Regularly: Yes Physical Activity Frequency: 5-6 Times per Week Seatbelt Use: always Assistive Devices: Glasses and Walker Review of Systems All systems reviewed & are unremarkable except as noted in Subjective Physical Exam Physical Exam: Physical Exam: (relevant to the procedure, including heart and lung evaluation) General: Alert and oriented x3 with proper grooming and hygiene Eyes: Pupils are equal and reactive to light with accommodation. Extraocular movements are intact Throat: Posterior oropharynx is clear with absence of edema, erythema or exudate. Dentition is appropriate Cardiac: Regular rate and rhythm and no murmurs or gallops appreciated Lungs: Clear to auscultation throughout with no wheezing, rales or rhonchi Abdomen: Nonobese, nondistended, nontender with NABS Extremities: Left knee; range of motion is from 8 degrees of extension to 116 degrees of flexion. There is audible crepitation with passive range of motion. Patient has no joint line tenderness when the knee is palpated in the flexed position. Her patella is not mobile due to arthritic change within the patellofemoral compartment. She has visible varus malalignment. There is no laxity with varus or valgus stressing. AP drawer sign Julee test negative. Patient is neurovascular intact in the left lower extremity. Neuro: Cranial nerves II through XII are intact no motor or sensory deficit Skin: Normal in appearance with no open skin areas or discharge Results & Data Diagnostic Findings Studies (relevant to the procedure): X-Ray imagin views of the bilateral knees obtained today and personally interpreted by me show [id number] arthritis of the left knee. There is less severe but noted arthritis in the right knee also.
[~2022-11-28 05:02] MED LIST changes: -ETOMIDATE 2 MG/ML 20 ML VIAL IV ONE; -ROCURONIUM BROMIDE 10 MG/ML 10 ML VIAL IV ONE; +VANCOMYCIN CONSULT ACTIVE PRN; -fentaNYL citrate 100 MCG/2 ML VIAL IV ONE
[2022-11-28] MEDS ORDERED: TRANEXAMIC ACID 1,000 MG **IV Intra-op IV SCH (06:00)
[2022-11-28] MEDS ORDERED: TRANEXAMIC ACID 1,000 MG **IV Pre-op IV SCH (06:00)
[2022-11-28] MEDS ORDERED: VANCOMYCIN HCL 1,250 MG in SODIUM CHLORIDE 0.9% 250 ML IV ONE (06:00)
[2022-11-28] MEDS ORDERED: LR 60ML/HR IV SCH (06:00)
[2022-11-28] MEDS ORDERED: ROPIVACAINE 0.5% HCL/PF 150 MG, BUPIVACAINE 0.75% MPF 20 ML, EPINEPHrine 0.15 MG, Ketor... INFIL SCH (06:00)
[2022-11-28] MEDS ORDERED: ceFAZolin 2000MG 2,000 MG/15 ML SYR IV SCH (06:00)
[2022-11-28] MEDS ORDERED: ePHEDrine sulfate 50 MG/ML AMP IV PRN (06:27)
[2022-11-28] MEDS ORDERED: ATROPINE SULFATE 0.1 MG/ML 10ML SYR IV PRN (06:27)
[2022-11-28] MEDS ORDERED: HYDROmorphone INJ 1 MG/ML SYRINGE IV PRN (06:27)
[2022-11-28] MEDS ORDERED: ONDANSETRON INJ 2 MG/ML 2 ML VIAL IV PRN ×2 (06:27→10:28)
[2022-11-28] MEDS ORDERED: PROPOFOL IV EMULSION 10 MG/ML 20 ML VIAL IV ONE (06:29)
[2022-11-28] MEDS ORDERED: fentaNYL citrate PF 100 MCG/2 ML VIAL ONE (06:29)
[2022-11-28] MEDS ORDERED: ONDANSETRON INJ 2 MG/ML 2 ML VIAL ONE (06:29)
[2022-11-28] MEDS ORDERED: LIDOCAINE 2% 2 ML VIAL/AMP(20MG/ML) INFIL ONE (06:29)
[2022-11-28] MEDS ORDERED: DEXAMETHASONE SOD INJ 4 MG/ML VIAL ONE (06:29)
[2022-11-28] MEDS ORDERED: MIDAZOLAM HCL 1 MG/ML 2ML VIAL ONE (06:29)
[2022-11-28] MEDS ORDERED: BUPIVACAINE 0.25% PF 30 ML VIAL ONE (06:30)
[2022-11-28] MEDS ORDERED: BUPIVACAINE 0.5 % 5 MG/1 ML PF 10ML VIAL ONE (06:30)
--- NOTE | 2022-11-28 06:30 | History & Physical Bridge Note ---
Date of Service November 28, 2022 History & Physical Bridge Note I have examined the patient, reviewed the History & Physical and in the interval since the performance of the History & Physical I have noted the following changes of clinical significance: consent obtained/site verified.no changes noted
[2022-11-28] MEDS ORDERED: ORTHO JOINT ANESTHETIC ONE (06:37)
--- NOTE | 2022-11-28 08:32 | Post Operative Brief Note ---
Immediate Post Op Note v1 Date of Surgery November 28, 2022 Pre & Post Diagnosis Operat osteoarthritis left knee pre and postop diagnosis same ion Date: 11/28/22 07:00 <No data on this case meets the specified criteria> I identified the patient and participated in the time-out.: Yes Procedure Cemented left total knee replacement operation Date: 11/28/22 07:00 <No data on this case meets the specified criteria> Surgeon Mickey Robledo MD Corporate Director Of Human Resources Shaheen/Destiny Estimated Blood Loss 25 Findings Consistent with Post-Op Diagnosis Flexion contracture severe medial compartment osteoarthritis and patellofemoral disease multiple loose bodies Fluids See anesthesia report Complications None
--- NOTE | 2022-11-28 08:36 | Operative Report ---
Post Operative Report Pre & Post Diagnosis Osteoarthritis left knee pre and postop diagnosis same Operation Date: 11/28/22 07:00 <No data on this case meets the specified criteria> I identified the patient and participated in the time-out.: Yes Procedure Cemented left total knee replacement Operation Date: 11/28/22 07:00 <No data on this case meets the specified criteria> Surgeon Mickey Robledo MD Sales Facilitator Shaheen/Destiny Estimated Blood Loss 25 Findings Consistent with Post-Op Diagnosis Severe medial compartment disease patellofemoral disease multiple loose bodies Fluids See anesthesia report Specimens None Drains None Complications None Indications Severe pain failed conservative management x-rays reveal end-stage disease flare varus alignment flexion deformity. Multiple loose bodies Description of Procedure Patient appropriately identified /site verify consent provide antibiotics confirmed as being given the left lower extremity was prepped and draped use routine fashion. Range of motion was -7 to approximately 110 degrees. Midline exposure was utilized after tourniquet inflated to 275 mmHg total of 58 minutes. Parapatellar neurotomy performed synovectomy completed multiple loose bodies removed osteophytes resected. Distal femur entered cruciates resected tibia subluxated menisci resected. Distal femur resected 14 mm proximal tibia 4 mm this required adjustment for an additional count of 2 mm. Once that was performed the extension gap was excellent. Femur was sized to 2-1/2 appropriate anterior posterior condylar and chamfer cuts made. Flexion gap was excellent. The box cut was made to size 2-1/2 it well. The tibia was then broached and reamed for size 2-1/2 and a trial reduction with a 10 spacer was excellent. Patella tracked well. Patella was resected leaving 14 mm. 35 button was then seated. It tracked well. All trial elements were then removed wound was irrigated with Betadine and Pulsavac and then the permanent cemented into position tibia femur patella and order after 12 minutes the tourniquet was deflated minor bleeding points controlled with electrocautery. After 14 minutes the knee was then fully flexed spacer removed minor cement removal required wound was then irrigated. Wound was then soaked in Betadine as the liner was then seated reduced and the knee closed at 40 degrees of flexion with #2 Vicryl 2-0 Vicryl and standstill clips appropriate dressing applied and patient transferred recovery in satisfactory addition he tolerated the procedure well. Bone pathology pending blood loss 25 cc crystalloid per anesthesia. Summary of implant size 2-1/2 left femur size 2 and half rotating platform tray size 35 patella size 2.5 x 10 mm posterior cruciate substituting insert. These are all [employer] rotating platform implants. Patient transferred recovery in satisfactory addition he tolerated procedure well. DVT prophylaxis per protocol. I attest to the content of the Intraoperative Record and any orders documented therein. Any exceptions are noted below.
--- NOTE | 2022-11-28 08:47 | Orthopedic Progress Note ---
Date of Service November 28, 2022 Assessment & Plan (1) Osteoarthritis of left knee: Plan: PRE-OP Diagnosis: Left knee osteoarthritis Planned Procedure: Left total knee arthroplasty Plan: Patient is scheduled to undergo this procedure at the [facility] with Dr. Robledo on November 28, 2022. Risks and complications of the procedure such as: Infection, bleeding, pain, scarring, nerve blood vessel damage, weakness, wound problems, stiffness, incomplete relief of symptoms, hardware failure, hardware loosening, wear, fracture, tendon or ligament injury, blood clots, embolism, cardiac, stroke and were explained to the patient at her visit today. Informed consent will be obtained with Dr. Robledo present on the morning of surgery.. Patient also understands risks of proceeding with surgical intervention during the COVID-19 pandemic. Currently she is asymptomatic and states that she has not been in contact with anyone positive for the virus recently. We will need to obtain preoperative medical clearance from the patient's primary care provider. Patient is scheduled to meet with anesthesia at the hospital later this morning. While there she will obtain a CBC with differential, complete metabolic panel, PT/INR, blood type and screen, urinalysis, urine culture and sensitivity, EKG and a chest x-ray. During today's visit we reviewed the total knee packet. I provided the patient with paperwork to obtain obtaining a handicap placard for her vehicle. I provided her with information about lectures offered by [facility] in regards to joint replacement surgery. Patient has a walker that she will bring with her on the morning of surgery. I recommended that she purchase a shower chair and raised toilet seat. We discussed discharge planning from the hospital. Patient states she will most likely do in-home physical therapy for the first 2 weeks before transitioning to outpatient physical therapy at our PT clinic. I advised the patient that she will be provided with a prescription for narcotic pain medication for postoperative pain control. We will have her on Coumadin for blood clot prevention and will most likely transition her to adult strength aspirin for 4 additional weeks after completion of 4 weeks of Coumadin therapy. Patient verbalized understanding of all information provided during today's visit. She thanks for the care that she received. If she has questions or concerns prior to her surgery, she will contact clinic. Patient be scheduled for 2-week postoperative follow-up visit with Moody Dixon PA-C on December 13. This chart was completed utilizing [employer] voice recognition software. Grammatical errors, random word insertions, pronoun errors, and in complete sentences are an occasional consequence of the system. Any questions or concerns about the content, text, or information contained within the body of this dictation should be addressed directly to the physician for clarification. Orthopedic Progress Note Postop status post cemented left total knee replacement. Patient tolerated the procedure well. In recovery room she denies any chest pain shortness of breath fever chills nausea vomiting or headache. Vital signs are stable she is afebrile. Neurovascular check is limited by spinal. Wound dressing clean dry and intact. Postop x-rays are pending. Assessment doing well status post cemented left total knee replacement continue with care pathway. notified regarding her completion of the procedure and her being in the recovery room. DVT prophylaxis to begin tomorrow with Roseanne
--- NOTE | 2022-11-28 08:49 | Discharge Summary ---
Date of Service November 28, 2022 Admission HPI Per Admitting Provider History of Present Illness (including history relevant to procedure): This 82-year-old female presents to the clinic today for her preoperative history and physical. Patient complains of increasing knee pain over the past few years that is most pronounced when she attempts to sleep at night. She states she does develop some exacerbations of sharp pain at times. She states that she uses Advil for relief of her pain which is mildly effective. She denies any injuries. She localizes most of her pain over the entire knee joint. She states that she has failed conservative treatment with use of nonsteroidal age nts, corticosteroid injections, viscosupplementation injections and physical therapy. She states the pain is starting to affect her right knee and she would like to proceed with surgical intervention soon as possible. Review Of Systems: A 12 point review of systems is performed and is unremarkable except for those things stated in the HPI and past medical history. Past Medical History: Problems: Right knee DJD Left knee DJD Hypercholesterolemia Osteoporosis History of epilepsy Procedure History Procedure Procedure Date Comments Tubal ligation Allergies and Sensitivities: Latex(Unknown) Current Home Meds: (Last Updated 11/09 08:03) calcium carbonate (calcium (as carbonate) 600 mg oral tablet) q24h 2 Unknown, ORAL, take 2 tablet by oral route every day calcium-vitamin D (calcium (as carbonate)-vitamin D 500 mg-125 intl units (3.125 mcg) oral tablet) 1 Unknown, Oral, 1 Refill(s), Take 1 Tab by mouth daily. lutein (lutein 6 mg oral capsule) 1 tablet po daily multivitamin with minerals (PreserVision AREDS) multivitamin 1 tab PO Daily simvastatin (simvastatin 20 mg oral tablet) 20 mg PO qhs Vitals: Last Updated 11/09/22 08:01 Weights: Last Updated 11/09/22 08:01 Initial Wt: 11/09 60.0 kg 132 lb Admission Exam Per Admitting Provider Hospital course uneventful to date. Principal Diagnosis Status post cemented left total knee replacement Discharge Data Allergies Allergy/AdvReac Type Severity Reaction Status Date / Time latex Allergy Unknown RASH, SKIN Verified 11/28/22 05:43 IRRITATION Vaccinations None Consultations None Procedures Performed Operation Date: 11/28/22 07:00 Actual Procedures p Left Total Knee Arthroplasty, cemented(Left) - Mickey Robledo MD Ordered Studies 11/28/22 05:00 US - OR guided needle placemen Routine Hospital Course (1) Osteoarthritis of left knee: PRE-OP Diagnosis: Left knee osteoarthritis Planned Procedure: Left total knee arthroplasty Plan: Patient is scheduled to undergo this procedure at the [facility] with Dr. Robledo on November 28, 2022. Risks and complications of the procedure such as: Infection, bleeding, pain, scarring, nerve blood vessel damage, weakness, wound problems, stiffness, incomplete relief of symptoms, hardware failure, hardware loosening, wear, fracture, tendon or ligament injury, blood clots, embolism, cardiac, stroke and were explained to the patient at her visit today. Informed consent will be obtained with Dr. Robledo present on the morning of surgery.. Patient also understands risks of proceeding with surgical intervention during the COVID-19 pandemic. Currently she is asymptomatic and states that she has not been in contact with anyone positive for the virus recently. We will need to obtain preoperative medical clearance from the patient's primary care provider. Patient is scheduled to meet with anesthesia at the hospital later this morning. While there she will obtain a CBC with differential, complete metabolic panel, PT/INR, blood type and screen, urinalysis, urine culture and sensitivity, EKG and a chest x-ray. During today's visit we reviewed the total knee packet. I provided the patient with paperwork to obtain obtaining a handicap placard for her vehicle. I provided her with information about lectures offered by [facility] in regards to joint replacement surgery. Patient has a walker that she will bring with her on the morning of surgery. I recommended that she purchase a shower chair and raised toilet seat. We discussed discharge planning from the hospital. Patient states she will most likely do in-home physical therapy for the first 2 weeks before transitioning to outpatient physical therapy at our PT clinic. I advised the patient that she will be provided with a prescription for narcotic pain medication for postoperative pain control. We will have her on Coumadin for blood clot prevention and will most likely transition her to adult strength aspirin for 4 additional weeks after completion of 4 weeks of Coumadin therapy. Patient verbalized understanding of all information provided during today's visit. She thanks for the care that she received. If she has questions or concerns prior to her surgery, she will conta ct clinic. Patient be scheduled for 2-week postoperative follow-up visit with Moody Dixon PA-C on December 13. This chart was completed utilizing [employer] voice recognition software. Grammatical errors, random word insertions, pronoun errors, and in complete sentences are an occasional consequence of the system. Any questions or concerns about the content, text, or information contained within the body of this dictation should be addressed directly to the physician for clarification. Plan Continue total knee care pathway outpatient discharge to home. Total Time Total Time Spent Total Time Spent (In Minutes): 10 Discharge Plan Discharge Items Patient Disposition: Home - Home Health Services Reason For Visit: Left Knee Degenerative Joint Disease Discharge Diagnosis: Left knee same Condition on Discharge: Good Activity: Per Instructions section Lifting: Wait until after follow-up appointment Bathing: Keep incision dry Exercise/Sports: Wait until after follow-up appointment Driving/Machine Use: No driving until cleared by Dr. Robledo Weightbearing: Full weightbearing Non-emergency contact: Surgeon Call non-emergency contact if: you have any medication questions, your pain is not controlled, your temperature is above 101.5, your wound has increased redness, your wound has increased drainage and your wound pain has increased Follow-up/Referrals: Juliet Ku MD [Primary Care Provider] - Diet: Regular Addtl Attending Provider Instructions: New Medicine: * You will likely be taking one or more of these medications: 1. Percocet - Take, as directed, when you need it, every four to six hours to control your pain. 2. Iron Sulfate - Take 1 time each day for the month after surgery to help you replace the blood lost during surgery. 3. Eliquis - Thins your blood to lessen the chance of forming a blood clot. * The most common side effects of pain medicine and iron are nausea and constipation. If nausea or constipation is too much of a problem or if you have any questions about your new medicines or doses, call [facility] at . We will try to help you manage these issues. "VERY IMPORTANT TO READ AND REVIEW" Blood Clots and Blood Thinning Medicine: * You are given Eliquis during the immediate post-operative period to lessen the risk of blood clots forming in your legs and/or lungs. It is usually given for six weeks after surgery. Pain: * The immediate post-operative period after knee replacement surgery is often quite painful. * You are given a prescription for pain medicine. You should take it, as directed, when you need it, especially before physical therapy and before going to bed. Pain that interferes with sleep is very common and can last several months. * You will likely need pain medicine for the first four to six weeks. It will not stop all of the pain. The pain will lessen and as you feel better, you may change to milder pain medicine such as Tylenol. * The most common side effects of pain medicine are nausea and constipation, so don't take more than you need. Physical Therapy: * You will have physical therapy two or three times each week for four to six weeks after your surgery in order to regain your knee range of motion and to retrain your knee to work properly. * It is just as important to make sure you are getting your knee perfectly straight as it is to regain your knee bend. * Taking a pain pill an hour before therapy can help you have a more productive and comfortable therapy session if needed. Home Exercise: * You were shown a series of exercises (heel props, heel slides, etc.) in the hospital. Do these exercises three to four times each day including the exercises you were shown in physical therapy. Walking: * Get up and walk several times each day. For the first four weeks, try not to stand or walk for more than one hour at a time. If you do stand or walk for more than one hour, you will not hurt anything, but your knee and leg will likely swell. * As you feel comfortable, you may change from the walker or crutches to a cane and then to independent walking. SELF CARE INSTRUCTIONS AFTER TOTAL KNEE REPLACEMENT A. You may need to continue a physical therapy program after discharge from the hospital. There are several options available to you. Your doctor will assist you in selecting the best one for you. 1. An out-patient facility 2 to 3 times a week for therapy or home therapy. 2. Continue working on all exercises taught to you in the hospital. Your goals should be to increase bending of your knee to 90 degrees and beyond and to fully straighten your knee. B. You may progress at your own pace from walking with a walker or crutches to a cane; then to no assistive devices. C. Make walking a part of your daily routine. Be up as much as comfortable with rest periods throughout the day. Rest with leg elevation is very important. Use the ice wrap frequently for the first 3-4 weeks. D. There are no restrictions on activities. You may ride in a car, shop, participate in knockout worker and all social activities. E. Wear the long elastic stockings (AMALIA hose) 20 hours a day for six weeks after surgery. They can be removed several times a day for laundering and for a shower. F. Do not place a pillow behind your knee when resting. A pillow at your ankle is okay. VERY IMPORTANT TO READ AND REVIEW A. There are a few signs you need to watch for after you are home. Call [facility] if you notice any of the followin. Increased severe knee pain. Some pain is expected especially when you exercise. 2. Increased swelling in your leg or knee; pain or swelling of the calf muscle in either lower leg. 3. Any fluid drainage from the incision. 4. Shortness of breath or chest pain. B. Please call [facility] at if you have any concerns or questions about your operation or recovery. The doctor or his nurse will return your call promptly. C. You must take antibiotics before dental work, bladder, bowel or other surgery. Call the office to obtain a prescription at least 2 days prior to your appointment. * CALL IF INCREASED PAIN, REDNESS, DRAINAGE OR FEVER GREATER THAT 101. * Sutures should be removed 12-14 days after surgery unless you are on chronic steroids, then it will be 14-18 days after surgery. Call your doctor if: * Temperature above 101 degrees F. * Pain not relieved by pain medicine ordered. * Increased drainage or redness from incision. * Notify your doctor with any questions or concerns. Start your Eliquis on Saturday use your walker for ambulation Use the knee immobilizer when out of bed on and Saturday. It can be discontinued on Saturday morning. follow up in the office in 2 weeks with Moody for staple removal as scheduled. Keep the bandage in place through the weekend. It can be changed on Saturday as needed for soiling. Pending Studies at Discharge: Yes (Bone pathology) Stand-Alone [facility], Smoking Cessation Medications and DC Order Prescriptions: No Action simvastatin 20 mg tablet 20 mg PO QPM Qty: 90 3RF ascorbic acid (vitamin C) 500 mg tablet 500 mg PO QAM multivitamin Tablet 1 tab PO QAM lutein 40 mg Capsule 40 mg PO QAM PreserVision AREDS-2 250-90-40-1 mg Capsule 1 tab PO BID cholecalciferol (vitamin D3) [Vitamin D3] 50 mcg (2,000 unit) Capsule 50 mcg PO QAM Admission Data Admit Date/Time: 11/28/22 08:49 Attending Provider: Mickey Robledo Admit Provider: Mickey Robledo Primary Care Provider: Juliet Ku Other Providers: [facility]
--- NOTE | 2022-11-28 08:52 | Operative Report ---
Post Operative Report Pre & Post Diagnosis Operation Date: 11/28/22 07:00 Pre-Op Diagnosis: Left Knee Degenerative Joint Disease Post-Op Diagnosis: Left Knee Degenerative Joint Disease I identified the patient and participated in the time-out.: Yes Procedure Operation Date: 11/28/22 07:00 Actual Procedures p Left Total Knee Arthroplasty, cemented(Left) - Mickey Robledo MD Surgeon HA Robledo MD Cat Scan Technologist Shaheen/Destiny CRAWFORD Estimated Blood Loss 25 Findings Consistent with Post-Op Diagnosis see operative report Specimens see operative report Drains none Complications none Disposition Accompanied Patient To Recovery: Yes Indications This 82 year old female presented to the office with complaints of persisting left knee pain. She had tried conservative care measures without improvement. She elected to proceed with surgical intervention after being educated about potential risks and outcomes. Preoperative imaging was obtained. Description of Procedure The patient was administered a spinal anesthetic and then taken to the operating room where she was given sedation. She was prepped and draped in the usual sterile fashion. Please see Dr. Robledo's operative report for specifics of the procedure. I was present for the entire case from initial patient positioning through final wound closure. Assistance was provided in tissue retraction, hemostasis, trial implant placement, final implant placement, and final wound closure. The patient was taken to the recovery room in satisfactory condition. I attest to the content of the Intraoperative Record and any orders documented therein. Any exceptions are noted below.
--- NOTE | 2022-11-28 08:53 | Operative Report ---
Post Operative Report Pre & Post Diagnosis Operation Date: 11/28/22 07:00 Pre-Op Diagnosis: Left Knee Degenerative Joint Disease Post-Op Diagnosis: Left Knee Degenerative Joint Disease I identified the patient and participated in the time-out.: Yes Procedure Operation Date: 11/28/22 07:00 Actual Procedures p Left Total Knee Arthroplasty, cemented(Left) - Mickey Robledo MD Surgeon Mickey Robledo MD Vascular Nurse Shaheen/Destiny Estimated Blood Loss 25 Findings Consistent with Post-Op Diagnosis Same as postop diagnosis. Specimens None Description of Procedure See detailed operative note. I attest to the content of the Intraoperative Record and any orders documented therein. Any exceptions are noted below.
--- NOTE | 2022-11-28 09:07 | XRay Report ---
XR knee LT 1 or 2V routine CLINICAL HISTORY: S/P L TKA TECHNIQUE: 2 views of the left knee were obtained. Comparison: Comparison is made to left knee radiographs 07/09/2022 FINDINGS: Patient is status post total knee arthroplasty with expected postsurgical changes including soft tiss ue swelling and subcutaneous emphysema. No periarticular lucency or hardware fracture is seen. IMPRESSION: Expected postoperative appearance status post placement of total knee arthroplasty. ACT 112: Negative or not required by law. Electronically signed by: Leodan Hull M.D. 11/28/2022 9:06 AM
[2022-11-28] MEDS ORDERED: VANCOMYCIN CONSULT ACTIVE PRN (10:28)
[2022-11-28] MEDS ORDERED: diphenhydrAMINE 50 MG/ML VIAL IV PRN (10:28)
[2022-11-28] MEDS ORDERED: MAGNESIUM HYDROXIDE SUSP 30 ML UDC PO PRN (10:28)
[2022-11-28] MEDS ORDERED: HYDROmorphone INJ 0.5 MG/0.5 ML SYR IV PRN (10:28)
[2022-11-28] MEDS ORDERED: SODIUM CHLORIDE 0.9% 1000ML 1,000 ML IV SCH (10:28)
[2022-11-28] MEDS ORDERED: bisacodyL 10 MG SUPP PR PRN (10:28)
[2022-11-28] MEDS ORDERED: ALUMINUM/MAGNESIUM SUSP 30 ML UDC PO PRN (10:28)
[2022-11-28] MEDS ORDERED: METOCLOPRAMIDE HCL INJ 5 MG/ML 2 ML VIAL IV PRN (10:28)
[2022-11-28] MEDS ORDERED: NALOXONE HCL 0.4 MG/1 ML VIAL/CARP IV PRN (10:28)
[2022-11-28] MEDS ORDERED: oxyCODONE HCL IR 5 MG TAB (IMMEDIATE RELEASE) PO PRN (10:28)
--- NOTE | 2022-11-28 10:28 | Anesthesiology Progress Note ---
Date of Service November 28, 2022 Anesthesia Post Procedure Vital Signs Vital Signs: Temp Pulse Resp BP Pulse Ox O2 Del Method O2 Flow Rate 11/28/22 09:40 71 18 119/59 L 98 Nasal Cannula 2 11/28/22 09:30 64 13 122/55 L 97 Nasal Cannula 2 11/28/22 09:00 69 22 119/61 92 Nasal Cannula 2 11/28/22 10:10 36.3 C L 62 14 108/66 96 Nasal Cannula 2 11/28/22 10:00 36.3 C L 68 19 134/60 96 Nasal Cannula 2 11/28/22 09:50 36.3 C L 72 12 116/58 L 97 Nasal Cannula 2 11/28/22 09:20 69 18 108/67 96 Nasal Cannula 2 11/28/22 09:10 74 12 93/66 L 95 Nasal Cannula 2 11/28/22 08:50 76 18 121/62 93 Room Air 11/28/22 08:41 36.3 C L 70 16 117/69 98 Oxymask 5 11/28/22 05:46 36.9 C 68 20 154/73 H 94 Room Air Transfer of Care Handoff Completed per policy Notes Mental Status: alert / awake / arousable Patient Amnestic to Procedure: Yes Nausea / Vomiting: adequately controlled Pain: adequately controlled Airway Patency, RR, SpO2: stable & adequate BP & HR: stable & adequate Hydration State: stable & adequate Neuraxial Anesthesia: was administered and sensory block is resolving Anesthetic Complications: no major complications apparent and Pt Satisfied with anesthetic care
[2022-11-28] MEDS: DOCUSATE SODIUM 100 MG CAP PO SCH ×2 (11:44→21:11)
[2022-11-28] MEDS: KETOROLAC TROMETHAMINE 15 MG/ML VIAL IV SCH ×3 (11:44→21:22)
[2022-11-28] MEDS: MULTIVITAMIN TAB PO SCH (11:44)
[2022-11-28] MEDS: ACETAMINOPHEN 500 MG TAB PO SCH ×2 (13:40→21:11)
[2022-11-28] MEDS: ceFAZolin 2000MG 2,000 MG/15 ML SYR IV SCH ×2 (13:43→21:20)
[2022-11-28] MEDS: FERROUS GLUCONATE 324 MG TAB PO SCH (16:01)
[2022-11-28] MEDS: ASCORBIC ACID 500 MG TAB PO SCH (16:01)
[2022-11-28] MEDS ORDERED: VANCOMYCIN HCL 1,000 MG in SODIUM CHLORIDE 0.9% 500 ML IV SCH (18:45)
[2022-11-28] MEDS ORDERED: SIMVASTATIN 20 MG TAB PO SCH (21:00)
[2022-11-28] MEDS ORDERED: SENNA 8.6 MG TAB PO SCH (21:00)
[2022-11-29] MEDS: ACETAMINOPHEN 500 MG TAB PO SCH (05:57)
[2022-11-29] MEDS: KETOROLAC TROMETHAMINE 15 MG/ML VIAL IV SCH (05:58)
--- NOTE | 2022-11-29 06:59 | Orthopedic Progress Note ---
Date of Service November 29, 2022 Assessment & Plan (1) Osteoarthritis of left knee: Plan: PRE-OP Diagnosis: Left knee osteoarthritis Planned Procedure: Left total knee arthroplasty Plan: Patient is scheduled to undergo this procedure at the [facility] with Dr. Robledo on November 28, 2022. Risks and complications of the procedure such as: Infection, bleeding, pain, scarring, nerve blood vessel damage, weakness, wound problems, stiffness, incomplete relief of symptoms, hardware failure, hardware loosening, wear, fracture, tendon or ligament injury, blood clots, embolism, cardiac, stroke and were explained to the patient at her visit today. Informed consent will be obtained with Dr. Robledo present on the morning of surgery.. Patient also understands risks of proceeding with surgical intervention during the COVID-19 pandemic. Currently she is asymptomatic and states that she has not been in contact with anyone positive for the virus recently. We will need to obtain preoperative medical clearance from the patient's primary care provider. Patient is scheduled to meet with anesthesia at the hospital later this morning. While there she will obtain a CBC with differential, complete metabolic panel, PT/INR, blood type and screen, urinalysis, urine culture and sensitivity, EKG and a chest x-ray. During today's visit we reviewed the total knee packet. I provided the patient with paperwork to obtain obtaining a handicap placard for her vehicle. I provided her with information about lectures offered by [facility] in regards to joint replacement surgery. Patient has a walker that she will bring with her on the morning of surgery. I recommended that she purchase a shower chair and raised toilet seat. We discussed discharge planning from the hospital. Patient states she will most likely do in-home physical therapy for the first 2 weeks before transitioning to outpatient physical therapy at our PT clinic. I advised the patient that she will be provided with a prescription for narcotic pain medication for postoperative pain control. We will have her on Coumadin for blood clot prevention and will most likely transition her to adult strength aspirin for 4 additional weeks after completion of 4 weeks of Coumadin therapy. Patient verbalized understanding of all information provided during today's visit. She thanks for the care that she received. If she has questions or concerns prior to her surgery, she will contact clinic. Patient be scheduled for 2-week postoperative follow-up visit with Moody Dixon PA-C on December 13. This chart was completed utilizing [employer] voice recognition software. Grammatical errors, random word insertions, pronoun errors, and in complete sentences are an occasional consequence of the system. Any questions or concerns about the content, text, or information contained within the body of this dictation should be addressed directly to the physician for clarification. Plan Continue total knee care pathway outpatient discharge to home. Admission and Anticipated Discharge Date Admission Date: November 28, 2022 Orthopedic Progress Note Postop day #1 status post cemented left total knee replacement. Patient denies any chest pain shortness of breath fever chills nausea vomiting or headache. She states her knee feels quite comfortable she has not required much medication. Vital signs are stable she is afebrile. Neurovascular check femoral sciatic nerve is normal. Wound dressing clean and dry. Calves nontender. Can do a straight leg raise. Can flex easily to 80 degrees. Assessment doing well status post cemented left total knee replacement plan is to change dressing today start her Eliquis discharge after PT. Follow-up in 2 weeks for staple removal.
[2022-11-29 07:36] LABS: Hematocrit (blood only) 37.5 % (37.0-47.0); Hemoglobin 12.4 g/dl (12.0-16.0); Mean Corpuscular Hemoglobin 28.2 pg (25.0-34.0); Mean Corpuscular Hgb Conc 33.1 g/dL (32.0-36.0); Mean Corpuscular Volume 85.4 fL (80.0-100.0); Mean Platelet Volume 10.4 fL (9.4-12.4); Platelet Count 228 K/uL (130-400); RDW Coefficient of Variation 13.3 % (11.5-14.5); RDW Standard Deviation 41.7 fL (36.4-46.3); Red Blood Count 4.39 M/uL (4.20-5.40); White Blood Count 14.01 K/ul (4.8-10.8)
[2022-11-29 08:04] LABS: BUN Creatinine Ratio 27.6 (10-20); Calcium 9.2 mg/dl (8.6-10.3); Creatinine Clr Calc Pharmacy 46.8 ml/min; Est GFR (African American) 85.9 ml/min; Est GFR (Non-African American) 74.1 ml/min; Potassium 4.2 mmol/L (3.5-5.1)
[2022-11-29] MEDS: ASCORBIC ACID 500 MG TAB PO SCH (08:09)
[2022-11-29] MEDS: dexAMETHasone 10 MG in SYRINGE 0 ML IV SCH ×2 (08:09→09:08)
[2022-11-29] MEDS: DOCUSATE SODIUM 100 MG CAP PO SCH (08:09)
[2022-11-29] MEDS: FERROUS GLUCONATE 324 MG TAB PO SCH (08:10)
[2022-11-29] MEDS: MULTIVITAMIN TAB PO SCH (08:10)
[2022-11-29] MEDS ORDERED: dexAMETHasone 4 MG TAB PO ONE (08:21)
[2022-11-29] MEDS ORDERED: APIXABAN 2.5 MG TAB PO SCH (09:00)
--- NOTE | 2022-11-29 09:19 | Orthopedic Progress Note ---
Date of Service November 29, 2022 Assessment & Plan (1) Status post total knee replacement: Plan: POD1 s/p total knee arthroplasty, left WBAT with walker Knee immobilizer until Saturday PT/OT Diet - regular Frequently ice and elevate with blankets stacked under ankle DVT prophylaxis: Eliquis 2.5mg BID x 6 weeks, TEDS x 6 weeks. Patient received first dose of Eliquis and will take second dose this evening Pain control: Percocet as rx Dressing: new dressing applied today and thigh high amalia Discharge home with home health x 2 weeks Follow up as scheduled with [facility] in 2 weeks Admission and Anticipated Discharge Date Admission Date: November 28, 2022 Subjective Pt was seen and examined bedside. POD #1 s/p LTKA. Pt was admitted last night for observation. No major events over night. Vitals are stable. Labs unremarkable. X-rays show normal post operative changed. Pt reports they are doing well and pain is controlled. They are tolerating PO intake and voiding adequate amounts. Working well with PT/OT. Pt denies F/C, N/V/D, SOB, CP. Pt deemed medically stable and ready for discharge. Physical Exam Physical Exam: General: Pt laying in hospital bed AA&O, in NAD, calm and cooperative during exam Lower Extremity: Dressing in tact and not saturated. Incisions clean, dry and with minimal drainage and no surrounding erythema, warmth or purulent drainage. Pt has full ROM of ankle and all 5 digits. Pt has 5/5 strength with resisted DF/PF. SLR in tact. Calf supple and non tender. NVI with sensation to light touch distally and good distal pulses present. Lower extremity noted to have good color and temperature with no signs of vascular or lymphatic insufficiency. New dressing applied today and AMALIA thigh high was placed Results & Data Vital Signs (Past 12 Hours) Vital Signs Temp Pulse Resp BP BP Pulse Ox O2 Del Method 11/29/22 06:05 36.5 C 65 16 121/69 94 Room Air 11/29/22 02:55 36.8 C 74 18 113/65 92 Room Air 11/28/22 22:56 36.6 C 62 18 107/62 94 Room Air Laboratory Results 11/29/22 11/29/22 Range/Units 07:18 07:18 WBC 14.01 H (4.8-10.8) K/ul RBC 4.39 (4.20-5.40) M/uL Hgb 12.4 (12.0-16.0) g/dl Hct 37.5 (37.0-47.0) % MCV 85.4 (80.0-100.0) fL MCH 28.2 (25.0-34.0) pg MCHC 33.1 (32.0-36.0) g/dL RDW Std Deviation 41.7 (36.4-46.3) fL RDW Coeff of Marcy 13.3 (11.5-14.5) % Plt Count 228 (130-400) K/uL MPV 10.4 (9.4-12.4) fL Sodium 140 (136-145) mmol/L Potassium 4.2 (3.5-5.1) mmol/L Chloride 112 H (98-107) mmol/L Carbon Dioxide 22 (21-32) mmol/L Anion Gap 6 (3-11) BUN 21 (6-23) mg/dl Creatinine 0.76 (0.6-1.2) mg/dl Est Cr Clr Drug Dosing 46.8 ml/min Est GFR ( Amer) 85.9 ml/min Est GFR (Non-Af Amer) 74.1 ml/min BUN/Creatinine Ratio 27.6 H (10-20) Glucose 118 H (70-99(Fasting)) mg/dl Calcium 9.2 (8.6-10.3) mg/dl
== END 2022-11-29 11:56 | disposition home health service (06) ==
LOC: ASU 05:02 → 3E 05:02
DX: R00.1 Bradycardia, unspecified; Z79.899 Other long term (current) drug therapy; Z91.040 Latex allergy status; M17.12 Unilateral primary osteoarthritis, left knee; M65.9 Synovitis and tenosynovitis, unspecified